=== PATIENT | female | born 1980 | race Hispanic/Latino ===

== ENCOUNTER 2018-09-23 16:22 | Emergency (ER) | payer SELFPAY ==
--- NOTE | 2018-09-23 17:27 | RAD REPORT ---
EXAM DESCRIPTION: CT - Head Brain Wo Cont - 09/23/2018 5:18 pm CLINICAL HISTORY: Persistent right-sided headache COMPARISON: None. TECHNIQUE: Axial 5 mm thick images of the head were obtained without IV contrast. All CT scans are performed using dose optimization technique as appropriate and may include automated exposure control or mA/KV adjustment according to patient size. FINDINGS: No intracranial hemorrhage, mass, edema or shift of mid-line structures. No acute infarcti on changes seen. No abnormal extra-axial fluid collections. Ventricles are normal. Mastoid air cells and visualized portions of the paranasal sinuses are clear. No acute bony findings. IMPRESSION: Negative non-contrast CT head examination.
[2018-09-23] MEDS ORDERED: KETOROLAC 30 MG/ML INJ ONE (17:44)
[2018-09-23] MEDS ORDERED: DIPHENHYDRAMINE 50 MG/ML VIAL ONE (17:44)
[2018-09-23] MEDS ORDERED: NA CHLORIDE 0.9% 1,000 ML ONE (17:44)
[2018-09-23] MEDS ORDERED: NA CHLORIDE 0.9% 50 ML IV ONE (17:44)
[2018-09-23] MEDS ORDERED: METOCLOPRAMIDE 10 MG/2mL INJ ONE (17:44)
[2018-09-23 17:49] LABS: Absolute Lymphocytes (CBC) 1.7 K/uL (0.7-4.9); Absolute Monocytes 0.3 K/uL (0.1-1.3); Basophils % 0.2 % (0-1.3); Eosinophils % 2.1 % (0-4.4); Hematocrit 34.3 % (36.0-45.0); Lymphocytes % 23.4 % (15.3-44.8); MPV 8.5 fL (7.6-11.3); RBC Red Blood Cell Count 4.19 M/uL (3.86-4.86)
[2018-09-23 18:01] LABS: ALT/SGPT 28 U/L (12-78); AST/SGOT 15 U/L (15-37); Albumin 3.1 g/dL (3.4-5.0); Alkaline Phosphatase 103 U/L (45-117); BUN Blood Urea Nitrogen 12 mg/dL (7-18); Bicarbonate 26 mmol/L (21-32); Bilirubin Total 0.3 mg/dL (0.2-1.0); Glucose Level 275 mg/dL (74-106); Potassium 3.6 mmol/L (3.5-5.1); Protein, Total 6.9 g/dL (6.4-8.2); Sodium Level 138 mmol/L (136-145)
[2018-09-23 20:32] LABS: Urine Blood NEGATIVE (NEG); Urine Glucose 3+ (NEG); Urine Protein NEGATIVE (NEG); Urine Specific Gravity 1.015 (1.005-1.030); Urine pH 5.5 (5.0-7.0)
--- NOTE | 2018-09-23 21:03 | ER ---
Nurse's Notes [facility] Name: Marisabel Landon Age: 38 yrs Sex: Female : 1980 Arrival Date: 09/23/2018 Time: 16:26 Bed 20 Private MD: None, None Diagnosis: Migraine without aura Presentation: 09/23 16:30 Presenting complaint: Patient states: headache to right synagogue that began yesterday. aa5 Reports nausea, denies vomiting. Pt reports she has been taking Amoxicillin since 09/03/18, pt states "they told me the antibiotics were for a bacteria in my stomach". 16:30 Transition of care: patient was not received from another setting of care. Onset of aa5 symptoms was August 2018. Risk Assessment: Do you want to hurt yourself or someone else? Patient reports no desire to harm self or others. Care prior to arrival: None. 16:30 Method Of Arrival: Wheelchair aa5 16:30 Acuity: JEYSON 3 aa5 16:50 Initial Sepsis Screen: Does the patient meet any 2 criteria? No. Patient's initial mg2 sepsis screen is negative. Does the patient have a suspected source of infection? No. Patient's initial sepsis screen is negative. Triage Assessment: 16:57 Headache History: The patient has had previous headaches and this one is similar to mg2 previous episodes. General: Behavior is calm, cooperative. Pain: Complains of pain in head Also complains of nausea. 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 - Social history:: Smoking status: Patient/guardian denies using tobacco, Patient/guardian denies using alcohol, street drugs, The patient lives with family. - Ebola Screening: : No symptoms or risks identified at this time. - Family history:: not pertinent. Screenin:45 Abuse screen: Denies threats or abuse. Denies injuries from another. Nutritional mg2 screening: No deficits noted. Tuberculosis screening: No symptoms or risk factors identified. Fall Risk None identified. Assessment: 16:43 General: Appears comfortable, Behavior is calm, cooperative. Pain: Complains of pain in mg2 head Pain does not radiate. Pain currently is 10 out of 10 on a pain scale. Quality of pain is described as aching, Pain began gradually, 1 day ago. Is intermittent. Neuro: Level of Consciousness is awake, alert, obeys commands, Oriented to person, place, time, situation. Cardiovascular: Capillary refill < 3 seconds Patient's skin is warm and dry. Respiratory: Airway is patent Respiratory effort is even, unlabored, Respiratory pattern is regular, symmetrical. GI: Reports nausea. : No signs and/or symptoms were reported regarding the genitourinary system. EENT: No signs and/or symptoms were reported regarding the EENT system. Derm: Skin is intact, is healthy with good turgor, Skin is pink, warm \\T\\ dry. normal. Musculoskeletal: Circulation, motion, and sensation intact. Capillary refill < 3 seconds. 19:05 General: Appears in no apparent distress. comfortable, Behavior is calm, cooperative, rr5 appropriate for age. Pain: Denies pain. Neuro: Level of Consciousness is awake, alert, obeys commands, Oriented to person, place, time, situation, Reports headache. Cardiovascular: Capillary refill < 3 seconds Patient's skin is warm and dry. 19:05 Respiratory: Airway is patent Respiratory effort is even, unlabored, Respiratory rr5 pattern is regular, symmetrical. GI: Reports nausea. : No signs and/or symptoms were reported regarding the genitourinary system. EENT: No signs and/or symptoms were reported regarding the EENT system. Derm: Skin is intact, is healthy with good turgor, Skin is pink, warm \\T\\ dry. normal. Musculoskeletal: Circulation, motion, and sensation intact. Capillary refill < 3 seconds. 20:15 Reassessment: Patient appears in no apparent distress at this time. Patient is alert, rr5 oriented x 3, equal unlabored respirations, skin warm/dry/pink. Patient states feeling better. Patient states symptoms have improved. 21:22 Reassessment: Patient appears in no apparent distress at this time. Patient is alert, rr5 oriented x 3, equal unlabored respirations, skin warm/dry/pink. discharge instruction given and explained without complaints made. Patient states feeling better. Patient states symptoms have improved. Vital Signs: 16:30 Weight 85.28 kg (R); Height 5 ft. 1 in. (154.94 cm) (R); Pain 10/10; aa5 16:41 BP 134 / 84; Pulse 79; Resp 18; Temp 97.8; Pulse Ox 100% on R/A; mg2 19:05 BP 131 / 80; Pulse 70; Resp 17; Temp 98; Pulse Ox 98% ; rr5 20:00 BP 130 / 83; Pulse 78; Resp 16; Pulse Ox 98% ; rr5 21:21 BP 127 / 78; Pulse 66; Resp 17; Pulse Ox 99% ; rr5 16:30 Body Mass Index 35.52 (85.28 kg, 154.94 cm) aa5 [place]leen Coma Score: 18:11 Eye Response: spontaneous(4). Verbal Response: oriented(5). Motor Response: obeys ma2 commands(6). Total: 15. ED Course: 16:26 Patient arrived in ED. mr 16:26 None, None is Private Physician. mr 16:30 Arm band placed on Patient placed in an exam room, on a stretcher. aa5 16:32 Nico Jesus RN is Primary Nurse. mg2 16:36 Triage completed. aa5 16:38 Aminata Bond MD is Attending Physician. ma2 16:45 No provider procedures requiring assistance completed. mg2 16:52 Patient has correct armband on for positive identification. mg2 17:[address] via wheelchair. vm2 17:16 CT completed. Patient tolerated procedure well. Patient moved back from CT. vm2 17:17 CT Head Brain wo Cont In Process Unspecified. EDMS 17:43 Inserted saline lock: 20 gauge in right antecubital area, using aseptic technique. mg2 Blood collected. 21:23 IV discontinued, intact, bleeding controlled, No redness/swelling at site. Pressure rr5 dressing applied. Administered Medications: 17:41 Drug: Benadryl 50 mg Route: IVP; Site: right antecubital; mg2 20:04 Follow up: Response: No adverse reaction; Marked relief of symptoms mg2 17:41 Drug: TORadol 30 mg Route: IVP; Site: left antecubital; mg2 20:03 Follow up: Response: No adverse reaction; Marked relief of symptoms mg2 17:42 Drug: NS 0.9% 1000 ml Route: IV; Rate: 1 bolus; Site: right antecubital; mg2 20:04 Follow up: Response: No adverse reaction; IV Status: Completed infusion mg2 17:42 Drug: Reglan 10 mg Route: IVP; Site: right antecubital; mg2 20:04 Follow up: Response: No adverse reaction; Marked relief of symptoms mg2 Point of Care Testing: Blood Glucose: 16:41 Blood Glucose: 207 mg/dL; mg2 Ranges: Outcome: 21:03 Discharge ordered by . [email or web address] 21:23 Discharged to home ambulatory, with family. rr5 21:23 Condition: stable 21:23 Discharge instructions given to patient, family, Instructed on discharge instructions, follow up and referral plans. medication usage, Demonstrated understanding of instructions, follow-up care, medications, Prescriptions given X 1. 21:25 Patient left the ED. rr5 Signatures: Dispatcher [employer] EDAR Bere Magallanes WaleSera, RN RN aa5 Sara Peter Mohammad, MD MD ma2 Nico Jesus RN RN mg2 Todd Causey RN RN rr5
--- NOTE | 2018-09-23 21:04 | EDPHYS ---
Physician Documentation [facility] Name: Marisabel Landon Age: 38 yrs Sex: Female : 1980 Arrival Date: 09/23/2018 Time: 16:26 Bed 20 Private MD: None, None ED Physician Aminata Bond HPI: 09/23 18:11 This 38 yrs old Female presents to ER via Wheelchair with complaints of ma2 Headache. 18:11 The patient complains of pain to the forehead. Onset: The symptoms/episode ma2 began/occurred gradually, 2 day(s) ago. Severity of symptoms: At its worst the pain was moderate, in the emergency department the pain has improved. Headache History: The patient has had previous headaches and this one is similar to previous episodes. The patient has experienced similar episodes in the past. 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 - Social history:: Smoking status: Patient/guardian denies using tobacco, Patient/guardian denies using alcohol, street drugs, The patient lives with family. - Ebola Screening: : No symptoms or risks identified at this time. - Family history:: not pertinent. ROS: 18:11 Constitutional: Negative for fever, chills, and weight loss. ma2 18:11 Neuro: Positive for headache, Negative for dizziness, gait disturbance, hearing loss, numbness, syncope, tremor, acute changes. 18:11 All other systems are negative. Exam: 18:11 Constitutional: This is a well developed, well nourished patient who is awake, alert, ma2 and in no acute distress. Chest/axilla: Normal chest wall appearance and motion. Nontender with no deformity. No lesions are appreciated. Cardiovascular: Regular rate and rhythm with a normal S1 and S2. No gallops, murmurs, or rubs. Normal PMI, no JVD. No pulse deficits. Respiratory: Lungs have equal breath sounds bilaterally, clear to auscultation and percussion. No rales, rhonchi or wheezes noted. No increased work of breathing, no retractions or nasal flaring. Abdomen/GI: Soft, non-tender, with normal bowel sounds. No distension or tympany. No guarding or rebound. No evidence of tenderness throughout. MS/ Extremity: Pulses equal, no cyanosis. Neurovascular intact. Full, normal range of motion. Neuro: Awake and alert, GCS 15, oriented to person, place, time, and situation. Cranial nerves II-XII grossly intact. Motor strength 5/5 in all extremities. Sensory grossly intact. Cerebellar exam normal. Normal gait. Vital Signs: 16:30 Weight 85.28 kg (R); Height 5 ft. 1 in. (154.94 cm) (R); Pain 10/10; aa5 16:41 BP 134 / 84; Pulse 79; Resp 18; Temp 97.8; Pulse Ox 100% on R/A; mg2 19:05 BP 131 / 80; Pulse 70; Resp 17; Temp 98; Pulse Ox 98% ; rr5 20:00 BP 130 / 83; Pulse 78; Resp 16; Pulse Ox 98% ; rr5 21:21 BP 127 / 78; Pulse 66; Resp 17; Pulse Ox 99% ; rr5 16:30 Body Mass Index 35.52 (85.28 kg, 154.94 cm) aa5 [place] Coma Score: 18:11 Eye Response: spontaneous(4). Verbal Response: oriented(5). Motor Response: obeys [facility] commands(6). Total: 15. MDM: 16:[address] [facility] 18:11 Differential diagnosis: hypoglycemia, hyponatremia, sinusitis, tension headache. me2 21:02 Data reviewed: vital signs, nurses notes. Counseling: I had a detailed discussion with ma2 the patient and/or guardian regarding: the historical points, exam findings, and any diagnostic results supporting the discharge/admit diagnosis, the presence of at least one elevated blood pressure reading (>120/80) during this emergency department visit, the need for outpatient follow up. Response to treatment: the patient's symptoms have markedly improved after treatment. 09/23 17:08 Order name: CBC with Diff; Complete Time: 19:31 [facility] 09/23 17:08 Order name: CMP; Complete Time: 19:31 [facility] 09/23 17:08 Order name: CT Head Brain wo Cont; Complete Time: : [facility] 09/23 19:56 Order name: Urine Dipstick--Ancillary (enter results) [facility] 09/23 19:56 Order name: Urine --Ancillary (enter results) [facility] 09/23 17:08 Order name: Urine Dipstick-Ancillary (obtain specimen); Complete Time: 19:49 ma2 Administered Medications: 17:41 Drug: Benadryl 50 mg Route: IVP; Site: right antecubital; mg2 20:04 Follow up: Response: No adverse reaction; Marked relief of symptoms mg2 17:41 Drug: TORadol 30 mg Route: IVP; Site: left antecubital; mg2 20:03 Follow up: Response: No adverse reaction; Marked relief of symptoms mg2 17:42 Drug: NS 0.9% 1000 ml Route: IV; Rate: 1 bolus; Site: right antecubital; mg2 20:04 Follow up: Response: No adverse reaction; IV Status: Completed infusion mg2 17:42 Drug: Reglan 10 mg Route: IVP; Site: right antecubital; mg2 20:04 Follow up: Response: No adverse reaction; Marked relief of symptoms mg2 Point of Care Testing: Blood Glucose: 16:41 Blood Glucose: 207 mg/dL; mg2 Ranges: Critical Glucose Levels:Adult <50 mg/dl or >400 mg/dl <40 mg/dl or >180 mg/dl Disposition: 09/23/18 21:03 Discharged to Home. Impression: Migraine without aura. - Condition is Stable. - Discharge Instructions: Migraine Headache. - Prescriptions for Reglan 10 mg Oral Tablet - take 1 tablet by ORAL route every 6 hours take 30 minutes before meals and at bedtime; 20 tablet. - Medication Reconciliation Form, Thank You Letter, Antibiotic Education, Prescription Opioid Use form. - Follow up: Private Physician; When: Tomorrow; Reason: Continuance of care. Signatures: Dispatcher [employer] EDMS Sera Echevarria RN RN aa5 Aminata Bond MD MD ma2 Nico Jesus RN RN mg2 Todd Causey RN RN rr5 Corrections: (The following items were deleted from the chart) 21:25 21:03 09/23/2018 21:03 Discharged to Home. Impression: Migraine without aura. Condition rr5 is Stable. Forms are Medication Reconciliation Form, Thank You Letter, Antibiotic Education, Prescription Opioid Use. Follow up: Private Physician; When: Tomorrow; Reason: Continuance of care. ma2
== END 2018-09-23 21:25 | disposition home or self-care (01) ==
LOC: ER 16:22
DX: G43.009 Migraine without aura, not intractable, without status migrainosus (principal); I10 Essential (primary) hypertension
CPT/HCPCS: 36415; 70450; 80053; 81003; 81025; 82962; 85025; 99284; J2765; J7030

== ENCOUNTER 2023-05-18 10:16 | Observation (INO) | payer SELFPAY ==
--- OUTSIDE RECORDS SUMMARY | 2023-05-18 10:27 | XMS REPORT | Continuity of Care Document ---
:1980 Author Organization [facility] t Address [address] [place] [address] Care Team Providers Name Role Phone Randa Nair Primary Care Physician [phone] Problems This patient has no known problems. Allergies, Adverse Reactions, Alerts This patient has no known allergies or adverse reactions. Medications Ordered Filled Start Stop Current Ordering Indication Dosage Frequency Signature Comments Components Source Medication Medication Date Date Medication? Clinician (SIG) Name Name ROCHELLE FAHAD No TABLETA 8-18 ORALMENTE 00:00: CADA KRISTOPHER AL 00 ACOSTARSE WILY SEA NECESARIO PARA ESPASMOS MUSCULARES ROCHELLE FAHAD 0 No 5 TABLETA 8-18 ORALMENTE 00:00: MARVIN VECES 00 AL KRISTOPHER WILY SEA NECESARIO PARA ESPASMOS MUSCULARES ROCHELLE FAHAD 0 No 5 TABLETA 8-18 ORALMENTE 00:00: MARVIN VECES 00 AL KRISTOPHER WILY SEA NECESARIO PARA ESPASMOS MUSCULARES TAKE No 600 TABLET 7-22 TWICE 00:00: DAILY. 00 25 UNITS AT 2021-0 No 100 NIGHT SC 7-22 00:00: 00 TAKE 2021-0 No 600 TABLET 7-22 TWICE 00:00: DAILY. 00 25 UNITS AT 2021-0 No 100 NIGHT SC 7-22 00:00: 00 TAKE 2021-0 No 600 TABLET 7-22 TWICE 00:00: DAILY. 00 25 UNITS AT 2021-0 No 100 NIGHT SC 7-22 00:00: 00 TAKE 0 No 600 TABLET 7-22 TWICE 00:00: DAILY. 00 25 UNITS AT 2021-0 No 100 NIGHT SC 7-22 00:00: 00 Janumet 50 0 No 1mg mg-1,000 mg 3-28 tablet 00:00: 00 Dose 2022-0 No Unknown 3-28 00:00: 00 Janumet 50 2-0 No 1mg mg-1,000 mg 3-28 tablet 00:00: 00 Dose 2022-0 No Unknown 3-28 00:00: 00 Janumet 50 2022-0 No 1mg mg-1,000 mg 3-28 tablet 00:00: 00 Dose 2022-0 No Unknown 3-28 00:00: 00 Janumet 50 2022-0 No 1mg mg-1,000 mg 3-28 tablet 00:00: 00 Dose 2022-0 No Unknown 3-28 00:00: 00 Dose 2022-0 No Unknown 3-08 00:00: 00 Dose 2022-0 No Unknown 3-08 00:00: 00 Dose 2022-0 No Unknown 3-08 00:00: 00 Dose 2022-0 No Unknown 3-08 00:00: 00 Dose 2022-0 No Unknown 3-08 00:00: 00 Dose 2022-0 No Unknown 3-08 00:00: 00 Dose 2022-0 No Unknown 3-08 00:00: 00 Dose 2022-0 No Unknown 3-08 00:00: 00 Levemir 2-0 No (3 mL) FlexTouch 3-07 U-100 00:00: Insulin 100 00 unit/mL (3 mL) subcutaneou s pen Levemir 2-0 No (3 mL) FlexTouch 3-07 U-100 00:00: Insulin 100 00 unit/mL (3 mL) subcutaneou s pen Levemir 2-0 No (3 mL) FlexTouch 3-07 U-100 00:00: Insulin 100 00 unit/mL (3 mL) subcutaneou s pen Levemir 2022-0 No (3 mL) FlexTouch 3-07 U-100 00:00: Insulin 100 00 unit/mL (3 mL) subcutaneou s pen penicillin 1-1 No 1mg V potassium 2-07 500 mg 00:00: tablet 00 benzonatate 2020-1 No 1mg 100 mg 2-07 capsule 00:00: 00 penicillin 1-1 No 1mg V potassium 2-07 500 mg 00:00: tablet 00 benzonatate 2021-1 No 1mg 100 mg 2-07 capsule 00:00: 00 penicillin 2020- No 1mg V potassium 2-07 500 mg 00:00: tablet 00 benzonatate 2020-07 No 1mg 100 mg 2-07 capsule 00:00: 00 penicillin 2020- No 1mg V potassium 2-07 500 mg 00:00: tablet 00 benzonatate 2020-07 No 1mg 100 mg 2-07 capsule 00:00: 00 diclofenac 2020-07 No 1% 1 % topical 1-15 gel 00:00: 00 Levemir 2020-07 No (3 mL) FlexTouch 1-15 U-100 00:00: Insulin 100 00 unit/mL (3 mL) subcutaneou s pen metformin 2020-07 No 1mg 850 mg 1-15 tablet 00:00: 00 gemfibrozil 2020-07 No 1mg 600 mg 1-15 tablet 00:00: 00 diclofenac 2020-07 No 1% 1 % topical 1-15 gel 00:00: 00 Levemir 2020-07 No (3 mL) FlexTouch 1-15 U-100 00:00: Insulin 100 00 unit/mL (3 mL) subcutaneou s pen metformin 2020-07 No 1mg 850 mg 1-15 tablet 00:00: 00 gemfibrozil 2020-07 No 1mg 600 mg 1-15 tablet 00:00: 00 diclofenac 2020-07 No 1% 1 % topical 1-15 gel 00:00: 00 Levemir 2020-07 No (3 mL) FlexTouch 1-15 U-100 00:00: Insulin 100 00 unit/mL (3 mL) subcutaneou s pen metformin 2020- No 1mg 850 mg 1-15 tablet 00:00: 00 gemfibrozil 2020- No 1mg 600 mg 1-15 tablet 00:00: 00 diclofenac 2020- No 1% 1 % topical 1-15 gel 00:00: 00 Levemir 2020-07 No (3 mL) FlexTouch 1-15 U-100 00:00: Insulin 100 00 unit/mL (3 mL) subcutaneou s pen metformin 2020- No 1mg 850 mg 1-15 tablet 00:00: 00 gemfibrozil 2020-1 No 1mg 600 mg 1-15 tablet 00:00: 00 cholecalcif 2021-0 No 1(50,00 shakila 6-29 0 unit) (vitamin 00:00: D3) 1,250 00 mcg (50,000 unit) tablet cholecalcif 1-0 No 1(50,00 shakila 6-29 0 unit) (vitamin 00:00: D3) 1,250 00 mcg (50,000 unit) tablet cholecalcif 2021-0 No 1(50,00 shakila 6-29 0 unit) (vitamin 00:00: D3) 1,250 00 mcg (50,000 unit) tablet cholecalcif 1-0 No 1(50,00 shakila 6-29 0 unit) (vitamin 00:00: D3) 1,250 00 mcg (50,000 unit) tablet Levemir 1-0 No (3 mL) FlexTouch 6-28 U-100 00:00: Insulin 100 00 unit/mL (3 mL) subcutaneou s pen gemfibrozil 2021-0 No 1mg 600 mg 6-28 tablet 00:00: 00 metformin 2021-0 No 1mg 850 mg 6-28 tablet 00:00: 00 Levemir 2021-0 No (3 mL) FlexTouch 6-28 U-100 00:00: Insulin 100 00 unit/mL (3 mL) subcutaneou s pen gemfibrozil 2021-0 No 1mg 600 mg 6-28 tablet 00:00: 00 metformin 2021-0 No 1mg 850 mg 6-28 tablet 00:00: 00 Levemir 2021-0 No (3 mL) FlexTouch 6-28 U-100 00:00: Insulin 100 00 unit/mL (3 mL) subcutaneou s pen gemfibrozil 2021-0 No 1mg 600 mg 6-28 tablet 00:00: 00 metformin 2021-0 No 1mg 850 mg 6-28 tablet 00:00: 00 Levemir 2021-0 No (3 mL) FlexTouch 6-28 U-100 00:00: Insulin 100 00 unit/mL (3 mL) subcutaneou s pen gemfibrozil 2021-0 No 1mg 600 mg 6-28 tablet 00:00: 00 metformin 2021-0 No 1mg 850 mg 6-28 tablet 00:00: 00 Levemir 2021-0 No 12(3 FlexTouch 4-07 mL) U-100 00:00: Insulin 100 00 unit/mL (3 mL) subcutaneou s pen metformin 2021-0 No 1mg 850 mg 4-07 tablet 00:00: 00 gemfibrozil 2021-0 No 1mg 600 mg 4-07 tablet 00:00: 00 Levemir 2021-0 No 12(3 FlexTouch 4-07 mL) U-100 00:00: Insulin 100 00 unit/mL (3 mL) subcutaneou s pen metformin 2021-0 No 1mg 850 mg 4-07 tablet 00:00: 00 gemfibrozil 2021-0 No 1mg 600 mg 4-07 tablet 00:00: 00 Levemir 2021-0 No 12(3 FlexTouch 4-07 mL) U-100 00:00: Insulin 100 00 unit/mL (3 mL) subcutaneou s pen metformin 2021-0 No 1mg 850 mg 4-07 tablet 00:00: 00 gemfibrozil 2021-0 No 1mg 600 mg 4-07 tablet 00:00: 00 Levemir 2021-0 No 12(3 FlexTouch 4-07 mL) U-100 00:00: Insulin 100 00 unit/mL (3 mL) subcutaneou s pen metformin 2021-0 No 1mg 850 mg 4-07 tablet 00:00: 00 gemfibrozil 2021-0 No 1mg 600 mg 4-07 tablet 00:00: 00 Augmentin 2021-0 No 1mg 500 mg-125 2-16 mg tablet 00:00: 00 Augmentin 2021-0 No 1mg 500 mg-125 2-16 mg tablet 00:00: 00 Augmentin 2021-0 No 1mg 500 mg-125 2-16 mg tablet 00:00: 00 Augmentin 2021-0 No 1mg 500 mg-125 2-16 mg tablet 00:00: 00 Vitamin D2 2021-0 No 1(50,00 1,250 mcg 1-20 0 unit) (50,000 00:00: unit) 00 capsule Vitamin D2 2021-0 No 1(50,00 1,250 mcg 1-20 0 unit) (50,000 00:00: unit) 00 capsule Vitamin D2 2020-0 No 1(50,00 1,250 mcg 1-20 0 unit) (50,000 00:00: unit) 00 capsule Vitamin D2 2020-0 No 1(50,00 1,250 mcg 1-20 0 unit) (50,000 00:00: unit) 00 capsule Levemir 2019-1 No 12(3 FlexTouch 2-14 mL) U-100 00:00: Insulin 100 00 unit/mL (3 mL) subcutaneou s pen gemfibrozil 2019-1 No 1mg 600 mg 2-14 tablet 00:00: 00 metformin 2020-1 No 1mg 850 mg 2-14 tablet 00:00: 00 Levemir 2020-1 No 12(3 FlexTouch 2-14 mL) U-100 00:00: Insulin 100 00 unit/mL (3 mL) subcutaneou s pen gemfibrozil 2020-1 No 1mg 600 mg 2-14 tablet 00:00: 00 metformin 2020-1 No 1mg 850 mg 2-14 tablet 00:00: 00 Levemir 2020-1 No 12(3 FlexTouch 2-14 mL) U-100 00:00: Insulin 100 00 unit/mL (3 mL) subcutaneou s pen gemfibrozil 2019-1 No 1mg 600 mg 2-14 tablet 00:00: 00 metformin 2020-1 No 1mg 850 mg 2-14 tablet 00:00: 00 Levemir 2020-1 No 12(3 FlexTouch 2-14 mL) U-100 00:00: Insulin 100 00 unit/mL (3 mL) subcutaneou s pen gemfibrozil 2020-1 No 1mg 600 mg 2-14 tablet 00:00: 00 metformin 2020-1 No 1mg 850 mg 2-14 tablet 00:00: 00 Levemir 2020-0 No 10(3 FlexTouch 7-02 mL) U-100 00:00: Insulin 100 00 unit/mL (3 mL) subcutaneou s pen diclofenac 2020-0 No 1% 3 % topical 7-02 gel 00:00: 00 gemfibrozil 2020-0 No 1mg 600 mg 7-02 tablet 00:00: 00 metformin 2020-0 No 1mg 850 mg 7-02 tablet 00:00: 00 Levemir 2020-0 No 10(3 FlexTouch 7-02 mL) U-100 00:00: Insulin 100 00 unit/mL (3 mL) subcutaneou s pen diclofenac 2020-0 No 1% 3 % topical 7-02 gel 00:00: 00 gemfibrozil 2020-0 No 1mg 600 mg 7-02 tablet 00:00: 00 metformin 2020-0 No 1mg 850 mg 7-02 tablet 00:00: 00 Levemir 2020-0 No 10(3 FlexTouch 7-02 mL) U-100 00:00: Insulin 100 00 unit/mL (3 mL) subcutaneou s pen diclofenac 2020-0 No 1% 3 % topical 7-02 gel 00:00: 00 gemfibrozil 2020-0 No 1mg 600 mg 7-02 tablet 00:00: 00 metformin 2020-0 No 1mg 850 mg 7-02 tablet 00:00: 00 Levemir 2020-0 No 10(3 FlexTouch 7-02 mL) U-100 00:00: Insulin 100 00 unit/mL (3 mL) subcutaneou s pen diclofenac 2020-0 No 1% 3 % topical 7-02 gel 00:00: 00 gemfibrozil 2020-0 No 1mg 600 mg 7-02 tablet 00:00: 00 metformin 2020-0 No 1mg 850 mg 7-02 tablet 00:00: 00 Levemir 2020-0 No 10(3 FlexTouch 3-10 mL) U-100 00:00: Insulin 100 00 unit/mL (3 mL) subcutaneou s pen gemfibrozil 2020-0 No 1mg 600 mg 3-10 tablet 00:00: 00 propranolol 2020-0 No 1mg 10 mg 3-10 tablet 00:00: 00 omeprazole 2020-0 No 1mg 20 mg 3-10 capsule,del 00:00: ayed 00 release Vitamin D2 2020-0 No 1(50,00 1,250 mcg 3-10 0 unit) (50,000 00:00: unit) 00 capsule Levemir 2020-0 No 10(3 FlexTouch 3-10 mL) U-100 00:00: Insulin 100 00 unit/mL (3 mL) subcutaneou s pen gemfibrozil 2020-0 No 1mg 600 mg 3-10 tablet 00:00: 00 propranolol 2020-0 No 1mg 10 mg 3-10 tablet 00:00: 00 omeprazole 2020-0 No 1mg 20 mg 3-10 capsule,del 00:00: ayed 00 release Vitamin D2 2020-0 No 1(50,00 1,250 mcg 3-10 0 unit) (50,000 00:00: unit) 00 capsule Levemir 2020-0 No 10(3 FlexTouch 3-10 mL) U-100 00:00: Insulin 100 00 unit/mL (3 mL) subcutaneou s pen gemfibrozil 2020-0 No 1mg 600 mg 3-10 tablet 00:00: 00 propranolol 2020-0 No 1mg 10 mg 3-10 tablet 00:00: 00 omeprazole 2020-0 No 1mg 20 mg 3-10 capsule,del 00:00: ayed 00 release Vitamin D2 2020-0 No 1(50,00 1,250 mcg 3-10 0 unit) (50,000 00:00: unit) 00 capsule Levemir 2020-0 No 10(3 FlexTouch 3-10 mL) U-100 00:00: Insulin 100 00 unit/mL (3 mL) subcutaneou s pen gemfibrozil 2020-0 No 1mg 600 mg 3-10 tablet 00:00: 00 propranolol 2020-0 No 1mg 10 mg 3-10 tablet 00:00: 00 omeprazole 2020-0 No 1mg 20 mg 3-10 capsule,del 00:00: ayed 00 release Vitamin D2 2020-0 No 1(50,00 1,250 mcg 3-10 0 unit) (50,000 00:00: unit) 00 capsule Levemir 2020-0 No 10(3 FlexTouch 2-12 mL) U-100 00:00: Insulin 100 00 unit/mL (3 mL) subcutaneou s pen gemfibrozil 2020-0 No 1mg 600 mg 2-12 tablet 00:00: 00 Levemir 2020-0 No 10(3 FlexTouch 2-12 mL) U-100 00:00: Insulin 100 00 unit/mL (3 mL) subcutaneou s pen gemfibrozil 2020-0 No 1mg 600 mg 2-12 tablet 00:00: 00 Levemir 2020-0 No 10(3 FlexTouch 2-12 mL) U-100 00:00: Insulin 100 00 unit/mL (3 mL) subcutaneou s pen gemfibrozil 2020-0 No 1mg 600 mg 2-12 tablet 00:00: 00 Levemir 2020-0 No 10(3 FlexTouch 2-12 mL) U-100 00:00: Insulin 100 00 unit/mL (3 mL) subcutaneou s pen gemfibrozil 2020-0 No 1mg 600 mg 2-12 tablet 00:00: 00 gemfibrozil 2019-1 No 1mg 600 mg 2-21 tablet 00:00: 00 gemfibrozil 2019-1 No 1mg 600 mg 2-21 tablet 00:00: 00 gemfibrozil 2019-1 No 1mg 600 mg 2-21 tablet 00:00: 00 gemfibrozil 2019-1 No 1mg 600 mg 2-21 tablet 00:00: 00 Levemir 2018- No 10(3 FlexTouch 2-18 mL) U-100 00:00: Insulin 100 00 unit/mL (3 mL) subcutaneou s pen terbinafine 2018- No 1% HCl 1 % 2-18 topical 00:00: cream losartan 2018-07 No 1mg mg tablet 2-18 00:00: 00 metformin 2018-1 No 1mg 850 mg 2-18 tablet 00:00: 00 atorvastati 2018-07 No 1mg n 40 mg 2-18 tablet 00:00: 00 Levemir 2018-07 No 10(3 FlexTouch 2-18 mL) U-100 00:00: Insulin 100 00 unit/mL (3 mL) subcutaneou s pen terbinafine 2018- No 1% HCl 1 % 2-18 topical 00:00: cream losartan 2018-07 No 1mg mg tablet 2-18 00:00: 00 metformin 2018-1 No 1mg 850 mg 2-18 tablet 00:00: 00 atorvastati 2018-1 No 1mg n 40 mg 2-18 tablet 00:00: 00 Levemir 2018- No 10(3 FlexTouch 2-18 mL) U-100 00:00: Insulin 100 00 unit/mL (3 mL) subcutaneou s pen terbinafine 2018-07 No 1% HCl 1 % 2-18 topical 00:00: cream losartan 2018-07 No 1mg mg tablet 2-18 00:00: 00 metformin 2018-1 No 1mg 850 mg 2-18 tablet 00:00: 00 atorvastati 2018-1 No 1mg n 40 mg 2-18 tablet 00:00: 00 Levemir 2018-1 No 10(3 FlexTouch 2-18 mL) U-100 00:00: Insulin 100 00 unit/mL (3 mL) subcutaneou s pen terbinafine 2018- No 1% HCl 1 % 2-18 topical 00:00: cream 00 losartan 2018- No 1mg mg tablet 2-18 00:00: 00 metformin 2018-1 No 1mg 850 mg 2-18 tablet 00:00: 00 atorvastati 2018- No 1mg n 40 mg 2-18 tablet 00:00: 00 nystatin 2018- No 1unit/g 100,000 0-07 jose f unit/gram 00:00: topical 00 ointment Diflucan 2018- No 1mg 150 mg 0-07 tablet 00:00: 00 nystatin 2018- No 1unit/g 100,000 0-07 jose f unit/gram 00:00: topical 00 ointment Diflucan 2018- No 1mg 150 mg 0-07 tablet 00:00: 00 nystatin 2018- No 1unit/g 100,000 0-07 jose f unit/gram 00:00: topical 00 ointment Diflucan 2018- No 1mg 150 mg 0-07 tablet 00:00: 00 nystatin 2018- No 1unit/g 100,000 0-07 jose f unit/gram 00:00: topical 00 ointment Diflucan 2018- No 1mg 150 mg 0-07 tablet 00:00: 00 metformin 2019-0 No 1mg 850 mg 7-01 tablet 00:00: 00 metformin 2019-0 No 1mg 850 mg 7-01 tablet 00:00: 00 metformin 2019-0 No 1mg 850 mg 7-01 tablet 00:00: 00 metformin 2019-0 No 1mg 850 mg 7-01 tablet 00:00: 00 losartan 2018-0 No 1mg mg tablet 6-25 00:00: 00 metformin 2019-0 No 1mg 500 mg 6-25 tablet 00:00: 00 atorvastati 2018-0 No 1mg n 40 mg 6-25 tablet 00:00: 00 losartan 25 2019-0 No 1mg mg tablet 6-25 00:00: 00 metformin 2019-0 No 1mg 500 mg 6-25 tablet 00:00: 00 atorvastati 2019-0 No 1mg n 40 mg 6-25 tablet 00:00: 00 losartan 25 2019-0 No 1mg mg tablet 6-25 00:00: 00 metformin 2019-0 No 1mg 500 mg 6-25 tablet 00:00: 00 atorvastati 2019-0 No 1mg n 40 mg 6-25 tablet 00:00: 00 losartan 25 2019-0 No 1mg mg tablet 6-25 00:00: 00 metformin 2019-0 No 1mg 500 mg 6-25 tablet 00:00: 00 atorvastati 2019-0 No 1mg n 40 mg 6-25 tablet 00:00: 00 clarithromy 2019-0 No 2mg elli 250 mg 2-05 tablet 00:00: 00 cyclobenzap 2019-0 No 1mg rine 10 mg 2-05 tablet 00:00: 00 clarithromy 2019-0 No 2mg elli 250 mg 2-05 tablet 00:00: 00 prednisone 2019-0 No mg 20 mg 2-05 tablet 00:00: 00 omeprazole 2019-0 No 1mg 20 mg 2-05 capsule,del 00:00: ayed 00 release amoxicillin 2019-0 No 2mg 500 mg 2-05 capsule 00:00: 00 omeprazole 2019-0 No 1mg 20 mg 2-05 capsule,del 00:00: ayed 00 release clarithromy 2019-0 No 2mg elli 250 mg 2-05 tablet 00:00: 00 cyclobenzap 2019-0 No 1mg rine 10 mg 2-05 tablet 00:00: 00 clarithromy 2019-0 No 2mg elli 250 mg 2-05 tablet 00:00: 00 clarithromy 2019-0 No 2mg elli 250 mg 2-05 tablet 00:00: 00 cyclobenzap 2019-0 No 1mg rine 10 mg 2-05 tablet 00:00: 00 clarithromy 2019-0 No 2mg elli 250 mg 2-05 tablet 00:00: 00 prednisone 2019-0 No mg 20 mg 2-05 tablet 00:00: 00 omeprazole 2019-0 No 1mg 20 mg 2-05 capsule,del 00:00: ayed 00 release amoxicillin 2019-0 No 2mg 500 mg 2-05 capsule 00:00: 00 prednisone 2019-0 No mg 20 mg 2-05 tablet 00:00: 00 omeprazole 2019-0 No 1mg 20 mg 2-05 capsule,del 00:00: ayed 00 release omeprazole 2019-0 No 1mg 20 mg 2-05 capsule,del 00:00: ayed 00 release amoxicillin 2019-0 No 2mg 500 mg 2-05 capsule 00:00: 00 omeprazole 2019-0 No 1mg 20 mg 2-05 capsule,del 00:00: ayed 00 release clarithromy 2019-0 No 2mg elli 250 mg 2-05 tablet 00:00: 00 cyclobenzap 2019-0 No 1mg rine 10 mg 2-05 tablet 00:00: 00 clarithromy 2019-0 No 2mg elli 250 mg 2-05 tablet 00:00: 00 prednisone 2019-0 No mg 20 mg 2-05 tablet 00:00: 00 omeprazole 2019-0 No 1mg 20 mg 2-05 capsule,del 00:00: ayed 00 release amoxicillin 2019-0 No 2mg 500 mg 2-05 capsule 00:00: 00 omeprazole 2019-0 No 1mg 20 mg 2-05 capsule,del 00:00: ayed 00 release metformin 2019-0 No 1mg 500 mg 1-04 tablet 00:00: 00 sulfamethox 2019-0 No 1mg azole 800 1-04 mg-trimetho 00:00: prim 160 mg 00 tablet Vitamin D2 2019-0 No 1unit 50,000 unit 1-04 capsule 00:00: 00 metformin 2019-0 No 1mg 500 mg 1-04 tablet 00:00: 00 sulfamethox 2019-0 No 1mg azole 800 1-04 mg-trimetho 00:00: prim 160 mg 00 tablet Vitamin D2 2019-0 No 1unit 50,000 unit 1-04 capsule 00:00: 00 metformin 2019-0 No 1mg 500 mg 1-04 tablet 00:00: 00 sulfamethox 2019-0 No 1mg azole 800 1-04 mg-trimetho 00:00: prim 160 mg 00 tablet Vitamin D2 2019-0 No 1unit 50,000 unit 1-04 capsule 00:00: 00 metformin 2019-0 No 1mg 500 mg 1-04 tablet 00:00: 00 sulfamethox 2019-0 No 1mg azole 800 1-04 mg-trimetho 00:00: prim 160 mg 00 tablet Vitamin D2 2019-0 No 1unit 50,000 unit 1-04 capsule 00:00: 00 cyclobenzap 2019-0 No 1mg rine 10 mg 1-02 tablet 00:00: 00 prednisone 2019-0 No mg 20 mg 1-02 tablet 00:00: 00 cyclobenzap 2019-0 No 1mg rine 10 mg 1-02 tablet 00:00: 00 prednisone 2019-0 No mg 20 mg 1-02 tablet 00:00: 00 cyclobenzap 2019-0 No 1mg rine 10 mg 1-02 tablet 00:00: 00 prednisone 2019-0 No mg 20 mg 1-02 tablet 00:00: 00 cyclobenzap 2019-0 No 1mg rine 10 mg 1-02 tablet 00:00: 00 prednisone 2019-0 No mg 20 mg 1-02 tablet 00:00: 00 fluticasone 2018-0 No 12mcg/a 50 7-10 ctuatio mcg/actuati 00:00: n on nasal 00 spray,suspe nsion fluticasone 2018-0 No 12mcg/a 50 7-10 ctuatio mcg/actuati 00:00: n on nasal 00 spray,suspe nsion fluticasone 2018-0 No 12mcg/a 50 7-10 ctuatio mcg/actuati 00:00: n on nasal 00 spray,suspe nsion fluticasone 2018-0 No 12mcg/a 50 7-10 ctuatio mcg/actuati 00:00: n on nasal 00 spray,suspe nsion lisinopril 2018-0 No 1mg 2.5 mg 1-04 tablet 00:00: 00 citalopram 2018-0 No 1mg 40 mg 1-04 tablet 00:00: 00 metformin 2018-0 No 1mg 500 mg 1-04 tablet 00:00: 00 lisinopril 2018-0 No 1mg 2.5 mg 1-04 tablet 00:00: 00 citalopram 2018-0 No 1mg 40 mg 1-04 tablet 00:00: 00 metformin 2018-0 No 1mg 500 mg 1-04 tablet 00:00: 00 lisinopril 2018-0 No 1mg 2.5 mg 1-04 tablet 00:00: 00 citalopram 2018-0 No 1mg 40 mg 1-04 tablet 00:00: 00 metformin 2018-0 No 1mg 500 mg 1-04 tablet 00:00: 00 lisinopril 2018-0 No 1mg 2.5 mg 1-04 tablet 00:00: 00 citalopram 2018-0 No 1mg 40 mg 1-04 tablet 00:00: 00 metformin 2018-0 No 1mg 500 mg 1-04 tablet 00:00: 00 metformin 2017-0 No 1mg 500 mg 5-23 tablet 00:00: 00 lovastatin 2017-0 No 2mg 20 mg 5-23 tablet 00:00: 00 metformin 2017-0 No 1mg 500 mg 5-23 tablet 00:00: 00 lovastatin 2017-0 No 2mg 20 mg 5-23 tablet 00:00: 00 metformin 2017-0 No 1mg 500 mg 5-23 tablet 00:00: 00 lovastatin 2017-0 No 2mg 20 mg 5-23 tablet 00:00: 00 metformin 2017-0 No 1mg 500 mg 5-23 tablet 00:00: 00 lovastatin 2017-0 No 2mg 20 mg 5-23 tablet 00:00: 00 metformin 2016-1 No 1mg 500 mg 1-02 tablet 00:00: 00 lovastatin 2016-1 No 2mg 20 mg 1-02 tablet 00:00: 00 metformin 2016-1 No 1mg 500 mg 1-02 tablet 00:00: 00 lovastatin 2016-1 No 2mg 20 mg 1-02 tablet 00:00: 00 metformin 2016-1 No 1mg 500 mg 1-02 tablet 00:00: 00 lovastatin 2016-1 No 2mg 20 mg 1-02 tablet 00:00: 00 metformin 2016-1 No 1mg 500 mg 1-02 tablet 00:00: 00 lovastatin 2016-1 No 2mg 20 mg 1-02 tablet 00:00: 00 metformin 2016-0 No 1mg 500 mg 4-19 tablet 00:00: 00 metformin 2016-0 No 1mg 500 mg 4-19 tablet 00:00: 00 lovastatin 2016-0 No 2mg 20 mg 4-19 tablet 00:00: 00 lovastatin 2016-0 No 2mg 20 mg 4-19 tablet 00:00: 00 metformin 2015-0 No 1mg 500 mg 4-19 tablet 00:00: 00 metformin 2016-0 No 1mg 500 mg 4-19 tablet 00:00: 00 lovastatin 2016-0 No 2mg 20 mg 4-19 tablet 00:00: 00 lovastatin 2016-0 No 2mg 20 mg 4-19 tablet 00:00: 00 metformin 2016-0 No 1mg 500 mg 4-19 tablet 00:00: 00 metformin 2016-0 No 1mg 500 mg 4-19 tablet 00:00: 00 lovastatin 2016-0 No 2mg 20 mg 4-19 tablet 00:00: 00 lovastatin 2016-0 No 2mg 20 mg 4-19 tablet 00:00: 00 metformin 2016-0 No 1mg 500 mg 4-19 tablet 00:00: 00 metformin 2016-0 No 1mg 500 mg 4-19 tablet 00:00: 00 lovastatin 2016-0 No 2mg 20 mg 4-19 tablet 00:00: 00 lovastatin 2016-0 No 2mg 20 mg 4-19 tablet 00:00: 00 metformin 2015-0 No 1mg 500 mg 9-23 tablet 00:00: 00 naproxen 2015-0 No 1mg 500 mg 9-23 tablet 00:00: 00 lovastatin 2015-0 No 2mg 20 mg 9-23 tablet 00:00: 00 metformin 2015-0 No 1mg 500 mg 9-23 tablet 00:00: 00 naproxen 2015-0 No 1mg 500 mg 9-23 tablet 00:00: 00 lovastatin 2015-0 No 2mg 20 mg 9-23 tablet 00:00: 00 metformin 2015-0 No 1mg 500 mg 9-23 tablet 00:00: 00 naproxen 2015-0 No 1mg 500 mg 9-23 tablet 00:00: 00 lovastatin 2015-0 No 2mg 20 mg 9-23 tablet 00:00: 00 metformin 2015-0 No 1mg 500 mg 9-23 tablet 00:00: 00 naproxen 2015-0 No 1mg 500 mg 9-23 tablet 00:00: 00 lovastatin 2015-0 No 2mg 20 mg 9-23 tablet 00:00: 00 citalopram 2015-0 No 1mg 40 mg 8-13 tablet 00:00: 00 metformin 2015-0 No 1mg 500 mg 8-13 tablet 00:00: 00 citalopram 2015-0 No 1mg 40 mg 8-13 tablet 00:00: 00 naproxen 2015-0 No 1mg 500 mg 8-13 tablet 00:00: 00 lovastatin 2015-0 No 2mg 20 mg 8-13 tablet 00:00: 00 naproxen 2015-0 No 1mg 500 mg 8-13 tablet 00:00: 00 lovastatin 2015-0 No 2mg 20 mg 8-13 tablet 00:00: 00 metformin 2015-0 No 1mg 500 mg 8-13 tablet 00:00: 00 citalopram 2015-0 No 1mg 40 mg 8-13 tablet 00:00: 00 naproxen 2015-0 No 1mg 500 mg 8-13 tablet 00:00: 00 lovastatin 2015-0 No 2mg 20 mg 8-13 tablet 00:00: 00 metformin 2015-0 No 1mg 500 mg 8-13 tablet 00:00: 00 citalopram 2015-0 No 1mg 40 mg 8-13 tablet 00:00: 00 naproxen 2015-0 No 1mg 500 mg 8-13 tablet 00:00: 00 lovastatin 2015-0 No 2mg 20 mg 8-13 tablet 00:00: 00 metformin 2015-0 No 1mg 500 mg 8-13 tablet 00:00: 00 fluticasone 2015-0 No 12mcg/a 50 5-12 ctuatio mcg/actuati 00:00: n on nasal 00 spray,suspe nsion fluticasone 2015-0 No 12mcg/a 50 5-12 ctuatio mcg/actuati 00:00: n on nasal 00 spray,suspe nsion fluticasone 2015-0 No 12mcg/a 50 5-12 ctuatio mcg/actuati 00:00: n on nasal 00 spray,suspe nsion fluticasone 2015-0 No 12mcg/a 50 5-12 ctuatio mcg/actuati 00:00: n on nasal 00 spray,suspe nsion metformin 2015-0 No 1mg 500 mg 3-17 tablet 00:00: 00 lovastatin 2015-0 No 1mg 20 mg 3-17 tablet 00:00: 00 lovastatin 2015-0 No 2mg 20 mg 3-17 tablet 00:00: 00 metformin 2015-0 No 1mg 500 mg 3-17 tablet 00:00: 00 lovastatin 2015-0 No 1mg 20 mg 3-17 tablet 00:00: 00 lovastatin 2015-0 No 2mg 20 mg 3-17 tablet 00:00: 00 metformin 2015-0 No 1mg 500 mg 3-17 tablet 00:00: 00 lovastatin 2015-0 No 1mg 20 mg 3-17 tablet 00:00: 00 metformin 2015-0 No 1mg 500 mg 3-17 tablet 00:00: 00 lovastatin 2015-0 No 1mg 20 mg 3-17 tablet 00:00: 00 lovastatin 2015-0 No 2mg 20 mg 3-17 tablet 00:00: 00 lovastatin 2015-0 No 2mg 20 mg 3-17 tablet 00:00: 00 citalopram 2015-0 No 1mg 40 mg 3-09 tablet 00:00: 00 metformin 2015-0 No 1mg 500 mg 3-09 tablet 00:00: 00 citalopram 2015-0 No 1mg 40 mg 3-09 tablet 00:00: 00 citalopram 2015-0 No 1mg 40 mg 3-09 tablet 00:00: 00 metformin 2015-0 No 1mg 500 mg 3-09 tablet 00:00: 00 metformin 2015-0 No 1mg 500 mg 3-09 tablet 00:00: 00 citalopram 2015-0 No 1mg 40 mg 3-09 tablet 00:00: 00 metformin 2015-0 No 1mg 500 mg 3-09 tablet 00:00: 00 Vital Signs Vital Name Observation Time Observation Value Comments Source BP Systolic 2022-07-10 14:16:00 133 mm[Hg] BP Diastolic 2022-07-10 14:16:00 87 mm[Hg] Weight Measured 2022-07-10 14:16:00 172.20 pounds Height Measured 2022-07-10 14:16:00 65.00 inches Body Temperature 2022-07-10 14:16:00 98.30 degrees Heart Rate 2022-07-10 14:16:00 70.00 /min Respiratory Rate 2022-07-10 14:16:00 18.00 /min BP Systolic 2022-03-28 08:18:00 111 mm[Hg] BP Diastolic 2022-03-28 08:18:00 71 mm[Hg] Weight Measured 2022-03-28 08:18:00 170.60 pounds Height Measured 2022-03-28 08:18:00 65.00 inches Body Temperature 2022-03-28 08:18:00 97.10 degrees Heart Rate 2022-03-28 08:18:00 71.00 /min Respiratory Rate 2022-03-28 08:18:00 BP Systolic 2022-03-21 08:16:00 123 mm[Hg] BP Diastolic 2022-03-21 08:16:00 86 mm[Hg] Weight Measured 2022-03-21 08:16:00 174.40 pounds Height Measured 2022-03-21 08:16:00 65.00 inches Body Temperature 2022-03-21 08:16:00 97.00 degrees Heart Rate 2022-03-21 08:16:00 67.00 /min Respiratory Rate 2022-03-21 08:16:00 24.00 /min BP Systolic 2022-02-16 16:31:00 120 mm[Hg] BP Diastolic 2022-02-16 16:31:00 83 mm[Hg] Weight Measured 2022-02-16 16:31:00 172.60 pounds Height Measured 2022-02-16 16:31:00 65.00 inches Body Temperature 2022-02-16 16:31:00 97.00 degrees Heart Rate 2022-02-16 16:31:00 86.00 /min Respiratory Rate 2022-02-16 16:31:00 BP Systolic 2021-10-24 14:19:00 123 mm[Hg] BP Diastolic 2021-10-24 14:19:00 83 mm[Hg] Weight Measured 2021-10-24 14:19:00 183.60 pounds Height Measured 2021-10-24 14:19:00 65.00 inches Body Temperature 2021-10-24 14:19:00 97.90 degrees Heart Rate 2021-10-24 14:19:00 89.00 /min Respiratory Rate 2021-10-24 14:19:00 16.00 /min BP Systolic 2021-10-03 12:03:00 123 mm[Hg] BP Diastolic 2021-10-03 12:03:00 82 mm[Hg] Weight Measured 2021-10-03 12:03:00 185.00 pounds Height Measured 2021-10-03 12:03:00 65.00 inches Body Temperature 2021-10-03 12:03:00 98.50 degrees Heart Rate 2021-10-03 12:03:00 78.00 /min Respiratory Rate 2021-10-03 12:03:00 16.00 /min BP Systolic 2021-08-04 16:41:00 130 mm[Hg] BP Diastolic 2021-08-04 16:41:00 86 mm[Hg] Weight Measured 2021-08-04 16:41:00 187.40 pounds Height Measured 2021-08-04 16:41:00 65.00 inches Body Temperature 2021-08-04 16:41:00 98.00 degrees Heart Rate 2021-08-04 16:41:00 78.00 /min Respiratory Rate 2021-08-04 16:41:00 16.00 /min BP Systolic 2021-07-05 14:38:00 116 mm[Hg] BP Diastolic 2021-07-05 14:38:00 81 mm[Hg] Weight Measured 2021-07-05 14:38:00 185.40 pounds Height Measured 2021-07-05 14:38:00 65.00 inches Body Temperature 2021-07-05 14:38:00 98.30 degrees Heart Rate 2021-07-05 14:38:00 70.00 /min Respiratory Rate 2021-07-05 14:38:00 BP Systolic 2021-06-13 08:09:00 113 mm[Hg] BP Diastolic 2021-06-13 08:09:00 67 mm[Hg] Weight Measured 2021-06-13 08:09:00 187.00 pounds Height Measured 2021-06-13 08:09:00 65.00 inches Body Temperature 2021-06-13 08:09:00 98.30 degrees Heart Rate 2021-06-13 08:09:00 70.00 /min Respiratory Rate 2021-06-13 08:09:00 BP Systolic 2021-06-06 10:24:00 120 mm[Hg] BP Diastolic 2021-06-06 10:24:00 81 mm[Hg] Weight Measured 2021-06-06 10:24:00 184.40 pounds Height Measured 2021-06-06 10:24:00 65.00 inches Body Temperature 2021-06-06 10:24:00 98.30 degrees Heart Rate 2021-06-06 10:24:00 79.00 /min Respiratory Rate 2021-06-06 10:24:00 BP Systolic 2021-01-26 15:20:00 111 mm[Hg] BP Diastolic 2021-01-26 15:20:00 68 mm[Hg] Weight Measured 2021-01-26 15:20:00 191.40 pounds Height Measured 2021-01-26 15:20:00 65.00 inches Body Temperature 2021-01-26 15:20:00 97.80 degrees Heart Rate 2021-01-26 15:20:00 89.00 /min Respiratory Rate 2021-01-26 15:20:00 21.00 /min BP Systolic 2021-01-24 08:04:00 113 mm[Hg] BP Diastolic 2021-01-24 08:04:00 71 mm[Hg] Weight Measured 2021-01-24 08:04:00 189.60 pounds Height Measured 2021-01-24 08:04:00 65.00 inches Body Temperature 2021-01-24 08:04:00 97.50 degrees Heart Rate 2021-01-24 08:04:00 69.00 /min Respiratory Rate 2021-01-24 08:04:00 BP Systolic 2020-11-03 09:23:00 122 mm[Hg] BP Diastolic 2020-11-03 09:23:00 79 mm[Hg] Weight Measured 2020-11-03 09:23:00 186.60 pounds Height Measured 2020-11-03 09:23:00 65.00 inches Body Temperature 2020-11-03 09:23:00 98.30 degrees Heart Rate 2020-11-03 09:23:00 74.00 /min Respiratory Rate 2020-11-03 09:23:00 17.00 /min Procedures This patient has no known procedures. Plan of Care Planned Activity Planned Date Details Comments Source Goal Plan of Care Note [code = 29930-5] Goal Plan of Care Note [code = 02931-6] Goal Plan of Care Note [code = 30935-3] Goal Plan of Care Note [code = 40887-4] Goal Plan of Care Note [code = 91877-9] Goal Plan of Care Note [code = 85271-5] Goal Plan of Care Note [code = 67078-5] Goal Plan of Care Note [code = 10063-5] Goal Plan of Care Note [code = 75933-6] Goal Plan of Care Note [code = 02746-9] Goal Plan of Care Note [code = 97259-5] Goal Plan of Care Note [code = 72461-5] Goal Plan of Care Note [code = 80233-5] Goal Plan of Care Note [code = 81419-3] Goal Plan of Care Note [code = 47026-9] Goal Plan of Care Note [code = 98848-5] Goal Plan of Care Note [code = 68197-4] Goal Plan of Care Note [code = 05898-6] Goal Plan of Care Note [code = 32572-8] Goal Plan of Care Note [code = 91002-7] Goal Plan of Care Note [code = 92902-4] Goal Plan of Care Note [code = 04395-3] Goal Plan of Care Note [code = 01251-3] Goal Plan of Care Note [code = 16674-4] Goal Plan of Care Note [code = 53630-8] Goal Plan of Care Note [code = 04468-5] Goal Plan of Care Note [code = 39294-6] Goal Plan of Care Note [code = 31817-2] Goal Plan of Care Note [code = 02310-1] Goal Plan of Care Note [code = 01565-4] Goal Plan of Care Note [code = 90015-5] Goal Plan of Care Note [code = 84607-4] Goal Plan of Care Note [code = 10295-6] Goal Plan of Care Note [code = 87220-1] Goal Plan of Care Note [code = 06521-7] Goal Plan of Care Note [code = 38254-7] Goal Plan of Care Note [code = 62362-2] Goal Plan of Care Note [code = 30632-1] Goal Plan of Care Note [code = 11757-8] Goal Plan of Care Note [code = 81189-5] Goal Plan of Care Note [code = 27222-9] Goal Plan of Care Note [code = 98433-5] Goal Plan of Care Note [code = 41003-7] Goal Plan of Care Note [code = 82124-8] Goal Plan of Care Note [code = 21303-1] Goal Plan of Care Note [code = 82171-1] Goal Plan of Care Note [code = 33059-0] Goal Plan of Care Note [code = 17410-3] Goal Plan of Care Note [code = 04800-4] Goal Plan of Care Note [code = 12705-8] Goal Plan of Care Note [code = 15095-6] Goal Plan of Care Note [code = 48483-6] Goal Plan of Care Note [code = 04763-8] Goal Plan of Care Note [code = 72987-4] Goal Plan of Care Note [code = 80489-5] Goal Plan of Care Note [code = 80915-1] Goal Plan of Care Note [code = 82281-0] Goal Plan of Care Note [code = 78627-7] Goal Plan of Care Note [code = 37987-4] Goal Plan of Care Note [code = 71714-5] Goal Plan of Care Note [code = 05241-7] Goal Plan of Care Note [code = 40702-7] Goal Plan of Care Note [code = 21546-7] Goal Plan of Care Note [code = 87824-2] Goal Plan of Care Note [code = 15518-0] Goal Plan of Care Note [code = 68079-7] Goal Plan of Care Note [code = 13729-1] Goal Plan of Care Note [code = 98847-1] Goal Plan of Care Note [code = 88390-2] Goal Plan of Care Note [code = 43424-1] Goal Plan of Care Note [code = 45635-4] Goal Plan of Care Note [code = 43883-5] Goal Plan of Care Note [code = 31555-5] Goal Plan of Care Note [code = 98332-6] Goal Plan of Care Note [code = 73653-8] Goal Plan of Care Note [code = 82400-7] Goal Plan of Care Note [code = 33059-6] Goal Plan of Care Note [code = 41293-8] Goal Plan of Care Note [code = 89587-9] Goal Plan of Care Note [code = 84113-1] Goal Plan of Care Note [code = 39754-4] Goal Plan of Care Note [code = 65959-9] Goal Plan of Care Note [code = 71145-3] Goal Plan of Care Note [code = 76539-3] Goal Plan of Care Note [code = 29398-7] Goal Plan of Care Note [code = 94461-6] Goal Plan of Care Note [code = 96373-3] Goal Plan of Care Note [code = 25104-6] Goal Plan of Care Note [code = 62583-0] Goal Plan of Care Note [code = 04357-0] Goal Plan of Care Note [code = 66022-2] Goal Plan of Care Note [code = 08925-3] Goal Plan of Care Note [code = 29091-0] Goal Plan of Care Note [code = 02938-3] Goal Plan of Care Note [code = 38754-9] Goal Plan of Care Note [code = 86211-4] Goal Plan of Care Note [code = 64852-1] Goal Plan of Care Note [code = 70669-9] Goal Plan of Care Note [code = 77180-2] Goal Plan of Care Note [code = 69355-7] Goal Plan of Care Note [code = 33764-7] Goal Plan of Care Note [code = 08436-0] Goal Plan of Care Note [code = 18603-2] Goal Plan of Care Note [code = 43450-8] Goal Plan of Care Note [code = 12595-6] Goal Plan of Care Note [code = 02809-6] Goal Plan of Care Note [code = 25291-0] Goal Plan of Care Note [code = 15483-9] Goal Plan of Care Note [code = 64028-2] Goal Plan of Care Note [code = 32338-4] Goal Plan of Care Note [code = 84279-5] Goal Plan of Care Note [code = 23646-2] Goal Plan of Care Note [code = 25463-8] Goal Plan of Care Note [code = 44031-6] Goal Plan of Care Note [code = 26866-2] Goal Plan of Care Note [code = 76912-4] Goal Plan of Care Note [code = 38461-1] Goal Plan of Care Note [code = 12935-9] Goal Plan of Care Note [code = 99881-0] Goal Plan of Care Note [code = 50588-9] Goal Plan of Care Note [code = 23788-0] Goal Plan of Care Note [code = 02216-6] Goal Plan of Care Note [code = 86848-2] Goal Plan of Care Note [code = 33531-7] Goal Plan of Care Note [code = 13432-8] Goal Plan of Care Note [code = 86627-6] Goal Plan of Care Note [code = 16452-7] Goal Plan of Care Note [code = 29914-1] Goal Plan of Care Note [code = 59723-6] Goal Plan of Care Note [code = 78365-9] Goal Plan of Care Note [code = 29927-9] Goal Plan of Care Note [code = 02072-9] Goal Plan of Care Note [code = 09217-1] Goal Plan of Care Note [code = 47561-3] Goal Plan of Care Note [code = 80469-1] Goal Plan of Care Note [code = 95691-0] Goal Plan of Care Note [code = 99479-1] Goal Plan of Care Note [code = 57634-3] Goal Plan of Care Note [code = 29729-3] Goal Plan of Care Note [code = 13735-7] Goal Plan of Care Note [code = 40686-9] Goal Plan of Care Note [code = 05032-0] Goal Plan of Care Note [code = 06059-0] Goal Plan of Care Note [code = 00157-7] Goal Plan of Care Note [code = 12054-6] Goal Plan of Care Note [code = 61537-7] Goal Plan of Care Note [code = 46950-8] Goal Plan of Care Note [code = 47550-1] Goal Plan of Care Note [code = 38921-3] Goal Plan of Care Note [code = 49283-2] Goal Plan of Care Note [code = 96624-3] Goal Plan of Care Note [code = 88399-2] Goal Plan of Care Note [code = 20744-9] Goal Plan of Care Note [code = 08688-7] Goal Plan of Care Note [code = 97830-2] Goal Plan of Care Note [code = 95360-8] Goal Plan of Care Note [code = 15606-8] Goal Plan of Care Note [code = 97033-3] Goal Plan of Care Note [code = 40570-7] Goal Plan of Care Note [code = 74280-9] Goal Plan of Care Note [code = 92938-1] Goal Plan of Care Note [code = 14002-7] Goal Plan of Care Note [code = 49995-9] Goal Plan of Care Note [code = 82365-9] Goal Plan of Care Note [code = 76401-0] Goal Plan of Care Note [code = 63446-9] Goal Plan of Care Note [code = 56838-1] Goal Plan of Care Note [code = 82576-5] Goal Plan of Care Note [code = 12066-4] Goal Plan of Care Note [code = 99759-6] Goal Plan of Care Note [code = 20303-9] Goal Plan of Care Note [code = 67006-4] Goal Plan of Care Note [code = 38291-5] Goal Plan of Care Note [code = 64705-3] Goal Plan of Care Note [code = 11633-1] Goal Plan of Care Note [code = 97023-8] Goal Plan of Care Note [code = 24865-0] Goal Plan of Care Note [code = 84375-9] Goal Plan of Care Note [code = 87026-2] Goal Plan of Care Note [code = 08281-2] Goal Plan of Care Note [code = 51394-8] Goal Plan of Care Note [code = 75317-7] Goal Plan of Care Note [code = 23543-2] Goal Plan of Care Note [code = 80190-9] Goal Plan of Care Note [code = 52250-6] Goal Plan of Care Note [code = 36461-1] Goal Plan of Care Note [code = 58206-3] Goal Plan of Care Note [code = 86462-4] Goal Plan of Care Note [code = 09614-7] Goal Plan of Care Note [code = 82866-6] Goal Plan of Care Note [code = 57366-7] Goal Plan of Care Note [code = 90225-6] Goal Plan of Care Note [code = 95821-1] Goal Plan of Care Note [code = 97304-9] Goal Plan of Care Note [code = 63734-4] Goal Plan of Care Note [code = 11724-2] Goal Plan of Care Note [code = 69178-3] Goal Plan of Care Note [code = 75683-7] Goal Plan of Care Note [code = 85015-6] Goal Plan of Care Note [code = 31453-1] Goal Plan of Care Note [code = 29250-7] Goal Plan of Care Note [code = 17380-2] Encounters Start End Encounter Admission Attending Care Care Encounter Source Date/Time Date/Time Type Type Clinicians Facility Department ID 2023-03-19 2023-03-19 Outpatient SFA SFA [id number] 230 [place] 08:39:48 08:39:48 [address] [place] 2023-03-15 2023-03-15 Outpatient SFA SFA [id number] 230 [place] 08:56:06 08:56:06 [address] [place] 2023-02-14 2023-02-14 Outpatient SFA SFA [id number] 230 [place] 16:34:24 16:34:24 [address] [place] 2022-12-11 2022-12-11 Outpatient SFA SFA [id number] 230 [place] 15:38:20 15:38:20 [address] [place] 2022-10-06 2022-10-06 Outpatient SFA SFA [id number] 230 [place] 11:46:12 11:46:12 [address] [place] 2022-10-05 2022-10-05 Outpatient SFA SFA [id number] 230 [place] 08:21:17 08:21:17 [address] [place] 2022-10-04 2022-10-04 Outpatient SFA SFA [id number] 230 [place] 10:59:39 10:59:39 [address] [place] 2022-10-03 2022-10-03 Outpatient SFA SFA [id number] 230 [place] 09:39:39 09:39:39 [address] [place] 2022-10-02 2022-10-02 Outpatient SFA SFA [id number] 230 [place] 17:22:28 17:22:28 [address] [place] 2022-09-11 2022-09-11 Outpatient SFA SFA 4853-20 230 [place] 08:25:54 08:25:54 [address] [place] 2022-08-09 2022-08-09 Outpatient SFA SFA [id number] 230 [place] 10:51:30 10:51:30 [address] [place] 2022-07-12 2022-07-12 Outpatient SFA SFA 4853-20 221 [place] 17:22:02 17:22:02 [address] [place] 2022-07-10 2022-07-10 Outpatient SFA SFA 4853-20 221 [place] 14:07:05 14:07:05 [address] [place] 2022-07-10 2022-07-10 Outpatient [id number] 70t413-x 00:00:00 00:00:00 Visit u038-0c49 780-4e52-a -f322-5c5 040-9d74bf 2qa794i68 362e28 2022-03-28 2022-03-28 Outpatient 82nd1210- [id number] yt5183-b 00:00:00 00:00:00 Visit g7z0-297h 7c1-649y-y -p977-86w 295-47q389 246k01n0l d32c0f 2022-03-21 2022-03-21 Outpatient [id number]- [id number] 20q742-d 00:00:00 00:00:00 Visit p997-1zs4 667-4cc7-b -p67z-91c 77a-90m295 7419lz2br 5ee5fd 2022-02-16 2022-02-16 Outpatient 8a2855ih- [id number] 3d 1488af-0 00:00:00 00:00:00 Visit 83c7-56hz 2k5-00rf-9 -21m7-8t7 5l2-6x0203 608i44y55 b76c57 Results Test Description Test Time Test Comments Results Result Comments Source LIPID PANEL 2023-03-20 11:26:47 Test Item Value Reference Range Interpretation Comme nts CHOLESTEROL (test code = 2210) 199 MG/DL <200 TRIGLYCERIDES (test code = 2232) 201 MG/DL <150 H HDL CHOLESTEROL (test code = 33 MG/DL >39 L 2220) CALC LDL CHOL (test code = 2237) 131 MG/DL <100 H NOTE: CALCULATED LDL IS BASED ON STANLEY-PERDOMO METHOD WHICHINCLUDES A DJUSTABLE TRIGLYCERIDE:VL DL CHOLESTEROL RATIO.THIS FACT OR VARIES BY MEASURED TRIGLY CERIDE AND NON-HDLCHOLESTE ROL CONCENTRATIONS WITH INCREASED CALCULATED LDL SEENIN HIGHER T RIGLYCERIDE OR LOWER NON-HDL S PECIMENS. FOR MOREINFORMATION , SEE CLIENT ANNOUNCEMENT AT [email or web address] RATIO LDL/HDL (test code = 3.97 RATIO <3.22 H 2237) COMPREHENSIVE METABOLIC [id number] 11:26:47 Test Item Value Reference Range Interpretation Comments GLUCOSE (test code = 251 MG/DL 70-99 H 2216) BUN (test code = 13 MG/DL 6-20 2207) CREATININE (test 0.39 MG/DL 0.60-1.30 L code = 2214) eGFR (2020 CKD-EPI) 127 >60 (test code = 67727) ML/MIN/1.73 CALC BUN/CREAT (test 33 RATIO 6-28 H code = 2235) SODIUM (test code = 136 MEQ/L 295-936 6598) POTASSIUM (test code 4.5 MEQ/L 3.5-5.4 = 2227) CHLORIDE (test code 102 MEQ/L 95-107 = 2214) CARBON DIOXIDE (test 22 MEQ/L 19-31 code = 2206) CALCIUM (test code = 9.6 MG/DL 8.5-10.5 2208) PROTEIN, TOTAL (test 7.2 G/DL 6.1-8.3 code = 2228) ALBUMIN (test code = 4.3 G/DL 3.5-5.2 2200) CALC GLOBULIN (test 2.9 G/DL 1.9-3.7 code = 2240) CALC A/G RATIO (test 1.5 RATIO 1.0-2.6 code = 2234) BILIRUBIN, TOTAL 0.3 MG/DL See_Comment [Automated message] (test code = 2207) The syste m which generated this result transmitted ref erence range: <=1.2. T he reference range was not used to int erpret this result as normal/abnormal . ALKALINE PHOSPHATASE 118 U/L 40-113 H (test code = 2204) AST (test code = 22 U/L 9-40 2217) ALT (test code = 33 U/L 5-40 UNLESS OTH ERWISE 2218) INDICATED, ALL TESTING PERFORM ED AT [facility], [facility]. [address] [place] [id number] [facility] DIRECTOR: Luis PINON BRAYAN NUMBER [id number] CAP ACCREDITATION N O. [id number] HEMOGLOBIN [id number] 05:21:45 Test Item Value Reference Range Interpretation Comments HEMOGLOBIN A1c (test 10.9 % 4.2-5.6 H AMERIC AN DIABETES code = 64067) ASSOCIATION IDELINES FOR HGB A1C: PREDIABETES/INC REASED RISK . . . . . . . 5 .7-6.4% DIAGNOSIS OF DI ABETES . . . . . . . . . >=6 .5% WITH CONFIRMATION OR APPROPRIATE SYMPTOMS NOTE: ASSAY MAY BE AFFECTED BY HEMOGLOBINOPATH IES (SICKLE CELL ANEMIA, S- C DISEASE, OTHERS) OR WIN FICIALLY LOWERED BY DECR EASED RED CELL SURVIVAL ( HEMOLYTIC ANEMIAS, BLOOD LOSS, ETC.). CONSIDER ALTERN ATE TESTING OR LABORATORY C ONSULTATION. TSH, THIRD [id number] 08:55:00 Test Item Value Reference Range Interpretation Comments TSH, THIRD GENERATION (test code 1.010 UIU/ML 0.400-4.100 = 2821) FSH + LH [id number] 08:55:00 Test Item Value Reference Range Interpretation Comments FOLLICLE STIM HORMONE 12.2 IU/L SEE BELOW EXPECTED (test code = 2700) VALUES FO R FSH FOR FEMALES >17 YEA RS FOLLICU LAR 3.5-12.5 IU/L M ID-CYCLE PEAK 4.7-21.5 I U/L LUTEAL PHASE 1. 7-7.7 IU/L POSTMENOPA USAL 25.8-134.8 IU/L LUTEINIZING HORMONE 4.1 IU/L SEE BELOW EXPECTED (test code = 2776) VALUES FO R LH FOR FEMALES >17 YEA RS MALES F EMALES >=18 YEARS 1.8- 8.6 IU/L FOLLICULAR 2.4 -12.6 IU/L MID-CYCLE PEAK 14.0-95.6 IU/L LUTEAL PHASE 1.0-11.4 IU/L POSTMENOPAUSAL 7.7-58.5 IU/L [id number] 08:55:00 Test Item Value Reference Range Interpretation Comments ESTRADIOL (test 27.2 PG/ML SEE BELOW EXPE CTED VALUES FOR code = 6159) ESTRADIOL FOR F EMALES >=18 YEARS FO LLICULAR . . . . . . . . . . . . . PG/ML 12.4-233.0 OVUL ATION. . . . . . . . . . . . . . PG/ML 41.0-398.0 LUTE AL PHASE . . . . . . . . . . . . PG/ML 22.3-341.0 POST MENOPAUSAL SUPPLEMENTED/NO N-SUPP . PG/ML <138.0/<20.0 NO TE: TO DETERMINE SELVIN L VS. SUBNORMAL ESTRA DIOL IN POSTMENOPAUSAL FEMALES, CONSIDER ULTRAS ENSITIVE ESTRADIOL ([facility] [place] ORDER CODE 5678). METHODOL OGY IS KAREN CARLOS ELECTROCH EMILUMINESCENT IMMUNOASSAY WIT H A LIMIT OF DETECTION OF 17 PG/ML. [id number] 08:55:00 Test Item Value Reference Range Interpretation Comments PROGESTERONE (test 0.25 NG/ML SEE BELOW E XPECTED code = 2790) VALUES FOR PROGESTERONE MALE . . . . . . . . . . . . . . . . N G/ML <0.20 FEMALE FOLLICULAR PHAS E . . . . . . . . . NG/ ML <0.90 OVULATION . . . . . . . . . . . . NG/ML <12.00 KANNAN TEAL PHASE . . . . . . . . . . . NG/ML 1.8 3-23.90 POSTMENOPAUSAL . . . . . . . . . . NG/ ML <0.20 1ST TRIMESTER. . . . . . . . . . . NG/ML 11.00-44.30 2ND TRIMESTER. . . . . . . . . . . NG/ML 25.40-83.30 3RD TRIMESTER. . . . . . . . . . . NG/ML 58.70-214.00 [id number] 08:55:00 Test Item Value Reference Range Interpretation Comments PROLACTIN (test 11.0 NG/ML 5.0-37.0 NOTE: Metho dology is Karen code = 2800) Carlos Electrochemilum inescence Immunoassay (EC BRAYAN). Values obtained with d ifferent assays/manufact urers cannot be used interch angeably. Results should not be used as sole basis to e stablish the presence or abs ence of malignancy. UNL ESS OTHERWISE INDICATED, ALL TESTING PERFORMED AT [email or web address]. [address] [place] [address] LAB[address]ORY DIRE CTOR: CHAS SNEED M.D. [place] NUMBER [id number] CAP ACCREDITATION N O. [id number] 08:01:53 Test Item Value Reference Range Interpretation Comments TESTOSTERONE (test <12 NG/DL See_Comment NOTE: TO MICHA code = 2830) TESTOSTERONE SAY SENSITIVITY IS 12 NG/DL. TO DETER MINE NORMAL VS. SUBN ORMAL TESTOSTERONE IN CHILDREN AND WO MEN, CONSIDER TESTIN G WITH ULTRASENSITIVE TESTOSTERONE. [Automated mess age] The system which ge nerated this result tra nsmitted reference range : <=55. The reference r abraham was not used to int erpret this result as normal/abnormal . CBC W/AUTO DIFF WITH [id number] 04:19:32 Test Item Value Reference Range Interpretation Comments WBC (test code = 8.4 K/UL 3.5-11.0 1001) RBC (test code = 4.86 M/UL 3.80-5.40 1002) HEMOGLOBIN (test code 11.6 G/DL 11.5-15.5 = 1003) HEMATOCRIT (test code 35.5 % 34.0-45.0 = 1004) MCV (test code = 73.0 fL 80.0-99.0 L 1005) MCH (test code = 23.9 PG 25.0-33.0 L 1006) MCHC (test code = 32.7 G/DL 31.0-36.0 1007) RDW (test code = 15.6 % 11.5-15.0 H 1038) NEUTROPHILS (test 57.8 % code = 1008) LYMPHOCYTES (test 33.3 % code = 1010) MONOCYTES (test code 5.6 % = 1011) EOSINOPHILS (test 2.3 % code = 1012) BASOPHILS (test code 0.6 % = 1013) IMMATURE GRANULOCYTES 0.4 % (test code = 1036) NUCLEATED RBCS (test 0.0 /100 WBC'S See_Comment [Aut omated code = 1065) message] The sy stem which generated this result transmitted reference range : 0.0. The refere nce range was not u sed to interpret th is result as normal/abnormal . PLATELET COUNT (test 384 K/UL 130-400 code = 1015) ABSOLUTE NEUTROPHILS 4.83 K/UL 1.50-7.50 (test code = 1066) ABSOLUTE LYMPHOCYTES 2.78 K/UL 1.00-4.00 (test code = 1067) ABSOLUTE MONOCYTES 0.47 K/UL 0.20-1.00 (test code = 1068) ABSOLUTE EOSINOPHILS 0.19 K/UL 0.00-0.50 (test code = 1040) ABSOLUTE BASOPHILS 0.05 K/UL 0.00-0.20 (test code = 1069) ABS IMMATURE 0.03 K/UL 0.00-0.10 GRANULOCYTES (test code = 1020) ABS NUCLEATED RBCS 0.00 K/UL 0.00-0.11 (test code = 78103) LIPID [id number] 06:59:50 Test Item Value Reference Range Interpretation Comments CHOLESTEROL (test 213 MG/DL <200 H code = 2210) TRIGLYCERIDES (test 212 MG/DL <150 H code = 2232) HDL CHOLESTEROL (test 39 MG/DL >39 L code = 2220) CALC LDL CHOL (test 139 MG/DL <100 H NOTE: C ALCULATED LDL code = 2237) IS BASED ON STANLEY-PERDOMO METHOD WHICHINCLUDES ADJUSTABLE TRIGLYCERIDE:VL DL CHOLESTEROL RAT IO.THIS FACTOR VARIES B Y MEASURED TRIGLY CERIDE AND NON-HDLCHOL ESTEROL CONCENTRATIONS WITH INCREASED CALCU LATED LDL SEENIN HIGH ER TRIGLYCERIDE OR LOWER NON-HDL SPECIME NS. FOR MOREINFORMATION , SEE CLIENT ANNOUNCE MENT AT [email or web address] RISK RATIO LDL/HDL 3.56 RATIO <3.22 H (test code = 2238) COMPREHENSIVE METABOLIC [id number] 06:59:50 Test Item Value Reference Range Interpretation Comments GLUCOSE (test code = 198 MG/DL 70-99 H 2216) BUN (test code = 12 MG/DL 6-2207) CREATININE (test 0.51 MG/DL 0.60-1.30 L code = 2214) eGFR (2020 CKD-EPI) 119 >60 (test code = 16578) ML/MIN/1.73 CALC BUN/CREAT (test 24 RATIO 6-28 code = 2235) SODIUM (test code = 137 MEQ/L 286-644 1652) POTASSIUM (test code 4.8 MEQ/L 3.5-5.4 = 2228) CHLORIDE (test code 102 MEQ/L 95-107 = 2215) CARBON DIOXIDE (test 25 MEQ/L 19-31 code = 2206) CALCIUM (test code = 9.7 MG/DL 8.5-10.5 2208) PROTEIN, TOTAL (test 7.0 G/DL 6.1-8.3 code = 2229) ALBUMIN (test code = 4.1 G/DL 3.5-5.2 2200) CALC GLOBULIN (test 2.9 G/DL 1.9-3.7 code = 2240) CALC A/G RATIO (test 1.4 RATIO 1.0-2.6 code = 2234) BILIRUBIN, TOTAL <0.2 MG/DL See_Comment [Automated message] (test code = 2207) The [employer] which generated this result transmitted ref erence range: <=1.2. T he reference range was not used to int erpret this result as normal/abnormal . ALKALINE PHOSPHATASE 107 U/L 40-113 (test code = 220) AST (test code = 10 U/L 9-40 2217) ALT (test code = 11 U/L 5-40 CPL ribera s 2218) important patho logy staff changes effective 09/27. New patholo gy staff will prov molly uninterrupted, excellent patie nt care and clinic al consultation. S ee URL: [email or web address]. UNLE SS OTHERWISE INDIC ATED, ALL TESTING PER FORMED AT [facility], [address] [address] [place] DIRECTOR: Luis PINON BRAYAN NUMBER [id number] CAP ACCREDITATION N O. [id number] HEMOGLOBIN [id number] 02:58:05 Test Item Value Reference Range Interpretation Comments HEMOGLOBIN A1c (test 11.1 % 4.2-5.6 H [employer]IC AN DIABETES code = 44447) ASSOCIATION IDELINES FOR HGB A1C: PREDIABETES/INC REASED RISK . . . . . . . 5 .7-6.4% DIAGNOSIS OF DI ABETES . . . . . . . . . >=6 .5% WITH CONFIRMATION OR APPROPRIATE SYMPTOMS NOTE: ASSAY MAY BE AFFECTED BY HEMOGLOBINOPATH IES (SICKLE CELL ANEMIA, S- C DISEASE, OTHERS) OR WIN FICIALLY LOWERED BY DECR EASED RED CELL SURVIVAL ( HEMOLYTIC ANEMIAS, BLOOD LOSS, ETC.). CONSIDER ALTERN ATE TESTING OR LABORATORY C ONSULTATION. CT/NG, NAAT, [id number] 20:25:25 Test Item Value Reference Range Interpretation Comments CHLAMYDIA, NAAT, NEGATIVE NEGATIVE Testing is performed with URINE (test code Karen CARLOS 6800/8800 = 94080) systems usingre al-time polymerase yeyo n reaction (PCR) method. A negative result does not exclude low level infection , specimensamplin g error, or collection erro r. GONORRHEA, NAAT, NEGATIVE NEGATIVE Testing is performed with URINE (test code Karen CARLOS 6800/8800 = 04281) systems usingre al-time polymerase yeyo n reaction (PCR) method. A negative result does not exclude low level infection , specimensamplin g error, or collection erro r. VAGINAL PATHOGENS DNA [id number] 15:32:40 Test Item Value Reference Range Interpretation Comments KELLY SPECIES NEGATIVE NEGATIVE (test code = ) G. VAGINALIS POSITIVE NEGATIVE A (test code = ) T. VAGINALIS NEGATIVE NEGATIVE Note: The BD A ffirm VPIII (test code = Microbial Ident ification ) Testis a DNA pr obe test intended for us e in the detectionand id entification of Kelly spec ies, Gardnerellavagi nalis and Trichomonas vag inalis nucleic acid. * [facility] [facility] [place] has important patho logy staff changes effecti ve 09/27/2022. New pathology staff will provide uninterrupted, excellent patient care an d clinical consultation. S ee URL: [email or web address]. UNLESS OTHE RWISE INDICATED, ALL TESTING PERFORMED AT [facility] [address] [place] [id number] LABORATOR Y DIRECTOR: CHAS SNEED M.D. IA NUMBER [id number] CAP ACCREDITATION N O. [id number] 09:51:28 Test Item Value Reference Range Interpretation Comments D-DIMER (test 0.40 UG/ML FEU See_Comment NOTE: Prov ided code = 1405) reference range is established for evaluation of D eep Venous Thrombosis/Pulm onary Embolus (DVT/PE ). Results below c utoff value of <=0.49 UG/ML FEU have a high negative predictive valu e forDVT/PE. No r eference range is establ ished for disseminatedint ra-vascul ar coagulation (DIC). UNLESS OTHERWIS E INDICATED, ALL TESTING PERFORMED [facility], [facility]. [address] [place] [address] 4 LABORATORY DIRE CTOR: AVA SHARPE M.D. CLIA NUMBER [id number] [place] [id number] [Autom ated message] The sy stem which generated this result transmit brijesh reference range : <=0.49. The reference r abraham was not used to int erpret this result as normal/abnormal . CBC W/AUTO DIFF WITH [id number] 06:57:16 Test Item Value Reference Range Interpretation Comments WBC (test code = 8.3 K/UL 3.5-11.0 1001) RBC (test code = 4.96 M/UL 3.80-5.40 1002) HEMOGLOBIN (test code 11.7 G/DL 11.5-15.5 = 1003) HEMATOCRIT (test code 36.7 % 34.0-45.0 = 1004) MCV (test code = 74.0 fL 80.0-99.0 L 1005) MCH (test code = 23.6 PG 25.0-33.0 L 1006) MCHC (test code = 31.9 G/DL 31.0-36.0 1007) RDW (test code = 14.4 % 11.5-15.0 1038) NEUTROPHILS (test 59.0 % code = 1008) LYMPHOCYTES (test 33.0 % code = 1010) MONOCYTES (test code 5.4 % = 1011) EOSINOPHILS (test 1.7 % code = 1012) BASOPHILS (test code 0.5 % = 1013) IMMATURE GRANULOCYTES 0.4 % (test code = 1036) NUCLEATED RBCS (test 0.0 /100 WBC'S See_Comment [Aut omated code = 1065) message] The sy stem which generated this result transmitted reference range : 0.0. The refere nce range was not u sed to interpret th is result as normal/abnormal . PLATELET COUNT (test 353 K/UL 130-400 code = 1015) ABSOLUTE NEUTROPHILS 4.89 K/UL 1.50-7.50 (test code = 1066) ABSOLUTE LYMPHOCYTES 2.73 K/UL 1.00-4.00 (test code = 1067) ABSOLUTE MONOCYTES 0.45 K/UL 0.20-1.00 (test code = 1068) ABSOLUTE EOSINOPHILS 0.14 K/UL 0.00-0.50 (test code = 1040) ABSOLUTE BASOPHILS 0.04 K/UL 0.00-0.20 (test code = 1069) ABS IMMATURE 0.03 K/UL 0.00-0.10 GRANULOCYTES (test code = 1020) ABS NUCLEATED RBCS 0.00 K/UL 0.00-0.11 (test code = 69573) HEMOGLOBIN [id number] 08:31:25 Test Item Value Reference Range Interpretation Comments HEMOGLOBIN A1c (test 9.7 % 4.2-5.6 H AMERIC AN DIABETES code = 65721) ASSOCIATION IDELINES FOR HGB A1C: PREDIABETES/INC REASED RISK . . . . . . . 5.7 -6.4% DIAGNOSIS OF DI ABETES . . . . . . . . . >=6 .5% WITH CONFIRMATION OR APPROPRIATE SYMPTOMS NOTE: ASSAY MAY BE AFFECTED BY HEMOGLOBINOPATH IES (SICKLE CELL ANEMIA, S- C DISEASE, OTHERS) OR WIN FICIALLY LOWERED BY DECR EASED RED CELL SURVIVAL ( HEMOLYTIC ANEMIAS, BLOOD LOSS, ETC.). CONSIDER ALTERN ATE TESTING OR LABORATORY C ONSULTATION. UNLESS OTHERWIS E INDICATED, ALL TESTING PER FORMED [facility] [place]. [address] [place] [address] LABORATORY DIRE CTOR: AVA MOON M.D. CLIA NUMBER [id number] [place]. [id number] COMPREHENSIVE METABOLIC [id number] 04:26:44 Test Item Value Reference Range Interpretation Comments GLUCOSE (test code = 269 MG/DL 70-99 H 2216) BUN (test code = 14 MG/DL 6-20 2207) CREATININE (test 0.49 MG/DL 0.60-1.30 L code = 2214) eGFR (2020 CKD-EPI) 121 >60 (test code = 92742) ML/MIN/1.73 CALC BUN/CREAT (test 29 RATIO 6-28 H code = 223) SODIUM (test code = 137 MEQ/L 167-303 1887) POTASSIUM (test code 5.4 MEQ/L 3.5-5.4 = 2227) CHLORIDE (test code 104 MEQ/L 95-107 = 2214) CARBON DIOXIDE (test 22 MEQ/L 19-31 code = 220) CALCIUM (test code = 9.8 MG/DL 8.5-10.5 2208) PROTEIN, TOTAL (test 7.5 G/DL 6.1-8.3 code = 2228) ALBUMIN (test code = 4.3 G/DL 3.5-5.2 2200) CALC GLOBULIN (test 3.2 G/DL 1.9-3.7 code = 224) CALC A/G RATIO (test 1.3 RATIO 1.0-2.6 code = 223) BILIRUBIN, TOTAL <0.2 MG/DL See_Comment [Automated message] (test code = 2206) The syste m which generated this result transmit brijesh reference range : <=1.2. The refe rence range was not u sed to interpret th is result as normal/abnormal . ALKALINE PHOSPHATASE 107 U/L 40-113 (test code = 2203) AST (test code = 9 U/L 9-40 2217) ALT (test code = 9 U/L 5-40 2218) LIPID [id number] 04:26:44 Test Item Value Reference Range Interpretation Comments CHOLESTEROL (test 211 MG/DL <200 H code = 2210) TRIGLYCERIDES (test 188 MG/DL <150 H code = 2232) HDL CHOLESTEROL (test 36 MG/DL >39 L code = 2220) CALC LDL CHOL (test 143 MG/DL <100 H NOTE: C ALCULATED LDL code = 2237) IS BASED ON STANLEY-PERDOMO METHOD WHICHINCLUDES ADJUSTABLE TRIGLYCERIDE:VL DL CHOLESTEROL RAT IO.THIS FACTOR VARIES B Y MEASURED TRIGLY CERIDE AND NON-HDLCHOL ESTEROL CONCENTRATIONS WITH INCREASED CALCU LATED LDL SEENIN HIGH ER TRIGLYCERIDE OR LOWER NON-HDL SPECIME NS. FOR MOREINFORMATION , SEE CLIENT ANNOUNCE MENT AT [email or web address] [email or web address] [email or web address] LDL/HDL 3.97 RATIO <3.22 H (test code = 2238) COMPREHENSIVE METABOLIC [id number] 00:00:00 Test Item Value Reference Range Interpretation Comments GLUCOSE (test code = 2217) 269 MG/DL BUN (test code = 2208) 14 MG/DL CREATININE (test code = 2214) 0.49 MG/DL eGFR (2020 CKD-EPI) (test 121 ML/MIN/1.73 code = 05954) CALC BUN/CREAT (test code = 29 RATIO 2235) SODIUM (test code = 2231) 137 MEQ/L POTASSIUM (test code = 2228) 5.4 MEQ/L CHLORIDE (test code = 2215) 104 MEQ/L CARBON DIOXIDE (test code = 22 MEQ/L 2205) CALCIUM (test code = 2209) 9.8 MG/DL PROTEIN, TOTAL (test code = 7.5 G/DL 2228) ALBUMIN (test code = 2201) 4.3 G/DL CALC GLOBULIN (test code = 3.2 G/DL 2240) CALC A/G RATIO (test code = 1.3 RATIO 2233) BILIRUBIN, TOTAL (test code = <0.2 MG/DL 2206) ALKALINE PHOSPHATASE (test 107 U/L code = 2204) AST (test code = 2218) 9 U/L ALT (test code = 2219) 9 U/L COMPREHENSIVE METABOLIC [id number] 00:00:00 Test Item Value Reference Range Interpretation Comments GLUCOSE (test code = 2217) 269 MG/DL BUN (test code = 2208) 14 MG/DL CREATININE (test code = 2214) 0.49 MG/DL eGFR (2020 CKD-EPI) (test 121 ML/MIN/1.73 code = 03715) CALC BUN/CREAT (test code = 29 RATIO 2235) SODIUM (test code = 2231) 137 MEQ/L POTASSIUM (test code = 2228) 5.4 MEQ/L CHLORIDE (test code = 2215) 104 MEQ/L CARBON DIOXIDE (test code = 22 MEQ/L 2205) CALCIUM (test code = 2209) 9.8 MG/DL PROTEIN, TOTAL (test code = 7.5 G/DL 2228) ALBUMIN (test code = 2201) 4.3 G/DL CALC GLOBULIN (test code = 3.2 G/DL 2240) CALC A/G RATIO (test code = 1.3 RATIO 2234) BILIRUBIN, TOTAL (test code = <0.2 MG/DL 2206) ALKALINE PHOSPHATASE (test 107 U/L code = 2204) AST (test code = 2218) 9 U/L ALT (test code = 2219) 9 U/L LIPID [id number] 00:00:00 Test Item Value Reference Range Interpretation Comments CHOLESTEROL (test code = 2210) 211 MG/DL TRIGLYCERIDES (test code = 2232) 188 MG/DL HDL CHOLESTEROL (test code = 2220) 36 MG/DL CALC LDL CHOL (test code = 2237) 143 MG/DL RISK RATIO LDL/HDL (test code = 3.97 RATIO 2238) LIPID [id number] 00:00:00 Test Item Value Reference Range Interpretation Comments CHOLESTEROL (test code = 2210) 211 MG/DL TRIGLYCERIDES (test code = 2232) 188 MG/DL HDL CHOLESTEROL (test code = 2220) 36 MG/DL CALC LDL CHOL (test code = 2237) 143 MG/DL RISK RATIO LDL/HDL (test code = 3.97 RATIO 2238) HEMOGLOBIN [id number] 00:00:00 Test Item Value Reference Range Interpretation Comments HEMOGLOBIN A1c (test code = 79029) 9.7 % HEMOGLOBIN [id number] 00:00:00 Test Item Value Reference Range Interpretation Comments HEMOGLOBIN A1c (test code = 28881) 9.7 % HEMOGLOBIN [id number] 00:00:00 Test Item Value Reference Range Interpretation Comments HEMOGLOBIN A1c (test code = 78934) 9.7 % HEMOGLOBIN [id number] 10:44:13 Test Item Value Reference Range Interpretation Comments HEMOGLOBIN A1c (test 10.5 % 4.2-5.6 H AMERIC AN DIABETES code = 98886) ASSOCIATION IDELINES FOR HGB A1C: PREDIABETES/INC REASED RISK . . . . . . . 5 .7-6.4% DIAGNOSIS OF DI ABETES . . . . . . . . . >=6 .5% WITH CONFIRMATION OR APPROPRIATE SYMPTOMS NOTE: ASSAY MAY BE AFFECTED BY HEMOGLOBINOPATH IES (SICKLE CELL ANEMIA, S- C DISEASE, OTHERS) OR WIN FICIALLY LOWERED BY DECR EASED RED CELL SURVIVAL ( HEMOLYTIC ANEMIAS, BLOOD LOSS, ETC.). CONSIDER ALTERN ATE TESTING OR LABORATORY C ONSULTATION. LIPID [id number] 04:39:45 Test Item Value Reference Range Interpretation Comments CHOLESTEROL (test 202 MG/DL <200 H code = 2210) TRIGLYCERIDES (test 281 MG/DL <150 H code = 2232) HDL CHOLESTEROL (test 36 MG/DL >39 L code = 2220) CALC LDL CHOL (test 123 MG/DL <100 H NOTE: C ALCULATED LDL code = 2237) IS BASED ON STANLEY-PERDOMO METHOD WHICHINCLUDES ADJUSTABLE TRIGLYCERIDE:VL DL CHOLESTEROL RAT IO.THIS FACTOR VARIES B Y MEASURED TRIGLY CERIDE AND NON-HDLCHOL ESTEROL CONCENTRATIONS WITH INCREASED CALCU LATED LDL SEENIN HIGH ER TRIGLYCERIDE OR LOWER NON-HDL SPECIME NS. FOR MOREINFORMATION , SEE CLIENT ANNOUNCE MENT AT [email or web address] [email or web address] LDL/HDL 3.42 RATIO <3.22 H (test code = 2238) COMPREHENSIVE METABOLIC [id number] 04:39:45 Test Item Value Reference Range Interpretation Comments GLUCOSE (test code = 191 MG/DL 70-99 H 2216) BUN (test code = 12 MG/DL 6-20 2207) CREATININE (test 0.46 MG/DL 0.60-1.30 L code = 2214) eGFR (2020 CKD-EPI) 122 >60 (test code = 61539) ML/MIN/1.73 CALC BUN/CREAT (test 26 RATIO 6-28 code = 2235) SODIUM (test code = 137 MEQ/L 132-152 6476) POTASSIUM (test code 4.6 MEQ/L 3.5-5.4 = 2227) CHLORIDE (test code 101 MEQ/L 95-107 = 2215) CARBON DIOXIDE (test 25 MEQ/L 19-31 code = 2206) CALCIUM (test code = 9.4 MG/DL 8.5-10.5 2208) PROTEIN, TOTAL (test 7.2 G/DL 6.1-8.3 code = 2229) ALBUMIN (test code = 4.1 G/DL 3.5-5.2 2200) CALC GLOBULIN (test 3.1 G/DL 1.9-3.7 code = 2240) CALC A/G RATIO (test 1.3 RATIO 1.0-2.6 code = 2234) BILIRUBIN, TOTAL 0.2 MG/DL See_Comment [Automated message] (test code = 2207) The syste m which generated this result transmitted ref erence range: <=1.2. T he reference range was not used to int erpret this result as normal/abnormal . ALKALINE PHOSPHATASE 121 U/L 40-113 H (test code = 220) AST (test code = 10 U/L 9-40 2217) ALT (test code = 9 U/L 5-40 UNLESS OTH ERWISE 2218) INDICATED, ALL TESTING PERFORM ED [facility] [place]. [address] [place] [address] [facility] DIRECTOR: AVA MOON M.D. CLIA NUMBER [id number] CAP ACCREDITATION N O. [id number] HEMOGLOBIN [id number] 00:00:00 Test Item Value Reference Range Interpretation Comments HEMOGLOBIN A1c (test code = 54489) 10.5 % HEMOGLOBIN [id number] 00:00:00 Test Item Value Reference Range Interpretation Comments HEMOGLOBIN A1c (test code = 52305) 10.5 % HEMOGLOBIN [id number] 00:00:00 Test Item Value Reference Range Interpretation Comments HEMOGLOBIN A1c (test code = 37114) 10.5 % LIPID [id number] 00:00:00 Test Item Value Reference Range Interpretation Comments CHOLESTEROL (test code = 2210) 202 MG/DL TRIGLYCERIDES (test code = 2232) 281 MG/DL HDL CHOLESTEROL (test code = 2220) 36 MG/DL CALC LDL CHOL (test code = 2237) 123 MG/DL RISK RATIO LDL/HDL (test code = 3.42 RATIO 2238) LIPID [id number] 00:00:00 Test Item Value Reference Range Interpretation Comments CHOLESTEROL (test code = 2210) 202 MG/DL TRIGLYCERIDES (test code = 2232) 281 MG/DL HDL CHOLESTEROL (test code = 2220) 36 MG/DL CALC LDL CHOL (test code = 2237) 123 MG/DL RISK RATIO LDL/HDL (test code = 3.42 RATIO 2238) COMPREHENSIVE METABOLIC [id number] 00:00:00 Test Item Value Reference Range Interpretation Comments GLUCOSE (test code = 2217) 191 MG/DL BUN (test code = 2208) 12 MG/DL CREATININE (test code = 2214) 0.46 MG/DL eGFR (2020 CKD-EPI) (test 122 ML/MIN/1.73 code = 30556) CALC BUN/CREAT (test code = 26 RATIO 2235) SODIUM (test code = 2231) 137 MEQ/L POTASSIUM (test code = 2228) 4.6 MEQ/L CHLORIDE (test code = 2215) 101 MEQ/L CARBON DIOXIDE (test code = 25 MEQ/L 2206) CALCIUM (test code = 2209) 9.4 MG/DL PROTEIN, TOTAL (test code = 7.2 G/DL 2228) ALBUMIN (test code = 2201) 4.1 G/DL CALC GLOBULIN (test code = 3.1 G/DL 2240) CALC A/G RATIO (test code = 1.3 RATIO 2234) BILIRUBIN, TOTAL (test code = 0.2 MG/DL 2206) ALKALINE PHOSPHATASE (test 121 U/L code = 2204) AST (test code = 2218) 10 U/L ALT (test code = 2219) 9 U/L COMPREHENSIVE METABOLIC [id number] 00:00:00 Test Item Value Reference Range Interpretation Comments GLUCOSE (test code = 2217) 191 MG/DL BUN (test code = 2208) 12 MG/DL CREATININE (test code = 2214) 0.46 MG/DL eGFR (2020 CKD-EPI) (test 122 ML/MIN/1.73 code = 69719) CALC BUN/CREAT (test code = 26 RATIO 2235) SODIUM (test code = 2231) 137 MEQ/L POTASSIUM (test code = 2228) 4.6 MEQ/L CHLORIDE (test code = 2215) 101 MEQ/L CARBON DIOXIDE (test code = 25 MEQ/L 2205) CALCIUM (test code = 2209) 9.4 MG/DL PROTEIN, TOTAL (test code = 7.2 G/DL 2228) ALBUMIN (test code = 2201) 4.1 G/DL CALC GLOBULIN (test code = 3.1 G/DL 2240) CALC A/G RATIO (test code = 1.3 RATIO 2234) BILIRUBIN, TOTAL (test code = 0.2 MG/DL 2206) ALKALINE PHOSPHATASE (test 121 U/L code = 2204) AST (test code = 2218) 10 U/L ALT (test code = 2219) 9 U/L HEMOGLOBIN [id number] 00:00:00 Test Item Value Reference Range Interpretation Comments HEMOGLOBIN A1c (test code = 70434) 10.5 % HEMOGLOBIN [id number] 00:00:00 Test Item Value Reference Range Interpretation Comments HEMOGLOBIN A1c (test code = 03246) 10.5 % HEMOGLOBIN [id number] 00:00:00 Test Item Value Reference Range Interpretation Comments HEMOGLOBIN A1c (test code = 67465) 10.5 % LIPID [id number] 00:00:00 Test Item Value Reference Range Interpretation Comments CHOLESTEROL (test code = 2210) 202 MG/DL TRIGLYCERIDES (test code = 2232) 281 MG/DL HDL CHOLESTEROL (test code = 2220) 36 MG/DL CALC LDL CHOL (test code = 2237) 123 MG/DL RISK RATIO LDL/HDL (test code = 3.42 RATIO 2238) LIPID [id number] 00:00:00 Test Item Value Reference Range Interpretation Comments CHOLESTEROL (test code = 2210) 202 MG/DL TRIGLYCERIDES (test code = 2232) 281 MG/DL HDL CHOLESTEROL (test code = 2220) 36 MG/DL CALC LDL CHOL (test code = 2237) 123 MG/DL RISK RATIO LDL/HDL (test code = 3.42 RATIO 2238) COMPREHENSIVE METABOLIC [id number] 00:00:00 Test Item Value Reference Range Interpretation Comments GLUCOSE (test code = 2217) 191 MG/DL BUN (test code = 2208) 12 MG/DL CREATININE (test code = 2214) 0.46 MG/DL eGFR (2020 CKD-EPI) (test 122 ML/MIN/1.73 code = 02536) CALC BUN/CREAT (test code = 26 RATIO 2235) SODIUM (test code = 2231) 137 MEQ/L POTASSIUM (test code = 2228) 4.6 MEQ/L CHLORIDE (test code = 2215) 101 MEQ/L CARBON DIOXIDE (test code = 25 MEQ/L 2205) CALCIUM (test code = 2209) 9.4 MG/DL PROTEIN, TOTAL (test code = 7.2 G/DL 2228) ALBUMIN (test code = 2201) 4.1 G/DL CALC GLOBULIN (test code = 3.1 G/DL 2239) CALC A/G RATIO (test code = 1.3 RATIO 2234) BILIRUBIN, TOTAL (test code = 0.2 MG/DL 2206) ALKALINE PHOSPHATASE (test 121 U/L code = 2204) AST (test code = 2218) 10 U/L ALT (test code = 2219) 9 U/L COMPREHENSIVE METABOLIC [id number] 00:00:00 Test Item Value Reference Range Interpretation Comments GLUCOSE (test code = 2217) 191 MG/DL BUN (test code = 2208) 12 MG/DL CREATININE (test code = 2214) 0.46 MG/DL eGFR (2020 CKD-EPI) (test 122 ML/MIN/1.73 code = 63872) CALC BUN/CREAT (test code = 26 RATIO 2235) SODIUM (test code = 2231) 137 MEQ/L POTASSIUM (test code = 2228) 4.6 MEQ/L CHLORIDE (test code = 2215) 101 MEQ/L CARBON DIOXIDE (test code = 25 MEQ/L 2205) CALCIUM (test code = 2209) 9.4 MG/DL PROTEIN, TOTAL (test code = 7.2 G/DL 2228) ALBUMIN (test code = 2201) 4.1 G/DL CALC GLOBULIN (test code = 3.1 G/DL 2239) CALC A/G RATIO (test code = 1.3 RATIO 2234) BILIRUBIN, TOTAL (test code = 0.2 MG/DL 2206) ALKALINE PHOSPHATASE (test 121 U/L code = 2204) AST (test code = 2218) 10 U/L ALT (test code = 2219) 9 U/L HEMOGLOBIN [id number] 00:00:00 Test Item Value Reference Range Interpretation Comments HEMOGLOBIN A1c (test code = 53689) 10.5 % HEMOGLOBIN [id number] 00:00:00 Test Item Value Reference Range Interpretation Comments HEMOGLOBIN A1c (test code = 98060) 10.5 % HEMOGLOBIN [id number] 00:00:00 Test Item Value Reference Range Interpretation Comments HEMOGLOBIN A1c (test code = 59290) 10.5 % LIPID [id number] 00:00:00 Test Item Value Reference Range Interpretation Comments CHOLESTEROL (test code = 2210) 202 MG/DL TRIGLYCERIDES (test code = 2232) 281 MG/DL HDL CHOLESTEROL (test code = 2220) 36 MG/DL CALC LDL CHOL (test code = 2237) 123 MG/DL RISK RATIO LDL/HDL (test code = 3.42 RATIO 2238) LIPID [id number] 00:00:00 Test Item Value Reference Range Interpretation Comments CHOLESTEROL (test code = 2210) 202 MG/DL TRIGLYCERIDES (test code = 2232) 281 MG/DL HDL CHOLESTEROL (test code = 2220) 36 MG/DL CALC LDL CHOL (test code = 2237) 123 MG/DL RISK RATIO LDL/HDL (test code = 3.42 RATIO 2238) COMPREHENSIVE METABOLIC [id number] 00:00:00 Test Item Value Reference Range Interpretation Comments GLUCOSE (test code = 2217) 191 MG/DL BUN (test code = 2208) 12 MG/DL CREATININE (test code = 2214) 0.46 MG/DL eGFR (2020 CKD-EPI) (test 122 ML/MIN/1.73 code = 50174) CALC BUN/CREAT (test code = 26 RATIO 2235) SODIUM (test code = 2231) 137 MEQ/L POTASSIUM (test code = 2228) 4.6 MEQ/L CHLORIDE (test code = 2215) 101 MEQ/L CARBON DIOXIDE (test code = 25 MEQ/L 2205) CALCIUM (test code = 2209) 9.4 MG/DL PROTEIN, TOTAL (test code = 7.2 G/DL 2228) ALBUMIN (test code = 2201) 4.1 G/DL CALC GLOBULIN (test code = 3.1 G/DL 2240) CALC A/G RATIO (test code = 1.3 RATIO 2234) BILIRUBIN, TOTAL (test code = 0.2 MG/DL 2206) ALKALINE PHOSPHATASE (test 121 U/L code = 2204) AST (test code = 2218) 10 U/L ALT (test code = 2219) 9 U/L COMPREHENSIVE METABOLIC [id number] 00:00:00 Test Item Value Reference Range Interpretation Comments GLUCOSE (test code = 2217) 191 MG/DL BUN (test code = 2208) 12 MG/DL CREATININE (test code = 2214) 0.46 MG/DL eGFR (2020 CKD-EPI) (test 122 ML/MIN/1.73 code = 26641) CALC BUN/CREAT (test code = 26 RATIO 2235) SODIUM (test code = 2231) 137 MEQ/L POTASSIUM (test code = 2228) 4.6 MEQ/L CHLORIDE (test code = 2215) 101 MEQ/L CARBON DIOXIDE (test code = 25 MEQ/L 2205) CALCIUM (test code = 2209) 9.4 MG/DL PROTEIN, TOTAL (test code = 7.2 G/DL 2228) ALBUMIN (test code = 2201) 4.1 G/DL CALC GLOBULIN (test code = 3.1 G/DL 0) CALC A/G RATIO (test code = 1.3 RATIO 2233) BILIRUBIN, TOTAL (test code = 0.2 MG/DL 2206) ALKALINE PHOSPHATASE (test 121 U/L code = 2204) AST (test code = 2218) 10 U/L ALT (test code = 2219) 9 U/L LIPID [id number] 05:56:32 Test Item Value Reference Range Interpretation Comments CHOLESTEROL (test 194 MG/DL <200 code = 2210) TRIGLYCERIDES (test 160 MG/DL <150 H code = 2232) HDL CHOLESTEROL (test 37 MG/DL >39 L code = 2220) CALC LDL CHOL (test 129 MG/DL <100 H NOTE: C ALCULATED LDL code = 2237) IS BASED ON STANLEY-PERDOMO METHOD WHICHINCLUDES ADJUSTABLE TRIGLYCERIDE:VL DL CHOLESTEROL RAT IO.THIS FACTOR VARIES B Y MEASURED TRIGLY CERIDE AND NON-HDLCHOL ESTEROL CONCENTRATIONS WITH INCREASED CALCU LATED LDL SEENIN HIGH ER TRIGLYCERIDE OR LOWER NON-HDL SPECIME NS. FOR MOREINFORMATION , SEE CLIENT ANNOUNCE MENT AT [email or web address] LDL/HDL 3.49 RATIO <3.22 H UNLESS O THERWISE (test code = 2238) INDICATED , ALL TESTING PERFORMED [facility], [id number] [place] [address] DIRECTOR: Luis YADAV NUMBER [id number] CAP ACCREDITATION N O. [id number] HEMOGLOBIN [id number] 03:52:59 Test Item Value Reference Range Interpretation Comments HEMOGLOBIN A1c (test 10.1 % 4.2-5.6 H AMERIC AN DIABETES code = 26626) ASSOCIATION IDELINES FOR HGB A1C: PREDIABETES/INC REASED RISK . . . . . . . 5 .7-6.4% DIAGNOSIS OF DI ABETES . . . . . . . . . >=6 .5% WITH CONFIRMATION OR APPROPRIATE SYMPTOMS NOTE: ASSAY MAY BE AFFECTED BY HEMOGLOBINOPATH IES (SICKLE CELL ANEMIA, S- C DISEASE, OTHERS) OR WIN FICIALLY LOWERED BY DECR EASED RED CELL SURVIVAL ( HEMOLYTIC ANEMIAS, BLOOD LOSS, ETC.). CONSIDER ALTERN ATE TESTING OR LABORATORY C ONSULTATION. HEMOGLOBIN A1c [ADDED]2021-10-06 00:00:00 Test Item Value Reference Range Interpretation Comments HEMOGLOBIN A1c (test code = 00707) 10.1 % HEMOGLOBIN A1c [ADDED]2021-10-06 00:00:00 Test Item Value Reference Range Interpretation Comments HEMOGLOBIN A1c (test code = 21549) 10.1 % HEMOGLOBIN A1c [ADDED]2021-10-06 00:00:00 Test Item Value Reference Range Interpretation Comments HEMOGLOBIN A1c (test code = 76004) 10.1 % LIPID PANEL [ADDED]2021-10-06 00:00:00 Test Item Value Reference Range Interpretation Comments CHOLESTEROL (test code = 2210) 194 MG/DL TRIGLYCERIDES (test code = 2232) 160 MG/DL HDL CHOLESTEROL (test code = 2220) 37 MG/DL CALC LDL CHOL (test code = 2237) 129 MG/DL RISK RATIO LDL/HDL (test code = 3.49 RATIO 2238) LIPID PANEL [ADDED]2021-10-06 00:00:00 Test Item Value Reference Range Interpretation Comments CHOLESTEROL (test code = 2210) 194 MG/DL TRIGLYCERIDES (test code = 2232) 160 MG/DL HDL CHOLESTEROL (test code = 2220) 37 MG/DL CALC LDL CHOL (test code = 2237) 129 MG/DL RISK RATIO LDL/HDL (test code = 3.49 RATIO 2238) HEMOGLOBIN A1c [ADDED]2021-10-06 00:00:00 Test Item Value Reference Range Interpretation Comments HEMOGLOBIN A1c (test code = 28809) 10.1 % LIPID PANEL [ADDED]2021-10-06 00:00:00 Test Item Value Reference Range Interpretation Comments CHOLESTEROL (test code = 2210) 194 MG/DL TRIGLYCERIDES (test code = 2232) 160 MG/DL HDL CHOLESTEROL (test code = 2220) 37 MG/DL CALC LDL CHOL (test code = 2237) 129 MG/DL RISK RATIO LDL/HDL (test code = 3.49 RATIO 2238) HEMOGLOBIN A1c [ADDED]2021-10-06 00:00:00 Test Item Value Reference Range Interpretation Comments HEMOGLOBIN A1c (test code = 72597) 10.1 % HEMOGLOBIN A1c [ADDED]2021-10-06 00:00:00 Test Item Value Reference Range Interpretation Comments HEMOGLOBIN A1c (test code = 02782) 10.1 % HEMOGLOBIN A1c [ADDED]2021-10-06 00:00:00 Test Item Value Reference Range Interpretation Comments HEMOGLOBIN A1c (test code = 80413) 10.1 % LIPID PANEL [ADDED]2021-10-06 00:00:00 Test Item Value Reference Range Interpretation Comments CHOLESTEROL (test code = 2210) 194 MG/DL TRIGLYCERIDES (test code = 2232) 160 MG/DL HDL CHOLESTEROL (test code = 2220) 37 MG/DL CALC LDL CHOL (test code = 2237) 129 MG/DL RISK RATIO LDL/HDL (test code = 3.49 RATIO 2238) LIPID PANEL [ADDED]2021-10-06 00:00:00 Test Item Value Reference Range Interpretation Comments CHOLESTEROL (test code = 2210) 194 MG/DL TRIGLYCERIDES (test code = 2232) 160 MG/DL HDL CHOLESTEROL (test code = 2220) 37 MG/DL CALC LDL CHOL (test code = 2237) 129 MG/DL RISK RATIO LDL/HDL (test code = 3.49 RATIO 2238) HEMOGLOBIN A1c [ADDED]2021-10-06 00:00:00 Test Item Value Reference Range Interpretation Comments HEMOGLOBIN A1c (test code = 24718) 10.1 % HEMOGLOBIN A1c [ADDED]2021-10-06 00:00:00 Test Item Value Reference Range Interpretation Comments HEMOGLOBIN A1c (test code = 85332) 10.1 % HEMOGLOBIN A1c [ADDED]2021-10-06 00:00:00 Test Item Value Reference Range Interpretation Comments HEMOGLOBIN A1c (test code = 33159) 10.1 % LIPID PANEL [ADDED]2021-10-06 00:00:00 Test Item Value Reference Range Interpretation Comments CHOLESTEROL (test code = 2210) 194 MG/DL TRIGLYCERIDES (test code = 2232) 160 MG/DL HDL CHOLESTEROL (test code = 2220) 37 MG/DL CALC LDL CHOL (test code = 2237) 129 MG/DL RISK RATIO LDL/HDL (test code = 3.49 RATIO 2238) LIPID PANEL [ADDED]2021-10-06 00:00:00 Test Item Value Reference Range Interpretation Comments CHOLESTEROL (test code = 2210) 194 MG/DL TRIGLYCERIDES (test code = 2232) 160 MG/DL HDL CHOLESTEROL (test code = 2220) 37 MG/DL CALC LDL CHOL (test code = 2237) 129 MG/DL RISK RATIO LDL/HDL (test code = 3.49 RATIO 2238) HEMOGLOBIN A1c [ADDED]2021-10-06 00:00:00 Test Item Value Reference Range Interpretation Comments HEMOGLOBIN A1c (test code = 99739) 10.1 % HEMOGLOBIN [id number] 00:00:00 Test Item Value Reference Range Interpretation Comments HEMOGLOBIN A1c (test code = 51221) 8.8 % HEMOGLOBIN [id number] 00:00:00 Test Item Value Reference Range Interpretation Comments HEMOGLOBIN A1c (test code = 18693) 8.8 % HEMOGLOBIN [id number] 00:00:00 Test Item Value Reference Range Interpretation Comments HEMOGLOBIN A1c (test code = 39747) 8.8 % HEMOGLOBIN [id number] 00:00:00 Test Item Value Reference Range Interpretation Comments HEMOGLOBIN A1c (test code = 69914) 8.8 % HEMOGLOBIN [id number] 00:00:00 Test Item Value Reference Range Interpretation Comments HEMOGLOBIN A1c (test code = 08542) 8.8 % LIPID [id number] 00:00:00 Test Item Value Reference Range Interpretation Comments CHOLESTEROL (test code = 2210) 177 MG/DL TRIGLYCERIDES (test code = 2232) 206 MG/DL HDL CHOLESTEROL (test code = 2220) 37 MG/DL CALC LDL CHOL (test code = 2237) 108 MG/DL RISK RATIO LDL/HDL (test code = 2.92 RATIO 2238) LIPID [id number] 00:00:00 Test Item Value Reference Range Interpretation Comments CHOLESTEROL (test code = 2210) 177 MG/DL TRIGLYCERIDES (test code = 2232) 206 MG/DL HDL CHOLESTEROL (test code = 2220) 37 MG/DL CALC LDL CHOL (test code = 2237) 108 MG/DL RISK RATIO LDL/HDL (test code = 2.92 RATIO 2238) VITAMIN D, 25 [id number] 00:00:00 Test Item Value Reference Range Interpretation Comments VITAMIN D, 25 OH (test code = 4958) 30 NG/ML VITAMIN D, 25 [id number] 00:00:00 Test Item Value Reference Range Interpretation Comments VITAMIN D, 25 OH (test code = 4958) 30 NG/ML LIPID [id number] 00:00:00 Test Item Value Reference Range Interpretation Comments CHOLESTEROL (test code = 2210) 177 MG/DL TRIGLYCERIDES (test code = 2232) 206 MG/DL HDL CHOLESTEROL (test code = 2220) 37 MG/DL CALC LDL CHOL (test code = 2237) 108 MG/DL RISK RATIO LDL/HDL (test code = 2.92 RATIO 2238) VITAMIN D, 25 [id number] 00:00:00 Test Item Value Reference Range Interpretation Comments VITAMIN D, 25 OH (test code = 4958) 30 NG/ML HEMOGLOBIN [id number] 00:00:00 Test Item Value Reference Range Interpretation Comments HEMOGLOBIN A1c (test code = 39042) 8.8 % HEMOGLOBIN [id number] 00:00:00 Test Item Value Reference Range Interpretation Comments HEMOGLOBIN A1c (test code = 70629) 8.8 % HEMOGLOBIN [id number] 00:00:00 Test Item Value Reference Range Interpretation Comments HEMOGLOBIN A1c (test code = 70980) 8.8 % LIPID [id number] 00:00:00 Test Item Value Reference Range Interpretation Comments CHOLESTEROL (test code = 2210) 177 MG/DL TRIGLYCERIDES (test code = 2232) 206 MG/DL HDL CHOLESTEROL (test code = 2220) 37 MG/DL CALC LDL CHOL (test code = 2237) 108 MG/DL RISK RATIO LDL/HDL (test code = 2.92 RATIO 2238) LIPID [id number] 00:00:00 Test Item Value Reference Range Interpretation Comments CHOLESTEROL (test code = 2210) 177 MG/DL TRIGLYCERIDES (test code = 2232) 206 MG/DL HDL CHOLESTEROL (test code = 2220) 37 MG/DL CALC LDL CHOL (test code = 2237) 108 MG/DL RISK RATIO LDL/HDL (test code = 2.92 RATIO 2238) VITAMIN D, 25 [id number] 00:00:00 Test Item Value Reference Range Interpretation Comments VITAMIN D, 25 OH (test code = 4958) 30 NG/ML VITAMIN D, 25 [id number] 00:00:00 Test Item Value Reference Range Interpretation Comments VITAMIN D, 25 OH (test code = 4958) 30 NG/ML HEMOGLOBIN [id number] 00:00:00 Test Item Value Reference Range Interpretation Comments HEMOGLOBIN A1c (test code = 28510) 8.8 % HEMOGLOBIN [id number] 00:00:00 Test Item Value Reference Range Interpretation Comments HEMOGLOBIN A1c (test code = 73296) 8.8 % HEMOGLOBIN [id number] 00:00:00 Test Item Value Reference Range Interpretation Comments HEMOGLOBIN A1c (test code = 71006) 8.8 % LIPID [id number] 00:00:00 Test Item Value Reference Range Interpretation Comments CHOLESTEROL (test code = 2210) 177 MG/DL TRIGLYCERIDES (test code = 2232) 206 MG/DL HDL CHOLESTEROL (test code = 2220) 37 MG/DL CALC LDL CHOL (test code = 2237) 108 MG/DL RISK RATIO LDL/HDL (test code = 2.92 RATIO 2238) LIPID [id number] 00:00:00 Test Item Value Reference Range Interpretation Comments CHOLESTEROL (test code = 2210) 177 MG/DL TRIGLYCERIDES (test code = 2232) 206 MG/DL HDL CHOLESTEROL (test code = 2220) 37 MG/DL CALC LDL CHOL (test code = 2237) 108 MG/DL RISK RATIO LDL/HDL (test code = 2.92 RATIO 2238) VITAMIN D, 25 [id number] 00:00:00 Test Item Value Reference Range Interpretation Comments VITAMIN D, 25 OH (test code = 4958) 30 NG/ML VITAMIN D, 25 [id number] 00:00:00 Test Item Value Reference Range Interpretation Comments VITAMIN D, 25 OH (test code = 4958) 30 NG/ML HEMOGLOBIN [id number] 00:00:00 Test Item Value Reference Range Interpretation Comments HEMOGLOBIN A1c (test code = 53528) 8.3 % HEMOGLOBIN [id number] 00:00:00 Test Item Value Reference Range Interpretation Comments HEMOGLOBIN A1c (test code = 50085) 8.3 % HEMOGLOBIN [id number] 00:00:00 Test Item Value Reference Range Interpretation Comments HEMOGLOBIN A1c (test code = 65643) 8.3 % LIPID [id number] 00:00:00 Test Item Value Reference Range Interpretation Comments CHOLESTEROL (test code = 2210) 188 MG/DL TRIGLYCERIDES (test code = 2232) 323 MG/DL HDL CHOLESTEROL (test code = 2220) 36 MG/DL CALC LDL CHOL (test code = 2237) 109 MG/DL RISK RATIO LDL/HDL (test code = 3.03 RATIO 2238) HEMOGLOBIN [id number] 00:00:00 Test Item Value Reference Range Interpretation Comments HEMOGLOBIN A1c (test code = 49775) 8.3 % LIPID [id number] 00:00:00 Test Item Value Reference Range Interpretation Comments CHOLESTEROL (test code = 2210) 188 MG/DL TRIGLYCERIDES (test code = 2232) 323 MG/DL HDL CHOLESTEROL (test code = 2220) 36 MG/DL CALC LDL CHOL (test code = 2237) 109 MG/DL RISK RATIO LDL/HDL (test code = 3.03 RATIO 2238) COMPREHENSIVE METABOLIC [id number] 00:00:00 Test Item Value Reference Range Interpretation Comments GLUCOSE (test code = 2217) 201 MG/DL BUN (test code = 2208) 14 MG/DL CREATININE (test code = 2214) 0.66 MG/DL eGFR AMER. (test code 127 ML/MIN/1.73 = 81795) eGFR NON- AMER. (test 110 ML/MIN/1.73 code = 92589) CALC BUN/CREAT (test code = 21 RATIO 2235) SODIUM (test code = 2231) 139 MEQ/L POTASSIUM (test code = 2228) 4.4 MEQ/L CHLORIDE (test code = 2215) 104 MEQ/L CARBON DIOXIDE (test code = 23 MEQ/L 2205) CALCIUM (test code = 2209) 9.6 MG/DL PROTEIN, TOTAL (test code = 7.1 G/DL 2228) ALBUMIN (test code = 2201) 4.2 G/DL CALC GLOBULIN (test code = 2.9 G/DL 2240) CALC A/G RATIO (test code = 1.4 RATIO 2234) BILIRUBIN, TOTAL (test code = <0.2 MG/DL 2206) ALKALINE PHOSPHATASE (test 104 U/L code = 2204) AST (test code = 2218) 13 U/L ALT (test code = 2219) 13 U/L COMPREHENSIVE METABOLIC [id number] 00:00:00 Test Item Value Reference Range Interpretation Comments GLUCOSE (test code = 2217) 201 MG/DL BUN (test code = 2208) 14 MG/DL CREATININE (test code = 2214) 0.66 MG/DL eGFR AMER. (test code 127 ML/MIN/1.73 = 36703) eGFR NON- AMER. (test 110 ML/MIN/1.73 code = 21460) CALC BUN/CREAT (test code = 21 RATIO 2235) SODIUM (test code = 2231) 139 MEQ/L POTASSIUM (test code = 2228) 4.4 MEQ/L CHLORIDE (test code = 2215) 104 MEQ/L CARBON DIOXIDE (test code = 23 MEQ/L 2205) CALCIUM (test code = 2209) 9.6 MG/DL PROTEIN, TOTAL (test code = 7.1 G/DL 2228) ALBUMIN (test code = 2201) 4.2 G/DL CALC GLOBULIN (test code = 2.9 G/DL 2239) CALC A/G RATIO (test code = 1.4 RATIO 2233) BILIRUBIN, TOTAL (test code = <0.2 MG/DL 2206) ALKALINE PHOSPHATASE (test 104 U/L code = 2204) AST (test code = 2218) 13 U/L ALT (test code = 2219) 13 U/L VITAMIN D, 25 [id number] 00:00:00 Test Item Value Reference Range Interpretation Comments VITAMIN D, 25 OH (test code = 4958) 18 NG/ML VITAMIN D, 25 [id number] 00:00:00 Test Item Value Reference Range Interpretation Comments VITAMIN D, 25 OH (test code = 4958) 18 NG/ML LIPID [id number] 00:00:00 Test Item Value Reference Range Interpretation Comments CHOLESTEROL (test code = 2210) 188 MG/DL TRIGLYCERIDES (test code = 2232) 323 MG/DL HDL CHOLESTEROL (test code = 2220) 36 MG/DL CALC LDL CHOL (test code = 2237) 109 MG/DL RISK RATIO LDL/HDL (test code = 3.03 RATIO 2238) COMPREHENSIVE METABOLIC [id number] 00:00:00 Test Item Value Reference Range Interpretation Comments GLUCOSE (test code = 2217) 201 MG/DL BUN (test code = 2208) 14 MG/DL CREATININE (test code = 2214) 0.66 MG/DL eGFR AMER. (test code 127 ML/MIN/1.73 = 72337) eGFR NON- AMER. (test 110 ML/MIN/1.73 code = 23802) CALC BUN/CREAT (test code = 21 RATIO 2235) SODIUM (test code = 2231) 139 MEQ/L POTASSIUM (test code = 2228) 4.4 MEQ/L CHLORIDE (test code = 2215) 104 MEQ/L CARBON DIOXIDE (test code = 23 MEQ/L 2205) CALCIUM (test code = 2209) 9.6 MG/DL PROTEIN, TOTAL (test code = 7.1 G/DL 2228) ALBUMIN (test code = 2201) 4.2 G/DL CALC GLOBULIN (test code = 2.9 G/DL 2239) CALC A/G RATIO (test code = 1.4 RATIO 2233) BILIRUBIN, TOTAL (test code = <0.2 MG/DL 2206) ALKALINE PHOSPHATASE (test 104 U/L code = 2204) AST (test code = 221) 13 U/L ALT (test code = 2219) 13 U/L VITAMIN D, 25 [id number] 00:00:00 Test Item Value Reference Range Interpretation Comments VITAMIN D, 25 OH (test code = 4958) 18 NG/ML HEMOGLOBIN [id number] 00:00:00 Test Item Value Reference Range Interpretation Comments HEMOGLOBIN A1c (test code = 08531) 8.3 % HEMOGLOBIN [id number] 00:00:00 Test Item Value Reference Range Interpretation Comments HEMOGLOBIN A1c (test code = 73622) 8.3 % HEMOGLOBIN [id number] 00:00:00 Test Item Value Reference Range Interpretation Comments HEMOGLOBIN A1c (test code = 47467) 8.3 % LIPID [id number] 00:00:00 Test Item Value Reference Range Interpretation Comments CHOLESTEROL (test code = 2210) 188 MG/DL TRIGLYCERIDES (test code = 2232) 323 MG/DL HDL CHOLESTEROL (test code = 2220) 36 MG/DL CALC LDL CHOL (test code = 2237) 109 MG/DL RISK RATIO LDL/HDL (test code = 3.03 RATIO 2238) LIPID [id number] 00:00:00 Test Item Value Reference Range Interpretation Comments CHOLESTEROL (test code = 2210) 188 MG/DL TRIGLYCERIDES (test code = 2232) 323 MG/DL HDL CHOLESTEROL (test code = 2220) 36 MG/DL CALC LDL CHOL (test code = 2237) 109 MG/DL RISK RATIO LDL/HDL (test code = 3.03 RATIO 2238) COMPREHENSIVE METABOLIC [id number] 00:00:00 Test Item Value Reference Range Interpretation Comments GLUCOSE (test code = 2217) 201 MG/DL BUN (test code = 2208) 14 MG/DL CREATININE (test code = 2214) 0.66 MG/DL eGFR AMER. (test code 127 ML/MIN/1.73 = 76891) eGFR NON- AMER. (test 110 ML/MIN/1.73 code = 84000) CALC BUN/CREAT (test code = 21 RATIO 2235) SODIUM (test code = 2231) 139 MEQ/L POTASSIUM (test code = 2228) 4.4 MEQ/L CHLORIDE (test code = 2215) 104 MEQ/L CARBON DIOXIDE (test code = 23 MEQ/L 220) CALCIUM (test code = 2209) 9.6 MG/DL PROTEIN, TOTAL (test code = 7.1 G/DL 2228) ALBUMIN (test code = 2201) 4.2 G/DL CALC GLOBULIN (test code = 2.9 G/DL 224) CALC A/G RATIO (test code = 1.4 RATIO 2234) BILIRUBIN, TOTAL (test code = <0.2 MG/DL 2206) ALKALINE PHOSPHATASE (test 104 U/L code = 2204) AST (test code = 2218) 13 U/L ALT (test code = 2219) 13 U/L COMPREHENSIVE METABOLIC [id number] 00:00:00 Test Item Value Reference Range Interpretation Comments GLUCOSE (test code = 2217) 201 MG/DL BUN (test code = 2208) 14 MG/DL CREATININE (test code = 2214) 0.66 MG/DL eGFR AMER. (test code 127 ML/MIN/1.73 = 62921) eGFR NON- AMER. (test 110 ML/MIN/1.73 code = 77079) CALC BUN/CREAT (test code = 21 RATIO 2235) SODIUM (test code = 2231) 139 MEQ/L POTASSIUM (test code = 2228) 4.4 MEQ/L CHLORIDE (test code = 2215) 104 MEQ/L CARBON DIOXIDE (test code = 23 MEQ/L 220) CALCIUM (test code = 2209) 9.6 MG/DL PROTEIN, TOTAL (test code = 7.1 G/DL 2228) ALBUMIN (test code = 2201) 4.2 G/DL CALC GLOBULIN (test code = 2.9 G/DL 0) CALC A/G RATIO (test code = 1.4 RATIO 2234) BILIRUBIN, TOTAL (test code = <0.2 MG/DL 2206) ALKALINE PHOSPHATASE (test 104 U/L code = 2204) AST (test code = 2218) 13 U/L ALT (test code = 2219) 13 U/L VITAMIN D, 25 [id number] 00:00:00 Test Item Value Reference Range Interpretation Comments VITAMIN D, 25 OH (test code = 4958) 18 NG/ML VITAMIN D, 25 [id number] 00:00:00 Test Item Value Reference Range Interpretation Comments VITAMIN D, 25 OH (test code = 4958) 18 NG/ML HEMOGLOBIN [id number] 00:00:00 Test Item Value Reference Range Interpretation Comments HEMOGLOBIN A1c (test code = 94866) 8.3 % HEMOGLOBIN [id number] 00:00:00 Test Item Value Reference Range Interpretation Comments HEMOGLOBIN A1c (test code = 87987) 8.3 % HEMOGLOBIN [id number] 00:00:00 Test Item Value Reference Range Interpretation Comments HEMOGLOBIN A1c (test code = 24654) 8.3 % LIPID [id number] 00:00:00 Test Item Value Reference Range Interpretation Comments CHOLESTEROL (test code = 2210) 188 MG/DL TRIGLYCERIDES (test code = 2232) 323 MG/DL HDL CHOLESTEROL (test code = 2220) 36 MG/DL CALC LDL CHOL (test code = 2237) 109 MG/DL RISK RATIO LDL/HDL (test code = 3.03 RATIO 2238) LIPID [id number] 00:00:00 Test Item Value Reference Range Interpretation Comments CHOLESTEROL (test code = 2210) 188 MG/DL TRIGLYCERIDES (test code = 2232) 323 MG/DL HDL CHOLESTEROL (test code = 2220) 36 MG/DL CALC LDL CHOL (test code = 2237) 109 MG/DL RISK RATIO LDL/HDL (test code = 3.03 RATIO 2238) COMPREHENSIVE METABOLIC [id number] 00:00:00 Test Item Value Reference Range Interpretation Comments GLUCOSE (test code = 2217) 201 MG/DL BUN (test code = 2208) 14 MG/DL CREATININE (test code = 2214) 0.66 MG/DL eGFR AMER. (test code 127 ML/MIN/1.73 = 58374) eGFR NON- AMER. (test 110 ML/MIN/1.73 code = 20498) CALC BUN/CREAT (test code = 21 RATIO 2235) SODIUM (test code = 2231) 139 MEQ/L POTASSIUM (test code = 2228) 4.4 MEQ/L CHLORIDE (test code = 2215) 104 MEQ/L CARBON DIOXIDE (test code = 23 MEQ/L 220) CALCIUM (test code = 2209) 9.6 MG/DL PROTEIN, TOTAL (test code = 7.1 G/DL 2228) ALBUMIN (test code = 2201) 4.2 G/DL CALC GLOBULIN (test code = 2.9 G/DL 2240) CALC A/G RATIO (test code = 1.4 RATIO 2234) BILIRUBIN, TOTAL (test code = <0.2 MG/DL 2206) ALKALINE PHOSPHATASE (test 104 U/L code = 2204) AST (test code = 2218) 13 U/L ALT (test code = 2219) 13 U/L COMPREHENSIVE METABOLIC [id number] 00:00:00 Test Item Value Reference Range Interpretation Comments GLUCOSE (test code = 2217) 201 MG/DL BUN (test code = 2208) 14 MG/DL CREATININE (test code = 2214) 0.66 MG/DL eGFR AMER. (test code 127 ML/MIN/1.73 = 66338) eGFR NON- AMER. (test 110 ML/MIN/1.73 code = 94190) CALC BUN/CREAT (test code = 21 RATIO 2235) SODIUM (test code = 2231) 139 MEQ/L POTASSIUM (test code = 2228) 4.4 MEQ/L CHLORIDE (test code = 2215) 104 MEQ/L CARBON DIOXIDE (test code = 23 MEQ/L 220) CALCIUM (test code = 2209) 9.6 MG/DL PROTEIN, TOTAL (test code = 7.1 G/DL 2228) ALBUMIN (test code = 2201) 4.2 G/DL CALC GLOBULIN (test code = 2.9 G/DL 2240) CALC A/G RATIO (test code = 1.4 RATIO 2234) BILIRUBIN, TOTAL (test code = <0.2 MG/DL 2206) ALKALINE PHOSPHATASE (test 104 U/L code = 2204) AST (test code = 2218) 13 U/L ALT (test code = 2219) 13 U/L HEMOGLOBIN [id number] 00:00:00 Test Item Value Reference Range Interpretation Comments HEMOGLOBIN A1c (test code = 31551) 8.3 % VITAMIN D, 25 [id number] 00:00:00 Test Item Value Reference Range Interpretation Comments VITAMIN D, 25 OH (test code = 4958) 18 NG/ML VITAMIN D, 25 [id number] 00:00:00 Test Item Value Reference Range Interpretation Comments VITAMIN D, 25 OH (test code = 4958) 18 NG/ML HCG, [id number] 00:00:00 Test Item Value Reference Range Interpretation Comments HCG, QUANTITATIVE (test code = 43 MIU/ML 2506) HCG, [id number] 00:00:00 Test Item Value Reference Range Interpretation Comments HCG, QUANTITATIVE (test code = 43 MIU/ML 2506) HCG, [id number] 00:00:00 Test Item Value Reference Range Interpretation Comments HCG, QUANTITATIVE (test code = 43 MIU/ML 2506) HCG, [id number] 00:00:00 Test Item Value Reference Range Interpretation Comments HCG, QUANTITATIVE (test code = 43 MIU/ML 2506) HCG, [id number] 00:00:00 Test Item Value Reference Range Interpretation Comments HCG, QUANTITATIVE (test code = 43 MIU/ML 2506) HCG, [id number] 00:00:00 Test Item Value Reference Range Interpretation Comments HCG, QUANTITATIVE (test code = 43 MIU/ML 2506) HCG, [id number] 00:00:00 Test Item Value Reference Range Interpretation Comments HCG, QUANTITATIVE (test code = 43 MIU/ML 2506) HCG, [id number] 00:00:00 Test Item Value Reference Range Interpretation Comments HCG, QUANTITATIVE (test code = 43 MIU/ML 2506) HCG, [id number] 00:00:00 Test Item Value Reference Range Interpretation Comments HCG, QUANTITATIVE (test code = 43 MIU/ML 2506) HCG, [id number] 00:00:00 Test Item Value Reference Range Interpretation Comments HCG, QUANTITATIVE (test code = 43 MIU/ML 2506) HCG, [id number] 00:00:00 Test Item Value Reference Range Interpretation Comments HCG, QUANTITATIVE (test code = 43 MIU/ML 2506) HCG, [id number] 00:00:00 Test Item Value Reference Range Interpretation Comments HCG, QUANTITATIVE (test code = 707 MIU/ML 2506) HCG, [id number] 00:00:00 Test Item Value Reference Range Interpretation Comments HCG, QUANTITATIVE (test code = 707 MIU/ML 2506) HCG, [id number] 00:00:00 Test Item Value Reference Range Interpretation Comments HCG, QUANTITATIVE (test code = 707 MIU/ML 2506) HCG, [id number] 00:00:00 Test Item Value Reference Range Interpretation Comments HCG, QUANTITATIVE (test code = 707 MIU/ML 2506) HCG, [id number] 00:00:00 Test Item Value Reference Range Interpretation Comments HCG, QUANTITATIVE (test code = 707 MIU/ML 2506) HCG, [id number] 00:00:00 Test Item Value Reference Range Interpretation Comments HCG, QUANTITATIVE (test code = 707 MIU/ML 2506) HCG, [id number] 00:00:00 Test Item Value Reference Range Interpretation Comments HCG, QUANTITATIVE (test code = 707 MIU/ML 2506) HCG, [id number] 00:00:00 Test Item Value Reference Range Interpretation Comments HCG, QUANTITATIVE (test code = 707 MIU/ML 2506) HCG, [id number] 00:00:00 Test Item Value Reference Range Interpretation Comments HCG, QUANTITATIVE (test code = 707 MIU/ML 2506) HCG, [id number] 00:00:00 Test Item Value Reference Range Interpretation Comments HCG, QUANTITATIVE (test code = 707 MIU/ML 2506) HCG, [id number] 00:00:00 Test Item Value Reference Range Interpretation Comments HCG, QUANTITATIVE (test code = 707 MIU/ML 2506) SARS-CoV-2 (COVID-19) by RT-PCR (HIGH RISK)2020-09-26 00:00:00 Test Item Value Reference Range Interpretation Comments SARS-CoV-2 INTERPRETATION POSITIVE (test code = 76704) SOURCE (test code = 95019) NASOPHARYNGEAL SARS-CoV-2 (COVID-19) by RT-PCR (HIGH RISK)2020-09-26 00:00:00 Test Item Value Reference Range Interpretation Comments SARS-CoV-2 INTERPRETATION POSITIVE (test code = 87951) SOURCE (test code = 30209) NASOPHARYNGEAL SARS-CoV-2 (COVID-19) by RT-PCR (HIGH RISK)2020-09-26 00:00:00 Test Item Value Reference Range Interpretation Comments SARS-CoV-2 INTERPRETATION POSITIVE (test code = 46451) SOURCE (test code = 90386) NASOPHARYNGEAL SARS-CoV-2 (COVID-19) by RT-PCR (HIGH RISK)2020-09-26 00:00:00 Test Item Value Reference Range Interpretation Comments SARS-CoV-2 INTERPRETATION POSITIVE (test code = 47289) SOURCE (test code = 72903) NASOPHARYNGEAL SARS-CoV-2 (COVID-19) by RT-PCR (HIGH RISK)2020-09-26 00:00:00 Test Item Value Reference Range Interpretation Comments SARS-CoV-2 INTERPRETATION POSITIVE (test code = 43106) SOURCE (test code = 59522) NASOPHARYNGEAL SARS-CoV-2 (COVID-19) by RT-PCR (HIGH RISK)2020-09-26 00:00:00 Test Item Value Reference Range Interpretation Comments SARS-CoV-2 INTERPRETATION POSITIVE (test code = 34779) SOURCE (test code = 77512) NASOPHARYNGEAL SARS-CoV-2 (COVID-19) by RT-PCR (HIGH RISK)2020-09-26 00:00:00 Test Item Value Reference Range Interpretation Comments SARS-CoV-2 INTERPRETATION POSITIVE (test code = 85713) SOURCE (test code = 83984) NASOPHARYNGEAL HCG, [id number] 00:00:00 Test Item Value Reference Range Interpretation Comments HCG, QUANTITATIVE (test code = 8419 MIU/ML 2506) HCG, [id number] 00:00:00 Test Item Value Reference Range Interpretation Comments HCG, QUANTITATIVE (test code = 8419 MIU/ML 2506) HCG, [id number] 00:00:00 Test Item Value Reference Range Interpretation Comments HCG, QUANTITATIVE (test code = 8419 MIU/ML 2506) HCG, [id number] 00:00:00 Test Item Value Reference Range Interpretation Comments HCG, QUANTITATIVE (test code = 8419 MIU/ML 2506) [id number] 00:00:00 Test Item Value Reference Range Interpretation Comments PROGESTERONE (test code = 2790) 5.55 NG/ML [id number] 00:00:00 Test Item Value Reference Range Interpretation Comments PROGESTERONE (test code = 2790) 5.55 NG/ML HCG, [id number] 00:00:00 Test Item Value Reference Range Interpretation Comments HCG, QUANTITATIVE (test code = 8419 MIU/ML 2506) [id number] 00:00:00 Test Item Value Reference Range Interpretation Comments PROGESTERONE (test code = 2790) 5.55 NG/ML HCG, [id number] 00:00:00 Test Item Value Reference Range Interpretation Comments HCG, QUANTITATIVE (test code = 8419 MIU/ML 2506) HCG, [id number] 00:00:00 Test Item Value Reference Range Interpretation Comments HCG, QUANTITATIVE (test code = 8419 MIU/ML 2506) HCG, [id number] 00:00:00 Test Item Value Reference Range Interpretation Comments HCG, QUANTITATIVE (test code = 8419 MIU/ML 2506) [id number] 00:00:00 Test Item Value Reference Range Interpretation Comments PROGESTERONE (test code = 2790) 5.55 NG/ML [id number] 00:00:00 Test Item Value Reference Range Interpretation Comments PROGESTERONE (test code = 2790) 5.55 NG/ML HCG, [id number] 00:00:00 Test Item Value Reference Range Interpretation Comments HCG, QUANTITATIVE (test code = 8419 MIU/ML 2506) HCG, [id number] 00:00:00 Test Item Value Reference Range Interpretation Comments HCG, QUANTITATIVE (test code = 8419 MIU/ML 2506) HCG, [id number] 00:00:00 Test Item Value Reference Range Interpretation Comments HCG, QUANTITATIVE (test code = 8419 MIU/ML 2506) [id number] 00:00:00 Test Item Value Reference Range Interpretation Comments PROGESTERONE (test code = 2790) 5.55 NG/ML [id number] 00:00:00 Test Item Value Reference Range Interpretation Comments PROGESTERONE (test code = 2790) 5.55 NG/ML [id number] 00:00:00 Test Item Value Reference Range Interpretation Comments PROGESTERONE (test code = 2790) 8.47 NG/ML [id number] 00:00:00 Test Item Value Reference Range Interpretation Comments PROGESTERONE (test code = 2790) 8.47 NG/ML [id number] 00:00:00 Test Item Value Reference Range Interpretation Comments PROGESTERONE (test code = 2790) 8.47 NG/ML HCG, [id number] 00:00:00 Test Item Value Reference Range Interpretation Comments HCG, QUANTITATIVE (test code = 5806 MIU/ML 2506) HCG, [id number] 00:00:00 Test Item Value Reference Range Interpretation Comments HCG, QUANTITATIVE (test code = 5806 MIU/ML 2506) HCG, [id number] 00:00:00 Test Item Value Reference Range Interpretation Comments HCG, QUANTITATIVE (test code = 5806 MIU/ML 2506) HCG, [id number] 00:00:00 Test Item Value Reference Range Interpretation Comments HCG, QUANTITATIVE (test code = 5806 MIU/ML 2506) HCG, [id number] 00:00:00 Test Item Value Reference Range Interpretation Comments HCG, QUANTITATIVE (test code = 5806 MIU/ML 2506) [id number] 00:00:00 Test Item Value Reference Range Interpretation Comments PROGESTERONE (test code = 2790) 8.47 NG/ML [id number] 00:00:00 Test Item Value Reference Range Interpretation Comments PROGESTERONE (test code = 2790) 8.47 NG/ML HCG, [id number] 00:00:00 Test Item Value Reference Range Interpretation Comments HCG, QUANTITATIVE (test code = 5806 MIU/ML 2506) HCG, [id number] 00:00:00 Test Item Value Reference Range Interpretation Comments HCG, QUANTITATIVE (test code = 5806 MIU/ML 2506) HCG, [id number] 00:00:00 Test Item Value Reference Range Interpretation Comments HCG, QUANTITATIVE (test code = 5806 MIU/ML 2506) [id number] 00:00:00 Test Item Value Reference Range Interpretation Comments PROGESTERONE (test code = 2790) 8.47 NG/ML [id number] 00:00:00 Test Item Value Reference Range Interpretation Comments PROGESTERONE (test code = 2790) 8.47 NG/ML HCG, [id number] 00:00:00 Test Item Value Reference Range Interpretation Comments HCG, QUANTITATIVE (test code = 5806 MIU/ML 2506) HCG, [id number] 00:00:00 Test Item Value Reference Range Interpretation Comments HCG, QUANTITATIVE (test code = 5806 MIU/ML 2506) HCG, [id number] 00:00:00 Test Item Value Reference Range Interpretation Comments HCG, QUANTITATIVE (test code = 5806 MIU/ML 2506) DRUG ABUSE PANEL 10 WITH [id number] 00:00:00 Test Item Value Reference Range Interpretation Comments COMMENTS (test code = TEST NOT PERFORMED 3222) AMPHETAMINES (test code = TEST NOT PERFORMED 3201) BARBITURATES (test code = TEST NOT PERFORMED 3202) BENZODIAZEPINES (test code TEST NOT PERFORMED = 3203) CANNABINOIDS (test code = TEST NOT PERFORMED 3204) COCAINE METABOLITE (test TEST NOT PERFORMED code = 3205) OPIATES (test code = 3209) TEST NOT PERFORMED OXYCODONE (test code = TEST NOT PERFORMED 72040) PHENCYCLIDINE (test code = TEST NOT PERFORMED 3210) METHADONE (test code = TEST NOT PERFORMED 3207) BUPRENORPHINE (test code = TEST NOT PERFORMED 77489) DRUG ABUSE PANEL 10 WITH [id number] 00:00:00 Test Item Value Reference Range Interpretation Comments COMMENTS (test code = TEST NOT PERFORMED 3222) AMPHETAMINES (test code = TEST NOT PERFORMED 3201) BARBITURATES (test code = TEST NOT PERFORMED 3202) BENZODIAZEPINES (test code TEST NOT PERFORMED = 3203) CANNABINOIDS (test code = TEST NOT PERFORMED 3204) COCAINE METABOLITE (test TEST NOT PERFORMED code = 3205) OPIATES (test code = 3209) TEST NOT PERFORMED OXYCODONE (test code = TEST NOT PERFORMED 70664) PHENCYCLIDINE (test code = TEST NOT PERFORMED 3210) METHADONE (test code = TEST NOT PERFORMED 3207) BUPRENORPHINE (test code = TEST NOT PERFORMED 74658) DRUG ABUSE PANEL 10 WITH [id number] 00:00:00 Test Item Value Reference Range Interpretation Comments COMMENTS (test code = TEST NOT PERFORMED 3222) AMPHETAMINES (test code = TEST NOT PERFORMED 3201) BARBITURATES (test code = TEST NOT PERFORMED 3202) BENZODIAZEPINES (test code TEST NOT PERFORMED = 3203) CANNABINOIDS (test code = TEST NOT PERFORMED 3204) COCAINE METABOLITE (test TEST NOT PERFORMED code = 3205) OPIATES (test code = 3209) TEST NOT PERFORMED OXYCODONE (test code = TEST NOT PERFORMED 92598) PHENCYCLIDINE (test code = TEST NOT PERFORMED 3210) METHADONE (test code = TEST NOT PERFORMED 3207) BUPRENORPHINE (test code = TEST NOT PERFORMED 72822) DRUG ABUSE PANEL 10 WITH [id number] 00:00:00 Test Item Value Reference Range Interpretation Comments COMMENTS (test code = TEST NOT PERFORMED 3222) AMPHETAMINES (test code = TEST NOT PERFORMED 3201) BARBITURATES (test code = TEST NOT PERFORMED 3202) BENZODIAZEPINES (test code TEST NOT PERFORMED = 3203) CANNABINOIDS (test code = TEST NOT PERFORMED 3204) COCAINE METABOLITE (test TEST NOT PERFORMED code = 3205) OPIATES (test code = 3209) TEST NOT PERFORMED OXYCODONE (test code = TEST NOT PERFORMED 01570) PHENCYCLIDINE (test code = TEST NOT PERFORMED 3210) METHADONE (test code = TEST NOT PERFORMED 3207) BUPRENORPHINE (test code = TEST NOT PERFORMED 59655) DRUG ABUSE PANEL 10 WITH [id number] 00:00:00 Test Item Value Reference Range Interpretation Comments COMMENTS (test code = TEST NOT PERFORMED 3222) AMPHETAMINES (test code = TEST NOT PERFORMED 3201) BARBITURATES (test code = TEST NOT PERFORMED 3202) BENZODIAZEPINES (test code TEST NOT PERFORMED = 3203) CANNABINOIDS (test code = TEST NOT PERFORMED 3204) COCAINE METABOLITE (test TEST NOT PERFORMED code = 3205) OPIATES (test code = 3209) TEST NOT PERFORMED OXYCODONE (test code = TEST NOT PERFORMED 46916) PHENCYCLIDINE (test code = TEST NOT PERFORMED 3210) METHADONE (test code = TEST NOT PERFORMED 3207) BUPRENORPHINE (test code = TEST NOT PERFORMED 78365) DRUG ABUSE PANEL 10 WITH [id number] 00:00:00 Test Item Value Reference Range Interpretation Comments COMMENTS (test code = TEST NOT PERFORMED 3222) AMPHETAMINES (test code = TEST NOT PERFORMED 3201) BARBITURATES (test code = TEST NOT PERFORMED 3202) BENZODIAZEPINES (test code TEST NOT PERFORMED = 3203) CANNABINOIDS (test code = TEST NOT PERFORMED 3204) COCAINE METABOLITE (test TEST NOT PERFORMED code = 3205) OPIATES (test code = 3209) TEST NOT PERFORMED OXYCODONE (test code = TEST NOT PERFORMED 71969) PHENCYCLIDINE (test code = TEST NOT PERFORMED 3210) METHADONE (test code = TEST NOT PERFORMED 3207) BUPRENORPHINE (test code = TEST NOT PERFORMED 26909) DRUG ABUSE PANEL 10 WITH [id number] 00:00:00 Test Item Value Reference Range Interpretation Comments COMMENTS (test code = TEST NOT PERFORMED 3222) AMPHETAMINES (test code = TEST NOT PERFORMED 3201) BARBITURATES (test code = TEST NOT PERFORMED 3202) BENZODIAZEPINES (test code TEST NOT PERFORMED = 3203) CANNABINOIDS (test code = TEST NOT PERFORMED 3204) COCAINE METABOLITE (test TEST NOT PERFORMED code = 3205) OPIATES (test code = 3209) TEST NOT PERFORMED OXYCODONE (test code = TEST NOT PERFORMED 76179) PHENCYCLIDINE (test code = TEST NOT PERFORMED 3210) METHADONE (test code = TEST NOT PERFORMED 3207) BUPRENORPHINE (test code = TEST NOT PERFORMED 20579) CULTURE, [id number] 00:00:00 Test Item Value Reference Range Interpretation Comments CULTURE, URINE (test SPECIMEN NUMBER: code = 36519) [id number] CULTURE, [id number] 00:00:00 Test Item Value Reference Range Interpretation Comments CULTURE, URINE (test SPECIMEN NUMBER: code = 93969) [id number] CULTURE, [id number] 00:00:00 Test Item Value Reference Range Interpretation Comments CULTURE, URINE (test SPECIMEN NUMBER: code = 14310) [id number] CULTURE, [id number] 00:00:00 Test Item Value Reference Range Interpretation Comments CULTURE, URINE (test SPECIMEN NUMBER: code = 66981) [id number] CULTURE, [id number] 00:00:00 Test Item Value Reference Range Interpretation Comments CULTURE, URINE (test SPECIMEN NUMBER: code = 52833) [id number] CULTURE, [id number] 00:00:00 Test Item Value Reference Range Interpretation Comments CULTURE, URINE (test SPECIMEN NUMBER: code = 29512) [id number] CULTURE, [id number] 00:00:00 Test Item Value Reference Range Interpretation Comments CULTURE, URINE (test SPECIMEN NUMBER: code = 64559) [id number] HEMOGLOBIN [id number] 00:00:00 Test Item Value Reference Range Interpretation Comments HEMOGLOBIN A1 (test code = 2575) 97.3 % HEMOGLOBIN A2 (test code = 2576) 2.7 % HEMOGLOBIN F () (test code 0.0 % = 2722) HEMOGLOBIN S (test code = 2724) NONE % HEMOGLOBIN C (test code = 2726) NONE % OTHER HEMOGLOBIN VARIANT (test NONE DETEC % code = 38184) PATHOLOGIST'S INTERPRETATION (NOTE) (test code = 2577) HEMOGLOBIN [id number] 00:00:00 Test Item Value Reference Range Interpretation Comments HEMOGLOBIN A1 (test code = 2575) 97.3 % HEMOGLOBIN A2 (test code = 2576) 2.7 % HEMOGLOBIN F () (test code 0.0 % = 2722) HEMOGLOBIN S (test code = 2724) NONE % HEMOGLOBIN C (test code = 2726) NONE % OTHER HEMOGLOBIN VARIANT (test NONE DETEC % code = 44794) PATHOLOGIST'S INTERPRETATION (NOTE) (test code = 2577) HEMOGLOBIN [id number] 00:00:00 Test Item Value Reference Range Interpretation Comments HEMOGLOBIN A1 (test code = 2575) 97.3 % HEMOGLOBIN A2 (test code = 2576) 2.7 % HEMOGLOBIN F () (test code 0.0 % = 2722) HEMOGLOBIN S (test code = 2724) NONE % HEMOGLOBIN C (test code = 2726) NONE % OTHER HEMOGLOBIN VARIANT (test NONE DETEC % code = 17557) PATHOLOGIST'S INTERPRETATION (NOTE) (test code = 2577) HEMOGLOBIN [id number] 00:00:00 Test Item Value Reference Range Interpretation Comments HEMOGLOBIN A1 (test code = 2575) 97.3 % HEMOGLOBIN A2 (test code = 2576) 2.7 % HEMOGLOBIN F () (test code 0.0 % = 2722) HEMOGLOBIN S (test code = 2724) NONE % HEMOGLOBIN C (test code = 2726) NONE % OTHER HEMOGLOBIN VARIANT (test NONE DETEC % code = 74519) PATHOLOGIST'S INTERPRETATION (NOTE) (test code = 2577) HEMOGLOBIN [id number] 00:00:00 Test Item Value Reference Range Interpretation Comments HEMOGLOBIN A1 (test code = 2575) 97.3 % HEMOGLOBIN A2 (test code = 2576) 2.7 % HEMOGLOBIN F () (test code 0.0 % = 2722) HEMOGLOBIN S (test code = 2724) NONE % HEMOGLOBIN C (test code = 2726) NONE % OTHER HEMOGLOBIN VARIANT (test NONE DETEC % code = 91636) PATHOLOGIST'S INTERPRETATION (NOTE) (test code = 2577) HEMOGLOBIN [id number] 00:00:00 Test Item Value Reference Range Interpretation Comments HEMOGLOBIN A1 (test code = 2575) 97.3 % HEMOGLOBIN A2 (test code = 2576) 2.7 % HEMOGLOBIN F () (test code 0.0 % = 2722) HEMOGLOBIN S (test code = 2724) NONE % HEMOGLOBIN C (test code = 2726) NONE % OTHER HEMOGLOBIN VARIANT (test NONE DETEC % code = 71258) PATHOLOGIST'S INTERPRETATION (NOTE) (test code = 2577) HEMOGLOBIN [id number] 00:00:00 Test Item Value Reference Range Interpretation Comments HEMOGLOBIN A1 (test code = 2575) 97.3 % HEMOGLOBIN A2 (test code = 2576) 2.7 % HEMOGLOBIN F () (test code 0.0 % = 2722) HEMOGLOBIN S (test code = 2724) NONE % HEMOGLOBIN C (test code = 2726) NONE % OTHER HEMOGLOBIN VARIANT (test NONE DETEC % code = 32578) PATHOLOGIST'S INTERPRETATION (NOTE) (test code = 2577) HEMOGLOBIN [id number] 00:00:00 Test Item Value Reference Range Interpretation Comments HEMOGLOBIN A1 (test code = 2575) 97.3 % HEMOGLOBIN A2 (test code = 2576) 2.7 % HEMOGLOBIN F () (test code 0.0 % = 2722) HEMOGLOBIN S (test code = 2724) NONE % HEMOGLOBIN C (test code = 2726) NONE % OTHER HEMOGLOBIN VARIANT (test NONE DETEC % code = 79229) PATHOLOGIST'S INTERPRETATION (NOTE) (test code = 2577) HEMOGLOBIN [id number] 00:00:00 Test Item Value Reference Range Interpretation Comments HEMOGLOBIN A1 (test code = 2575) 97.3 % HEMOGLOBIN A2 (test code = 2576) 2.7 % HEMOGLOBIN F () (test code 0.0 % = 2722) HEMOGLOBIN S (test code = 2724) NONE % HEMOGLOBIN C (test code = 2726) NONE % OTHER HEMOGLOBIN VARIANT (test NONE DETEC % code = 65803) PATHOLOGIST'S INTERPRETATION (NOTE) (test code = 2577) HEMOGLOBIN [id number] 00:00:00 Test Item Value Reference Range Interpretation Comments HEMOGLOBIN A1 (test code = 2575) 97.3 % HEMOGLOBIN A2 (test code = 2576) 2.7 % HEMOGLOBIN F () (test code 0.0 % = 2722) HEMOGLOBIN S (test code = 2724) NONE % HEMOGLOBIN C (test code = 2726) NONE % OTHER HEMOGLOBIN VARIANT (test NONE DETEC % code = 16630) PATHOLOGIST'S INTERPRETATION (NOTE) (test code = 2577) HEMOGLOBIN [id number] 00:00:00 Test Item Value Reference Range Interpretation Comments HEMOGLOBIN A1 (test code = 2575) 97.3 % HEMOGLOBIN A2 (test code = 2576) 2.7 % HEMOGLOBIN F () (test code 0.0 % = 2722) HEMOGLOBIN S (test code = 2724) NONE % HEMOGLOBIN C (test code = 2726) NONE % OTHER HEMOGLOBIN VARIANT (test NONE DETEC % code = 28855) PATHOLOGIST'S INTERPRETATION (NOTE) (test code = 2577) OBSTETRIC PANEL + [id number] 00:00:00 Test Item Value Reference Range Interpretation Comments WBC (test code = 1001) 7.7 K/UL RBC (test code = 1002) 4.87 M/UL HEMOGLOBIN (test code = 12.6 G/DL 1003) HEMATOCRIT (test code = 38.6 % 1004) MCV (test code = 1005) 79.3 fL MCH (test code = 1006) 25.9 PG MCHC (test code = 1007) 32.6 G/DL RDW (test code = 1038) 14.2 % NEUTROPHILS (test code = 64.2 % 1008) LYMPHOCYTES (test code = 27.6 % 1010) MONOCYTES (test code = 1011) 5.6 % EOSINOPHILS (test code = 1.8 % 1012) BASOPHILS (test code = 1013) 0.8 % PLATELET COUNT (test code = 307 K/UL 1015) BLOOD TYPE AND RH (test code A POSITIVE = 3901) ANTIBODY SCREEN (test code = NEGATIVE 3902) RUBELLA ANTIBODY SCREEN 24 IU/ML (test code = 4600) RUBELLA IgG INTERP (test REACTIVE code = 70315) HEPATITIS B SURF AG (test NON-REACTIVE code = 2739) RPR (test code = 28131) NON-REACTIVE RPR TITER (test code = 3500) NOT INDIC. TITER HIV 1/2 4TH GEN, RFLX CONF NON-REACTIVE (test code = 3514) OBSTETRIC PANEL + [id number] 00:00:00 Test Item Value Reference Range Interpretation Comments WBC (test code = 1001) 7.7 K/UL RBC (test code = 1002) 4.87 M/UL HEMOGLOBIN (test code = 12.6 G/DL 1003) HEMATOCRIT (test code = 38.6 % 1004) MCV (test code = 1005) 79.3 fL MCH (test code = 1006) 25.9 PG MCHC (test code = 1007) 32.6 G/DL RDW (test code = 1038) 14.2 % NEUTROPHILS (test code = 64.2 % 1008) LYMPHOCYTES (test code = 27.6 % 1010) MONOCYTES (test code = 1011) 5.6 % EOSINOPHILS (test code = 1.8 % 1012) BASOPHILS (test code = 1013) 0.8 % PLATELET COUNT (test code = 307 K/UL 1015) BLOOD TYPE AND RH (test code A POSITIVE = 3901) ANTIBODY SCREEN (test code = NEGATIVE 3902) RUBELLA ANTIBODY SCREEN 24 IU/ML (test code = 4600) RUBELLA IgG INTERP (test REACTIVE code = 34226) HEPATITIS B SURF AG (test NON-REACTIVE code = 2739) RPR (test code = 90894) NON-REACTIVE RPR TITER (test code = 3500) NOT INDIC. TITER HIV 1/2 4TH GEN, RFLX CONF NON-REACTIVE (test code = 3514) OBSTETRIC PANEL + [id number] 00:00:00 Test Item Value Reference Range Interpretation Comments WBC (test code = 1001) 7.7 K/UL RBC (test code = 1002) 4.87 M/UL HEMOGLOBIN (test code = 12.6 G/DL 1003) HEMATOCRIT (test code = 38.6 % 1004) MCV (test code = 1005) 79.3 fL MCH (test code = 1006) 25.9 PG MCHC (test code = 1007) 32.6 G/DL RDW (test code = 1038) 14.2 % NEUTROPHILS (test code = 64.2 % 1008) LYMPHOCYTES (test code = 27.6 % 1010) MONOCYTES (test code = 1011) 5.6 % EOSINOPHILS (test code = 1.8 % 1012) BASOPHILS (test code = 1013) 0.8 % PLATELET COUNT (test code = 307 K/UL 1015) BLOOD TYPE AND RH (test code A POSITIVE = 3901) ANTIBODY SCREEN (test code = NEGATIVE 3902) RUBELLA ANTIBODY SCREEN 24 IU/ML (test code = 4600) RUBELLA IgG INTERP (test REACTIVE code = 88545) HEPATITIS B SURF AG (test NON-REACTIVE code = 2739) RPR (test code = 37117) NON-REACTIVE RPR TITER (test code = 3500) NOT INDIC. TITER HIV 1/2 4TH GEN, RFLX CONF NON-REACTIVE (test code = 3514) OBSTETRIC PANEL + [id number] 00:00:00 Test Item Value Reference Range Interpretation Comments WBC (test code = 1001) 7.7 K/UL RBC (test code = 1002) 4.87 M/UL HEMOGLOBIN (test code = 12.6 G/DL 1003) HEMATOCRIT (test code = 38.6 % 1004) MCV (test code = 1005) 79.3 fL MCH (test code = 1006) 25.9 PG MCHC (test code = 1007) 32.6 G/DL RDW (test code = 1038) 14.2 % NEUTROPHILS (test code = 64.2 % 1008) LYMPHOCYTES (test code = 27.6 % 1010) MONOCYTES (test code = 1011) 5.6 % EOSINOPHILS (test code = 1.8 % 1012) BASOPHILS (test code = 1013) 0.8 % PLATELET COUNT (test code = 307 K/UL 1015) BLOOD TYPE AND RH (test code A POSITIVE = 3901) ANTIBODY SCREEN (test code = NEGATIVE 3902) RUBELLA ANTIBODY SCREEN 24 IU/ML (test code = 4600) RUBELLA IgG INTERP (test REACTIVE code = 76173) HEPATITIS B SURF AG (test NON-REACTIVE code = 2739) RPR (test code = 29953) NON-REACTIVE RPR TITER (test code = 3500) NOT INDIC. TITER HIV 1/2 4TH GEN, RFLX CONF NON-REACTIVE (test code = 3514) HEPATITIS C REFLEX [id number] 00:00:00 Test Item Value Reference Range Interpretation Comments HEPATITIS C ANTIBODY (test code NON-REACTIVE = 4675) OBSTETRIC PANEL + [id number] 00:00:00 Test Item Value Reference Range Interpretation Comments WBC (test code = 1001) 7.7 K/UL RBC (test code = 1002) 4.87 M/UL HEMOGLOBIN (test code = 12.6 G/DL 1003) HEMATOCRIT (test code = 38.6 % 1004) MCV (test code = 1005) 79.3 fL MCH (test code = 1006) 25.9 PG MCHC (test code = 1007) 32.6 G/DL RDW (test code = 1038) 14.2 % NEUTROPHILS (test code = 64.2 % 1008) LYMPHOCYTES (test code = 27.6 % 1010) MONOCYTES (test code = 1011) 5.6 % EOSINOPHILS (test code = 1.8 % 1012) BASOPHILS (test code = 1013) 0.8 % PLATELET COUNT (test code = 307 K/UL 1015) BLOOD TYPE AND RH (test code A POSITIVE = 3901) ANTIBODY SCREEN (test code = NEGATIVE 3902) RUBELLA ANTIBODY SCREEN 24 IU/ML (test code = 4600) RUBELLA IgG INTERP (test REACTIVE code = 89715) HEPATITIS B SURF AG (test NON-REACTIVE code = 2739) RPR (test code = 03482) NON-REACTIVE RPR TITER (test code = 3500) NOT INDIC. TITER HIV 1/2 4TH GEN, RFLX CONF NON-REACTIVE (test code = 3514) HEPATITIS C REFLEX [id number] 00:00:00 Test Item Value Reference Range Interpretation Comments HEPATITIS C ANTIBODY (test code NON-REACTIVE = 4675) VARICELLA ZOSTER [id number] 00:00:00 Test Item Value Reference Range Interpretation Comments VARICELLA ZOSTER IgG (test code = 1653 INDEX 84520) VARICELLA ZOSTER [id number] 00:00:00 Test Item Value Reference Range Interpretation Comments VARICELLA ZOSTER IgG (test code = 1653 INDEX 00243) GC AND CHLAMYDIA, AMPLIFIED, [id number] 00:00:00 Test Item Value Reference Range Interpretation Comments GONORRHEA, NAAT (test code = 21490) NEGATIVE CHLAMYDIA, NAAT (test code = 61584) NEGATIVE GC AND CHLAMYDIA, AMPLIFIED, [id number] 00:00:00 Test Item Value Reference Range Interpretation Comments GONORRHEA, NAAT (test code = 91892) NEGATIVE CHLAMYDIA, NAAT (test code = 46573) NEGATIVE HEMOGLOBIN [id number] 00:00:00 Test Item Value Reference Range Interpretation Comments HEMOGLOBIN A1c (test code = 48011) 8.6 % HEMOGLOBIN [id number] 00:00:00 Test Item Value Reference Range Interpretation Comments HEMOGLOBIN A1c (test code = 98419) 8.6 % HEMOGLOBIN [id number] 00:00:00 Test Item Value Reference Range Interpretation Comments HEMOGLOBIN A1c (test code = 68409) 8.6 % HEPATITIS C REFLEX [id number] 00:00:00 Test Item Value Reference Range Interpretation Comments HEPATITIS C ANTIBODY (test code NON-REACTIVE = 4675) VARICELLA ZOSTER [id number] 00:00:00 Test Item Value Reference Range Interpretation Comments VARICELLA ZOSTER IgG (test code = 1653 INDEX 48853) GC AND CHLAMYDIA, AMPLIFIED, [id number] 00:00:00 Test Item Value Reference Range Interpretation Comments GONORRHEA, NAAT (test code = 03122) NEGATIVE CHLAMYDIA, NAAT (test code = 68317) NEGATIVE HEMOGLOBIN [id number] 00:00:00 Test Item Value Reference Range Interpretation Comments HEMOGLOBIN A1c (test code = 59789) 8.6 % HEMOGLOBIN [id number] 00:00:00 Test Item Value Reference Range Interpretation Comments HEMOGLOBIN A1c (test code = 72115) 8.6 % OBSTETRIC PANEL + [id number] 00:00:00 Test Item Value Reference Range Interpretation Comments WBC (test code = 1001) 7.7 K/UL RBC (test code = 1002) 4.87 M/UL HEMOGLOBIN (test code = 12.6 G/DL 1003) HEMATOCRIT (test code = 38.6 % 1004) MCV (test code = 1005) 79.3 fL MCH (test code = 1006) 25.9 PG MCHC (test code = 1007) 32.6 G/DL RDW (test code = 1038) 14.2 % NEUTROPHILS (test code = 64.2 % 1008) LYMPHOCYTES (test code = 27.6 % 1010) MONOCYTES (test code = 1011) 5.6 % EOSINOPHILS (test code = 1.8 % 1012) BASOPHILS (test code = 1013) 0.8 % PLATELET COUNT (test code = 307 K/UL 1015) BLOOD TYPE AND RH (test code A POSITIVE = 3901) ANTIBODY SCREEN (test code = NEGATIVE 3902) RUBELLA ANTIBODY SCREEN 24 IU/ML (test code = 4600) RUBELLA IgG INTERP (test REACTIVE code = 40498) HEPATITIS B SURF AG (test NON-REACTIVE code = 2739) RPR (test code = 72300) NON-REACTIVE RPR TITER (test code = 3500) NOT INDIC. TITER HIV 1/2 4TH GEN, RFLX CONF NON-REACTIVE (test code = 3514) OBSTETRIC PANEL + [id number] 00:00:00 Test Item Value Reference Range Interpretation Comments WBC (test code = 1001) 7.7 K/UL RBC (test code = 1002) 4.87 M/UL HEMOGLOBIN (test code = 12.6 G/DL 1003) HEMATOCRIT (test code = 38.6 % 1004) MCV (test code = 1005) 79.3 fL MCH (test code = 1006) 25.9 PG MCHC (test code = 1007) 32.6 G/DL RDW (test code = 1038) 14.2 % NEUTROPHILS (test code = 64.2 % 1008) LYMPHOCYTES (test code = 27.6 % 1010) MONOCYTES (test code = 1011) 5.6 % EOSINOPHILS (test code = 1.8 % 1012) BASOPHILS (test code = 1013) 0.8 % PLATELET COUNT (test code = 307 K/UL 1015) BLOOD TYPE AND RH (test code A POSITIVE = 3901) ANTIBODY SCREEN (test code = NEGATIVE 3902) RUBELLA ANTIBODY SCREEN 24 IU/ML (test code = 4600) RUBELLA IgG INTERP (test REACTIVE code = 33840) HEPATITIS B SURF AG (test NON-REACTIVE code = 2739) RPR (test code = 48536) NON-REACTIVE RPR TITER (test code = 3500) NOT INDIC. TITER HIV 1/2 4TH GEN, RFLX CONF NON-REACTIVE (test code = 3514) OBSTETRIC PANEL + [id number] 00:00:00 Test Item Value Reference Range Interpretation Comments WBC (test code = 1001) 7.7 K/UL RBC (test code = 1002) 4.87 M/UL HEMOGLOBIN (test code = 12.6 G/DL 1003) HEMATOCRIT (test code = 38.6 % 1004) MCV (test code = 1005) 79.3 fL MCH (test code = 1006) 25.9 PG MCHC (test code = 1007) 32.6 G/DL RDW (test code = 1038) 14.2 % NEUTROPHILS (test code = 64.2 % 1008) LYMPHOCYTES (test code = 27.6 % 1010) MONOCYTES (test code = 1011) 5.6 % EOSINOPHILS (test code = 1.8 % 1012) BASOPHILS (test code = 1013) 0.8 % PLATELET COUNT (test code = 307 K/UL 1015) BLOOD TYPE AND RH (test code A POSITIVE = 3901) ANTIBODY SCREEN (test code = NEGATIVE 3902) RUBELLA ANTIBODY SCREEN 24 IU/ML (test code = 4600) RUBELLA IgG INTERP (test REACTIVE code = 51219) HEPATITIS B SURF AG (test NON-REACTIVE code = 2739) RPR (test code = 39768) NON-REACTIVE RPR TITER (test code = 3500) NOT INDIC. TITER HIV 1/2 4TH GEN, RFLX CONF NON-REACTIVE (test code = 3514) HEPATITIS C REFLEX [id number] 00:00:00 Test Item Value Reference Range Interpretation Comments HEPATITIS C ANTIBODY (test code NON-REACTIVE = 4675) HEPATITIS C REFLEX [id number] 00:00:00 Test Item Value Reference Range Interpretation Comments HEPATITIS C ANTIBODY (test code NON-REACTIVE = 4675) VARICELLA ZOSTER [id number] 00:00:00 Test Item Value Reference Range Interpretation Comments VARICELLA ZOSTER IgG (test code = 1653 INDEX 79119) VARICELLA ZOSTER [id number] 00:00:00 Test Item Value Reference Range Interpretation Comments VARICELLA ZOSTER IgG (test code = 1653 INDEX 12448) GC AND CHLAMYDIA, AMPLIFIED, [id number] 00:00:00 Test Item Value Reference Range Interpretation Comments GONORRHEA, NAAT (test code = 54090) NEGATIVE CHLAMYDIA, NAAT (test code = 60576) NEGATIVE GC AND CHLAMYDIA, AMPLIFIED, [id number] 00:00:00 Test Item Value Reference Range Interpretation Comments GONORRHEA, NAAT (test code = 54860) NEGATIVE CHLAMYDIA, NAAT (test code = 27029) NEGATIVE HEMOGLOBIN [id number] 00:00:00 Test Item Value Reference Range Interpretation Comments HEMOGLOBIN A1c (test code = 50451) 8.6 % HEMOGLOBIN [id number] 00:00:00 Test Item Value Reference Range Interpretation Comments HEMOGLOBIN A1c (test code = 35544) 8.6 % HEMOGLOBIN [id number] 00:00:00 Test Item Value Reference Range Interpretation Comments HEMOGLOBIN A1c (test code = 49380) 8.6 % OBSTETRIC PANEL + [id number] 00:00:00 Test Item Value Reference Range Interpretation Comments WBC (test code = 1001) 7.7 K/UL RBC (test code = 1002) 4.87 M/UL HEMOGLOBIN (test code = 12.6 G/DL 1003) HEMATOCRIT (test code = 38.6 % 1004) MCV (test code = 1005) 79.3 fL MCH (test code = 1006) 25.9 PG MCHC (test code = 1007) 32.6 G/DL RDW (test code = 1038) 14.2 % NEUTROPHILS (test code = 64.2 % 1008) LYMPHOCYTES (test code = 27.6 % 1010) MONOCYTES (test code = 1011) 5.6 % EOSINOPHILS (test code = 1.8 % 1012) BASOPHILS (test code = 1013) 0.8 % PLATELET COUNT (test code = 307 K/UL 1015) BLOOD TYPE AND RH (test code A POSITIVE = 3901) ANTIBODY SCREEN (test code = NEGATIVE 3902) RUBELLA ANTIBODY SCREEN 24 IU/ML (test code = 4600) RUBELLA IgG INTERP (test REACTIVE code = 02574) HEPATITIS B SURF AG (test NON-REACTIVE code = 2739) RPR (test code = 04087) NON-REACTIVE RPR TITER (test code = 3500) NOT INDIC. TITER HIV 1/2 4TH GEN, RFLX CONF NON-REACTIVE (test code = 3514) OBSTETRIC PANEL + [id number] 00:00:00 Test Item Value Reference Range Interpretation Comments WBC (test code = 1001) 7.7 K/UL RBC (test code = 1002) 4.87 M/UL HEMOGLOBIN (test code = 12.6 G/DL 1003) HEMATOCRIT (test code = 38.6 % 1004) MCV (test code = 1005) 79.3 fL MCH (test code = 1006) 25.9 PG MCHC (test code = 1007) 32.6 G/DL RDW (test code = 1038) 14.2 % NEUTROPHILS (test code = 64.2 % 1008) LYMPHOCYTES (test code = 27.6 % 1010) MONOCYTES (test code = 1011) 5.6 % EOSINOPHILS (test code = 1.8 % 1012) BASOPHILS (test code = 1013) 0.8 % PLATELET COUNT (test code = 307 K/UL 1015) BLOOD TYPE AND RH (test code A POSITIVE = 3901) ANTIBODY SCREEN (test code = NEGATIVE 3902) RUBELLA ANTIBODY SCREEN 24 IU/ML (test code = 4600) RUBELLA IgG INTERP (test REACTIVE code = 88010) HEPATITIS B SURF AG (test NON-REACTIVE code = 2739) RPR (test code = 27522) NON-REACTIVE RPR TITER (test code = 3500) NOT INDIC. TITER HIV 1/2 4TH GEN, RFLX CONF NON-REACTIVE (test code = 3514) OBSTETRIC PANEL + [id number] 00:00:00 Test Item Value Reference Range Interpretation Comments WBC (test code = 1001) 7.7 K/UL RBC (test code = 1002) 4.87 M/UL HEMOGLOBIN (test code = 12.6 G/DL 1003) HEMATOCRIT (test code = 38.6 % 1004) MCV (test code = 1005) 79.3 fL MCH (test code = 1006) 25.9 PG MCHC (test code = 1007) 32.6 G/DL RDW (test code = 1038) 14.2 % NEUTROPHILS (test code = 64.2 % 1008) LYMPHOCYTES (test code = 27.6 % 1010) MONOCYTES (test code = 1011) 5.6 % EOSINOPHILS (test code = 1.8 % 1012) BASOPHILS (test code = 1013) 0.8 % PLATELET COUNT (test code = 307 K/UL 1015) BLOOD TYPE AND RH (test code A POSITIVE = 3901) ANTIBODY SCREEN (test code = NEGATIVE 3902) RUBELLA ANTIBODY SCREEN 24 IU/ML (test code = 4600) RUBELLA IgG INTERP (test REACTIVE code = 34522) HEPATITIS B SURF AG (test NON-REACTIVE code = 2739) RPR (test code = 52328) NON-REACTIVE RPR TITER (test code = 3500) NOT INDIC. TITER HIV 1/2 4TH GEN, RFLX CONF NON-REACTIVE (test code = 3514) HEPATITIS C REFLEX [id number] 00:00:00 Test Item Value Reference Range Interpretation Comments HEPATITIS C ANTIBODY (test code NON-REACTIVE = 4675) HEPATITIS C REFLEX [id number] 00:00:00 Test Item Value Reference Range Interpretation Comments HEPATITIS C ANTIBODY (test code NON-REACTIVE = 4675) VARICELLA ZOSTER [id number] 00:00:00 Test Item Value Reference Range Interpretation Comments VARICELLA ZOSTER IgG (test code = 1653 INDEX 76392) VARICELLA ZOSTER [id number] 00:00:00 Test Item Value Reference Range Interpretation Comments VARICELLA ZOSTER IgG (test code = 1653 INDEX 86179) GC AND CHLAMYDIA, AMPLIFIED, [id number] 00:00:00 Test Item Value Reference Range Interpretation Comments GONORRHEA, NAAT (test code = 76851) NEGATIVE CHLAMYDIA, NAAT (test code = 05235) NEGATIVE GC AND CHLAMYDIA, AMPLIFIED, [id number] 00:00:00 Test Item Value Reference Range Interpretation Comments GONORRHEA, NAAT (test code = 65977) NEGATIVE CHLAMYDIA, NAAT (test code = 03083) NEGATIVE HEMOGLOBIN [id number] 00:00:00 Test Item Value Reference Range Interpretation Comments HEMOGLOBIN A1c (test code = 19517) 8.6 % HEMOGLOBIN [id number] 00:00:00 Test Item Value Reference Range Interpretation Comments HEMOGLOBIN A1c (test code = 16449) 8.6 % HEMOGLOBIN [id number] 00:00:00 Test Item Value Reference Range Interpretation Comments HEMOGLOBIN A1c (test code = 75189) 8.6 % SARS-CoV-2 (COVID-19) by RT-PCR (HIGH RISK)2020-08-27 00:00:00 Test Item Value Reference Range Interpretation Comments SARS-CoV-2 INTERPRETATION (test NEGATIVE code = 62518) SOURCE (test code = 53317) NOT SPECIFIED SARS-CoV-2 (COVID-19) by RT-PCR (HIGH RISK)2020-08-27 00:00:00 Test Item Value Reference Range Interpretation Comments SARS-CoV-2 INTERPRETATION (test NEGATIVE code = 32218) SOURCE (test code = 36358) NOT SPECIFIED SARS-CoV-2 (COVID-19) by RT-PCR (HIGH RISK)2020-08-27 00:00:00 Test Item Value Reference Range Interpretation Comments SARS-CoV-2 INTERPRETATION (test NEGATIVE code = 12693) SOURCE (test code = 55238) NOT SPECIFIED SARS-CoV-2 (COVID-19) by RT-PCR (HIGH RISK)2020-08-27 00:00:00 Test Item Value Reference Range Interpretation Comments SARS-CoV-2 INTERPRETATION (test NEGATIVE code = 98771) SOURCE (test code = 38505) NOT SPECIFIED SARS-CoV-2 (COVID-19) by RT-PCR (HIGH RISK)2020-08-27 00:00:00 Test Item Value Reference Range Interpretation Comments SARS-CoV-2 INTERPRETATION (test NEGATIVE code = 40278) SOURCE (test code = 98745) NOT SPECIFIED SARS-CoV-2 (COVID-19) by RT-PCR (HIGH RISK)2020-08-27 00:00:00 Test Item Value Reference Range Interpretation Comments SARS-CoV-2 INTERPRETATION (test NEGATIVE code = 97915) SOURCE (test code = 62123) NOT SPECIFIED SARS-CoV-2 (COVID-19) by RT-PCR (HIGH RISK)2020-08-27 00:00:00 Test Item Value Reference Range Interpretation Comments SARS-CoV-2 INTERPRETATION (test NEGATIVE code = 78655) SOURCE (test code = 35911) NOT SPECIFIED HEMOGLOBIN [id number] 00:00:00 Test Item Value Reference Range Interpretation Comments HEMOGLOBIN A1c (test code = 98137) 9.0 % HEMOGLOBIN [id number] 00:00:00 Test Item Value Reference Range Interpretation Comments HEMOGLOBIN A1c (test code = 53173) 9.0 % HEMOGLOBIN [id number] 00:00:00 Test Item Value Reference Range Interpretation Comments HEMOGLOBIN A1c (test code = 47598) 9.0 % HEMOGLOBIN [id number] 00:00:00 Test Item Value Reference Range Interpretation Comments HEMOGLOBIN A1c (test code = 07991) 9.0 % COMPREHENSIVE METABOLIC [id number] 00:00:00 Test Item Value Reference Range Interpretation Comments GLUCOSE (test code = 2217) 148 MG/DL BUN (test code = 2208) 10 MG/DL CREATININE (test code = 2214) 0.52 MG/DL eGFR AMER. (test code 139 ML/MIN/1.73 = 51663) eGFR NON- AMER. (test 120 ML/MIN/1.73 code = 22235) CALC BUN/CREAT (test code = 19 RATIO 2235) SODIUM (test code = 2231) 138 MEQ/L POTASSIUM (test code = 2228) 4.5 MEQ/L CHLORIDE (test code = 2215) 103 MEQ/L CARBON DIOXIDE (test code = 23 MEQ/L 220) CALCIUM (test code = 2209) 10.0 MG/DL PROTEIN, TOTAL (test code = 7.4 G/DL 2228) ALBUMIN (test code = 2201) 4.4 G/DL CALC GLOBULIN (test code = 3.0 G/DL 2240) CALC A/G RATIO (test code = 1.5 RATIO 2234) BILIRUBIN, TOTAL (test code = <0.2 MG/DL 2206) ALKALINE PHOSPHATASE (test 106 U/L code = 2204) AST (test code = 2218) 12 U/L ALT (test code = 2219) 12 U/L COMPREHENSIVE METABOLIC [id number] 00:00:00 Test Item Value Reference Range Interpretation Comments GLUCOSE (test code = 2217) 148 MG/DL BUN (test code = 2208) 10 MG/DL CREATININE (test code = 2214) 0.52 MG/DL eGFR AMER. (test code 139 ML/MIN/1.73 = 96910) eGFR NON- AMER. (test 120 ML/MIN/1.73 code = 69611) CALC BUN/CREAT (test code = 19 RATIO 2235) SODIUM (test code = 2231) 138 MEQ/L POTASSIUM (test code = 2228) 4.5 MEQ/L CHLORIDE (test code = 2215) 103 MEQ/L CARBON DIOXIDE (test code = 23 MEQ/L 2206) CALCIUM (test code = 2209) 10.0 MG/DL PROTEIN, TOTAL (test code = 7.4 G/DL 2228) ALBUMIN (test code = 2201) 4.4 G/DL CALC GLOBULIN (test code = 3.0 G/DL 2240) CALC A/G RATIO (test code = 1.5 RATIO 2234) BILIRUBIN, TOTAL (test code = <0.2 MG/DL 2206) ALKALINE PHOSPHATASE (test 106 U/L code = 2204) AST (test code = 2218) 12 U/L ALT (test code = 2219) 12 U/L CBC W/AUTO [id number] 00:00:00 Test Item Value Reference Range Interpretation Comments WBC (test code = 1001) 9.8 K/UL RBC (test code = 1002) 4.92 M/UL HEMOGLOBIN (test code = 1003) 12.8 G/DL HEMATOCRIT (test code = 1004) 38.3 % MCV (test code = 1005) 77.8 fL MCH (test code = 1006) 26.0 PG MCHC (test code = 1007) 33.4 G/DL RDW (test code = 1038) 13.8 % NEUTROPHILS (test code = 1008) 59.8 % LYMPHOCYTES (test code = 1010) 32.2 % MONOCYTES (test code = 1011) 5.9 % EOSINOPHILS (test code = 1012) 1.7 % BASOPHILS (test code = 1013) 0.4 % PLATELET COUNT (test code = 1015) 361 K/UL CBC W/AUTO [id number] 00:00:00 Test Item Value Reference Range Interpretation Comments WBC (test code = 1001) 9.8 K/UL RBC (test code = 1002) 4.92 M/UL HEMOGLOBIN (test code = 1003) 12.8 G/DL HEMATOCRIT (test code = 1004) 38.3 % MCV (test code = 1005) 77.8 fL MCH (test code = 1006) 26.0 PG MCHC (test code = 1007) 33.4 G/DL RDW (test code = 1038) 13.8 % NEUTROPHILS (test code = 1008) 59.8 % LYMPHOCYTES (test code = 1010) 32.2 % MONOCYTES (test code = 1011) 5.9 % EOSINOPHILS (test code = 1012) 1.7 % BASOPHILS (test code = 1013) 0.4 % PLATELET COUNT (test code = 1015) 361 K/UL CBC W/AUTO [id number] 00:00:00 Test Item Value Reference Range Interpretation Comments WBC (test code = 1001) 9.8 K/UL RBC (test code = 1002) 4.92 M/UL HEMOGLOBIN (test code = 1003) 12.8 G/DL HEMATOCRIT (test code = 1004) 38.3 % MCV (test code = 1005) 77.8 fL MCH (test code = 1006) 26.0 PG MCHC (test code = 1007) 33.4 G/DL RDW (test code = 1038) 13.8 % NEUTROPHILS (test code = 1008) 59.8 % LYMPHOCYTES (test code = 1010) 32.2 % MONOCYTES (test code = 1011) 5.9 % EOSINOPHILS (test code = 1012) 1.7 % BASOPHILS (test code = 1013) 0.4 % PLATELET COUNT (test code = 1015) 361 K/UL HEMOGLOBIN [id number] 00:00:00 Test Item Value Reference Range Interpretation Comments HEMOGLOBIN A1c (test code = 11912) 9.0 % VITAMIN D, 25 [id number] 00:00:00 Test Item Value Reference Range Interpretation Comments VITAMIN D, 25 OH (test code = 4958) 15 NG/ML VITAMIN D, 25 [id number] 00:00:00 Test Item Value Reference Range Interpretation Comments VITAMIN D, 25 OH (test code = 4958) 15 NG/ML MICROALBUMIN, [id number] 00:00:00 Test Item Value Reference Range Interpretation Comments ALBUMIN, URINE, RANDOM (test code = 2.9 MG/DL 69814) MICROALBUMIN, [id number] 00:00:00 Test Item Value Reference Range Interpretation Comments ALBUMIN, URINE, RANDOM (test code = 2.9 MG/DL 66520) COMPREHENSIVE METABOLIC [id number] 00:00:00 Test Item Value Reference Range Interpretation Comments GLUCOSE (test code = 2217) 148 MG/DL BUN (test code = 2208) 10 MG/DL CREATININE (test code = 2214) 0.52 MG/DL eGFR AMER. (test code 139 ML/MIN/1.73 = 52786) eGFR NON- AMER. (test 120 ML/MIN/1.73 code = 99290) CALC BUN/CREAT (test code = 19 RATIO 2235) SODIUM (test code = 2231) 138 MEQ/L POTASSIUM (test code = 2228) 4.5 MEQ/L CHLORIDE (test code = 2215) 103 MEQ/L CARBON DIOXIDE (test code = 23 MEQ/L 220) CALCIUM (test code = 2209) 10.0 MG/DL PROTEIN, TOTAL (test code = 7.4 G/DL 2229) ALBUMIN (test code = 2201) 4.4 G/DL CALC GLOBULIN (test code = 3.0 G/DL 2240) CALC A/G RATIO (test code = 1.5 RATIO 2234) BILIRUBIN, TOTAL (test code = <0.2 MG/DL 220) ALKALINE PHOSPHATASE (test 106 U/L code = 2204) AST (test code = 2218) 12 U/L ALT (test code = 2219) 12 U/L CBC W/AUTO [id number] 00:00:00 Test Item Value Reference Range Interpretation Comments WBC (test code = 1001) 9.8 K/UL RBC (test code = 1002) 4.92 M/UL HEMOGLOBIN (test code = 1003) 12.8 G/DL HEMATOCRIT (test code = 1004) 38.3 % MCV (test code = 1005) 77.8 fL MCH (test code = 1006) 26.0 PG MCHC (test code = 1007) 33.4 G/DL RDW (test code = 1038) 13.8 % NEUTROPHILS (test code = 1008) 59.8 % LYMPHOCYTES (test code = 1010) 32.2 % MONOCYTES (test code = 1011) 5.9 % EOSINOPHILS (test code = 1012) 1.7 % BASOPHILS (test code = 1013) 0.4 % PLATELET COUNT (test code = 1015) 361 K/UL CBC W/AUTO [id number] 00:00:00 Test Item Value Reference Range Interpretation Comments WBC (test code = 1001) 9.8 K/UL RBC (test code = 1002) 4.92 M/UL HEMOGLOBIN (test code = 1003) 12.8 G/DL HEMATOCRIT (test code = 1004) 38.3 % MCV (test code = 1005) 77.8 fL MCH (test code = 1006) 26.0 PG MCHC (test code = 1007) 33.4 G/DL RDW (test code = 1038) 13.8 % NEUTROPHILS (test code = 1008) 59.8 % LYMPHOCYTES (test code = 1010) 32.2 % MONOCYTES (test code = 1011) 5.9 % EOSINOPHILS (test code = 1012) 1.7 % BASOPHILS (test code = 1013) 0.4 % PLATELET COUNT (test code = 1015) 361 K/UL VITAMIN D, 25 [id number] 00:00:00 Test Item Value Reference Range Interpretation Comments VITAMIN D, 25 OH (test code = 4958) 15 NG/ML MICROALBUMIN, [id number] 00:00:00 Test Item Value Reference Range Interpretation Comments ALBUMIN, URINE, RANDOM (test code = 2.9 MG/DL 21874) HEMOGLOBIN [id number] 00:00:00 Test Item Value Reference Range Interpretation Comments HEMOGLOBIN A1c (test code = 23545) 9.0 % HEMOGLOBIN [id number] 00:00:00 Test Item Value Reference Range Interpretation Comments HEMOGLOBIN A1c (test code = 01645) 9.0 % HEMOGLOBIN [id number] 00:00:00 Test Item Value Reference Range Interpretation Comments HEMOGLOBIN A1c (test code = 88132) 9.0 % COMPREHENSIVE METABOLIC [id number] 00:00:00 Test Item Value Reference Range Interpretation Comments GLUCOSE (test code = 2217) 148 MG/DL BUN (test code = 2208) 10 MG/DL CREATININE (test code = 2214) 0.52 MG/DL eGFR AMER. (test code 139 ML/MIN/1.73 = 78787) eGFR NON- AMER. (test 120 ML/MIN/1.73 code = 49019) CALC BUN/CREAT (test code = 19 RATIO 2235) SODIUM (test code = 2231) 138 MEQ/L POTASSIUM (test code = 2228) 4.5 MEQ/L CHLORIDE (test code = 2215) 103 MEQ/L CARBON DIOXIDE (test code = 23 MEQ/L 6) CALCIUM (test code = 2209) 10.0 MG/DL PROTEIN, TOTAL (test code = 7.4 G/DL 2228) ALBUMIN (test code = 2201) 4.4 G/DL CALC GLOBULIN (test code = 3.0 G/DL 2240) CALC A/G RATIO (test code = 1.5 RATIO 2234) BILIRUBIN, TOTAL (test code = <0.2 MG/DL 2206) ALKALINE PHOSPHATASE (test 106 U/L code = 2204) AST (test code = 2218) 12 U/L ALT (test code = 2219) 12 U/L COMPREHENSIVE METABOLIC [id number] 00:00:00 Test Item Value Reference Range Interpretation Comments GLUCOSE (test code = 2217) 148 MG/DL BUN (test code = 2208) 10 MG/DL CREATININE (test code = 2214) 0.52 MG/DL eGFR AMER. (test code 139 ML/MIN/1.73 = 26863) eGFR NON- AMER. (test 120 ML/MIN/1.73 code = 19402) CALC BUN/CREAT (test code = 19 RATIO 2235) SODIUM (test code = 2231) 138 MEQ/L POTASSIUM (test code = 2228) 4.5 MEQ/L CHLORIDE (test code = 2215) 103 MEQ/L CARBON DIOXIDE (test code = 23 MEQ/L 220) CALCIUM (test code = 2209) 10.0 MG/DL PROTEIN, TOTAL (test code = 7.4 G/DL 2228) ALBUMIN (test code = 2201) 4.4 G/DL CALC GLOBULIN (test code = 3.0 G/DL 2240) CALC A/G RATIO (test code = 1.5 RATIO 2234) BILIRUBIN, TOTAL (test code = <0.2 MG/DL 2206) ALKALINE PHOSPHATASE (test 106 U/L code = 2204) AST (test code = 2218) 12 U/L ALT (test code = 2219) 12 U/L CBC W/AUTO [id number] 00:00:00 Test Item Value Reference Range Interpretation Comments WBC (test code = 1001) 9.8 K/UL RBC (test code = 1002) 4.92 M/UL HEMOGLOBIN (test code = 1003) 12.8 G/DL HEMATOCRIT (test code = 1004) 38.3 % MCV (test code = 1005) 77.8 fL MCH (test code = 1006) 26.0 PG MCHC (test code = 1007) 33.4 G/DL RDW (test code = 1038) 13.8 % NEUTROPHILS (test code = 1008) 59.8 % LYMPHOCYTES (test code = 1010) 32.2 % MONOCYTES (test code = 1011) 5.9 % EOSINOPHILS (test code = 1012) 1.7 % BASOPHILS (test code = 1013) 0.4 % PLATELET COUNT (test code = 1015) 361 K/UL CBC W/AUTO [id number] 00:00:00 Test Item Value Reference Range Interpretation Comments WBC (test code = 1001) 9.8 K/UL RBC (test code = 1002) 4.92 M/UL HEMOGLOBIN (test code = 1003) 12.8 G/DL HEMATOCRIT (test code = 1004) 38.3 % MCV (test code = 1005) 77.8 fL MCH (test code = 1006) 26.0 PG MCHC (test code = 1007) 33.4 G/DL RDW (test code = 1038) 13.8 % NEUTROPHILS (test code = 1008) 59.8 % LYMPHOCYTES (test code = 1010) 32.2 % MONOCYTES (test code = 1011) 5.9 % EOSINOPHILS (test code = 1012) 1.7 % BASOPHILS (test code = 1013) 0.4 % PLATELET COUNT (test code = 1015) 361 K/UL CBC W/AUTO [id number] 00:00:00 Test Item Value Reference Range Interpretation Comments WBC (test code = 1001) 9.8 K/UL RBC (test code = 1002) 4.92 M/UL HEMOGLOBIN (test code = 1003) 12.8 G/DL HEMATOCRIT (test code = 1004) 38.3 % MCV (test code = 1005) 77.8 fL MCH (test code = 1006) 26.0 PG MCHC (test code = 1007) 33.4 G/DL RDW (test code = 1038) 13.8 % NEUTROPHILS (test code = 1008) 59.8 % LYMPHOCYTES (test code = 1010) 32.2 % MONOCYTES (test code = 1011) 5.9 % EOSINOPHILS (test code = 1012) 1.7 % BASOPHILS (test code = 1013) 0.4 % PLATELET COUNT (test code = 1015) 361 K/UL VITAMIN D, 25 [id number] 00:00:00 Test Item Value Reference Range Interpretation Comments VITAMIN D, 25 OH (test code = 4958) 15 NG/ML VITAMIN D, 25 [id number] 00:00:00 Test Item Value Reference Range Interpretation Comments VITAMIN D, 25 OH (test code = 4958) 15 NG/ML MICROALBUMIN, [id number] 00:00:00 Test Item Value Reference Range Interpretation Comments ALBUMIN, URINE, RANDOM (test code = 2.9 MG/DL 96484) MICROALBUMIN, [id number] 00:00:00 Test Item Value Reference Range Interpretation Comments ALBUMIN, URINE, RANDOM (test code = 2.9 MG/DL 68983) HEMOGLOBIN [id number] 00:00:00 Test Item Value Reference Range Interpretation Comments HEMOGLOBIN A1c (test code = 43930) 9.0 % HEMOGLOBIN [id number] 00:00:00 Test Item Value Reference Range Interpretation Comments HEMOGLOBIN A1c (test code = 95352) 9.0 % HEMOGLOBIN [id number] 00:00:00 Test Item Value Reference Range Interpretation Comments HEMOGLOBIN A1c (test code = 84703) 9.0 % COMPREHENSIVE METABOLIC [id number] 00:00:00 Test Item Value Reference Range Interpretation Comments GLUCOSE (test code = 2217) 148 MG/DL BUN (test code = 2208) 10 MG/DL CREATININE (test code = 2214) 0.52 MG/DL eGFR AMER. (test code 139 ML/MIN/1.73 = 84469) eGFR NON- AMER. (test 120 ML/MIN/1.73 code = 66444) CALC BUN/CREAT (test code = 19 RATIO 2235) SODIUM (test code = 2231) 138 MEQ/L POTASSIUM (test code = 2228) 4.5 MEQ/L CHLORIDE (test code = 2215) 103 MEQ/L CARBON DIOXIDE (test code = 23 MEQ/L 6) CALCIUM (test code = 2209) 10.0 MG/DL PROTEIN, TOTAL (test code = 7.4 G/DL 2228) ALBUMIN (test code = 2201) 4.4 G/DL CALC GLOBULIN (test code = 3.0 G/DL 2240) CALC A/G RATIO (test code = 1.5 RATIO 2234) BILIRUBIN, TOTAL (test code = <0.2 MG/DL 2206) ALKALINE PHOSPHATASE (test 106 U/L code = 2204) AST (test code = 2218) 12 U/L ALT (test code = 2219) 12 U/L COMPREHENSIVE METABOLIC [id number] 00:00:00 Test Item Value Reference Range Interpretation Comments GLUCOSE (test code = 2217) 148 MG/DL BUN (test code = 2208) 10 MG/DL CREATININE (test code = 2214) 0.52 MG/DL eGFR AMER. (test code 139 ML/MIN/1.73 = 55976) eGFR NON- AMER. (test 120 ML/MIN/1.73 code = 47580) CALC BUN/CREAT (test code = 19 RATIO 2235) SODIUM (test code = 2231) 138 MEQ/L POTASSIUM (test code = 2228) 4.5 MEQ/L CHLORIDE (test code = 2215) 103 MEQ/L CARBON DIOXIDE (test code = 23 MEQ/L 220) CALCIUM (test code = 2209) 10.0 MG/DL PROTEIN, TOTAL (test code = 7.4 G/DL 2228) ALBUMIN (test code = 2201) 4.4 G/DL CALC GLOBULIN (test code = 3.0 G/DL 224) CALC A/G RATIO (test code = 1.5 RATIO 2233) BILIRUBIN, TOTAL (test code = <0.2 MG/DL 2206) ALKALINE PHOSPHATASE (test 106 U/L code = 2204) AST (test code = 2218) 12 U/L ALT (test code = 2219) 12 U/L CBC W/AUTO [id number] 00:00:00 Test Item Value Reference Range Interpretation Comments WBC (test code = 1001) 9.8 K/UL RBC (test code = 1002) 4.92 M/UL HEMOGLOBIN (test code = 1003) 12.8 G/DL HEMATOCRIT (test code = 1004) 38.3 % MCV (test code = 1005) 77.8 fL MCH (test code = 1006) 26.0 PG MCHC (test code = 1007) 33.4 G/DL RDW (test code = 1038) 13.8 % NEUTROPHILS (test code = 1008) 59.8 % LYMPHOCYTES (test code = 1010) 32.2 % MONOCYTES (test code = 1011) 5.9 % EOSINOPHILS (test code = 1012) 1.7 % BASOPHILS (test code = 1013) 0.4 % PLATELET COUNT (test code = 1015) 361 K/UL CBC W/AUTO [id number] 00:00:00 Test Item Value Reference Range Interpretation Comments WBC (test code = 1001) 9.8 K/UL RBC (test code = 1002) 4.92 M/UL HEMOGLOBIN (test code = 1003) 12.8 G/DL HEMATOCRIT (test code = 1004) 38.3 % MCV (test code = 1005) 77.8 fL MCH (test code = 1006) 26.0 PG MCHC (test code = 1007) 33.4 G/DL RDW (test code = 1038) 13.8 % NEUTROPHILS (test code = 1008) 59.8 % LYMPHOCYTES (test code = 1010) 32.2 % MONOCYTES (test code = 1011) 5.9 % EOSINOPHILS (test code = 1012) 1.7 % BASOPHILS (test code = 1013) 0.4 % PLATELET COUNT (test code = 1015) 361 K/UL CBC W/AUTO [id number] 00:00:00 Test Item Value Reference Range Interpretation Comments WBC (test code = 1001) 9.8 K/UL RBC (test code = 1002) 4.92 M/UL HEMOGLOBIN (test code = 1003) 12.8 G/DL HEMATOCRIT (test code = 1004) 38.3 % MCV (test code = 1005) 77.8 fL MCH (test code = 1006) 26.0 PG MCHC (test code = 1007) 33.4 G/DL RDW (test code = 1038) 13.8 % NEUTROPHILS (test code = 1008) 59.8 % LYMPHOCYTES (test code = 1010) 32.2 % MONOCYTES (test code = 1011) 5.9 % EOSINOPHILS (test code = 1012) 1.7 % BASOPHILS (test code = 1013) 0.4 % PLATELET COUNT (test code = 1015) 361 K/UL VITAMIN D, 25 [id number] 00:00:00 Test Item Value Reference Range Interpretation Comments VITAMIN D, 25 OH (test code = 4958) 15 NG/ML VITAMIN D, 25 [id number] 00:00:00 Test Item Value Reference Range Interpretation Comments VITAMIN D, 25 OH (test code = 4958) 15 NG/ML MICROALBUMIN, [id number] 00:00:00 Test Item Value Reference Range Interpretation Comments ALBUMIN, URINE, RANDOM (test code = 2.9 MG/DL 69876) MICROALBUMIN, [id number] 00:00:00 Test Item Value Reference Range Interpretation Comments ALBUMIN, URINE, RANDOM (test code = 2.9 MG/DL 29164) COMPREHENSIVE METABOLIC [id number] 00:00:00 Test Item Value Reference Range Interpretation Comments GLUCOSE (test code = 2217) 281 MG/DL BUN (test code = 2208) 10 MG/DL CREATININE (test code = 2214) 0.45 MG/DL eGFR AMER. (test code 145 ML/MIN/1.73 = 63428) eGFR NON- AMER. (test 125 ML/MIN/1.73 code = 49127) CALC BUN/CREAT (test code = 22 RATIO 2235) SODIUM (test code = 2231) 135 MEQ/L POTASSIUM (test code = 2228) 4.3 MEQ/L CHLORIDE (test code = 2215) 100 MEQ/L CARBON DIOXIDE (test code = 22 MEQ/L 220) CALCIUM (test code = 2209) 9.3 MG/DL PROTEIN, TOTAL (test code = 7.2 G/DL 2228) ALBUMIN (test code = 2201) 4.2 G/DL CALC GLOBULIN (test code = 3.0 G/DL 2240) CALC A/G RATIO (test code = 1.4 RATIO 2234) BILIRUBIN, TOTAL (test code = 0.3 MG/DL 2206) ALKALINE PHOSPHATASE (test 96 U/L code = 2204) AST (test code = 2218) 15 U/L ALT (test code = 2219) 19 U/L COMPREHENSIVE METABOLIC [id number] 00:00:00 Test Item Value Reference Range Interpretation Comments GLUCOSE (test code = 2217) 281 MG/DL BUN (test code = 2208) 10 MG/DL CREATININE (test code = 2214) 0.45 MG/DL eGFR AMER. (test code 145 ML/MIN/1.73 = 55231) eGFR NON- AMER. (test 125 ML/MIN/1.73 code = 73655) CALC BUN/CREAT (test code = 22 RATIO 2235) SODIUM (test code = 2231) 135 MEQ/L POTASSIUM (test code = 2228) 4.3 MEQ/L CHLORIDE (test code = 2215) 100 MEQ/L CARBON DIOXIDE (test code = 22 MEQ/L 2206) CALCIUM (test code = 2209) 9.3 MG/DL PROTEIN, TOTAL (test code = 7.2 G/DL 2228) ALBUMIN (test code = 2201) 4.2 G/DL CALC GLOBULIN (test code = 3.0 G/DL 2240) CALC A/G RATIO (test code = 1.4 RATIO 2234) BILIRUBIN, TOTAL (test code = 0.3 MG/DL 2207) ALKALINE PHOSPHATASE (test 96 U/L code = 2204) AST (test code = 2218) 15 U/L ALT (test code = 2219) 19 U/L COMPREHENSIVE METABOLIC [id number] 00:00:00 Test Item Value Reference Range Interpretation Comments GLUCOSE (test code = 2217) 281 MG/DL BUN (test code = 2208) 10 MG/DL CREATININE (test code = 2214) 0.45 MG/DL eGFR AMER. (test code 145 ML/MIN/1.73 = 95024) eGFR NON- AMER. (test 125 ML/MIN/1.73 code = 83998) CALC BUN/CREAT (test code = 22 RATIO 2235) SODIUM (test code = 2231) 135 MEQ/L POTASSIUM (test code = 2228) 4.3 MEQ/L CHLORIDE (test code = 2215) 100 MEQ/L CARBON DIOXIDE (test code = 22 MEQ/L 2206) CALCIUM (test code = 2209) 9.3 MG/DL PROTEIN, TOTAL (test code = 7.2 G/DL 2229) ALBUMIN (test code = 2201) 4.2 G/DL CALC GLOBULIN (test code = 3.0 G/DL 2240) CALC A/G RATIO (test code = 1.4 RATIO 2234) BILIRUBIN, TOTAL (test code = 0.3 MG/DL 2207) ALKALINE PHOSPHATASE (test 96 U/L code = 2204) AST (test code = 2218) 15 U/L ALT (test code = 2219) 19 U/L LIPID [id number] 00:00:00 Test Item Value Reference Range Interpretation Comments CHOLESTEROL (test code = 2210) 183 MG/DL TRIGLYCERIDES (test code = 2232) 446 MG/DL HDL CHOLESTEROL (test code = 33 MG/DL 2220) CALC LDL CHOL (test code = 2237) (NOTE) MG/DL RISK RATIO LDL/HDL (test code = (NOTE) RATIO 2238) LIPID [id number] 00:00:00 Test Item Value Reference Range Interpretation Comments CHOLESTEROL (test code = 2210) 183 MG/DL TRIGLYCERIDES (test code = 2232) 446 MG/DL HDL CHOLESTEROL (test code = 33 MG/DL 2220) CALC LDL CHOL (test code = 2237) (NOTE) MG/DL RISK RATIO LDL/HDL (test code = (NOTE) RATIO 2238) CBC W/AUTO [id number] 00:00:00 Test Item Value Reference Range Interpretation Comments WBC (test code = 1001) 8.2 K/UL RBC (test code = 1002) 4.68 M/UL HEMOGLOBIN (test code = 1003) 13.0 G/DL HEMATOCRIT (test code = 1004) 39.0 % MCV (test code = 1005) 83.3 fL MCH (test code = 1006) 27.8 PG MCHC (test code = 1007) 33.3 G/DL RDW (test code = 1038) 13.9 % NEUTROPHILS (test code = 1008) 64.0 % LYMPHOCYTES (test code = 1010) 28.3 % MONOCYTES (test code = 1011) 5.9 % EOSINOPHILS (test code = 1012) 1.3 % BASOPHILS (test code = 1013) 0.5 % PLATELET COUNT (test code = 1015) 298 K/UL CBC W/AUTO [id number] 00:00:00 Test Item Value Reference Range Interpretation Comments WBC (test code = 1001) 8.2 K/UL RBC (test code = 1002) 4.68 M/UL HEMOGLOBIN (test code = 1003) 13.0 G/DL HEMATOCRIT (test code = 1004) 39.0 % MCV (test code = 1005) 83.3 fL MCH (test code = 1006) 27.8 PG MCHC (test code = 1007) 33.3 G/DL RDW (test code = 1038) 13.9 % NEUTROPHILS (test code = 1008) 64.0 % LYMPHOCYTES (test code = 1010) 28.3 % MONOCYTES (test code = 1011) 5.9 % EOSINOPHILS (test code = 1012) 1.3 % BASOPHILS (test code = 1013) 0.5 % PLATELET COUNT (test code = 1015) 298 K/UL CBC W/AUTO [id number] 00:00:00 Test Item Value Reference Range Interpretation Comments WBC (test code = 1001) 8.2 K/UL RBC (test code = 1002) 4.68 M/UL HEMOGLOBIN (test code = 1003) 13.0 G/DL HEMATOCRIT (test code = 1004) 39.0 % MCV (test code = 1005) 83.3 fL MCH (test code = 1006) 27.8 PG MCHC (test code = 1007) 33.3 G/DL RDW (test code = 1038) 13.9 % NEUTROPHILS (test code = 1008) 64.0 % LYMPHOCYTES (test code = 1010) 28.3 % MONOCYTES (test code = 1011) 5.9 % EOSINOPHILS (test code = 1012) 1.3 % BASOPHILS (test code = 1013) 0.5 % PLATELET COUNT (test code = 1015) 298 K/UL HEMOGLOBIN [id number] 00:00:00 Test Item Value Reference Range Interpretation Comments HEMOGLOBIN A1c (test code = 55937) 7.7 % HEMOGLOBIN [id number] 00:00:00 Test Item Value Reference Range Interpretation Comments HEMOGLOBIN A1c (test code = 85253) 7.7 % HEMOGLOBIN [id number] 00:00:00 Test Item Value Reference Range Interpretation Comments HEMOGLOBIN A1c (test code = 93024) 7.7 % LIPID [id number] 00:00:00 Test Item Value Reference Range Interpretation Comments CHOLESTEROL (test code = 2210) 183 MG/DL TRIGLYCERIDES (test code = 2232) 446 MG/DL HDL CHOLESTEROL (test code = 33 MG/DL 2220) CALC LDL CHOL (test code = 2237) (NOTE) MG/DL RISK RATIO LDL/HDL (test code = (NOTE) RATIO 2238) CBC W/AUTO [id number] 00:00:00 Test Item Value Reference Range Interpretation Comments WBC (test code = 1001) 8.2 K/UL RBC (test code = 1002) 4.68 M/UL HEMOGLOBIN (test code = 1003) 13.0 G/DL HEMATOCRIT (test code = 1004) 39.0 % MCV (test code = 1005) 83.3 fL MCH (test code = 1006) 27.8 PG MCHC (test code = 1007) 33.3 G/DL RDW (test code = 1038) 13.9 % NEUTROPHILS (test code = 1008) 64.0 % LYMPHOCYTES (test code = 1010) 28.3 % MONOCYTES (test code = 1011) 5.9 % EOSINOPHILS (test code = 1012) 1.3 % BASOPHILS (test code = 1013) 0.5 % PLATELET COUNT (test code = 1015) 298 K/UL CBC W/AUTO [id number] 00:00:00 Test Item Value Reference Range Interpretation Comments WBC (test code = 1001) 8.2 K/UL RBC (test code = 1002) 4.68 M/UL HEMOGLOBIN (test code = 1003) 13.0 G/DL HEMATOCRIT (test code = 1004) 39.0 % MCV (test code = 1005) 83.3 fL MCH (test code = 1006) 27.8 PG MCHC (test code = 1007) 33.3 G/DL RDW (test code = 1038) 13.9 % NEUTROPHILS (test code = 1008) 64.0 % LYMPHOCYTES (test code = 1010) 28.3 % MONOCYTES (test code = 1011) 5.9 % EOSINOPHILS (test code = 1012) 1.3 % BASOPHILS (test code = 1013) 0.5 % PLATELET COUNT (test code = 1015) 298 K/UL HEMOGLOBIN [id number] 00:00:00 Test Item Value Reference Range Interpretation Comments HEMOGLOBIN A1c (test code = 80096) 7.7 % HEMOGLOBIN [id number] 00:00:00 Test Item Value Reference Range Interpretation Comments HEMOGLOBIN A1c (test code = 94340) 7.7 % COMPREHENSIVE METABOLIC [id number] 00:00:00 Test Item Value Reference Range Interpretation Comments GLUCOSE (test code = 2217) 281 MG/DL BUN (test code = 2208) 10 MG/DL CREATININE (test code = 2214) 0.45 MG/DL eGFR AMER. (test code 145 ML/MIN/1.73 = 99323) eGFR NON- AMER. (test 125 ML/MIN/1.73 code = 90781) CALC BUN/CREAT (test code = 22 RATIO 2235) SODIUM (test code = 2231) 135 MEQ/L POTASSIUM (test code = 2228) 4.3 MEQ/L CHLORIDE (test code = 2215) 100 MEQ/L CARBON DIOXIDE (test code = 22 MEQ/L 2205) CALCIUM (test code = 2209) 9.3 MG/DL PROTEIN, TOTAL (test code = 7.2 G/DL 2229) ALBUMIN (test code = 2201) 4.2 G/DL CALC GLOBULIN (test code = 3.0 G/DL 2240) CALC A/G RATIO (test code = 1.4 RATIO 2234) BILIRUBIN, TOTAL (test code = 0.3 MG/DL 220) ALKALINE PHOSPHATASE (test 96 U/L code = 2204) AST (test code = 2218) 15 U/L ALT (test code = 2219) 19 U/L COMPREHENSIVE METABOLIC [id number] 00:00:00 Test Item Value Reference Range Interpretation Comments GLUCOSE (test code = 2217) 281 MG/DL BUN (test code = 2208) 10 MG/DL CREATININE (test code = 2214) 0.45 MG/DL eGFR AMER. (test code 145 ML/MIN/1.73 = 83447) eGFR NON- AMER. (test 125 ML/MIN/1.73 code = 03933) CALC BUN/CREAT (test code = 22 RATIO 2235) SODIUM (test code = 2231) 135 MEQ/L POTASSIUM (test code = 2228) 4.3 MEQ/L CHLORIDE (test code = 2215) 100 MEQ/L CARBON DIOXIDE (test code = 22 MEQ/L 2206) CALCIUM (test code = 2209) 9.3 MG/DL PROTEIN, TOTAL (test code = 7.2 G/DL 2228) ALBUMIN (test code = 2201) 4.2 G/DL CALC GLOBULIN (test code = 3.0 G/DL 2240) CALC A/G RATIO (test code = 1.4 RATIO 2234) BILIRUBIN, TOTAL (test code = 0.3 MG/DL 2206) ALKALINE PHOSPHATASE (test 96 U/L code = 2204) AST (test code = 2218) 15 U/L ALT (test code = 2219) 19 U/L LIPID [id number] 00:00:00 Test Item Value Reference Range Interpretation Comments CHOLESTEROL (test code = 2210) 183 MG/DL TRIGLYCERIDES (test code = 2232) 446 MG/DL HDL CHOLESTEROL (test code = 33 MG/DL 2220) CALC LDL CHOL (test code = 2237) (NOTE) MG/DL RISK RATIO LDL/HDL (test code = (NOTE) RATIO 2238) LIPID [id number] 00:00:00 Test Item Value Reference Range Interpretation Comments CHOLESTEROL (test code = 2210) 183 MG/DL TRIGLYCERIDES (test code = 2232) 446 MG/DL HDL CHOLESTEROL (test code = 33 MG/DL 2220) CALC LDL CHOL (test code = 2237) (NOTE) MG/DL RISK RATIO LDL/HDL (test code = (NOTE) RATIO 2238) CBC W/AUTO [id number] 00:00:00 Test Item Value Reference Range Interpretation Comments WBC (test code = 1001) 8.2 K/UL RBC (test code = 1002) 4.68 M/UL HEMOGLOBIN (test code = 1003) 13.0 G/DL HEMATOCRIT (test code = 1004) 39.0 % MCV (test code = 1005) 83.3 fL MCH (test code = 1006) 27.8 PG MCHC (test code = 1007) 33.3 G/DL RDW (test code = 1038) 13.9 % NEUTROPHILS (test code = 1008) 64.0 % LYMPHOCYTES (test code = 1010) 28.3 % MONOCYTES (test code = 1011) 5.9 % EOSINOPHILS (test code = 1012) 1.3 % BASOPHILS (test code = 1013) 0.5 % PLATELET COUNT (test code = 1015) 298 K/UL CBC W/AUTO [id number] 00:00:00 Test Item Value Reference Range Interpretation Comments WBC (test code = 1001) 8.2 K/UL RBC (test code = 1002) 4.68 M/UL HEMOGLOBIN (test code = 1003) 13.0 G/DL HEMATOCRIT (test code = 1004) 39.0 % MCV (test code = 1005) 83.3 fL MCH (test code = 1006) 27.8 PG MCHC (test code = 1007) 33.3 G/DL RDW (test code = 1038) 13.9 % NEUTROPHILS (test code = 1008) 64.0 % LYMPHOCYTES (test code = 1010) 28.3 % MONOCYTES (test code = 1011) 5.9 % EOSINOPHILS (test code = 1012) 1.3 % BASOPHILS (test code = 1013) 0.5 % PLATELET COUNT (test code = 1015) 298 K/UL CBC W/AUTO [id number] 00:00:00 Test Item Value Reference Range Interpretation Comments WBC (test code = 1001) 8.2 K/UL RBC (test code = 1002) 4.68 M/UL HEMOGLOBIN (test code = 1003) 13.0 G/DL HEMATOCRIT (test code = 1004) 39.0 % MCV (test code = 1005) 83.3 fL MCH (test code = 1006) 27.8 PG MCHC (test code = 1007) 33.3 G/DL RDW (test code = 1038) 13.9 % NEUTROPHILS (test code = 1008) 64.0 % LYMPHOCYTES (test code = 1010) 28.3 % MONOCYTES (test code = 1011) 5.9 % EOSINOPHILS (test code = 1012) 1.3 % BASOPHILS (test code = 1013) 0.5 % PLATELET COUNT (test code = 1015) 298 K/UL HEMOGLOBIN [id number] 00:00:00 Test Item Value Reference Range Interpretation Comments HEMOGLOBIN A1c (test code = 67166) 7.7 % HEMOGLOBIN [id number] 00:00:00 Test Item Value Reference Range Interpretation Comments HEMOGLOBIN A1c (test code = 00104) 7.7 % HEMOGLOBIN [id number] 00:00:00 Test Item Value Reference Range Interpretation Comments HEMOGLOBIN A1c (test code = 27374) 7.7 % COMPREHENSIVE METABOLIC [id number] 00:00:00 Test Item Value Reference Range Interpretation Comments GLUCOSE (test code = 2217) 281 MG/DL BUN (test code = 2208) 10 MG/DL CREATININE (test code = 2214) 0.45 MG/DL eGFR AMER. (test code 145 ML/MIN/1.73 = 35608) eGFR NON- AMER. (test 125 ML/MIN/1.73 code = 77355) CALC BUN/CREAT (test code = 22 RATIO 2235) SODIUM (test code = 2231) 135 MEQ/L POTASSIUM (test code = 2228) 4.3 MEQ/L CHLORIDE (test code = 2215) 100 MEQ/L CARBON DIOXIDE (test code = 22 MEQ/L 2206) CALCIUM (test code = 2209) 9.3 MG/DL PROTEIN, TOTAL (test code = 7.2 G/DL 2228) ALBUMIN (test code = 2201) 4.2 G/DL CALC GLOBULIN (test code = 3.0 G/DL 2239) CALC A/G RATIO (test code = 1.4 RATIO 2234) BILIRUBIN, TOTAL (test code = 0.3 MG/DL 2207) ALKALINE PHOSPHATASE (test 96 U/L code = 2204) AST (test code = 2218) 15 U/L ALT (test code = 2219) 19 U/L COMPREHENSIVE METABOLIC [id number] 00:00:00 Test Item Value Reference Range Interpretation Comments GLUCOSE (test code = 2217) 281 MG/DL BUN (test code = 2208) 10 MG/DL CREATININE (test code = 2214) 0.45 MG/DL eGFR AMER. (test code 145 ML/MIN/1.73 = 60262) eGFR NON- AMER. (test 125 ML/MIN/1.73 code = 66312) CALC BUN/CREAT (test code = 22 RATIO 2235) SODIUM (test code = 2231) 135 MEQ/L POTASSIUM (test code = 2228) 4.3 MEQ/L CHLORIDE (test code = 2215) 100 MEQ/L CARBON DIOXIDE (test code = 22 MEQ/L 2206) CALCIUM (test code = 2209) 9.3 MG/DL PROTEIN, TOTAL (test code = 7.2 G/DL 2228) ALBUMIN (test code = 2201) 4.2 G/DL CALC GLOBULIN (test code = 3.0 G/DL 2240) CALC A/G RATIO (test code = 1.4 RATIO 2234) BILIRUBIN, TOTAL (test code = 0.3 MG/DL 2207) ALKALINE PHOSPHATASE (test 96 U/L code = 2204) AST (test code = 2218) 15 U/L ALT (test code = 2219) 19 U/L LIPID [id number] 00:00:00 Test Item Value Reference Range Interpretation Comments CHOLESTEROL (test code = 2210) 183 MG/DL TRIGLYCERIDES (test code = 2232) 446 MG/DL HDL CHOLESTEROL (test code = 33 MG/DL 2220) CALC LDL CHOL (test code = 2237) (NOTE) MG/DL RISK RATIO LDL/HDL (test code = (NOTE) RATIO 2238) LIPID [id number] 00:00:00 Test Item Value Reference Range Interpretation Comments CHOLESTEROL (test code = 2210) 183 MG/DL TRIGLYCERIDES (test code = 2232) 446 MG/DL HDL CHOLESTEROL (test code = 33 MG/DL 2220) CALC LDL CHOL (test code = 2237) (NOTE) MG/DL RISK RATIO LDL/HDL (test code = (NOTE) RATIO 2238) CBC W/AUTO [id number] 00:00:00 Test Item Value Reference Range Interpretation Comments WBC (test code = 1001) 8.2 K/UL RBC (test code = 1002) 4.68 M/UL HEMOGLOBIN (test code = 1003) 13.0 G/DL HEMATOCRIT (test code = 1004) 39.0 % MCV (test code = 1005) 83.3 fL MCH (test code = 1006) 27.8 PG MCHC (test code = 1007) 33.3 G/DL RDW (test code = 1038) 13.9 % NEUTROPHILS (test code = 1008) 64.0 % LYMPHOCYTES (test code = 1010) 28.3 % MONOCYTES (test code = 1011) 5.9 % EOSINOPHILS (test code = 1012) 1.3 % BASOPHILS (test code = 1013) 0.5 % PLATELET COUNT (test code = 1015) 298 K/UL CBC W/AUTO [id number] 00:00:00 Test Item Value Reference Range Interpretation Comments WBC (test code = 1001) 8.2 K/UL RBC (test code = 1002) 4.68 M/UL HEMOGLOBIN (test code = 1003) 13.0 G/DL HEMATOCRIT (test code = 1004) 39.0 % MCV (test code = 1005) 83.3 fL MCH (test code = 1006) 27.8 PG MCHC (test code = 1007) 33.3 G/DL RDW (test code = 1038) 13.9 % NEUTROPHILS (test code = 1008) 64.0 % LYMPHOCYTES (test code = 1010) 28.3 % MONOCYTES (test code = 1011) 5.9 % EOSINOPHILS (test code = 1012) 1.3 % BASOPHILS (test code = 1013) 0.5 % PLATELET COUNT (test code = 1015) 298 K/UL CBC W/AUTO [id number] 00:00:00 Test Item Value Reference Range Interpretation Comments WBC (test code = 1001) 8.2 K/UL RBC (test code = 1002) 4.68 M/UL HEMOGLOBIN (test code = 1003) 13.0 G/DL HEMATOCRIT (test code = 1004) 39.0 % MCV (test code = 1005) 83.3 fL MCH (test code = 1006) 27.8 PG MCHC (test code = 1007) 33.3 G/DL RDW (test code = 1038) 13.9 % NEUTROPHILS (test code = 1008) 64.0 % LYMPHOCYTES (test code = 1010) 28.3 % MONOCYTES (test code = 1011) 5.9 % EOSINOPHILS (test code = 1012) 1.3 % BASOPHILS (test code = 1013) 0.5 % PLATELET COUNT (test code = 1015) 298 K/UL HEMOGLOBIN [id number] 00:00:00 Test Item Value Reference Range Interpretation Comments HEMOGLOBIN A1c (test code = 09314) 7.7 % HEMOGLOBIN [id number] 00:00:00 Test Item Value Reference Range Interpretation Comments HEMOGLOBIN A1c (test code = 65898) 7.7 % HEMOGLOBIN [id number] 00:00:00 Test Item Value Reference Range Interpretation Comments HEMOGLOBIN A1c (test code = 55460) 7.7 % CBC W/AUTO [id number] 00:00:00 Test Item Value Reference Range Interpretation Comments WBC (test code = 1001) 7.5 K/UL RBC (test code = 1002) 4.59 M/UL HEMOGLOBIN (test code = 1003) 11.9 G/DL HEMATOCRIT (test code = 1004) 35.7 % MCV (test code = 1005) 77.8 fL MCH (test code = 1006) 25.9 PG MCHC (test code = 1007) 33.3 G/DL RDW (test code = 1038) 15.2 % NEUTROPHILS (test code = 1008) 52.0 % LYMPHOCYTES (test code = 1010) 38.3 % MONOCYTES (test code = 1011) 6.5 % EOSINOPHILS (test code = 1012) 2.8 % BASOPHILS (test code = 1013) 0.4 % PLATELET COUNT (test code = 1015) 337 K/UL CBC W/AUTO [id number] 00:00:00 Test Item Value Reference Range Interpretation Comments WBC (test code = 1001) 7.5 K/UL RBC (test code = 1002) 4.59 M/UL HEMOGLOBIN (test code = 1003) 11.9 G/DL HEMATOCRIT (test code = 1004) 35.7 % MCV (test code = 1005) 77.8 fL MCH (test code = 1006) 25.9 PG MCHC (test code = 1007) 33.3 G/DL RDW (test code = 1038) 15.2 % NEUTROPHILS (test code = 1008) 52.0 % LYMPHOCYTES (test code = 1010) 38.3 % MONOCYTES (test code = 1011) 6.5 % EOSINOPHILS (test code = 1012) 2.8 % BASOPHILS (test code = 1013) 0.4 % PLATELET COUNT (test code = 1015) 337 K/UL CBC W/AUTO [id number] 00:00:00 Test Item Value Reference Range Interpretation Comments WBC (test code = 1001) 7.5 K/UL RBC (test code = 1002) 4.59 M/UL HEMOGLOBIN (test code = 1003) 11.9 G/DL HEMATOCRIT (test code = 1004) 35.7 % MCV (test code = 1005) 77.8 fL MCH (test code = 1006) 25.9 PG MCHC (test code = 1007) 33.3 G/DL RDW (test code = 1038) 15.2 % NEUTROPHILS (test code = 1008) 52.0 % LYMPHOCYTES (test code = 1010) 38.3 % MONOCYTES (test code = 1011) 6.5 % EOSINOPHILS (test code = 1012) 2.8 % BASOPHILS (test code = 1013) 0.4 % PLATELET COUNT (test code = 1015) 337 K/UL CBC W/AUTO [id number] 00:00:00 Test Item Value Reference Range Interpretation Comments WBC (test code = 1001) 7.5 K/UL RBC (test code = 1002) 4.59 M/UL HEMOGLOBIN (test code = 1003) 11.9 G/DL HEMATOCRIT (test code = 1004) 35.7 % MCV (test code = 1005) 77.8 fL MCH (test code = 1006) 25.9 PG MCHC (test code = 1007) 33.3 G/DL RDW (test code = 1038) 15.2 % NEUTROPHILS (test code = 1008) 52.0 % LYMPHOCYTES (test code = 1010) 38.3 % MONOCYTES (test code = 1011) 6.5 % EOSINOPHILS (test code = 1012) 2.8 % BASOPHILS (test code = 1013) 0.4 % PLATELET COUNT (test code = 1015) 337 K/UL HEMOGLOBIN [id number] 00:00:00 Test Item Value Reference Range Interpretation Comments HEMOGLOBIN A1c (test code = 80259) 8.3 % HEMOGLOBIN [id number] 00:00:00 Test Item Value Reference Range Interpretation Comments HEMOGLOBIN A1c (test code = 42496) 8.3 % HEMOGLOBIN [id number] 00:00:00 Test Item Value Reference Range Interpretation Comments HEMOGLOBIN A1c (test code = 69664) 8.3 % CBC W/AUTO [id number] 00:00:00 Test Item Value Reference Range Interpretation Comments WBC (test code = 1001) 7.5 K/UL RBC (test code = 1002) 4.59 M/UL HEMOGLOBIN (test code = 1003) 11.9 G/DL HEMATOCRIT (test code = 1004) 35.7 % MCV (test code = 1005) 77.8 fL MCH (test code = 1006) 25.9 PG MCHC (test code = 1007) 33.3 G/DL RDW (test code = 1038) 15.2 % NEUTROPHILS (test code = 1008) 52.0 % LYMPHOCYTES (test code = 1010) 38.3 % MONOCYTES (test code = 1011) 6.5 % EOSINOPHILS (test code = 1012) 2.8 % BASOPHILS (test code = 1013) 0.4 % PLATELET COUNT (test code = 1015) 337 K/UL LIPID [id number] 00:00:00 Test Item Value Reference Range Interpretation Comments CHOLESTEROL (test code = 2210) 191 MG/DL TRIGLYCERIDES (test code = 2232) 156 MG/DL HDL CHOLESTEROL (test code = 2220) 40 MG/DL CALC LDL CHOL (test code = 2237) 124 MG/DL RISK RATIO LDL/HDL (test code = 3.10 RATIO 2238) LIPID [id number] 00:00:00 Test Item Value Reference Range Interpretation Comments CHOLESTEROL (test code = 2210) 191 MG/DL TRIGLYCERIDES (test code = 2232) 156 MG/DL HDL CHOLESTEROL (test code = 2220) 40 MG/DL CALC LDL CHOL (test code = 2237) 124 MG/DL RISK RATIO LDL/HDL (test code = 3.10 RATIO 2238) HEMOGLOBIN [id number] 00:00:00 Test Item Value Reference Range Interpretation Comments HEMOGLOBIN A1c (test code = 32152) 8.3 % HEMOGLOBIN [id number] 00:00:00 Test Item Value Reference Range Interpretation Comments HEMOGLOBIN A1c (test code = 41459) 8.3 % LIPID [id number] 00:00:00 Test Item Value Reference Range Interpretation Comments CHOLESTEROL (test code = 2210) 191 MG/DL TRIGLYCERIDES (test code = 2232) 156 MG/DL HDL CHOLESTEROL (test code = 2220) 40 MG/DL CALC LDL CHOL (test code = 2237) 124 MG/DL RISK RATIO LDL/HDL (test code = 3.10 RATIO 2238) CBC W/AUTO [id number] 00:00:00 Test Item Value Reference Range Interpretation Comments WBC (test code = 1001) 7.5 K/UL RBC (test code = 1002) 4.59 M/UL HEMOGLOBIN (test code = 1003) 11.9 G/DL HEMATOCRIT (test code = 1004) 35.7 % MCV (test code = 1005) 77.8 fL MCH (test code = 1006) 25.9 PG MCHC (test code = 1007) 33.3 G/DL RDW (test code = 1038) 15.2 % NEUTROPHILS (test code = 1008) 52.0 % LYMPHOCYTES (test code = 1010) 38.3 % MONOCYTES (test code = 1011) 6.5 % EOSINOPHILS (test code = 1012) 2.8 % BASOPHILS (test code = 1013) 0.4 % PLATELET COUNT (test code = 1015) 337 K/UL CBC W/AUTO [id number] 00:00:00 Test Item Value Reference Range Interpretation Comments WBC (test code = 1001) 7.5 K/UL RBC (test code = 1002) 4.59 M/UL HEMOGLOBIN (test code = 1003) 11.9 G/DL HEMATOCRIT (test code = 1004) 35.7 % MCV (test code = 1005) 77.8 fL MCH (test code = 1006) 25.9 PG MCHC (test code = 1007) 33.3 G/DL RDW (test code = 1038) 15.2 % NEUTROPHILS (test code = 1008) 52.0 % LYMPHOCYTES (test code = 1010) 38.3 % MONOCYTES (test code = 1011) 6.5 % EOSINOPHILS (test code = 1012) 2.8 % BASOPHILS (test code = 1013) 0.4 % PLATELET COUNT (test code = 1015) 337 K/UL CBC W/AUTO [id number] 00:00:00 Test Item Value Reference Range Interpretation Comments WBC (test code = 1001) 7.5 K/UL RBC (test code = 1002) 4.59 M/UL HEMOGLOBIN (test code = 1003) 11.9 G/DL HEMATOCRIT (test code = 1004) 35.7 % MCV (test code = 1005) 77.8 fL MCH (test code = 1006) 25.9 PG MCHC (test code = 1007) 33.3 G/DL RDW (test code = 1038) 15.2 % NEUTROPHILS (test code = 1008) 52.0 % LYMPHOCYTES (test code = 1010) 38.3 % MONOCYTES (test code = 1011) 6.5 % EOSINOPHILS (test code = 1012) 2.8 % BASOPHILS (test code = 1013) 0.4 % PLATELET COUNT (test code = 1015) 337 K/UL HEMOGLOBIN [id number] 00:00:00 Test Item Value Reference Range Interpretation Comments HEMOGLOBIN A1c (test code = 90840) 8.3 % HEMOGLOBIN [id number] 00:00:00 Test Item Value Reference Range Interpretation Comments HEMOGLOBIN A1c (test code = 92181) 8.3 % HEMOGLOBIN [id number] 00:00:00 Test Item Value Reference Range Interpretation Comments HEMOGLOBIN A1c (test code = 96014) 8.3 % LIPID [id number] 00:00:00 Test Item Value Reference Range Interpretation Comments CHOLESTEROL (test code = 2210) 191 MG/DL TRIGLYCERIDES (test code = 2232) 156 MG/DL HDL CHOLESTEROL (test code = 2220) 40 MG/DL CALC LDL CHOL (test code = 2237) 124 MG/DL RISK RATIO LDL/HDL (test code = 3.10 RATIO 2238) LIPID [id number] 00:00:00 Test Item Value Reference Range Interpretation Comments CHOLESTEROL (test code = 2210) 191 MG/DL TRIGLYCERIDES (test code = 2232) 156 MG/DL HDL CHOLESTEROL (test code = 2220) 40 MG/DL CALC LDL CHOL (test code = 2237) 124 MG/DL RISK RATIO LDL/HDL (test code = 3.10 RATIO 2238) CBC W/AUTO [id number] 00:00:00 Test Item Value Reference Range Interpretation Comments WBC (test code = 1001) 7.5 K/UL RBC (test code = 1002) 4.59 M/UL HEMOGLOBIN (test code = 1003) 11.9 G/DL HEMATOCRIT (test code = 1004) 35.7 % MCV (test code = 1005) 77.8 fL MCH (test code = 1006) 25.9 PG MCHC (test code = 1007) 33.3 G/DL RDW (test code = 1038) 15.2 % NEUTROPHILS (test code = 1008) 52.0 % LYMPHOCYTES (test code = 1010) 38.3 % MONOCYTES (test code = 1011) 6.5 % EOSINOPHILS (test code = 1012) 2.8 % BASOPHILS (test code = 1013) 0.4 % PLATELET COUNT (test code = 1015) 337 K/UL CBC W/AUTO [id number] 00:00:00 Test Item Value Reference Range Interpretation Comments WBC (test code = 1001) 7.5 K/UL RBC (test code = 1002) 4.59 M/UL HEMOGLOBIN (test code = 1003) 11.9 G/DL HEMATOCRIT (test code = 1004) 35.7 % MCV (test code = 1005) 77.8 fL MCH (test code = 1006) 25.9 PG MCHC (test code = 1007) 33.3 G/DL RDW (test code = 1038) 15.2 % NEUTROPHILS (test code = 1008) 52.0 % LYMPHOCYTES (test code = 1010) 38.3 % MONOCYTES (test code = 1011) 6.5 % EOSINOPHILS (test code = 1012) 2.8 % BASOPHILS (test code = 1013) 0.4 % PLATELET COUNT (test code = 1015) 337 K/UL CBC W/AUTO [id number] 00:00:00 Test Item Value Reference Range Interpretation Comments WBC (test code = 1001) 7.5 K/UL RBC (test code = 1002) 4.59 M/UL HEMOGLOBIN (test code = 1003) 11.9 G/DL HEMATOCRIT (test code = 1004) 35.7 % MCV (test code = 1005) 77.8 fL MCH (test code = 1006) 25.9 PG MCHC (test code = 1007) 33.3 G/DL RDW (test code = 1038) 15.2 % NEUTROPHILS (test code = 1008) 52.0 % LYMPHOCYTES (test code = 1010) 38.3 % MONOCYTES (test code = 1011) 6.5 % EOSINOPHILS (test code = 1012) 2.8 % BASOPHILS (test code = 1013) 0.4 % PLATELET COUNT (test code = 1015) 337 K/UL HEMOGLOBIN [id number] 00:00:00 Test Item Value Reference Range Interpretation Comments HEMOGLOBIN A1c (test code = 45420) 8.3 % HEMOGLOBIN [id number] 00:00:00 Test Item Value Reference Range Interpretation Comments HEMOGLOBIN A1c (test code = 52706) 8.3 % HEMOGLOBIN [id number] 00:00:00 Test Item Value Reference Range Interpretation Comments HEMOGLOBIN A1c (test code = 40854) 8.3 % LIPID [id number] 00:00:00 Test Item Value Reference Range Interpretation Comments CHOLESTEROL (test code = 2210) 191 MG/DL TRIGLYCERIDES (test code = 2232) 156 MG/DL HDL CHOLESTEROL (test code = 2220) 40 MG/DL CALC LDL CHOL (test code = 2237) 124 MG/DL RISK RATIO LDL/HDL (test code = 3.10 RATIO 2238) LIPID [id number] 00:00:00 Test Item Value Reference Range Interpretation Comments CHOLESTEROL (test code = 2210) 191 MG/DL TRIGLYCERIDES (test code = 2232) 156 MG/DL HDL CHOLESTEROL (test code = 2220) 40 MG/DL CALC LDL CHOL (test code = 2237) 124 MG/DL RISK RATIO LDL/HDL (test code = 3.10 RATIO 2238) [id number] 00:00:00 Test Item Value Reference Range Interpretation Comments TSH, THIRD GENERATION (test code 1.190 UIU/ML = 2821) [id number] 00:00:00 Test Item Value Reference Range Interpretation Comments TSH, THIRD GENERATION (test code 1.190 UIU/ML = 2821) [id number] 00:00:00 Test Item Value Reference Range Interpretation Comments TSH, THIRD GENERATION (test code 1.190 UIU/ML = 2821) [id number] 00:00:00 Test Item Value Reference Range Interpretation Comments TSH, THIRD GENERATION (test code 1.190 UIU/ML = 2821) [id number] 00:00:00 Test Item Value Reference Range Interpretation Comments TSH, THIRD GENERATION (test code 1.190 UIU/ML = 2821) VITAMIN D, 25 [id number] 00:00:00 Test Item Value Reference Range Interpretation Comments VITAMIN D, 25 OH (test code = 4958) 22 NG/ML VITAMIN D, 25 [id number] 00:00:00 Test Item Value Reference Range Interpretation Comments VITAMIN D, 25 OH (test code = 4958) 22 NG/ML VITAMIN D, 25 [id number] 00:00:00 Test Item Value Reference Range Interpretation Comments VITAMIN D, 25 OH (test code = 4958) 22 NG/ML [id number] 00:00:00 Test Item Value Reference Range Interpretation Comments TSH, THIRD GENERATION (test code 1.190 UIU/ML = 2821) [id number] 00:00:00 Test Item Value Reference Range Interpretation Comments TSH, THIRD GENERATION (test code 1.190 UIU/ML = 2821) [id number] 00:00:00 Test Item Value Reference Range Interpretation Comments TSH, THIRD GENERATION (test code 1.190 UIU/ML = 2821) VITAMIN D, 25 [id number] 00:00:00 Test Item Value Reference Range Interpretation Comments VITAMIN D, 25 OH (test code = 4958) 22 NG/ML VITAMIN D, 25 [id number] 00:00:00 Test Item Value Reference Range Interpretation Comments VITAMIN D, 25 OH (test code = 4958) 22 NG/ML [id number] 00:00:00 Test Item Value Reference Range Interpretation Comments TSH, THIRD GENERATION (test code 1.190 UIU/ML = 2821) [id number] 00:00:00 Test Item Value Reference Range Interpretation Comments TSH, THIRD GENERATION (test code 1.190 UIU/ML = 2821) [id number] 00:00:00 Test Item Value Reference Range Interpretation Comments TSH, THIRD GENERATION (test code 1.190 UIU/ML = 2821) VITAMIN D, 25 [id number] 00:00:00 Test Item Value Reference Range Interpretation Comments VITAMIN D, 25 OH (test code = 4958) 22 NG/ML VITAMIN D, 25 [id number] 00:00:00 Test Item Value Reference Range Interpretation Comments VITAMIN D, 25 OH (test code = 4958) 22 NG/ML [id number] 00:00:00 Test Item Value Reference Range Interpretation Comments FERRITIN (test code = 2074) 9 NG/ML [id number] 00:00:00 Test Item Value Reference Range Interpretation Comments FERRITIN (test code = 2074) 9 NG/ML [id number] 00:00:00 Test Item Value Reference Range Interpretation Comments FERRITIN (test code = 2074) 9 NG/ML [id number] 00:00:00 Test Item Value Reference Range Interpretation Comments FERRITIN (test code = 2074) 9 NG/ML [id number] 00:00:00 Test Item Value Reference Range Interpretation Comments FERRITIN (test code = 2074) 9 NG/ML [id number] 00:00:00 Test Item Value Reference Range Interpretation Comments FERRITIN (test code = 2074) 9 NG/ML [id number] 00:00:00 Test Item Value Reference Range Interpretation Comments FERRITIN (test code = 2074) 9 NG/ML IRON BINDING CAPACITY AND IRON AND % [id number] 00:00:00 Test Item Value Reference Range Interpretation Comments IRON, SERUM (test code = 2221) 52 UG/DL UNSATURATED IBC (test code = ) 363 UG/DL CALC TOTAL IBC (test code = 2076) 415 UG/DL CALC % IRON SAT (test code = 2078) 13 % IRON BINDING CAPACITY AND IRON AND % [id number] 00:00:00 Test Item Value Reference Range Interpretation Comments IRON, SERUM (test code = 2221) 52 UG/DL UNSATURATED IBC (test code = ) 363 UG/DL CALC TOTAL IBC (test code = 2076) 415 UG/DL CALC % IRON SAT (test code = 2078) 13 % IRON BINDING CAPACITY AND IRON AND % [id number] 00:00:00 Test Item Value Reference Range Interpretation Comments IRON, SERUM (test code = 2221) 52 UG/DL UNSATURATED IBC (test code = ) 363 UG/DL CALC TOTAL IBC (test code = 2076) 415 UG/DL CALC % IRON SAT (test code = 2078) 13 % IRON BINDING CAPACITY AND IRON AND % [id number] 00:00:00 Test Item Value Reference Range Interpretation Comments IRON, SERUM (test code = 2221) 52 UG/DL UNSATURATED IBC (test code = ) 363 UG/DL CALC TOTAL IBC (test code = 2076) 415 UG/DL CALC % IRON SAT (test code = 2078) 13 % IRON BINDING CAPACITY AND IRON AND % [id number] 00:00:00 Test Item Value Reference Range Interpretation Comments IRON, SERUM (test code = 2221) 52 UG/DL UNSATURATED IBC (test code = ) 363 UG/DL CALC TOTAL IBC (test code = 2076) 415 UG/DL CALC % IRON SAT (test code = 2078) 13 % IRON BINDING CAPACITY AND IRON AND % [id number] 00:00:00 Test Item Value Reference Range Interpretation Comments IRON, SERUM (test code = 2221) 52 UG/DL UNSATURATED IBC (test code = ) 363 UG/DL CALC TOTAL IBC (test code = 2076) 415 UG/DL CALC % IRON SAT (test code = 2078) 13 % IRON BINDING CAPACITY AND IRON AND % [id number] 00:00:00 Test Item Value Reference Range Interpretation Comments IRON, SERUM (test code = 2221) 52 UG/DL UNSATURATED IBC (test code = ) 363 UG/DL CALC TOTAL IBC (test code = 2076) 415 UG/DL CALC % IRON SAT (test code = 2078) 13 % CBC W/AUTO [id number] 00:00:00 Test Item Value Reference Range Interpretation Comments WBC (test code = 1001) 8.2 K/UL RBC (test code = 1002) 5.14 M/UL HEMOGLOBIN (test code = 1003) 12.2 G/DL HEMATOCRIT (test code = 1004) 38.2 % MCV (test code = 1005) 74.3 fL MCH (test code = 1006) 23.7 PG MCHC (test code = 1007) 31.9 G/DL RDW (test code = 1038) 15.8 % NEUTROPHILS (test code = 1008) 62.9 % LYMPHOCYTES (test code = 1010) 29.1 % MONOCYTES (test code = 1011) 5.6 % EOSINOPHILS (test code = 1012) 2.0 % BASOPHILS (test code = 1013) 0.4 % PLATELET COUNT (test code = 1015) 306 K/UL CBC W/AUTO [id number] 00:00:00 Test Item Value Reference Range Interpretation Comments WBC (test code = 1001) 8.2 K/UL RBC (test code = 1002) 5.14 M/UL HEMOGLOBIN (test code = 1003) 12.2 G/DL HEMATOCRIT (test code = 1004) 38.2 % MCV (test code = 1005) 74.3 fL MCH (test code = 1006) 23.7 PG MCHC (test code = 1007) 31.9 G/DL RDW (test code = 1038) 15.8 % NEUTROPHILS (test code = 1008) 62.9 % LYMPHOCYTES (test code = 1010) 29.1 % MONOCYTES (test code = 1011) 5.6 % EOSINOPHILS (test code = 1012) 2.0 % BASOPHILS (test code = 1013) 0.4 % PLATELET COUNT (test code = 1015) 306 K/UL CBC W/AUTO [id number] 00:00:00 Test Item Value Reference Range Interpretation Comments WBC (test code = 1001) 8.2 K/UL RBC (test code = 1002) 5.14 M/UL HEMOGLOBIN (test code = 1003) 12.2 G/DL HEMATOCRIT (test code = 1004) 38.2 % MCV (test code = 1005) 74.3 fL MCH (test code = 1006) 23.7 PG MCHC (test code = 1007) 31.9 G/DL RDW (test code = 1038) 15.8 % NEUTROPHILS (test code = 1008) 62.9 % LYMPHOCYTES (test code = 1010) 29.1 % MONOCYTES (test code = 1011) 5.6 % EOSINOPHILS (test code = 1012) 2.0 % BASOPHILS (test code = 1013) 0.4 % PLATELET COUNT (test code = 1015) 306 K/UL HEMOGLOBIN [id number] 00:00:00 Test Item Value Reference Range Interpretation Comments HEMOGLOBIN A1c (test code = 78565) 11.3 % HEMOGLOBIN [id number] 00:00:00 Test Item Value Reference Range Interpretation Comments HEMOGLOBIN A1c (test code = 99796) 11.3 % CBC W/AUTO [id number] 00:00:00 Test Item Value Reference Range Interpretation Comments WBC (test code = 1001) 8.2 K/UL RBC (test code = 1002) 5.14 M/UL HEMOGLOBIN (test code = 1003) 12.2 G/DL HEMATOCRIT (test code = 1004) 38.2 % MCV (test code = 1005) 74.3 fL MCH (test code = 1006) 23.7 PG MCHC (test code = 1007) 31.9 G/DL RDW (test code = 1038) 15.8 % NEUTROPHILS (test code = 1008) 62.9 % LYMPHOCYTES (test code = 1010) 29.1 % MONOCYTES (test code = 1011) 5.6 % EOSINOPHILS (test code = 1012) 2.0 % BASOPHILS (test code = 1013) 0.4 % PLATELET COUNT (test code = 1015) 306 K/UL HEMOGLOBIN [id number] 00:00:00 Test Item Value Reference Range Interpretation Comments HEMOGLOBIN A1c (test code = 06809) 11.3 % LIPID [id number] 00:00:00 Test Item Value Reference Range Interpretation Comments CHOLESTEROL (test code = 2210) 197 MG/DL TRIGLYCERIDES (test code = 2232) 561 MG/DL HDL CHOLESTEROL (test code = 30 MG/DL 2220) CALC LDL CHOL (test code = 2237) NOTE MG/DL RISK RATIO LDL/HDL (test code = (NOTE) RATIO 2238) LIPID [id number] 00:00:00 Test Item Value Reference Range Interpretation Comments CHOLESTEROL (test code = 2210) 197 MG/DL TRIGLYCERIDES (test code = 2232) 561 MG/DL HDL CHOLESTEROL (test code = 30 MG/DL 2220) CALC LDL CHOL (test code = 2237) NOTE MG/DL RISK RATIO LDL/HDL (test code = (NOTE) RATIO 2238) COMPREHENSIVE METABOLIC [id number] 00:00:00 Test Item Value Reference Range Interpretation Comments GLUCOSE (test code = 2217) 371 MG/DL BUN (test code = 2208) 12 MG/DL CREATININE (test code = 2214) 0.54 MG/DL eGFR AMER. (test code 138 ML/MIN/1.73 = 66066) eGFR NON- AMER. (test 119 ML/MIN/1.73 code = 79465) CALC BUN/CREAT (test code = 22 RATIO 2235) SODIUM (test code = 2231) 132 MEQ/L POTASSIUM (test code = 2228) 4.3 MEQ/L CHLORIDE (test code = 2215) 97 MEQ/L CARBON DIOXIDE (test code = 24 MEQ/L 2206) CALCIUM (test code = 2209) 9.7 MG/DL PROTEIN, TOTAL (test code = 7.5 G/DL 2228) ALBUMIN (test code = 2201) 4.2 G/DL CALC GLOBULIN (test code = 3.3 G/DL 2240) CALC A/G RATIO (test code = 1.3 RATIO 2234) BILIRUBIN, TOTAL (test code = <0.2 MG/DL 2206) ALKALINE PHOSPHATASE (test 130 U/L code = 2204) AST (test code = 2218) 10 U/L ALT (test code = 2219) 12 U/L COMPREHENSIVE METABOLIC [id number] 00:00:00 Test Item Value Reference Range Interpretation Comments GLUCOSE (test code = 2217) 371 MG/DL BUN (test code = 2208) 12 MG/DL CREATININE (test code = 2214) 0.54 MG/DL eGFR AMER. (test code 138 ML/MIN/1.73 = 23606) eGFR NON- AMER. (test 119 ML/MIN/1.73 code = 56315) CALC BUN/CREAT (test code = 22 RATIO 2235) SODIUM (test code = 2231) 132 MEQ/L POTASSIUM (test code = 2228) 4.3 MEQ/L CHLORIDE (test code = 2215) 97 MEQ/L CARBON DIOXIDE (test code = 24 MEQ/L 2206) CALCIUM (test code = 2209) 9.7 MG/DL PROTEIN, TOTAL (test code = 7.5 G/DL 2228) ALBUMIN (test code = 2201) 4.2 G/DL CALC GLOBULIN (test code = 3.3 G/DL 2240) CALC A/G RATIO (test code = 1.3 RATIO 2234) BILIRUBIN, TOTAL (test code = <0.2 MG/DL 2206) ALKALINE PHOSPHATASE (test 130 U/L code = 2204) AST (test code = 2218) 10 U/L ALT (test code = 2219) 12 U/L MICROALBUMIN/CREATININE, RANDOM AND [id number] 00:00:00 Test Item Value Reference Range Interpretation Comments CREATININE, URINE, CONC. (test 30.5 MG/DL code = 2072) ALBUMIN, URINE, RANDOM (test code 1.1 MG/DL = 83213) CALC ALBUMIN/CREAT, RND (test code 36 MG/G = 86199) MICROALBUMIN/CREATININE, RANDOM AND [id number] 00:00:00 Test Item Value Reference Range Interpretation Comments CREATININE, URINE, CONC. (test 30.5 MG/DL code = 2072) ALBUMIN, URINE, RANDOM (test code 1.1 MG/DL = 60602) CALC ALBUMIN/CREAT, RND (test code 36 MG/G = 69931) HEMOGLOBIN [id number] 00:00:00 Test Item Value Reference Range Interpretation Comments HEMOGLOBIN A1c (test code = 93029) 11.3 % HEMOGLOBIN [id number] 00:00:00 Test Item Value Reference Range Interpretation Comments HEMOGLOBIN A1c (test code = 88865) 11.3 % LIPID [id number] 00:00:00 Test Item Value Reference Range Interpretation Comments CHOLESTEROL (test code = 2210) 197 MG/DL TRIGLYCERIDES (test code = 2232) 561 MG/DL HDL CHOLESTEROL (test code = 30 MG/DL 2220) CALC LDL CHOL (test code = 2237) NOTE MG/DL RISK RATIO LDL/HDL (test code = (NOTE) RATIO 2238) COMPREHENSIVE METABOLIC [id number] 00:00:00 Test Item Value Reference Range Interpretation Comments GLUCOSE (test code = 2217) 371 MG/DL BUN (test code = 2208) 12 MG/DL CREATININE (test code = 2214) 0.54 MG/DL eGFR AMER. (test code 138 ML/MIN/1.73 = 94884) eGFR NON- AMER. (test 119 ML/MIN/1.73 code = 15193) CALC BUN/CREAT (test code = 22 RATIO 2235) SODIUM (test code = 2231) 132 MEQ/L POTASSIUM (test code = 2228) 4.3 MEQ/L CHLORIDE (test code = 2215) 97 MEQ/L CARBON DIOXIDE (test code = 24 MEQ/L 2205) CALCIUM (test code = 2209) 9.7 MG/DL PROTEIN, TOTAL (test code = 7.5 G/DL 2228) ALBUMIN (test code = 2201) 4.2 G/DL CALC GLOBULIN (test code = 3.3 G/DL 0) CALC A/G RATIO (test code = 1.3 RATIO 2234) BILIRUBIN, TOTAL (test code = <0.2 MG/DL 2206) ALKALINE PHOSPHATASE (test 130 U/L code = 2204) AST (test code = 2218) 10 U/L ALT (test code = 2219) 12 U/L MICROALBUMIN/CREATININE, RANDOM AND [id number] 00:00:00 Test Item Value Reference Range Interpretation Comments CREATININE, URINE, CONC. (test 30.5 MG/DL code = 2071) ALBUMIN, URINE, RANDOM (test code 1.1 MG/DL = 35737) CALC ALBUMIN/CREAT, RND (test code 36 MG/G = 62220) CBC W/AUTO [id number] 00:00:00 Test Item Value Reference Range Interpretation Comments WBC (test code = 1001) 8.2 K/UL RBC (test code = 1002) 5.14 M/UL HEMOGLOBIN (test code = 1003) 12.2 G/DL HEMATOCRIT (test code = 1004) 38.2 % MCV (test code = 1005) 74.3 fL MCH (test code = 1006) 23.7 PG MCHC (test code = 1007) 31.9 G/DL RDW (test code = 1038) 15.8 % NEUTROPHILS (test code = 1008) 62.9 % LYMPHOCYTES (test code = 1010) 29.1 % MONOCYTES (test code = 1011) 5.6 % EOSINOPHILS (test code = 1012) 2.0 % BASOPHILS (test code = 1013) 0.4 % PLATELET COUNT (test code = 1015) 306 K/UL CBC W/AUTO [id number] 00:00:00 Test Item Value Reference Range Interpretation Comments WBC (test code = 1001) 8.2 K/UL RBC (test code = 1002) 5.14 M/UL HEMOGLOBIN (test code = 1003) 12.2 G/DL HEMATOCRIT (test code = 1004) 38.2 % MCV (test code = 1005) 74.3 fL MCH (test code = 1006) 23.7 PG MCHC (test code = 1007) 31.9 G/DL RDW (test code = 1038) 15.8 % NEUTROPHILS (test code = 1008) 62.9 % LYMPHOCYTES (test code = 1010) 29.1 % MONOCYTES (test code = 1011) 5.6 % EOSINOPHILS (test code = 1012) 2.0 % BASOPHILS (test code = 1013) 0.4 % PLATELET COUNT (test code = 1015) 306 K/UL CBC W/AUTO [id number] 00:00:00 Test Item Value Reference Range Interpretation Comments WBC (test code = 1001) 8.2 K/UL RBC (test code = 1002) 5.14 M/UL HEMOGLOBIN (test code = 1003) 12.2 G/DL HEMATOCRIT (test code = 1004) 38.2 % MCV (test code = 1005) 74.3 fL MCH (test code = 1006) 23.7 PG MCHC (test code = 1007) 31.9 G/DL RDW (test code = 1038) 15.8 % NEUTROPHILS (test code = 1008) 62.9 % LYMPHOCYTES (test code = 1010) 29.1 % MONOCYTES (test code = 1011) 5.6 % EOSINOPHILS (test code = 1012) 2.0 % BASOPHILS (test code = 1013) 0.4 % PLATELET COUNT (test code = 1015) 306 K/UL HEMOGLOBIN [id number] 00:00:00 Test Item Value Reference Range Interpretation Comments HEMOGLOBIN A1c (test code = 62663) 11.3 % HEMOGLOBIN [id number] 00:00:00 Test Item Value Reference Range Interpretation Comments HEMOGLOBIN A1c (test code = 06955) 11.3 % HEMOGLOBIN [id number] 00:00:00 Test Item Value Reference Range Interpretation Comments HEMOGLOBIN A1c (test code = 71794) 11.3 % LIPID [id number] 00:00:00 Test Item Value Reference Range Interpretation Comments CHOLESTEROL (test code = 2210) 197 MG/DL TRIGLYCERIDES (test code = 2232) 561 MG/DL HDL CHOLESTEROL (test code = 30 MG/DL 2220) CALC LDL CHOL (test code = 2237) NOTE MG/DL RISK RATIO LDL/HDL (test code = (NOTE) RATIO 2238) LIPID [id number] 00:00:00 Test Item Value Reference Range Interpretation Comments CHOLESTEROL (test code = 2210) 197 MG/DL TRIGLYCERIDES (test code = 2232) 561 MG/DL HDL CHOLESTEROL (test code = 30 MG/DL 2220) CALC LDL CHOL (test code = 2237) NOTE MG/DL RISK RATIO LDL/HDL (test code = (NOTE) RATIO 2238) COMPREHENSIVE METABOLIC [id number] 00:00:00 Test Item Value Reference Range Interpretation Comments GLUCOSE (test code = 2217) 371 MG/DL BUN (test code = 2208) 12 MG/DL CREATININE (test code = 2214) 0.54 MG/DL eGFR AMER. (test code 138 ML/MIN/1.73 = 42099) eGFR NON- AMER. (test 119 ML/MIN/1.73 code = 69355) CALC BUN/CREAT (test code = 22 RATIO 2235) SODIUM (test code = 2231) 132 MEQ/L POTASSIUM (test code = 2228) 4.3 MEQ/L CHLORIDE (test code = 2215) 97 MEQ/L CARBON DIOXIDE (test code = 24 MEQ/L 6) CALCIUM (test code = 2209) 9.7 MG/DL PROTEIN, TOTAL (test code = 7.5 G/DL 2228) ALBUMIN (test code = 2201) 4.2 G/DL CALC GLOBULIN (test code = 3.3 G/DL 2240) CALC A/G RATIO (test code = 1.3 RATIO 2234) BILIRUBIN, TOTAL (test code = <0.2 MG/DL 2206) ALKALINE PHOSPHATASE (test 130 U/L code = 2204) AST (test code = 2218) 10 U/L ALT (test code = 2219) 12 U/L COMPREHENSIVE METABOLIC [id number] 00:00:00 Test Item Value Reference Range Interpretation Comments GLUCOSE (test code = 2217) 371 MG/DL BUN (test code = 2208) 12 MG/DL CREATININE (test code = 2214) 0.54 MG/DL eGFR AMER. (test code 138 ML/MIN/1.73 = 85788) eGFR NON- AMER. (test 119 ML/MIN/1.73 code = 75918) CALC BUN/CREAT (test code = 22 RATIO 2235) SODIUM (test code = 2231) 132 MEQ/L POTASSIUM (test code = 2228) 4.3 MEQ/L CHLORIDE (test code = 2215) 97 MEQ/L CARBON DIOXIDE (test code = 24 MEQ/L 2205) CALCIUM (test code = 2209) 9.7 MG/DL PROTEIN, TOTAL (test code = 7.5 G/DL 2228) ALBUMIN (test code = 2201) 4.2 G/DL CALC GLOBULIN (test code = 3.3 G/DL 2239) CALC A/G RATIO (test code = 1.3 RATIO 2233) BILIRUBIN, TOTAL (test code = <0.2 MG/DL 2206) ALKALINE PHOSPHATASE (test 130 U/L code = 220) AST (test code = 2218) 10 U/L ALT (test code = 2219) 12 U/L MICROALBUMIN/CREATININE, RANDOM AND [id number] 00:00:00 Test Item Value Reference Range Interpretation Comments CREATININE, URINE, CONC. (test 30.5 MG/DL code = 2072) ALBUMIN, URINE, RANDOM (test code 1.1 MG/DL = 97447) CALC ALBUMIN/CREAT, RND (test code 36 MG/G = 21136) MICROALBUMIN/CREATININE, RANDOM AND [id number] 00:00:00 Test Item Value Reference Range Interpretation Comments CREATININE, URINE, CONC. (test 30.5 MG/DL code = 2072) ALBUMIN, URINE, RANDOM (test code 1.1 MG/DL = 19152) CALC ALBUMIN/CREAT, RND (test code 36 MG/G = 60119) CBC W/AUTO [id number] 00:00:00 Test Item Value Reference Range Interpretation Comments WBC (test code = 1001) 8.2 K/UL RBC (test code = 1002) 5.14 M/UL HEMOGLOBIN (test code = 1003) 12.2 G/DL HEMATOCRIT (test code = 1004) 38.2 % MCV (test code = 1005) 74.3 fL MCH (test code = 1006) 23.7 PG MCHC (test code = 1007) 31.9 G/DL RDW (test code = 1038) 15.8 % NEUTROPHILS (test code = 1008) 62.9 % LYMPHOCYTES (test code = 1010) 29.1 % MONOCYTES (test code = 1011) 5.6 % EOSINOPHILS (test code = 1012) 2.0 % BASOPHILS (test code = 1013) 0.4 % PLATELET COUNT (test code = 1015) 306 K/UL CBC W/AUTO [id number] 00:00:00 Test Item Value Reference Range Interpretation Comments WBC (test code = 1001) 8.2 K/UL RBC (test code = 1002) 5.14 M/UL HEMOGLOBIN (test code = 1003) 12.2 G/DL HEMATOCRIT (test code = 1004) 38.2 % MCV (test code = 1005) 74.3 fL MCH (test code = 1006) 23.7 PG MCHC (test code = 1007) 31.9 G/DL RDW (test code = 1038) 15.8 % NEUTROPHILS (test code = 1008) 62.9 % LYMPHOCYTES (test code = 1010) 29.1 % MONOCYTES (test code = 1011) 5.6 % EOSINOPHILS (test code = 1012) 2.0 % BASOPHILS (test code = 1013) 0.4 % PLATELET COUNT (test code = 1015) 306 K/UL CBC W/AUTO [id number] 00:00:00 Test Item Value Reference Range Interpretation Comments WBC (test code = 1001) 8.2 K/UL RBC (test code = 1002) 5.14 M/UL HEMOGLOBIN (test code = 1003) 12.2 G/DL HEMATOCRIT (test code = 1004) 38.2 % MCV (test code = 1005) 74.3 fL MCH (test code = 1006) 23.7 PG MCHC (test code = 1007) 31.9 G/DL RDW (test code = 1038) 15.8 % NEUTROPHILS (test code = 1008) 62.9 % LYMPHOCYTES (test code = 1010) 29.1 % MONOCYTES (test code = 1011) 5.6 % EOSINOPHILS (test code = 1012) 2.0 % BASOPHILS (test code = 1013) 0.4 % PLATELET COUNT (test code = 1015) 306 K/UL HEMOGLOBIN [id number] 00:00:00 Test Item Value Reference Range Interpretation Comments HEMOGLOBIN A1c (test code = 90143) 11.3 % HEMOGLOBIN [id number] 00:00:00 Test Item Value Reference Range Interpretation Comments HEMOGLOBIN A1c (test code = 55337) 11.3 % HEMOGLOBIN [id number] 00:00:00 Test Item Value Reference Range Interpretation Comments HEMOGLOBIN A1c (test code = 91125) 11.3 % LIPID [id number] 00:00:00 Test Item Value Reference Range Interpretation Comments CHOLESTEROL (test code = 2210) 197 MG/DL TRIGLYCERIDES (test code = 2232) 561 MG/DL HDL CHOLESTEROL (test code = 30 MG/DL 2220) CALC LDL CHOL (test code = 2237) NOTE MG/DL RISK RATIO LDL/HDL (test code = (NOTE) RATIO 2238) LIPID [id number] 00:00:00 Test Item Value Reference Range Interpretation Comments CHOLESTEROL (test code = 2210) 197 MG/DL TRIGLYCERIDES (test code = 2232) 561 MG/DL HDL CHOLESTEROL (test code = 30 MG/DL 2220) CALC LDL CHOL (test code = 2237) NOTE MG/DL RISK RATIO LDL/HDL (test code = (NOTE) RATIO 2238) COMPREHENSIVE METABOLIC [id number] 00:00:00 Test Item Value Reference Range Interpretation Comments GLUCOSE (test code = 2217) 371 MG/DL BUN (test code = 2208) 12 MG/DL CREATININE (test code = 2214) 0.54 MG/DL eGFR AMER. (test code 138 ML/MIN/1.73 = 66797) eGFR NON- AMER. (test 119 ML/MIN/1.73 code = 98778) CALC BUN/CREAT (test code = 22 RATIO 2235) SODIUM (test code = 2231) 132 MEQ/L POTASSIUM (test code = 2228) 4.3 MEQ/L CHLORIDE (test code = 2215) 97 MEQ/L CARBON DIOXIDE (test code = 24 MEQ/L 2206) CALCIUM (test code = 2209) 9.7 MG/DL PROTEIN, TOTAL (test code = 7.5 G/DL 2228) ALBUMIN (test code = 2201) 4.2 G/DL CALC GLOBULIN (test code = 3.3 G/DL 2239) CALC A/G RATIO (test code = 1.3 RATIO 2234) BILIRUBIN, TOTAL (test code = <0.2 MG/DL 2206) ALKALINE PHOSPHATASE (test 130 U/L code = 2204) AST (test code = 2218) 10 U/L ALT (test code = 2219) 12 U/L COMPREHENSIVE METABOLIC [id number] 00:00:00 Test Item Value Reference Range Interpretation Comments GLUCOSE (test code = 2217) 371 MG/DL BUN (test code = 2208) 12 MG/DL CREATININE (test code = 2214) 0.54 MG/DL eGFR AMER. (test code 138 ML/MIN/1.73 = 93051) eGFR NON- AMER. (test 119 ML/MIN/1.73 code = 55249) CALC BUN/CREAT (test code = 22 RATIO 2235) SODIUM (test code = 2231) 132 MEQ/L POTASSIUM (test code = 2228) 4.3 MEQ/L CHLORIDE (test code = 2215) 97 MEQ/L CARBON DIOXIDE (test code = 24 MEQ/L 220) CALCIUM (test code = 2209) 9.7 MG/DL PROTEIN, TOTAL (test code = 7.5 G/DL 222) ALBUMIN (test code = 2201) 4.2 G/DL CALC GLOBULIN (test code = 3.3 G/DL 2240) CALC A/G RATIO (test code = 1.3 RATIO 2234) BILIRUBIN, TOTAL (test code = <0.2 MG/DL 220) ALKALINE PHOSPHATASE (test 130 U/L code = 2204) AST (test code = 2218) 10 U/L ALT (test code = 2219) 12 U/L MICROALBUMIN/CREATININE, RANDOM AND [id number] 00:00:00 Test Item Value Reference Range Interpretation Comments CREATININE, URINE, CONC. (test 30.5 MG/DL code = 2072) ALBUMIN, URINE, RANDOM (test code 1.1 MG/DL = 85800) CALC ALBUMIN/CREAT, RND (test code 36 MG/G = 54638) MICROALBUMIN/CREATININE, RANDOM AND [id number] 00:00:00 Test Item Value Reference Range Interpretation Comments CREATININE, URINE, CONC. (test 30.5 MG/DL code = 2072) ALBUMIN, URINE, RANDOM (test code 1.1 MG/DL = 33427) CALC ALBUMIN/CREAT, RND (test code 36 MG/G = 77179) CBC W/AUTO [id number] 00:00:00 Test Item Value Reference Range Interpretation Comments WBC (test code = 1001) 8.2 K/UL RBC (test code = 1002) 5.14 M/UL HEMOGLOBIN (test code = 1003) 12.2 G/DL HEMATOCRIT (test code = 1004) 38.2 % MCV (test code = 1005) 74.3 fL MCH (test code = 1006) 23.7 PG MCHC (test code = 1007) 31.9 G/DL RDW (test code = 1038) 15.8 % NEUTROPHILS (test code = 1008) 62.9 % LYMPHOCYTES (test code = 1010) 29.1 % MONOCYTES (test code = 1011) 5.6 % EOSINOPHILS (test code = 1012) 2.0 % BASOPHILS (test code = 1013) 0.4 % PLATELET COUNT (test code = 1015) 306 K/UL VAGINAL PATHOGENS DNA [id number] 00:00:00 Test Item Value Reference Range Interpretation Comments KELLY SPECIES (test code = 53260) NEGATIVE G. VAGINALIS (test code = 77472) NEGATIVE T. VAGINALIS (test code = 03484) NEGATIVE VAGINAL PATHOGENS DNA [id number] 00:00:00 Test Item Value Reference Range Interpretation Comments KELLY SPECIES (test code = 01406) NEGATIVE G. VAGINALIS (test code = 84379) NEGATIVE T. VAGINALIS (test code = 60265) NEGATIVE VAGINAL PATHOGENS DNA [id number] 00:00:00 Test Item Value Reference Range Interpretation Comments KELLY SPECIES (test code = 38979) NEGATIVE G. VAGINALIS (test code = 34795) NEGATIVE T. VAGINALIS (test code = 68387) NEGATIVE VAGINAL PATHOGENS DNA [id number] 00:00:00 Test Item Value Reference Range Interpretation Comments KELLY SPECIES (test code = 81248) NEGATIVE G. VAGINALIS (test code = 24277) NEGATIVE T. VAGINALIS (test code = 14034) NEGATIVE VAGINAL PATHOGENS DNA [id number] 00:00:00 Test Item Value Reference Range Interpretation Comments KELLY SPECIES (test code = 59651) NEGATIVE G. VAGINALIS (test code = 20554) NEGATIVE T. VAGINALIS (test code = 06921) NEGATIVE VAGINAL PATHOGENS DNA [id number] 00:00:00 Test Item Value Reference Range Interpretation Comments KELLY SPECIES (test code = 03464) NEGATIVE G. VAGINALIS (test code = 97959) NEGATIVE T. VAGINALIS (test code = ) NEGATIVE VAGINAL PATHOGENS DNA [id number] 00:00:00 Test Item Value Reference Range Interpretation Comments KELLY SPECIES (test code = ) NEGATIVE G. VAGINALIS (test code = ) NEGATIVE T. VAGINALIS (test code = ) NEGATIVE COMPREHENSIVE METABOLIC [id number] 00:00:00 Test Item Value Reference Range Interpretation Comments GLUCOSE (test code = 2217) 123 MG/DL BUN (test code = 2208) 9 MG/DL CREATININE (test code = 2214) 0.51 MG/DL eGFR AMER. (test code 140 ML/MIN/1.73 = 43984) eGFR NON- AMER. (test 121 ML/MIN/1.73 code = 97225) CALC BUN/CREAT (test code = 18 RATIO 2235) SODIUM (test code = 2231) 140 MEQ/L POTASSIUM (test code = 2228) 4.4 MEQ/L CHLORIDE (test code = 2215) 104 MEQ/L CARBON DIOXIDE (test code = 24 MEQ/L 2205) CALCIUM (test code = 2209) 9.5 MG/DL PROTEIN, TOTAL (test code = 7.3 G/DL 2228) ALBUMIN (test code = 2201) 4.1 G/DL CALC GLOBULIN (test code = 3.2 G/DL 2240) CALC A/G RATIO (test code = 1.3 RATIO 2234) BILIRUBIN, TOTAL (test code = 0.2 MG/DL 2206) ALKALINE PHOSPHATASE (test 101 U/L code = 2204) AST (test code = 2218) 13 U/L ALT (test code = 2219) 13 U/L COMPREHENSIVE METABOLIC [id number] 00:00:00 Test Item Value Reference Range Interpretation Comments GLUCOSE (test code = 2217) 123 MG/DL BUN (test code = 2208) 9 MG/DL CREATININE (test code = 2214) 0.51 MG/DL eGFR AMER. (test code 140 ML/MIN/1.73 = 49467) eGFR NON- AMER. (test 121 ML/MIN/1.73 code = 30214) CALC BUN/CREAT (test code = 18 RATIO 2235) SODIUM (test code = 2231) 140 MEQ/L POTASSIUM (test code = 2228) 4.4 MEQ/L CHLORIDE (test code = 2215) 104 MEQ/L CARBON DIOXIDE (test code = 24 MEQ/L 2205) CALCIUM (test code = 2209) 9.5 MG/DL PROTEIN, TOTAL (test code = 7.3 G/DL 2228) ALBUMIN (test code = 2201) 4.1 G/DL CALC GLOBULIN (test code = 3.2 G/DL 2239) CALC A/G RATIO (test code = 1.3 RATIO 2233) BILIRUBIN, TOTAL (test code = 0.2 MG/DL 2206) ALKALINE PHOSPHATASE (test 101 U/L code = 2204) AST (test code = 2218) 13 U/L ALT (test code = 2219) 13 U/L LIPID [id number] 00:00:00 Test Item Value Reference Range Interpretation Comments CHOLESTEROL (test code = 2210) 201 MG/DL TRIGLYCERIDES (test code = 2232) 332 MG/DL HDL CHOLESTEROL (test code = 2220) 36 MG/DL CALC LDL CHOL (test code = 2237) 99 MG/DL RISK RATIO LDL/HDL (test code = 2.74 RATIO 2238) LIPID [id number] 00:00:00 Test Item Value Reference Range Interpretation Comments CHOLESTEROL (test code = 2210) 201 MG/DL TRIGLYCERIDES (test code = 2232) 332 MG/DL HDL CHOLESTEROL (test code = 2220) 36 MG/DL CALC LDL CHOL (test code = 2237) 99 MG/DL RISK RATIO LDL/HDL (test code = 2.74 RATIO 2238) HEMOGLOBIN [id number] 00:00:00 Test Item Value Reference Range Interpretation Comments HEMOGLOBIN A1c (test code = 77832) 8.1 % HEMOGLOBIN [id number] 00:00:00 Test Item Value Reference Range Interpretation Comments HEMOGLOBIN A1c (test code = 43767) 8.1 % HEMOGLOBIN [id number] 00:00:00 Test Item Value Reference Range Interpretation Comments HEMOGLOBIN A1c (test code = 71404) 8.1 % CBC W/AUTO [id number] 00:00:00 Test Item Value Reference Range Interpretation Comments WBC (test code = 1001) 6.7 K/UL RBC (test code = 1002) 4.49 M/UL HEMOGLOBIN (test code = 1003) 10.9 G/DL HEMATOCRIT (test code = 1004) 33.8 % MCV (test code = 1005) 75.3 fL MCH (test code = 1006) 24.3 PG MCHC (test code = 1007) 32.2 G/DL RDW (test code = 1038) 14.3 % NEUTROPHILS (test code = 1008) 51.0 % LYMPHOCYTES (test code = 1010) 39.0 % MONOCYTES (test code = 1011) 5.1 % EOSINOPHILS (test code = 1012) 4.5 % BASOPHILS (test code = 1013) 0.4 % PLATELET COUNT (test code = 1015) 330 K/UL CBC W/AUTO [id number] 00:00:00 Test Item Value Reference Range Interpretation Comments WBC (test code = 1001) 6.7 K/UL RBC (test code = 1002) 4.49 M/UL HEMOGLOBIN (test code = 1003) 10.9 G/DL HEMATOCRIT (test code = 1004) 33.8 % MCV (test code = 1005) 75.3 fL MCH (test code = 1006) 24.3 PG MCHC (test code = 1007) 32.2 G/DL RDW (test code = 1038) 14.3 % NEUTROPHILS (test code = 1008) 51.0 % LYMPHOCYTES (test code = 1010) 39.0 % MONOCYTES (test code = 1011) 5.1 % EOSINOPHILS (test code = 1012) 4.5 % BASOPHILS (test code = 1013) 0.4 % PLATELET COUNT (test code = 1015) 330 K/UL CBC W/AUTO [id number] 00:00:00 Test Item Value Reference Range Interpretation Comments WBC (test code = 1001) 6.7 K/UL RBC (test code = 1002) 4.49 M/UL HEMOGLOBIN (test code = 1003) 10.9 G/DL HEMATOCRIT (test code = 1004) 33.8 % MCV (test code = 1005) 75.3 fL MCH (test code = 1006) 24.3 PG MCHC (test code = 1007) 32.2 G/DL RDW (test code = 1038) 14.3 % NEUTROPHILS (test code = 1008) 51.0 % LYMPHOCYTES (test code = 1010) 39.0 % MONOCYTES (test code = 1011) 5.1 % EOSINOPHILS (test code = 1012) 4.5 % BASOPHILS (test code = 1013) 0.4 % PLATELET COUNT (test code = 1015) 330 K/UL LIPID [id number] 00:00:00 Test Item Value Reference Range Interpretation Comments CHOLESTEROL (test code = 2210) 201 MG/DL TRIGLYCERIDES (test code = 2232) 332 MG/DL HDL CHOLESTEROL (test code = 2220) 36 MG/DL CALC LDL CHOL (test code = 2237) 99 MG/DL RISK RATIO LDL/HDL (test code = 2.74 RATIO 2238) HEMOGLOBIN [id number] 00:00:00 Test Item Value Reference Range Interpretation Comments HEMOGLOBIN A1c (test code = 66630) 8.1 % HEMOGLOBIN [id number] 00:00:00 Test Item Value Reference Range Interpretation Comments HEMOGLOBIN A1c (test code = 01369) 8.1 % CBC W/AUTO [id number] 00:00:00 Test Item Value Reference Range Interpretation Comments WBC (test code = 1001) 6.7 K/UL RBC (test code = 1002) 4.49 M/UL HEMOGLOBIN (test code = 1003) 10.9 G/DL HEMATOCRIT (test code = 1004) 33.8 % MCV (test code = 1005) 75.3 fL MCH (test code = 1006) 24.3 PG MCHC (test code = 1007) 32.2 G/DL RDW (test code = 1038) 14.3 % NEUTROPHILS (test code = 1008) 51.0 % LYMPHOCYTES (test code = 1010) 39.0 % MONOCYTES (test code = 1011) 5.1 % EOSINOPHILS (test code = 1012) 4.5 % BASOPHILS (test code = 1013) 0.4 % PLATELET COUNT (test code = 1015) 330 K/UL CBC W/AUTO [id number] 00:00:00 Test Item Value Reference Range Interpretation Comments WBC (test code = 1001) 6.7 K/UL RBC (test code = 1002) 4.49 M/UL HEMOGLOBIN (test code = 1003) 10.9 G/DL HEMATOCRIT (test code = 1004) 33.8 % MCV (test code = 1005) 75.3 fL MCH (test code = 1006) 24.3 PG MCHC (test code = 1007) 32.2 G/DL RDW (test code = 1038) 14.3 % NEUTROPHILS (test code = 1008) 51.0 % LYMPHOCYTES (test code = 1010) 39.0 % MONOCYTES (test code = 1011) 5.1 % EOSINOPHILS (test code = 1012) 4.5 % BASOPHILS (test code = 1013) 0.4 % PLATELET COUNT (test code = 1015) 330 K/UL COMPREHENSIVE METABOLIC [id number] 00:00:00 Test Item Value Reference Range Interpretation Comments GLUCOSE (test code = 2217) 123 MG/DL BUN (test code = 2208) 9 MG/DL CREATININE (test code = 2214) 0.51 MG/DL eGFR AMER. (test code 140 ML/MIN/1.73 = 68158) eGFR NON- AMER. (test 121 ML/MIN/1.73 code = 81609) CALC BUN/CREAT (test code = 18 RATIO 2235) SODIUM (test code = 2231) 140 MEQ/L POTASSIUM (test code = 2228) 4.4 MEQ/L CHLORIDE (test code = 2215) 104 MEQ/L CARBON DIOXIDE (test code = 24 MEQ/L 2206) CALCIUM (test code = 2209) 9.5 MG/DL PROTEIN, TOTAL (test code = 7.3 G/DL 2229) ALBUMIN (test code = 2201) 4.1 G/DL CALC GLOBULIN (test code = 3.2 G/DL 2240) CALC A/G RATIO (test code = 1.3 RATIO 2234) BILIRUBIN, TOTAL (test code = 0.2 MG/DL 2207) ALKALINE PHOSPHATASE (test 101 U/L code = 2204) AST (test code = 2218) 13 U/L ALT (test code = 2219) 13 U/L COMPREHENSIVE METABOLIC [id number] 00:00:00 Test Item Value Reference Range Interpretation Comments GLUCOSE (test code = 2217) 123 MG/DL BUN (test code = 2208) 9 MG/DL CREATININE (test code = 2214) 0.51 MG/DL eGFR AMER. (test code 140 ML/MIN/1.73 = 38927) eGFR NON- AMER. (test 121 ML/MIN/1.73 code = 98511) CALC BUN/CREAT (test code = 18 RATIO 2235) SODIUM (test code = 2231) 140 MEQ/L POTASSIUM (test code = 2228) 4.4 MEQ/L CHLORIDE (test code = 2215) 104 MEQ/L CARBON DIOXIDE (test code = 24 MEQ/L 2205) CALCIUM (test code = 2209) 9.5 MG/DL PROTEIN, TOTAL (test code = 7.3 G/DL 2228) ALBUMIN (test code = 2201) 4.1 G/DL CALC GLOBULIN (test code = 3.2 G/DL 2239) CALC A/G RATIO (test code = 1.3 RATIO 2234) BILIRUBIN, TOTAL (test code = 0.2 MG/DL 2206) ALKALINE PHOSPHATASE (test 101 U/L code = 2204) AST (test code = 2218) 13 U/L ALT (test code = 2219) 13 U/L LIPID [id number] 00:00:00 Test Item Value Reference Range Interpretation Comments CHOLESTEROL (test code = 2210) 201 MG/DL TRIGLYCERIDES (test code = 2232) 332 MG/DL HDL CHOLESTEROL (test code = 2220) 36 MG/DL CALC LDL CHOL (test code = 2237) 99 MG/DL RISK RATIO LDL/HDL (test code = 2.74 RATIO 2238) LIPID [id number] 00:00:00 Test Item Value Reference Range Interpretation Comments CHOLESTEROL (test code = 2210) 201 MG/DL TRIGLYCERIDES (test code = 2232) 332 MG/DL HDL CHOLESTEROL (test code = 2220) 36 MG/DL CALC LDL CHOL (test code = 2237) 99 MG/DL RISK RATIO LDL/HDL (test code = 2.74 RATIO 2238) HEMOGLOBIN [id number] 00:00:00 Test Item Value Reference Range Interpretation Comments HEMOGLOBIN A1c (test code = 11672) 8.1 % HEMOGLOBIN [id number] 00:00:00 Test Item Value Reference Range Interpretation Comments HEMOGLOBIN A1c (test code = 52196) 8.1 % HEMOGLOBIN [id number] 00:00:00 Test Item Value Reference Range Interpretation Comments HEMOGLOBIN A1c (test code = 17852) 8.1 % CBC W/AUTO [id number] 00:00:00 Test Item Value Reference Range Interpretation Comments WBC (test code = 1001) 6.7 K/UL RBC (test code = 1002) 4.49 M/UL HEMOGLOBIN (test code = 1003) 10.9 G/DL HEMATOCRIT (test code = 1004) 33.8 % MCV (test code = 1005) 75.3 fL MCH (test code = 1006) 24.3 PG MCHC (test code = 1007) 32.2 G/DL RDW (test code = 1038) 14.3 % NEUTROPHILS (test code = 1008) 51.0 % LYMPHOCYTES (test code = 1010) 39.0 % MONOCYTES (test code = 1011) 5.1 % EOSINOPHILS (test code = 1012) 4.5 % BASOPHILS (test code = 1013) 0.4 % PLATELET COUNT (test code = 1015) 330 K/UL CBC W/AUTO [id number] 00:00:00 Test Item Value Reference Range Interpretation Comments WBC (test code = 1001) 6.7 K/UL RBC (test code = 1002) 4.49 M/UL HEMOGLOBIN (test code = 1003) 10.9 G/DL HEMATOCRIT (test code = 1004) 33.8 % MCV (test code = 1005) 75.3 fL MCH (test code = 1006) 24.3 PG MCHC (test code = 1007) 32.2 G/DL RDW (test code = 1038) 14.3 % NEUTROPHILS (test code = 1008) 51.0 % LYMPHOCYTES (test code = 1010) 39.0 % MONOCYTES (test code = 1011) 5.1 % EOSINOPHILS (test code = 1012) 4.5 % BASOPHILS (test code = 1013) 0.4 % PLATELET COUNT (test code = 1015) 330 K/UL CBC W/AUTO [id number] 00:00:00 Test Item Value Reference Range Interpretation Comments WBC (test code = 1001) 6.7 K/UL RBC (test code = 1002) 4.49 M/UL HEMOGLOBIN (test code = 1003) 10.9 G/DL HEMATOCRIT (test code = 1004) 33.8 % MCV (test code = 1005) 75.3 fL MCH (test code = 1006) 24.3 PG MCHC (test code = 1007) 32.2 G/DL RDW (test code = 1038) 14.3 % NEUTROPHILS (test code = 1008) 51.0 % LYMPHOCYTES (test code = 1010) 39.0 % MONOCYTES (test code = 1011) 5.1 % EOSINOPHILS (test code = 1012) 4.5 % BASOPHILS (test code = 1013) 0.4 % PLATELET COUNT (test code = 1015) 330 K/UL COMPREHENSIVE METABOLIC [id number] 00:00:00 Test Item Value Reference Range Interpretation Comments GLUCOSE (test code = 2217) 123 MG/DL BUN (test code = 2208) 9 MG/DL CREATININE (test code = 2214) 0.51 MG/DL eGFR AMER. (test code 140 ML/MIN/1.73 = 90053) eGFR NON- AMER. (test 121 ML/MIN/1.73 code = 27356) CALC BUN/CREAT (test code = 18 RATIO 2235) SODIUM (test code = 2231) 140 MEQ/L POTASSIUM (test code = 2228) 4.4 MEQ/L CHLORIDE (test code = 2215) 104 MEQ/L CARBON DIOXIDE (test code = 24 MEQ/L 2206) CALCIUM (test code = 2209) 9.5 MG/DL PROTEIN, TOTAL (test code = 7.3 G/DL 2228) ALBUMIN (test code = 2201) 4.1 G/DL CALC GLOBULIN (test code = 3.2 G/DL 2240) CALC A/G RATIO (test code = 1.3 RATIO 4) BILIRUBIN, TOTAL (test code = 0.2 MG/DL 2206) ALKALINE PHOSPHATASE (test 101 U/L code = 2204) AST (test code = 2218) 13 U/L ALT (test code = 2219) 13 U/L COMPREHENSIVE METABOLIC [id number] 00:00:00 Test Item Value Reference Range Interpretation Comments GLUCOSE (test code = 2217) 123 MG/DL BUN (test code = 2208) 9 MG/DL CREATININE (test code = 2214) 0.51 MG/DL eGFR AMER. (test code 140 ML/MIN/1.73 = 57545) eGFR NON- AMER. (test 121 ML/MIN/1.73 code = 42938) CALC BUN/CREAT (test code = 18 RATIO 2235) SODIUM (test code = 2231) 140 MEQ/L POTASSIUM (test code = 2228) 4.4 MEQ/L CHLORIDE (test code = 2215) 104 MEQ/L CARBON DIOXIDE (test code = 24 MEQ/L 2206) CALCIUM (test code = 2209) 9.5 MG/DL PROTEIN, TOTAL (test code = 7.3 G/DL 2228) ALBUMIN (test code = 2201) 4.1 G/DL CALC GLOBULIN (test code = 3.2 G/DL 2240) CALC A/G RATIO (test code = 1.3 RATIO 2234) BILIRUBIN, TOTAL (test code = 0.2 MG/DL 2206) ALKALINE PHOSPHATASE (test 101 U/L code = 2204) AST (test code = 2218) 13 U/L ALT (test code = 2219) 13 U/L LIPID [id number] 00:00:00 Test Item Value Reference Range Interpretation Comments CHOLESTEROL (test code = 2210) 201 MG/DL TRIGLYCERIDES (test code = 2232) 332 MG/DL HDL CHOLESTEROL (test code = 2220) 36 MG/DL CALC LDL CHOL (test code = 2237) 99 MG/DL RISK RATIO LDL/HDL (test code = 2.74 RATIO 2238) LIPID [id number] 00:00:00 Test Item Value Reference Range Interpretation Comments CHOLESTEROL (test code = 2210) 201 MG/DL TRIGLYCERIDES (test code = 2232) 332 MG/DL HDL CHOLESTEROL (test code = 2220) 36 MG/DL CALC LDL CHOL (test code = 2237) 99 MG/DL RISK RATIO LDL/HDL (test code = 2.74 RATIO 2238) HEMOGLOBIN [id number] 00:00:00 Test Item Value Reference Range Interpretation Comments HEMOGLOBIN A1c (test code = 50053) 8.1 % HEMOGLOBIN [id number] 00:00:00 Test Item Value Reference Range Interpretation Comments HEMOGLOBIN A1c (test code = 79966) 8.1 % HEMOGLOBIN [id number] 00:00:00 Test Item Value Reference Range Interpretation Comments HEMOGLOBIN A1c (test code = 70675) 8.1 % CBC W/AUTO [id number] 00:00:00 Test Item Value Reference Range Interpretation Comments WBC (test code = 1001) 6.7 K/UL RBC (test code = 1002) 4.49 M/UL HEMOGLOBIN (test code = 1003) 10.9 G/DL HEMATOCRIT (test code = 1004) 33.8 % MCV (test code = 1005) 75.3 fL MCH (test code = 1006) 24.3 PG MCHC (test code = 1007) 32.2 G/DL RDW (test code = 1038) 14.3 % NEUTROPHILS (test code = 1008) 51.0 % LYMPHOCYTES (test code = 1010) 39.0 % MONOCYTES (test code = 1011) 5.1 % EOSINOPHILS (test code = 1012) 4.5 % BASOPHILS (test code = 1013) 0.4 % PLATELET COUNT (test code = 1015) 330 K/UL CBC W/AUTO [id number] 00:00:00 Test Item Value Reference Range Interpretation Comments WBC (test code = 1001) 6.7 K/UL RBC (test code = 1002) 4.49 M/UL HEMOGLOBIN (test code = 1003) 10.9 G/DL HEMATOCRIT (test code = 1004) 33.8 % MCV (test code = 1005) 75.3 fL MCH (test code = 1006) 24.3 PG MCHC (test code = 1007) 32.2 G/DL RDW (test code = 1038) 14.3 % NEUTROPHILS (test code = 1008) 51.0 % LYMPHOCYTES (test code = 1010) 39.0 % MONOCYTES (test code = 1011) 5.1 % EOSINOPHILS (test code = 1012) 4.5 % BASOPHILS (test code = 1013) 0.4 % PLATELET COUNT (test code = 1015) 330 K/UL CBC W/AUTO [id number] 00:00:00 Test Item Value Reference Range Interpretation Comments WBC (test code = 1001) 6.7 K/UL RBC (test code = 1002) 4.49 M/UL HEMOGLOBIN (test code = 1003) 10.9 G/DL HEMATOCRIT (test code = 1004) 33.8 % MCV (test code = 1005) 75.3 fL MCH (test code = 1006) 24.3 PG MCHC (test code = 1007) 32.2 G/DL RDW (test code = 1038) 14.3 % NEUTROPHILS (test code = 1008) 51.0 % LYMPHOCYTES (test code = 1010) 39.0 % MONOCYTES (test code = 1011) 5.1 % EOSINOPHILS (test code = 1012) 4.5 % BASOPHILS (test code = 1013) 0.4 % PLATELET COUNT (test code = 1015) 330 K/UL COMPREHENSIVE METABOLIC [id number] 00:00:00 Test Item Value Reference Range Interpretation Comments GLUCOSE (test code = 2217) 123 MG/DL BUN (test code = 2208) 9 MG/DL CREATININE (test code = 2214) 0.51 MG/DL eGFR AMER. (test code 140 ML/MIN/1.73 = 95473) eGFR NON- AMER. (test 121 ML/MIN/1.73 code = 51128) CALC BUN/CREAT (test code = 18 RATIO 2235) SODIUM (test code = 2231) 140 MEQ/L POTASSIUM (test code = 2228) 4.4 MEQ/L CHLORIDE (test code = 2215) 104 MEQ/L CARBON DIOXIDE (test code = 24 MEQ/L 220) CALCIUM (test code = 2209) 9.5 MG/DL PROTEIN, TOTAL (test code = 7.3 G/DL 2228) ALBUMIN (test code = 2201) 4.1 G/DL CALC GLOBULIN (test code = 3.2 G/DL 2240) CALC A/G RATIO (test code = 1.3 RATIO 2234) BILIRUBIN, TOTAL (test code = 0.2 MG/DL 2206) ALKALINE PHOSPHATASE (test 101 U/L code = 2204) AST (test code = 2218) 13 U/L ALT (test code = 2219) 13 U/L CBC W/AUTO [id number] 00:00:00 Test Item Value Reference Range Interpretation Comments WBC (test code = 1001) 8.5 K/UL RBC (test code = 1002) 4.34 M/UL HEMOGLOBIN (test code = 1003) 11.6 G/DL HEMATOCRIT (test code = 1004) 35.7 % MCV (test code = 1005) 82.3 fL MCH (test code = 1006) 26.7 PG MCHC (test code = 1007) 32.5 G/DL RDW (test code = 1038) 13.4 % NEUTROPHILS (test code = 1008) 70.2 % LYMPHOCYTES (test code = 1010) 21.3 % MONOCYTES (test code = 1011) 6.3 % EOSINOPHILS (test code = 1012) 1.8 % BASOPHILS (test code = 1013) 0.4 % PLATELET COUNT (test code = 1015) 302 K/UL CBC W/AUTO [id number] 00:00:00 Test Item Value Reference Range Interpretation Comments WBC (test code = 1001) 8.5 K/UL RBC (test code = 1002) 4.34 M/UL HEMOGLOBIN (test code = 1003) 11.6 G/DL HEMATOCRIT (test code = 1004) 35.7 % MCV (test code = 1005) 82.3 fL MCH (test code = 1006) 26.7 PG MCHC (test code = 1007) 32.5 G/DL RDW (test code = 1038) 13.4 % NEUTROPHILS (test code = 1008) 70.2 % LYMPHOCYTES (test code = 1010) 21.3 % MONOCYTES (test code = 1011) 6.3 % EOSINOPHILS (test code = 1012) 1.8 % BASOPHILS (test code = 1013) 0.4 % PLATELET COUNT (test code = 1015) 302 K/UL CBC W/AUTO [id number] 00:00:00 Test Item Value Reference Range Interpretation Comments WBC (test code = 1001) 8.5 K/UL RBC (test code = 1002) 4.34 M/UL HEMOGLOBIN (test code = 1003) 11.6 G/DL HEMATOCRIT (test code = 1004) 35.7 % MCV (test code = 1005) 82.3 fL MCH (test code = 1006) 26.7 PG MCHC (test code = 1007) 32.5 G/DL RDW (test code = 1038) 13.4 % NEUTROPHILS (test code = 1008) 70.2 % LYMPHOCYTES (test code = 1010) 21.3 % MONOCYTES (test code = 1011) 6.3 % EOSINOPHILS (test code = 1012) 1.8 % BASOPHILS (test code = 1013) 0.4 % PLATELET COUNT (test code = 1015) 302 K/UL CBC W/AUTO [id number] 00:00:00 Test Item Value Reference Range Interpretation Comments WBC (test code = 1001) 8.5 K/UL RBC (test code = 1002) 4.34 M/UL HEMOGLOBIN (test code = 1003) 11.6 G/DL HEMATOCRIT (test code = 1004) 35.7 % MCV (test code = 1005) 82.3 fL MCH (test code = 1006) 26.7 PG MCHC (test code = 1007) 32.5 G/DL RDW (test code = 1038) 13.4 % NEUTROPHILS (test code = 1008) 70.2 % LYMPHOCYTES (test code = 1010) 21.3 % MONOCYTES (test code = 1011) 6.3 % EOSINOPHILS (test code = 1012) 1.8 % BASOPHILS (test code = 1013) 0.4 % PLATELET COUNT (test code = 1015) 302 K/UL COMPREHENSIVE METABOLIC [id number] 00:00:00 Test Item Value Reference Range Interpretation Comments GLUCOSE (test code = 2217) 127 MG/DL BUN (test code = 2208) 8 MG/DL CREATININE (test code = 2214) 0.53 MG/DL eGFR AMER. (test code 139 ML/MIN/1.73 = 83194) eGFR NON- AMER. (test 120 ML/MIN/1.73 code = 31688) CALC BUN/CREAT (test code = 15 RATIO 2235) SODIUM (test code = 2231) 138 MEQ/L POTASSIUM (test code = 2228) 4.5 MEQ/L CHLORIDE (test code = 2215) 102 MEQ/L CARBON DIOXIDE (test code = 26 MEQ/L 2205) CALCIUM (test code = 2209) 9.3 MG/DL PROTEIN, TOTAL (test code = 7.1 G/DL 2228) ALBUMIN (test code = 2201) 4.3 G/DL CALC GLOBULIN (test code = 2.8 G/DL 2240) CALC A/G RATIO (test code = 1.5 RATIO 2234) BILIRUBIN, TOTAL (test code = 0.2 MG/DL 2206) ALKALINE PHOSPHATASE (test 93 U/L code = 2204) AST (test code = 2218) 15 U/L ALT (test code = 2219) 21 U/L COMPREHENSIVE METABOLIC [id number] 00:00:00 Test Item Value Reference Range Interpretation Comments GLUCOSE (test code = 2217) 127 MG/DL BUN (test code = 2208) 8 MG/DL CREATININE (test code = 2214) 0.53 MG/DL eGFR AMER. (test code 139 ML/MIN/1.73 = 58141) eGFR NON- AMER. (test 120 ML/MIN/1.73 code = 28182) CALC BUN/CREAT (test code = 15 RATIO 2235) SODIUM (test code = 2231) 138 MEQ/L POTASSIUM (test code = 2228) 4.5 MEQ/L CHLORIDE (test code = 2215) 102 MEQ/L CARBON DIOXIDE (test code = 26 MEQ/L 2205) CALCIUM (test code = 2209) 9.3 MG/DL PROTEIN, TOTAL (test code = 7.1 G/DL 2228) ALBUMIN (test code = 2201) 4.3 G/DL CALC GLOBULIN (test code = 2.8 G/DL 2239) CALC A/G RATIO (test code = 1.5 RATIO 2233) BILIRUBIN, TOTAL (test code = 0.2 MG/DL 2206) ALKALINE PHOSPHATASE (test 93 U/L code = 2204) AST (test code = 2218) 15 U/L ALT (test code = 2219) 21 U/L SEDIMENTATION [id number] 00:00:00 Test Item Value Reference Range Interpretation Comments SEDIMENTATION RATE (test code = 42 MM/HOUR 1017) SEDIMENTATION [id number] 00:00:00 Test Item Value Reference Range Interpretation Comments SEDIMENTATION RATE (test code = 42 MM/HOUR 1017) HEMOGLOBIN [id number] 00:00:00 Test Item Value Reference Range Interpretation Comments HEMOGLOBIN A1c (test code = 90073) 6.6 % HEMOGLOBIN [id number] 00:00:00 Test Item Value Reference Range Interpretation Comments HEMOGLOBIN A1c (test code = 90551) 6.6 % HEMOGLOBIN [id number] 00:00:00 Test Item Value Reference Range Interpretation Comments HEMOGLOBIN A1c (test code = 93588) 6.6 % LIPID [id number] 00:00:00 Test Item Value Reference Range Interpretation Comments CHOLESTEROL (test code = 2210) 183 MG/DL TRIGLYCERIDES (test code = 2232) 334 MG/DL HDL CHOLESTEROL (test code = 2220) 36 MG/DL CALC LDL CHOL (test code = 2237) 80 MG/DL RISK RATIO LDL/HDL (test code = 2.23 RATIO 2238) LIPID [id number] 00:00:00 Test Item Value Reference Range Interpretation Comments CHOLESTEROL (test code = 2210) 183 MG/DL TRIGLYCERIDES (test code = 2232) 334 MG/DL HDL CHOLESTEROL (test code = 2220) 36 MG/DL CALC LDL CHOL (test code = 2237) 80 MG/DL RISK RATIO LDL/HDL (test code = 2.23 RATIO 2238) C-REACTIVE [id number] 00:00:00 Test Item Value Reference Range Interpretation Comments C-REACTIVE PROTEIN (test code = 0.7 MG/DL 3513) C-REACTIVE [id number] 00:00:00 Test Item Value Reference Range Interpretation Comments C-REACTIVE PROTEIN (test code = 0.7 MG/DL 3513) VITAMIN D, 25 [id number] 00:00:00 Test Item Value Reference Range Interpretation Comments VITAMIN D, 25 OH (test code = 4958) 16 NG/ML VITAMIN D, 25 [id number] 00:00:00 Test Item Value Reference Range Interpretation Comments VITAMIN D, 25 OH (test code = 4958) 16 NG/ML [id number] 00:00:00 Test Item Value Reference Range Interpretation Comments MAGNESIUM (test code = 2226) 1.8 MG/DL [id number] 00:00:00 Test Item Value Reference Range Interpretation Comments MAGNESIUM (test code = 2226) 1.8 MG/DL [id number] 00:00:00 Test Item Value Reference Range Interpretation Comments MAGNESIUM (test code = 2226) 1.8 MG/DL COMPREHENSIVE METABOLIC [id number] 00:00:00 Test Item Value Reference Range Interpretation Comments GLUCOSE (test code = 2217) 127 MG/DL BUN (test code = 2208) 8 MG/DL CREATININE (test code = 2214) 0.53 MG/DL eGFR AMER. (test code 139 ML/MIN/1.73 = 87969) eGFR NON- AMER. (test 120 ML/MIN/1.73 code = 46857) CALC BUN/CREAT (test code = 15 RATIO 2235) SODIUM (test code = 2231) 138 MEQ/L POTASSIUM (test code = 2228) 4.5 MEQ/L CHLORIDE (test code = 2215) 102 MEQ/L CARBON DIOXIDE (test code = 26 MEQ/L 2205) CALCIUM (test code = 2209) 9.3 MG/DL PROTEIN, TOTAL (test code = 7.1 G/DL 2228) ALBUMIN (test code = 2201) 4.3 G/DL CALC GLOBULIN (test code = 2.8 G/DL 2239) CALC A/G RATIO (test code = 1.5 RATIO 2234) BILIRUBIN, TOTAL (test code = 0.2 MG/DL 2206) ALKALINE PHOSPHATASE (test 93 U/L code = 2204) AST (test code = 2218) 15 U/L ALT (test code = 2219) 21 U/L SEDIMENTATION [id number] 00:00:00 Test Item Value Reference Range Interpretation Comments SEDIMENTATION RATE (test code = 42 MM/HOUR 1017) HEMOGLOBIN [id number] 00:00:00 Test Item Value Reference Range Interpretation Comments HEMOGLOBIN A1c (test code = 68057) 6.6 % HEMOGLOBIN [id number] 00:00:00 Test Item Value Reference Range Interpretation Comments HEMOGLOBIN A1c (test code = 47510) 6.6 % LIPID [id number] 00:00:00 Test Item Value Reference Range Interpretation Comments CHOLESTEROL (test code = 2210) 183 MG/DL TRIGLYCERIDES (test code = 2232) 334 MG/DL HDL CHOLESTEROL (test code = 2220) 36 MG/DL CALC LDL CHOL (test code = 2237) 80 MG/DL RISK RATIO LDL/HDL (test code = 2.23 RATIO 2238) C-REACTIVE [id number] 00:00:00 Test Item Value Reference Range Interpretation Comments C-REACTIVE PROTEIN (test code = 0.7 MG/DL 3513) VITAMIN D, 25 [id number] 00:00:00 Test Item Value Reference Range Interpretation Comments VITAMIN D, 25 OH (test code = 4958) 16 NG/ML [id number] 00:00:00 Test Item Value Reference Range Interpretation Comments MAGNESIUM (test code = 2226) 1.8 MG/DL [id number] 00:00:00 Test Item Value Reference Range Interpretation Comments MAGNESIUM (test code = 2226) 1.8 MG/DL CBC W/AUTO [id number] 00:00:00 Test Item Value Reference Range Interpretation Comments WBC (test code = 1001) 8.5 K/UL RBC (test code = 1002) 4.34 M/UL HEMOGLOBIN (test code = 1003) 11.6 G/DL HEMATOCRIT (test code = 1004) 35.7 % MCV (test code = 1005) 82.3 fL MCH (test code = 1006) 26.7 PG MCHC (test code = 1007) 32.5 G/DL RDW (test code = 1038) 13.4 % NEUTROPHILS (test code = 1008) 70.2 % LYMPHOCYTES (test code = 1010) 21.3 % MONOCYTES (test code = 1011) 6.3 % EOSINOPHILS (test code = 1012) 1.8 % BASOPHILS (test code = 1013) 0.4 % PLATELET COUNT (test code = 1015) 302 K/UL CBC W/AUTO [id number] 00:00:00 Test Item Value Reference Range Interpretation Comments WBC (test code = 1001) 8.5 K/UL RBC (test code = 1002) 4.34 M/UL HEMOGLOBIN (test code = 1003) 11.6 G/DL HEMATOCRIT (test code = 1004) 35.7 % MCV (test code = 1005) 82.3 fL MCH (test code = 1006) 26.7 PG MCHC (test code = 1007) 32.5 G/DL RDW (test code = 1038) 13.4 % NEUTROPHILS (test code = 1008) 70.2 % LYMPHOCYTES (test code = 1010) 21.3 % MONOCYTES (test code = 1011) 6.3 % EOSINOPHILS (test code = 1012) 1.8 % BASOPHILS (test code = 1013) 0.4 % PLATELET COUNT (test code = 1015) 302 K/UL CBC W/AUTO [id number] 00:00:00 Test Item Value Reference Range Interpretation Comments WBC (test code = 1001) 8.5 K/UL RBC (test code = 1002) 4.34 M/UL HEMOGLOBIN (test code = 1003) 11.6 G/DL HEMATOCRIT (test code = 1004) 35.7 % MCV (test code = 1005) 82.3 fL MCH (test code = 1006) 26.7 PG MCHC (test code = 1007) 32.5 G/DL RDW (test code = 1038) 13.4 % NEUTROPHILS (test code = 1008) 70.2 % LYMPHOCYTES (test code = 1010) 21.3 % MONOCYTES (test code = 1011) 6.3 % EOSINOPHILS (test code = 1012) 1.8 % BASOPHILS (test code = 1013) 0.4 % PLATELET COUNT (test code = 1015) 302 K/UL COMPREHENSIVE METABOLIC [id number] 00:00:00 Test Item Value Reference Range Interpretation Comments GLUCOSE (test code = 2217) 127 MG/DL BUN (test code = 2208) 8 MG/DL CREATININE (test code = 2214) 0.53 MG/DL eGFR AMER. (test code 139 ML/MIN/1.73 = 85341) eGFR NON- AMER. (test 120 ML/MIN/1.73 code = 05574) CALC BUN/CREAT (test code = 15 RATIO 2235) SODIUM (test code = 2231) 138 MEQ/L POTASSIUM (test code = 2228) 4.5 MEQ/L CHLORIDE (test code = 2215) 102 MEQ/L CARBON DIOXIDE (test code = 26 MEQ/L 220) CALCIUM (test code = 2209) 9.3 MG/DL PROTEIN, TOTAL (test code = 7.1 G/DL 2228) ALBUMIN (test code = 2201) 4.3 G/DL CALC GLOBULIN (test code = 2.8 G/DL 2240) CALC A/G RATIO (test code = 1.5 RATIO 2234) BILIRUBIN, TOTAL (test code = 0.2 MG/DL 2206) ALKALINE PHOSPHATASE (test 93 U/L code = 2204) AST (test code = 2218) 15 U/L ALT (test code = 2219) 21 U/L COMPREHENSIVE METABOLIC [id number] 00:00:00 Test Item Value Reference Range Interpretation Comments GLUCOSE (test code = 2217) 127 MG/DL BUN (test code = 2208) 8 MG/DL CREATININE (test code = 2214) 0.53 MG/DL eGFR AMER. (test code 139 ML/MIN/1.73 = 16818) eGFR NON- AMER. (test 120 ML/MIN/1.73 code = 35767) CALC BUN/CREAT (test code = 15 RATIO 2235) SODIUM (test code = 2231) 138 MEQ/L POTASSIUM (test code = 2228) 4.5 MEQ/L CHLORIDE (test code = 2215) 102 MEQ/L CARBON DIOXIDE (test code = 26 MEQ/L 2206) CALCIUM (test code = 2209) 9.3 MG/DL PROTEIN, TOTAL (test code = 7.1 G/DL 2228) ALBUMIN (test code = 2201) 4.3 G/DL CALC GLOBULIN (test code = 2.8 G/DL 2240) CALC A/G RATIO (test code = 1.5 RATIO 2234) BILIRUBIN, TOTAL (test code = 0.2 MG/DL 2207) ALKALINE PHOSPHATASE (test 93 U/L code = 2204) AST (test code = 2218) 15 U/L ALT (test code = 2219) 21 U/L SEDIMENTATION [id number] 00:00:00 Test Item Value Reference Range Interpretation Comments SEDIMENTATION RATE (test code = 42 MM/HOUR 1017) SEDIMENTATION [id number] 00:00:00 Test Item Value Reference Range Interpretation Comments SEDIMENTATION RATE (test code = 42 MM/HOUR 1017) HEMOGLOBIN [id number] 00:00:00 Test Item Value Reference Range Interpretation Comments HEMOGLOBIN A1c (test code = 39332) 6.6 % HEMOGLOBIN [id number] 00:00:00 Test Item Value Reference Range Interpretation Comments HEMOGLOBIN A1c (test code = 31694) 6.6 % HEMOGLOBIN [id number] 00:00:00 Test Item Value Reference Range Interpretation Comments HEMOGLOBIN A1c (test code = 85098) 6.6 % LIPID [id number] 00:00:00 Test Item Value Reference Range Interpretation Comments CHOLESTEROL (test code = 2210) 183 MG/DL TRIGLYCERIDES (test code = 2232) 334 MG/DL HDL CHOLESTEROL (test code = 2220) 36 MG/DL CALC LDL CHOL (test code = 2237) 80 MG/DL RISK RATIO LDL/HDL (test code = 2.23 RATIO 2238) LIPID [id number] 00:00:00 Test Item Value Reference Range Interpretation Comments CHOLESTEROL (test code = 2210) 183 MG/DL TRIGLYCERIDES (test code = 2232) 334 MG/DL HDL CHOLESTEROL (test code = 2220) 36 MG/DL CALC LDL CHOL (test code = 2237) 80 MG/DL RISK RATIO LDL/HDL (test code = 2.23 RATIO 2238) C-REACTIVE [id number] 00:00:00 Test Item Value Reference Range Interpretation Comments C-REACTIVE PROTEIN (test code = 0.7 MG/DL 3513) C-REACTIVE [id number] 00:00:00 Test Item Value Reference Range Interpretation Comments C-REACTIVE PROTEIN (test code = 0.7 MG/DL 3513) VITAMIN D, 25 [id number] 00:00:00 Test Item Value Reference Range Interpretation Comments VITAMIN D, 25 OH (test code = 4958) 16 NG/ML VITAMIN D, 25 [id number] 00:00:00 Test Item Value Reference Range Interpretation Comments VITAMIN D, 25 OH (test code = 4958) 16 NG/ML [id number] 00:00:00 Test Item Value Reference Range Interpretation Comments MAGNESIUM (test code = 2226) 1.8 MG/DL [id number] 00:00:00 Test Item Value Reference Range Interpretation Comments MAGNESIUM (test code = 2226) 1.8 MG/DL [id number] 00:00:00 Test Item Value Reference Range Interpretation Comments MAGNESIUM (test code = 2226) 1.8 MG/DL CBC W/AUTO [id number] 00:00:00 Test Item Value Reference Range Interpretation Comments WBC (test code = 1001) 8.5 K/UL RBC (test code = 1002) 4.34 M/UL HEMOGLOBIN (test code = 1003) 11.6 G/DL HEMATOCRIT (test code = 1004) 35.7 % MCV (test code = 1005) 82.3 fL MCH (test code = 1006) 26.7 PG MCHC (test code = 1007) 32.5 G/DL RDW (test code = 1038) 13.4 % NEUTROPHILS (test code = 1008) 70.2 % LYMPHOCYTES (test code = 1010) 21.3 % MONOCYTES (test code = 1011) 6.3 % EOSINOPHILS (test code = 1012) 1.8 % BASOPHILS (test code = 1013) 0.4 % PLATELET COUNT (test code = 1015) 302 K/UL CBC W/AUTO [id number] 00:00:00 Test Item Value Reference Range Interpretation Comments WBC (test code = 1001) 8.5 K/UL RBC (test code = 1002) 4.34 M/UL HEMOGLOBIN (test code = 1003) 11.6 G/DL HEMATOCRIT (test code = 1004) 35.7 % MCV (test code = 1005) 82.3 fL MCH (test code = 1006) 26.7 PG MCHC (test code = 1007) 32.5 G/DL RDW (test code = 1038) 13.4 % NEUTROPHILS (test code = 1008) 70.2 % LYMPHOCYTES (test code = 1010) 21.3 % MONOCYTES (test code = 1011) 6.3 % EOSINOPHILS (test code = 1012) 1.8 % BASOPHILS (test code = 1013) 0.4 % PLATELET COUNT (test code = 1015) 302 K/UL CBC W/AUTO [id number] 00:00:00 Test Item Value Reference Range Interpretation Comments WBC (test code = 1001) 8.5 K/UL RBC (test code = 1002) 4.34 M/UL HEMOGLOBIN (test code = 1003) 11.6 G/DL HEMATOCRIT (test code = 1004) 35.7 % MCV (test code = 1005) 82.3 fL MCH (test code = 1006) 26.7 PG MCHC (test code = 1007) 32.5 G/DL RDW (test code = 1038) 13.4 % NEUTROPHILS (test code = 1008) 70.2 % LYMPHOCYTES (test code = 1010) 21.3 % MONOCYTES (test code = 1011) 6.3 % EOSINOPHILS (test code = 1012) 1.8 % BASOPHILS (test code = 1013) 0.4 % PLATELET COUNT (test code = 1015) 302 K/UL COMPREHENSIVE METABOLIC [id number] 00:00:00 Test Item Value Reference Range Interpretation Comments GLUCOSE (test code = 2217) 127 MG/DL BUN (test code = 2208) 8 MG/DL CREATININE (test code = 2214) 0.53 MG/DL eGFR AMER. (test code 139 ML/MIN/1.73 = 92276) eGFR NON- AMER. (test 120 ML/MIN/1.73 code = 77728) CALC BUN/CREAT (test code = 15 RATIO 2235) SODIUM (test code = 2231) 138 MEQ/L POTASSIUM (test code = 2228) 4.5 MEQ/L CHLORIDE (test code = 2215) 102 MEQ/L CARBON DIOXIDE (test code = 26 MEQ/L 2206) CALCIUM (test code = 2209) 9.3 MG/DL PROTEIN, TOTAL (test code = 7.1 G/DL 2228) ALBUMIN (test code = 2201) 4.3 G/DL CALC GLOBULIN (test code = 2.8 G/DL 2239) CALC A/G RATIO (test code = 1.5 RATIO 2234) BILIRUBIN, TOTAL (test code = 0.2 MG/DL 2206) ALKALINE PHOSPHATASE (test 93 U/L code = 2204) AST (test code = 2218) 15 U/L ALT (test code = 2219) 21 U/L COMPREHENSIVE METABOLIC [id number] 00:00:00 Test Item Value Reference Range Interpretation Comments GLUCOSE (test code = 2217) 127 MG/DL BUN (test code = 2208) 8 MG/DL CREATININE (test code = 2214) 0.53 MG/DL eGFR AMER. (test code 139 ML/MIN/1.73 = 39350) eGFR NON- AMER. (test 120 ML/MIN/1.73 code = 26955) CALC BUN/CREAT (test code = 15 RATIO 2235) SODIUM (test code = 2231) 138 MEQ/L POTASSIUM (test code = 2228) 4.5 MEQ/L CHLORIDE (test code = 2215) 102 MEQ/L CARBON DIOXIDE (test code = 26 MEQ/L 2205) CALCIUM (test code = 2209) 9.3 MG/DL PROTEIN, TOTAL (test code = 7.1 G/DL 2228) ALBUMIN (test code = 2201) 4.3 G/DL CALC GLOBULIN (test code = 2.8 G/DL 2240) CALC A/G RATIO (test code = 1.5 RATIO 2234) BILIRUBIN, TOTAL (test code = 0.2 MG/DL 2206) ALKALINE PHOSPHATASE (test 93 U/L code = 2204) AST (test code = 2218) 15 U/L ALT (test code = 2219) 21 U/L SEDIMENTATION [id number] 00:00:00 Test Item Value Reference Range Interpretation Comments SEDIMENTATION RATE (test code = 42 MM/HOUR 1017) SEDIMENTATION [id number] 00:00:00 Test Item Value Reference Range Interpretation Comments SEDIMENTATION RATE (test code = 42 MM/HOUR 1017) HEMOGLOBIN [id number] 00:00:00 Test Item Value Reference Range Interpretation Comments HEMOGLOBIN A1c (test code = 81095) 6.6 % HEMOGLOBIN [id number] 00:00:00 Test Item Value Reference Range Interpretation Comments HEMOGLOBIN A1c (test code = 49383) 6.6 % HEMOGLOBIN [id number] 00:00:00 Test Item Value Reference Range Interpretation Comments HEMOGLOBIN A1c (test code = 75769) 6.6 % CBC W/AUTO [id number] 00:00:00 Test Item Value Reference Range Interpretation Comments WBC (test code = 1001) 8.5 K/UL RBC (test code = 1002) 4.34 M/UL HEMOGLOBIN (test code = 1003) 11.6 G/DL HEMATOCRIT (test code = 1004) 35.7 % MCV (test code = 1005) 82.3 fL MCH (test code = 1006) 26.7 PG MCHC (test code = 1007) 32.5 G/DL RDW (test code = 1038) 13.4 % NEUTROPHILS (test code = 1008) 70.2 % LYMPHOCYTES (test code = 1010) 21.3 % MONOCYTES (test code = 1011) 6.3 % EOSINOPHILS (test code = 1012) 1.8 % BASOPHILS (test code = 1013) 0.4 % PLATELET COUNT (test code = 1015) 302 K/UL LIPID [id number] 00:00:00 Test Item Value Reference Range Interpretation Comments CHOLESTEROL (test code = 2210) 183 MG/DL TRIGLYCERIDES (test code = 2232) 334 MG/DL HDL CHOLESTEROL (test code = 2220) 36 MG/DL CALC LDL CHOL (test code = 2237) 80 MG/DL RISK RATIO LDL/HDL (test code = 2.23 RATIO 2238) LIPID [id number] 00:00:00 Test Item Value Reference Range Interpretation Comments CHOLESTEROL (test code = 2210) 183 MG/DL TRIGLYCERIDES (test code = 2232) 334 MG/DL HDL CHOLESTEROL (test code = 2220) 36 MG/DL CALC LDL CHOL (test code = 2237) 80 MG/DL RISK RATIO LDL/HDL (test code = 2.23 RATIO 2238) C-REACTIVE [id number] 00:00:00 Test Item Value Reference Range Interpretation Comments C-REACTIVE PROTEIN (test code = 0.7 MG/DL 3513) C-REACTIVE [id number] 00:00:00 Test Item Value Reference Range Interpretation Comments C-REACTIVE PROTEIN (test code = 0.7 MG/DL 3513) VITAMIN D, 25 [id number] 00:00:00 Test Item Value Reference Range Interpretation Comments VITAMIN D, 25 OH (test code = 4958) 16 NG/ML VITAMIN D, 25 [id number] 00:00:00 Test Item Value Reference Range Interpretation Comments VITAMIN D, 25 OH (test code = 4958) 16 NG/ML [id number] 00:00:00 Test Item Value Reference Range Interpretation Comments MAGNESIUM (test code = 2226) 1.8 MG/DL [id number] 00:00:00 Test Item Value Reference Range Interpretation Comments MAGNESIUM (test code = 2226) 1.8 MG/DL [id number] 00:00:00 Test Item Value Reference Range Interpretation Comments MAGNESIUM (test code = 2226) 1.8 MG/DL PAP TEST, THINPREP, [id number] 00:00:00 Test Item Value Reference Range Interpretation Comments SOURCE: (test code = Cervical/Endocervical 8001) SLIDES: (test code = 1 8011) LMP: (test code = 04/20/18 8021) SPECIMEN ADEQUACY: (NOTE) (test code = 49188) INTERPRETATION: (test NO EPITHELIAL code = 93994) ABNORMALITY SEE BELOW OTHER COMMENTS: (test (NOTE) code = 8081) W[employer] OPERATOR: YANN Hilton (test code = 8101) (ASCP) LOCATION: (test code (NOTE) = 63847) CPT: (test code = (NOTE) 8140) PAP TEST, THINPREP, [id number] 00:00:00 Test Item Value Reference Range Interpretation Comments SOURCE: (test code = Cervical/Endocervical 8001) SLIDES: (test code = 1 8011) LMP: (test code = 04/20/18 8021) SPECIMEN ADEQUACY: (NOTE) (test code = 64630) INTERPRETATION: (test NO EPITHELIAL code = 82194) ABNORMALITY SEE BELOW OTHER COMMENTS: (test (NOTE) code = 8081) WASH OIL COOLER OPERATOR: YANN Hilton (test code = 8101) (ASCP) LOCATION: (test code (NOTE) = 75094) CPT: (test code = (NOTE) 8140) PAP TEST, THINPREP, [id number] 00:00:00 Test Item Value Reference Range Interpretation Comments SOURCE: (test code = Cervical/Endocervical 8001) SLIDES: (test code = 1 8011) LMP: (test code = 04/20/18 8021) SPECIMEN ADEQUACY: (NOTE) (test code = 20470) INTERPRETATION: (test NO EPITHELIAL code = 20016) ABNORMALITY SEE BELOW OTHER COMMENTS: (test (NOTE) code = 8081) WASH OIL COOLER OPERATOR: YANN Hilton (test code = 8101) (ASCP) LOCATION: (test code (NOTE) = 67003) CPT: (test code = (NOTE) 8140) PAP TEST, THINPREP, [id number] 00:00:00 Test Item Value Reference Range Interpretation Comments SOURCE: (test code = Cervical/Endocervical 8001) SLIDES: (test code = 1 8011) LMP: (test code = 04/20/188020) SPECIMEN ADEQUACY: (NOTE) (test code = 96918) INTERPRETATION: (test NO EPITHELIAL code = 51429) ABNORMALITY SEE BELOW OTHER COMMENTS: (test (NOTE) code = 8081) WASH OIL COOLER OPERATOR: YANN Hilton (test code = 8101) (ASCP) LOCATION: (test code (NOTE) = 76904) CPT: (test code = (NOTE) 8140) PAP TEST, THINPREP, [id number] 00:00:00 Test Item Value Reference Range Interpretation Comments SOURCE: (test code = Cervical/Endocervical 8001) SLIDES: (test code = 1 8011) LMP: (test code = 04/20/18 80) SPECIMEN ADEQUACY: (NOTE) (test code = 52089) INTERPRETATION: (test NO EPITHELIAL code = 52835) ABNORMALITY SEE BELOW OTHER COMMENTS: (test (NOTE) code = 8081) WASH OIL COOLER OPERATOR: YANN Hilton (test code = 8101) (ASCP) LOCATION: (test code (NOTE) = 03815) CPT: (test code = (NOTE) 8140) PAP TEST, THINPREP, [id number] 00:00:00 Test Item Value Reference Range Interpretation Comments SOURCE: (test code = Cervical/Endocervical 8001) SLIDES: (test code = 1 8011) LMP: (test code = 04/20/18 8021) SPECIMEN ADEQUACY: (NOTE) (test code = 61699) INTERPRETATION: (test NO EPITHELIAL code = 12488) ABNORMALITY SEE BELOW OTHER COMMENTS: (test (NOTE) code = 8081) WASH OIL COOLER OPERATOR: YANN Hilton (test code = 8101) (ASCP) LOCATION: (test code (NOTE) = 83154) CPT: (test code = (NOTE) 8140) PAP TEST, THINPREP, [id number] 00:00:00 Test Item Value Reference Range Interpretation Comments SOURCE: (test code = Cervical/Endocervical 8001) SLIDES: (test code = 1 8011) LMP: (test code = 04/20/18 8021) SPECIMEN ADEQUACY: (NOTE) (test code = 80124) INTERPRETATION: (test NO EPITHELIAL code = 94371) ABNORMALITY SEE BELOW OTHER COMMENTS: (test (NOTE) code = 8081) WASH OIL COOLER OPERATOR: YANN Hilton (test code = 8101) (ASCP) LOCATION: (test code (NOTE) = 66389) CPT: (test code = (NOTE) 8140) HPV HIGH RISK WITH GENOTYPE, [id number] 00:00:00 Test Item Value Reference Range Interpretation Comments HPV HIGH RISK INTERP (test code = NEGATIVE 23712) HPV 16 (test code = 56182) NEGATIVE HPV 18 (test code = 75509) NEGATIVE HPV, HR, OTHER GENOTYPES (test code NEGATIVE = 73120) HPV HIGH RISK WITH GENOTYPE, [id number] 00:00:00 Test Item Value Reference Range Interpretation Comments HPV HIGH RISK INTERP (test code = NEGATIVE 06202) HPV 16 (test code = 05486) NEGATIVE HPV 18 (test code = 16441) NEGATIVE HPV, HR, OTHER GENOTYPES (test code NEGATIVE = 18265) HPV HIGH RISK WITH GENOTYPE, [id number] 00:00:00 Test Item Value Reference Range Interpretation Comments HPV HIGH RISK INTERP (test code = NEGATIVE 92718) HPV 16 (test code = 77446) NEGATIVE HPV 18 (test code = 51048) NEGATIVE HPV, HR, OTHER GENOTYPES (test code NEGATIVE = 65293) HPV HIGH RISK WITH GENOTYPE, [id number] 00:00:00 Test Item Value Reference Range Interpretation Comments HPV HIGH RISK INTERP (test code = NEGATIVE 31751) HPV 16 (test code = 94711) NEGATIVE HPV 18 (test code = 21537) NEGATIVE HPV, HR, OTHER GENOTYPES (test code NEGATIVE = 20144) HPV HIGH RISK WITH GENOTYPE, [id number] 00:00:00 Test Item Value Reference Range Interpretation Comments HPV HIGH RISK INTERP (test code = NEGATIVE 44630) HPV 16 (test code = 13281) NEGATIVE HPV 18 (test code = 98203) NEGATIVE HPV, HR, OTHER GENOTYPES (test code NEGATIVE = 10608) HPV HIGH RISK WITH GENOTYPE, [id number] 00:00:00 Test Item Value Reference Range Interpretation Comments HPV HIGH RISK INTERP (test code = NEGATIVE 35955) HPV 16 (test code = 86578) NEGATIVE HPV 18 (test code = 51835) NEGATIVE HPV, HR, OTHER GENOTYPES (test code NEGATIVE = 57341) HPV HIGH RISK WITH GENOTYPE, [id number] 00:00:00 Test Item Value Reference Range Interpretation Comments HPV HIGH RISK INTERP (test code = NEGATIVE 00518) HPV 16 (test code = 85898) NEGATIVE HPV 18 (test code = 16014) NEGATIVE HPV, HR, OTHER GENOTYPES (test code NEGATIVE = 52101) COMPREHENSIVE METABOLIC [id number] 00:00:00 Test Item Value Reference Range Interpretation Comments GLUCOSE (test code = 2217) 115 MG/DL BUN (test code = 2208) 10 MG/DL CREATININE (test code = 2214) 0.57 MG/DL eGFR AMER. (test code 138 ML/MIN/1.73 = 12707) eGFR NON- AMER. (test 119 ML/MIN/1.73 code = 33816) CALC BUN/CREAT (test code = 18 RATIO 2235) SODIUM (test code = 2231) 142 MEQ/L POTASSIUM (test code = 2228) 4.6 MEQ/L CHLORIDE (test code = 2215) 105 MEQ/L CARBON DIOXIDE (test code = 25 MEQ/L 2205) CALCIUM (test code = 2209) 9.3 MG/DL PROTEIN, TOTAL (test code = 7.4 G/DL 2228) ALBUMIN (test code = 2201) 4.3 G/DL CALC GLOBULIN (test code = 3.1 G/DL 0) CALC A/G RATIO (test code = 1.4 RATIO 2234) BILIRUBIN, TOTAL (test code = 0.3 MG/DL 2206) ALKALINE PHOSPHATASE (test 86 U/L code = 2204) AST (test code = 2218) 14 U/L ALT (test code = 2219) 13 U/L COMPREHENSIVE METABOLIC [id number] 00:00:00 Test Item Value Reference Range Interpretation Comments GLUCOSE (test code = 2217) 115 MG/DL BUN (test code = 2208) 10 MG/DL CREATININE (test code = 2214) 0.57 MG/DL eGFR AMER. (test code 138 ML/MIN/1.73 = 99579) eGFR NON- AMER. (test 119 ML/MIN/1.73 code = 43264) CALC BUN/CREAT (test code = 18 RATIO 2235) SODIUM (test code = 2231) 142 MEQ/L POTASSIUM (test code = 2228) 4.6 MEQ/L CHLORIDE (test code = 2215) 105 MEQ/L CARBON DIOXIDE (test code = 25 MEQ/L 2205) CALCIUM (test code = 2209) 9.3 MG/DL PROTEIN, TOTAL (test code = 7.4 G/DL 2228) ALBUMIN (test code = 2201) 4.3 G/DL CALC GLOBULIN (test code = 3.1 G/DL 2239) CALC A/G RATIO (test code = 1.4 RATIO 2233) BILIRUBIN, TOTAL (test code = 0.3 MG/DL 2206) ALKALINE PHOSPHATASE (test 86 U/L code = 2204) AST (test code = 2218) 14 U/L ALT (test code = 2219) 13 U/L COMPREHENSIVE METABOLIC [id number] 00:00:00 Test Item Value Reference Range Interpretation Comments GLUCOSE (test code = 2217) 115 MG/DL BUN (test code = 2208) 10 MG/DL CREATININE (test code = 2214) 0.57 MG/DL eGFR AMER. (test code 138 ML/MIN/1.73 = 79063) eGFR NON- AMER. (test 119 ML/MIN/1.73 code = 15810) CALC BUN/CREAT (test code = 18 RATIO 2235) SODIUM (test code = 2231) 142 MEQ/L POTASSIUM (test code = 2228) 4.6 MEQ/L CHLORIDE (test code = 2215) 105 MEQ/L CARBON DIOXIDE (test code = 25 MEQ/L 220) CALCIUM (test code = 2209) 9.3 MG/DL PROTEIN, TOTAL (test code = 7.4 G/DL 2229) ALBUMIN (test code = 2201) 4.3 G/DL CALC GLOBULIN (test code = 3.1 G/DL 2240) CALC A/G RATIO (test code = 1.4 RATIO 2234) BILIRUBIN, TOTAL (test code = 0.3 MG/DL 220) ALKALINE PHOSPHATASE (test 86 U/L code = 2204) AST (test code = 2218) 14 U/L ALT (test code = 2219) 13 U/L COMPREHENSIVE METABOLIC [id number] 00:00:00 Test Item Value Reference Range Interpretation Comments GLUCOSE (test code = 2217) 115 MG/DL BUN (test code = 2208) 10 MG/DL CREATININE (test code = 2214) 0.57 MG/DL eGFR AMER. (test code 138 ML/MIN/1.73 = 20840) eGFR NON- AMER. (test 119 ML/MIN/1.73 code = 42074) CALC BUN/CREAT (test code = 18 RATIO 2235) SODIUM (test code = 2231) 142 MEQ/L POTASSIUM (test code = 2228) 4.6 MEQ/L CHLORIDE (test code = 2215) 105 MEQ/L CARBON DIOXIDE (test code = 25 MEQ/L 2206) CALCIUM (test code = 2209) 9.3 MG/DL PROTEIN, TOTAL (test code = 7.4 G/DL 2228) ALBUMIN (test code = 2201) 4.3 G/DL CALC GLOBULIN (test code = 3.1 G/DL 2240) CALC A/G RATIO (test code = 1.4 RATIO 2234) BILIRUBIN, TOTAL (test code = 0.3 MG/DL 2206) ALKALINE PHOSPHATASE (test 86 U/L code = 2204) AST (test code = 2218) 14 U/L ALT (test code = 2219) 13 U/L COMPREHENSIVE METABOLIC [id number] 00:00:00 Test Item Value Reference Range Interpretation Comments GLUCOSE (test code = 2217) 115 MG/DL BUN (test code = 2208) 10 MG/DL CREATININE (test code = 2214) 0.57 MG/DL eGFR AMER. (test code 138 ML/MIN/1.73 = 94927) eGFR NON- AMER. (test 119 ML/MIN/1.73 code = 03181) CALC BUN/CREAT (test code = 18 RATIO 2235) SODIUM (test code = 2231) 142 MEQ/L POTASSIUM (test code = 2228) 4.6 MEQ/L CHLORIDE (test code = 2215) 105 MEQ/L CARBON DIOXIDE (test code = 25 MEQ/L 2205) CALCIUM (test code = 2209) 9.3 MG/DL PROTEIN, TOTAL (test code = 7.4 G/DL 2228) ALBUMIN (test code = 2201) 4.3 G/DL CALC GLOBULIN (test code = 3.1 G/DL 2240) CALC A/G RATIO (test code = 1.4 RATIO 2234) BILIRUBIN, TOTAL (test code = 0.3 MG/DL 2206) ALKALINE PHOSPHATASE (test 86 U/L code = 2204) AST (test code = 2218) 14 U/L ALT (test code = 2219) 13 U/L COMPREHENSIVE METABOLIC [id number] 00:00:00 Test Item Value Reference Range Interpretation Comments GLUCOSE (test code = 2217) 115 MG/DL BUN (test code = 2208) 10 MG/DL CREATININE (test code = 2214) 0.57 MG/DL eGFR AMER. (test code 138 ML/MIN/1.73 = 69195) eGFR NON- AMER. (test 119 ML/MIN/1.73 code = 96585) CALC BUN/CREAT (test code = 18 RATIO 2235) SODIUM (test code = 2231) 142 MEQ/L POTASSIUM (test code = 2228) 4.6 MEQ/L CHLORIDE (test code = 2215) 105 MEQ/L CARBON DIOXIDE (test code = 25 MEQ/L 2205) CALCIUM (test code = 2209) 9.3 MG/DL PROTEIN, TOTAL (test code = 7.4 G/DL 2228) ALBUMIN (test code = 2201) 4.3 G/DL CALC GLOBULIN (test code = 3.1 G/DL 2240) CALC A/G RATIO (test code = 1.4 RATIO 2234) BILIRUBIN, TOTAL (test code = 0.3 MG/DL 2206) ALKALINE PHOSPHATASE (test 86 U/L code = 2204) AST (test code = 2218) 14 U/L ALT (test code = 2219) 13 U/L COMPREHENSIVE METABOLIC [id number] 00:00:00 Test Item Value Reference Range Interpretation Comments GLUCOSE (test code = 2217) 115 MG/DL BUN (test code = 2208) 10 MG/DL CREATININE (test code = 2214) 0.57 MG/DL eGFR AMER. (test code 138 ML/MIN/1.73 = 94011) eGFR NON- AMER. (test 119 ML/MIN/1.73 code = 53126) CALC BUN/CREAT (test code = 18 RATIO 2235) SODIUM (test code = 2231) 142 MEQ/L POTASSIUM (test code = 2228) 4.6 MEQ/L CHLORIDE (test code = 2215) 105 MEQ/L CARBON DIOXIDE (test code = 25 MEQ/L 2205) CALCIUM (test code = 2209) 9.3 MG/DL PROTEIN, TOTAL (test code = 7.4 G/DL 2228) ALBUMIN (test code = 220) 4.3 G/DL CALC GLOBULIN (test code = 3.1 G/DL 2239) CALC A/G RATIO (test code = 1.4 RATIO 2233) BILIRUBIN, TOTAL (test code = 0.3 MG/DL 2206) ALKALINE PHOSPHATASE (test 86 U/L code = 2204) AST (test code = 2218) 14 U/L ALT (test code = 2219) 13 U/L PAP TEST, THINPREP, [id number] 00:00:00 Test Item Value Reference Range Interpretation Comments SOURCE: (test code = Cervical/Endocervical 8001) SLIDES: (test code = 1 8011) LMP: (test code = 04/23/2016 8021) SPECIMEN ADEQUACY: (NOTE) (test code = 29982) INTERPRETATION: (test NO EPITHELIAL code = 23035) ABNORMALITY SEE BELOW WASH OIL COOLER OPERATOR: YANN ELLIS(ASCP) (test code = 8101) LOCATION: (test code (NOTE) = 30294) CPT: (test code = (NOTE) 8140) PAP TEST, THINPREP, [id number] 00:00:00 Test Item Value Reference Range Interpretation Comments SOURCE: (test code = Cervical/Endocervical 8001) SLIDES: (test code = 1 8011) LMP: (test code = 04/23/2016 8021) SPECIMEN ADEQUACY: (NOTE) (test code = 00272) INTERPRETATION: (test NO EPITHELIAL code = 52316) ABNORMALITY SEE BELOW WASH OIL COOLER OPERATOR: YANN ELLIS(ASCP) (test code = 8101) LOCATION: (test code (NOTE) = 89110) CPT: (test code = (NOTE) 8140) HPV HIGH RISK WITH GENOTYPE, [id number] 00:00:00 Test Item Value Reference Range Interpretation Comments HPV HIGH RISK INTERP (test code = NEGATIVE 65661) HPV 16 (test code = 79740) NEGATIVE HPV 18 (test code = 78019) NEGATIVE HPV, HR, OTHER GENOTYPES (test code NEGATIVE = 43346) HPV HIGH RISK WITH GENOTYPE, [id number] 00:00:00 Test Item Value Reference Range Interpretation Comments HPV HIGH RISK INTERP (test code = NEGATIVE 84991) HPV 16 (test code = 29239) NEGATIVE HPV 18 (test code = 51953) NEGATIVE HPV, HR, OTHER GENOTYPES (test code NEGATIVE = 89537) PAP TEST, THINPREP, [id number] 00:00:00 Test Item Value Reference Range Interpretation Comments SOURCE: (test code = Cervical/Endocervical 8001) SLIDES: (test code = 1 8011) LMP: (test code = 04/23/2016 8021) SPECIMEN ADEQUACY: (NOTE) (test code = 74239) INTERPRETATION: (test NO EPITHELIAL code = 08039) ABNORMALITY SEE BELOW WASH OIL COOLER OPERATOR: YANN ELLIS(ASCP) (test code = 8101) LOCATION: (test code (NOTE) = 44677) CPT: (test code = (NOTE) 8140) HPV HIGH RISK WITH GENOTYPE, [id number] 00:00:00 Test Item Value Reference Range Interpretation Comments HPV HIGH RISK INTERP (test code = NEGATIVE 40615) HPV 16 (test code = 24866) NEGATIVE HPV 18 (test code = 70089) NEGATIVE HPV, HR, OTHER GENOTYPES (test code NEGATIVE = 97970) PAP TEST, THINPREP, [id number] 00:00:00 Test Item Value Reference Range Interpretation Comments SOURCE: (test code = Cervical/Endocervical 8001) SLIDES: (test code = 1 8011) LMP: (test code = 04/23/2016 8021) SPECIMEN ADEQUACY: (NOTE) (test code = 35437) INTERPRETATION: (test NO EPITHELIAL code = 60149) ABNORMALITY SEE BELOW WASH OIL COOLER OPERATOR: YANN ELLIS(ASCP) (test code = 8101) LOCATION: (test code (NOTE) = 89696) CPT: (test code = (NOTE) 8140) PAP TEST, THINPREP, [id number] 00:00:00 Test Item Value Reference Range Interpretation Comments SOURCE: (test code = Cervical/Endocervical 8001) SLIDES: (test code = 1 8011) LMP: (test code = 04/23/2016 8021) SPECIMEN ADEQUACY: (NOTE) (test code = 53839) INTERPRETATION: (test NO EPITHELIAL code = 84035) ABNORMALITY SEE BELOW WASH OIL COOLER OPERATOR: YANN ELLIS(ASCP) (test code = 8101) LOCATION: (test code (NOTE) = 98647) CPT: (test code = (NOTE) 8140) HPV HIGH RISK WITH GENOTYPE, [id number] 00:00:00 Test Item Value Reference Range Interpretation Comments HPV HIGH RISK INTERP (test code = NEGATIVE 05519) HPV 16 (test code = 52032) NEGATIVE HPV 18 (test code = 76459) NEGATIVE HPV, HR, OTHER GENOTYPES (test code NEGATIVE = 91252) HPV HIGH RISK WITH GENOTYPE, [id number] 00:00:00 Test Item Value Reference Range Interpretation Comments HPV HIGH RISK INTERP (test code = NEGATIVE 96374) HPV 16 (test code = 87951) NEGATIVE HPV 18 (test code = 83676) NEGATIVE HPV, HR, OTHER GENOTYPES (test code NEGATIVE = 26936) PAP TEST, THINPREP, [id number] 00:00:00 Test Item Value Reference Range Interpretation Comments SOURCE: (test code = Cervical/Endocervical 8001) SLIDES: (test code = 1 8011) LMP: (test code = 04/23/2016 8021) SPECIMEN ADEQUACY: (NOTE) (test code = 67187) INTERPRETATION: (test NO EPITHELIAL code = 81506) ABNORMALITY SEE BELOW WASH OIL COOLER OPERATOR: YANN ELLIS(ASCP) (test code = 8101) LOCATION: (test code (NOTE) = 46886) CPT: (test code = (NOTE) 8140) PAP TEST, THINPREP, [id number] 00:00:00 Test Item Value Reference Range Interpretation Comments SOURCE: (test code = Cervical/Endocervical 8001) SLIDES: (test code = 1 8011) LMP: (test code = 04/23/2016 8021) SPECIMEN ADEQUACY: (NOTE) (test code = 22090) INTERPRETATION: (test NO EPITHELIAL code = 08781) ABNORMALITY SEE BELOW WASH OIL COOLER OPERATOR: FARNAZ BOYERCT(ASCP) (test code = 8101) LOCATION: (test code (NOTE) = 10846) CPT: (test code = (NOTE) 8140) HPV HIGH RISK WITH GENOTYPE, [id number] 00:00:00 Test Item Value Reference Range Interpretation Comments HPV HIGH RISK INTERP (test code = NEGATIVE 40639) HPV 16 (test code = 86485) NEGATIVE HPV 18 (test code = 50412) NEGATIVE HPV, HR, OTHER GENOTYPES (test code NEGATIVE = 35118) HPV HIGH RISK WITH GENOTYPE, [id number] 00:00:00 Test Item Value Reference Range Interpretation Comments HPV HIGH RISK INTERP (test code = NEGATIVE 57578) HPV 16 (test code = 86429) NEGATIVE HPV 18 (test code = 47811) NEGATIVE HPV, HR, OTHER GENOTYPES (test code NEGATIVE = 87205) GC AND CHLAMYDIA AMPLIFIED, [id number] 00:00:00 Test Item Value Reference Range Interpretation Comments GONORRHEA, TMA (test code = 28437) NEGATIVE CHLAMYDIA, TMA (test code = 32516) NEGATIVE GC AND CHLAMYDIA AMPLIFIED, [id number] 00:00:00 Test Item Value Reference Range Interpretation Comments GONORRHEA, TMA (test code = 32571) NEGATIVE CHLAMYDIA, TMA (test code = 41956) NEGATIVE GC AND CHLAMYDIA AMPLIFIED, [id number] 00:00:00 Test Item Value Reference Range Interpretation Comments GONORRHEA, TMA (test code = 42454) NEGATIVE CHLAMYDIA, TMA (test code = 08282) NEGATIVE GC AND CHLAMYDIA AMPLIFIED, [id number] 00:00:00 Test Item Value Reference Range Interpretation Comments GONORRHEA, TMA (test code = 48156) NEGATIVE CHLAMYDIA, TMA (test code = 25933) NEGATIVE GC AND CHLAMYDIA AMPLIFIED, [id number] 00:00:00 Test Item Value Reference Range Interpretation Comments GONORRHEA, TMA (test code = 02070) NEGATIVE CHLAMYDIA, TMA (test code = 98995) NEGATIVE GC AND CHLAMYDIA AMPLIFIED, [id number] 00:00:00 Test Item Value Reference Range Interpretation Comments GONORRHEA, TMA (test code = 97357) NEGATIVE CHLAMYDIA, TMA (test code = 35603) NEGATIVE GC AND CHLAMYDIA AMPLIFIED, [id number] 00:00:00 Test Item Value Reference Range Interpretation Comments GONORRHEA, TMA (test code = 38548) NEGATIVE CHLAMYDIA, TMA (test code = 48783) NEGATIVE HEMOGLOBIN [id number] 00:00:00 Test Item Value Reference Range Interpretation Comments HEMOGLOBIN A1c (test code = 06564) 5.9 % HEMOGLOBIN [id number] 00:00:00 Test Item Value Reference Range Interpretation Comments HEMOGLOBIN A1c (test code = 31016) 5.9 % HEMOGLOBIN [id number] 00:00:00 Test Item Value Reference Range Interpretation Comments HEMOGLOBIN A1c (test code = 03217) 5.9 % HEMOGLOBIN [id number] 00:00:00 Test Item Value Reference Range Interpretation Comments HEMOGLOBIN A1c (test code = 83008) 5.9 % CBC W/AUTO [id number] 00:00:00 Test Item Value Reference Range Interpretation Comments WBC (test code = 1001) 9.9 K/UL RBC (test code = 1002) 4.21 M/UL HEMOGLOBIN (test code = 1003) 12.0 G/DL HEMATOCRIT (test code = 1004) 35.1 % MCV (test code = 1005) 83.4 fL MCH (test code = 1006) 28.5 PG MCHC (test code = 1007) 34.2 G/DL RDW (test code = 1038) 13.9 % NEUTROPHILS (test code = 1008) 68 % LYMPHOCYTES (test code = 1010) 24 % MONOCYTES (test code = 1011) 6 % EOSINOPHILS (test code = 1012) 2 % BASOPHILS (test code = 1013) % PLATELET COUNT (test code = 1015) 253 K/UL CBC W/AUTO [id number] 00:00:00 Test Item Value Reference Range Interpretation Comments WBC (test code = 1001) 9.9 K/UL RBC (test code = 1002) 4.21 M/UL HEMOGLOBIN (test code = 1003) 12.0 G/DL HEMATOCRIT (test code = 1004) 35.1 % MCV (test code = 1005) 83.4 fL MCH (test code = 1006) 28.5 PG MCHC (test code = 1007) 34.2 G/DL RDW (test code = 1038) 13.9 % NEUTROPHILS (test code = 1008) 68 % LYMPHOCYTES (test code = 1010) 24 % MONOCYTES (test code = 1011) 6 % EOSINOPHILS (test code = 1012) 2 % BASOPHILS (test code = 1013) % PLATELET COUNT (test code = 1015) 253 K/UL CBC W/AUTO [id number] 00:00:00 Test Item Value Reference Range Interpretation Comments WBC (test code = 1001) 9.9 K/UL RBC (test code = 1002) 4.21 M/UL HEMOGLOBIN (test code = 1003) 12.0 G/DL HEMATOCRIT (test code = 1004) 35.1 % MCV (test code = 1005) 83.4 fL MCH (test code = 1006) 28.5 PG MCHC (test code = 1007) 34.2 G/DL RDW (test code = 1038) 13.9 % NEUTROPHILS (test code = 1008) 68 % LYMPHOCYTES (test code = 1010) 24 % MONOCYTES (test code = 1011) 6 % EOSINOPHILS (test code = 1012) 2 % BASOPHILS (test code = 1013) % PLATELET COUNT (test code = 1015) 253 K/UL COMPREHENSIVE METABOLIC [id number] 00:00:00 Test Item Value Reference Range Interpretation Comments GLUCOSE (test code = 2217) 84 MG/DL BUN (test code = 2208) 10 MG/DL CREATININE (test code = 2214) 0.47 MG/DL eGFR AMER. (test code 147 ML/MIN/1.73 = 63297) eGFR NON- AMER. (test 127 ML/MIN/1.73 code = 17833) CALCULATED BUN/CREAT (test 21 RATIO code = 2235) SODIUM (test code = 2231) 133 MEQ/L POTASSIUM (test code = 2228) 4.0 MEQ/L CHLORIDE (test code = 2215) 105 MEQ/L CARBON DIOXIDE (test code = 22 MEQ/L 2205) CALCIUM (test code = 2209) 9.1 MG/DL PROTEIN, TOTAL (test code = 6.7 G/DL 2228) ALBUMIN (test code = 2201) 3.9 G/DL CALCULATED GLOBULIN (test 2.8 G/DL code = 2240) CALCULATED A/G RATIO (test 1.4 RATIO code = 2234) BILIRUBIN, TOTAL (test code = 0.5 MG/DL 2206) ALKALINE PHOSPHATASE (test 64 U/L code = 2204) SGOT (AST) (test code = 2218) 12 U/L SGPT (ALT) (test code = 2219) 10 U/L COMPREHENSIVE METABOLIC [id number] 00:00:00 Test Item Value Reference Range Interpretation Comments GLUCOSE (test code = 2217) 84 MG/DL BUN (test code = 2208) 10 MG/DL CREATININE (test code = 2214) 0.47 MG/DL eGFR AMER. (test code 147 ML/MIN/1.73 = 92502) eGFR NON- AMER. (test 127 ML/MIN/1.73 code = 14357) CALCULATED BUN/CREAT (test 21 RATIO code = 2235) SODIUM (test code = 2231) 133 MEQ/L POTASSIUM (test code = 2228) 4.0 MEQ/L CHLORIDE (test code = 2215) 105 MEQ/L CARBON DIOXIDE (test code = 22 MEQ/L 2205) CALCIUM (test code = 2209) 9.1 MG/DL PROTEIN, TOTAL (test code = 6.7 G/DL 2228) ALBUMIN (test code = 2201) 3.9 G/DL CALCULATED GLOBULIN (test 2.8 G/DL code = 2240) CALCULATED A/G RATIO (test 1.4 RATIO code = 2234) BILIRUBIN, TOTAL (test code = 0.5 MG/DL 2206) ALKALINE PHOSPHATASE (test 64 U/L code = 2204) SGOT (AST) (test code = 2218) 12 U/L SGPT (ALT) (test code = 2219) 10 U/L LIPID [id number] 00:00:00 Test Item Value Reference Range Interpretation Comments CHOLESTEROL (test code = 2210) 164 MG/DL TRIGLYCERIDES (test code = 2232) 151 MG/DL HDL CHOLESTEROL (test code = 2220) 39 MG/DL CALCULATED LDL CHOL (test code = 95 MG/DL 2236) RISK RATIO LDL/HDL (test code = 2.43 RATIO 2238) LIPID [id number] 00:00:00 Test Item Value Reference Range Interpretation Comments CHOLESTEROL (test code = 2210) 164 MG/DL TRIGLYCERIDES (test code = 2232) 151 MG/DL HDL CHOLESTEROL (test code = 2220) 39 MG/DL CALCULATED LDL CHOL (test code = 95 MG/DL 2237) RISK RATIO LDL/HDL (test code = 2.43 RATIO 2238) THYROID II PROFILE (T3U, T4, T7, TSH)[id number] 00:00:00 Test Item Value Reference Range Interpretation Comments T3 UPTAKE (test code = 2817) 24.7 % T4 (THYROXINE) (test code = 2819) 9.2 UG/DL CALCULATED T7 (FTI) (test code = 2.27 2820) TSH (test code = 2821) 0.9 UIU/ML THYROID II PROFILE (T3U, T4, T7, TSH)[id number] 00:00:00 Test Item Value Reference Range Interpretation Comments T3 UPTAKE (test code = 2817) 24.7 % T4 (THYROXINE) (test code = 2819) 9.2 UG/DL CALCULATED T7 (FTI) (test code = 2.27 2820) TSH (test code = 2821) 0.9 UIU/ML CBC W/AUTO [id number] 00:00:00 Test Item Value Reference Range Interpretation Comments WBC (test code = 1001) 9.9 K/UL RBC (test code = 1002) 4.21 M/UL HEMOGLOBIN (test code = 1003) 12.0 G/DL HEMATOCRIT (test code = 1004) 35.1 % MCV (test code = 1005) 83.4 fL MCH (test code = 1006) 28.5 PG MCHC (test code = 1007) 34.2 G/DL RDW (test code = 1038) 13.9 % NEUTROPHILS (test code = 1008) 68 % LYMPHOCYTES (test code = 1010) 24 % MONOCYTES (test code = 1011) 6 % EOSINOPHILS (test code = 1012) 2 % BASOPHILS (test code = 1013) % PLATELET COUNT (test code = 1015) 253 K/UL CBC W/AUTO [id number] 00:00:00 Test Item Value Reference Range Interpretation Comments WBC (test code = 1001) 9.9 K/UL RBC (test code = 1002) 4.21 M/UL HEMOGLOBIN (test code = 1003) 12.0 G/DL HEMATOCRIT (test code = 1004) 35.1 % MCV (test code = 1005) 83.4 fL MCH (test code = 1006) 28.5 PG MCHC (test code = 1007) 34.2 G/DL RDW (test code = 1038) 13.9 % NEUTROPHILS (test code = 1008) 68 % LYMPHOCYTES (test code = 1010) 24 % MONOCYTES (test code = 1011) 6 % EOSINOPHILS (test code = 1012) 2 % BASOPHILS (test code = 1013) % PLATELET COUNT (test code = 1015) 253 K/UL COMPREHENSIVE METABOLIC [id number] 00:00:00 Test Item Value Reference Range Interpretation Comments GLUCOSE (test code = 2217) 84 MG/DL BUN (test code = 2208) 10 MG/DL CREATININE (test code = 2214) 0.47 MG/DL eGFR AMER. (test code 147 ML/MIN/1.73 = 84336) eGFR NON- AMER. (test 127 ML/MIN/1.73 code = 23938) CALCULATED BUN/CREAT (test 21 RATIO code = 2235) SODIUM (test code = 2231) 133 MEQ/L POTASSIUM (test code = 2228) 4.0 MEQ/L CHLORIDE (test code = 2215) 105 MEQ/L CARBON DIOXIDE (test code = 22 MEQ/L 2205) CALCIUM (test code = 2209) 9.1 MG/DL PROTEIN, TOTAL (test code = 6.7 G/DL 2228) ALBUMIN (test code = 2201) 3.9 G/DL CALCULATED GLOBULIN (test 2.8 G/DL code = 2240) CALCULATED A/G RATIO (test 1.4 RATIO code = 2234) BILIRUBIN, TOTAL (test code = 0.5 MG/DL 2206) ALKALINE PHOSPHATASE (test 64 U/L code = 2204) SGOT (AST) (test code = 2218) 12 U/L SGPT (ALT) (test code = 2219) 10 U/L LIPID [id number] 00:00:00 Test Item Value Reference Range Interpretation Comments CHOLESTEROL (test code = 2210) 164 MG/DL TRIGLYCERIDES (test code = 2232) 151 MG/DL HDL CHOLESTEROL (test code = 2220) 39 MG/DL CALCULATED LDL CHOL (test code = 95 MG/DL 2237) RISK RATIO LDL/HDL (test code = 2.43 RATIO 2238) THYROID II PROFILE (T3U, T4, T7, TSH)[id number] 00:00:00 Test Item Value Reference Range Interpretation Comments T3 UPTAKE (test code = 2817) 24.7 % T4 (THYROXINE) (test code = 2819) 9.2 UG/DL CALCULATED T7 (FTI) (test code = 2.27 2820) TSH (test code = 2821) 0.9 UIU/ML HEMOGLOBIN [id number] 00:00:00 Test Item Value Reference Range Interpretation Comments HEMOGLOBIN A1c (test code = 62486) 5.9 % HEMOGLOBIN [id number] 00:00:00 Test Item Value Reference Range Interpretation Comments HEMOGLOBIN A1c (test code = 83406) 5.9 % HEMOGLOBIN [id number] 00:00:00 Test Item Value Reference Range Interpretation Comments HEMOGLOBIN A1c (test code = 17858) 5.9 % CBC W/AUTO [id number] 00:00:00 Test Item Value Reference Range Interpretation Comments WBC (test code = 1001) 9.9 K/UL RBC (test code = 1002) 4.21 M/UL HEMOGLOBIN (test code = 1003) 12.0 G/DL HEMATOCRIT (test code = 1004) 35.1 % MCV (test code = 1005) 83.4 fL MCH (test code = 1006) 28.5 PG MCHC (test code = 1007) 34.2 G/DL RDW (test code = 1038) 13.9 % NEUTROPHILS (test code = 1008) 68 % LYMPHOCYTES (test code = 1010) 24 % MONOCYTES (test code = 1011) 6 % EOSINOPHILS (test code = 1012) 2 % BASOPHILS (test code = 1013) % PLATELET COUNT (test code = 1015) 253 K/UL CBC W/AUTO [id number] 00:00:00 Test Item Value Reference Range Interpretation Comments WBC (test code = 1001) 9.9 K/UL RBC (test code = 1002) 4.21 M/UL HEMOGLOBIN (test code = 1003) 12.0 G/DL HEMATOCRIT (test code = 1004) 35.1 % MCV (test code = 1005) 83.4 fL MCH (test code = 1006) 28.5 PG MCHC (test code = 1007) 34.2 G/DL RDW (test code = 1038) 13.9 % NEUTROPHILS (test code = 1008) 68 % LYMPHOCYTES (test code = 1010) 24 % MONOCYTES (test code = 1011) 6 % EOSINOPHILS (test code = 1012) 2 % BASOPHILS (test code = 1013) % PLATELET COUNT (test code = 1015) 253 K/UL CBC W/AUTO [id number] 00:00:00 Test Item Value Reference Range Interpretation Comments WBC (test code = 1001) 9.9 K/UL RBC (test code = 1002) 4.21 M/UL HEMOGLOBIN (test code = 1003) 12.0 G/DL HEMATOCRIT (test code = 1004) 35.1 % MCV (test code = 1005) 83.4 fL MCH (test code = 1006) 28.5 PG MCHC (test code = 1007) 34.2 G/DL RDW (test code = 1038) 13.9 % NEUTROPHILS (test code = 1008) 68 % LYMPHOCYTES (test code = 1010) 24 % MONOCYTES (test code = 1011) 6 % EOSINOPHILS (test code = 1012) 2 % BASOPHILS (test code = 1013) % PLATELET COUNT (test code = 1015) 253 K/UL COMPREHENSIVE METABOLIC [id number] 00:00:00 Test Item Value Reference Range Interpretation Comments GLUCOSE (test code = 2217) 84 MG/DL BUN (test code = 2208) 10 MG/DL CREATININE (test code = 2214) 0.47 MG/DL eGFR AMER. (test code 147 ML/MIN/1.73 = 34318) eGFR NON- AMER. (test 127 ML/MIN/1.73 code = 88158) CALCULATED BUN/CREAT (test 21 RATIO code = 2235) SODIUM (test code = 2231) 133 MEQ/L POTASSIUM (test code = 2228) 4.0 MEQ/L CHLORIDE (test code = 2215) 105 MEQ/L CARBON DIOXIDE (test code = 22 MEQ/L 2206) CALCIUM (test code = 2209) 9.1 MG/DL PROTEIN, TOTAL (test code = 6.7 G/DL 2228) ALBUMIN (test code = 2201) 3.9 G/DL CALCULATED GLOBULIN (test 2.8 G/DL code = 2240) CALCULATED A/G RATIO (test 1.4 RATIO code = 2234) BILIRUBIN, TOTAL (test code = 0.5 MG/DL 2206) ALKALINE PHOSPHATASE (test 64 U/L code = 2204) SGOT (AST) (test code = 2218) 12 U/L SGPT (ALT) (test code = 2219) 10 U/L COMPREHENSIVE METABOLIC [id number] 00:00:00 Test Item Value Reference Range Interpretation Comments GLUCOSE (test code = 2217) 84 MG/DL BUN (test code = 2208) 10 MG/DL CREATININE (test code = 2214) 0.47 MG/DL eGFR AMER. (test code 147 ML/MIN/1.73 = 36641) eGFR NON- AMER. (test 127 ML/MIN/1.73 code = 72428) CALCULATED BUN/CREAT (test 21 RATIO code = 2235) SODIUM (test code = 2231) 133 MEQ/L POTASSIUM (test code = 2228) 4.0 MEQ/L CHLORIDE (test code = 2215) 105 MEQ/L CARBON DIOXIDE (test code = 22 MEQ/L 220) CALCIUM (test code = 2209) 9.1 MG/DL PROTEIN, TOTAL (test code = 6.7 G/DL 2228) ALBUMIN (test code = 2201) 3.9 G/DL CALCULATED GLOBULIN (test 2.8 G/DL code = 2240) CALCULATED A/G RATIO (test 1.4 RATIO code = 2234) BILIRUBIN, TOTAL (test code = 0.5 MG/DL 7) ALKALINE PHOSPHATASE (test 64 U/L code = 2204) SGOT (AST) (test code = 2218) 12 U/L SGPT (ALT) (test code = 2219) 10 U/L LIPID [id number] 00:00:00 Test Item Value Reference Range Interpretation Comments CHOLESTEROL (test code = 2210) 164 MG/DL TRIGLYCERIDES (test code = 2232) 151 MG/DL HDL CHOLESTEROL (test code = 2220) 39 MG/DL CALCULATED LDL CHOL (test code = 95 MG/DL 2236) RISK RATIO LDL/HDL (test code = 2.43 RATIO 2238) LIPID [id number] 00:00:00 Test Item Value Reference Range Interpretation Comments CHOLESTEROL (test code = 2210) 164 MG/DL TRIGLYCERIDES (test code = 2232) 151 MG/DL HDL CHOLESTEROL (test code = 2220) 39 MG/DL CALCULATED LDL CHOL (test code = 95 MG/DL 2237) RISK RATIO LDL/HDL (test code = 2.43 RATIO 2238) THYROID II PROFILE (T3U, T4, T7, TSH)[id number] 00:00:00 Test Item Value Reference Range Interpretation Comments T3 UPTAKE (test code = 2817) 24.7 % T4 (THYROXINE) (test code = 2819) 9.2 UG/DL CALCULATED T7 (FTI) (test code = 2.27 2820) TSH (test code = 2821) 0.9 UIU/ML THYROID II PROFILE (T3U, T4, T7, TSH)[id number] 00:00:00 Test Item Value Reference Range Interpretation Comments T3 UPTAKE (test code = 2817) 24.7 % T4 (THYROXINE) (test code = 2819) 9.2 UG/DL CALCULATED T7 (FTI) (test code = 2.27 2820) TSH (test code = 2821) 0.9 UIU/ML HEMOGLOBIN [id number] 00:00:00 Test Item Value Reference Range Interpretation Comments HEMOGLOBIN A1c (test code = 32348) 5.9 % HEMOGLOBIN [id number] 00:00:00 Test Item Value Reference Range Interpretation Comments HEMOGLOBIN A1c (test code = 66686) 5.9 % HEMOGLOBIN [id number] 00:00:00 Test Item Value Reference Range Interpretation Comments HEMOGLOBIN A1c (test code = 74235) 5.9 % CBC W/AUTO [id number] 00:00:00 Test Item Value Reference Range Interpretation Comments WBC (test code = 1001) 9.9 K/UL RBC (test code = 1002) 4.21 M/UL HEMOGLOBIN (test code = 1003) 12.0 G/DL HEMATOCRIT (test code = 1004) 35.1 % MCV (test code = 1005) 83.4 fL MCH (test code = 1006) 28.5 PG MCHC (test code = 1007) 34.2 G/DL RDW (test code = 1038) 13.9 % NEUTROPHILS (test code = 1008) 68 % LYMPHOCYTES (test code = 1010) 24 % MONOCYTES (test code = 1011) 6 % EOSINOPHILS (test code = 1012) 2 % BASOPHILS (test code = 1013) % PLATELET COUNT (test code = 1015) 253 K/UL CBC W/AUTO [id number] 00:00:00 Test Item Value Reference Range Interpretation Comments WBC (test code = 1001) 9.9 K/UL RBC (test code = 1002) 4.21 M/UL HEMOGLOBIN (test code = 1003) 12.0 G/DL HEMATOCRIT (test code = 1004) 35.1 % MCV (test code = 1005) 83.4 fL MCH (test code = 1006) 28.5 PG MCHC (test code = 1007) 34.2 G/DL RDW (test code = 1038) 13.9 % NEUTROPHILS (test code = 1008) 68 % LYMPHOCYTES (test code = 1010) 24 % MONOCYTES (test code = 1011) 6 % EOSINOPHILS (test code = 1012) 2 % BASOPHILS (test code = 1013) % PLATELET COUNT (test code = 1015) 253 K/UL CBC W/AUTO [id number] 00:00:00 Test Item Value Reference Range Interpretation Comments WBC (test code = 1001) 9.9 K/UL RBC (test code = 1002) 4.21 M/UL HEMOGLOBIN (test code = 1003) 12.0 G/DL HEMATOCRIT (test code = 1004) 35.1 % MCV (test code = 1005) 83.4 fL MCH (test code = 1006) 28.5 PG MCHC (test code = 1007) 34.2 G/DL RDW (test code = 1038) 13.9 % NEUTROPHILS (test code = 1008) 68 % LYMPHOCYTES (test code = 1010) 24 % MONOCYTES (test code = 1011) 6 % EOSINOPHILS (test code = 1012) 2 % BASOPHILS (test code = 1013) % PLATELET COUNT (test code = 1015) 253 K/UL COMPREHENSIVE METABOLIC [id number] 00:00:00 Test Item Value Reference Range Interpretation Comments GLUCOSE (test code = 2217) 84 MG/DL BUN (test code = 2208) 10 MG/DL CREATININE (test code = 2214) 0.47 MG/DL eGFR AMER. (test code 147 ML/MIN/1.73 = 20967) eGFR NON- AMER. (test 127 ML/MIN/1.73 code = 51773) CALCULATED BUN/CREAT (test 21 RATIO code = 2235) SODIUM (test code = 2231) 133 MEQ/L POTASSIUM (test code = 2228) 4.0 MEQ/L CHLORIDE (test code = 2215) 105 MEQ/L CARBON DIOXIDE (test code = 22 MEQ/L 220) CALCIUM (test code = 2209) 9.1 MG/DL PROTEIN, TOTAL (test code = 6.7 G/DL 2228) ALBUMIN (test code = 2201) 3.9 G/DL CALCULATED GLOBULIN (test 2.8 G/DL code = 2240) CALCULATED A/G RATIO (test 1.4 RATIO code = 2234) BILIRUBIN, TOTAL (test code = 0.5 MG/DL 2206) ALKALINE PHOSPHATASE (test 64 U/L code = 2204) SGOT (AST) (test code = 2218) 12 U/L SGPT (ALT) (test code = 2219) 10 U/L COMPREHENSIVE METABOLIC [id number] 00:00:00 Test Item Value Reference Range Interpretation Comments GLUCOSE (test code = 2217) 84 MG/DL BUN (test code = 2208) 10 MG/DL CREATININE (test code = 2214) 0.47 MG/DL eGFR AMER. (test code 147 ML/MIN/1.73 = 65214) eGFR NON- AMER. (test 127 ML/MIN/1.73 code = 95642) CALCULATED BUN/CREAT (test 21 RATIO code = 2235) SODIUM (test code = 2231) 133 MEQ/L POTASSIUM (test code = 2228) 4.0 MEQ/L CHLORIDE (test code = 2215) 105 MEQ/L CARBON DIOXIDE (test code = 22 MEQ/L 2205) CALCIUM (test code = 2209) 9.1 MG/DL PROTEIN, TOTAL (test code = 6.7 G/DL 2228) ALBUMIN (test code = 2201) 3.9 G/DL CALCULATED GLOBULIN (test 2.8 G/DL code = 2240) CALCULATED A/G RATIO (test 1.4 RATIO code = 2234) BILIRUBIN, TOTAL (test code = 0.5 MG/DL 2206) ALKALINE PHOSPHATASE (test 64 U/L code = 2204) SGOT (AST) (test code = 2218) 12 U/L SGPT (ALT) (test code = 2219) 10 U/L LIPID [id number] 00:00:00 Test Item Value Reference Range Interpretation Comments CHOLESTEROL (test code = 2210) 164 MG/DL TRIGLYCERIDES (test code = 2232) 151 MG/DL HDL CHOLESTEROL (test code = 2220) 39 MG/DL CALCULATED LDL CHOL (test code = 95 MG/DL 2237) RISK RATIO LDL/HDL (test code = 2.43 RATIO 2238) LIPID [id number] 00:00:00 Test Item Value Reference Range Interpretation Comments CHOLESTEROL (test code = 2210) 164 MG/DL TRIGLYCERIDES (test code = 2232) 151 MG/DL HDL CHOLESTEROL (test code = 2220) 39 MG/DL CALCULATED LDL CHOL (test code = 95 MG/DL 2237) RISK RATIO LDL/HDL (test code = 2.43 RATIO 2238) THYROID II PROFILE (T3U, T4, T7, TSH)[id number] 00:00:00 Test Item Value Reference Range Interpretation Comments T3 UPTAKE (test code = 2817) 24.7 % T4 (THYROXINE) (test code = 2819) 9.2 UG/DL CALCULATED T7 (FTI) (test code = 2.27 2820) TSH (test code = 2821) 0.9 UIU/ML THYROID II PROFILE (T3U, T4, T7, TSH)[id number] 00:00:00 Test Item Value Reference Range Interpretation Comments T3 UPTAKE (test code = 2817) 24.7 % T4 (THYROXINE) (test code = 2819) 9.2 UG/DL CALCULATED T7 (FTI) (test code = 2.27 2820) TSH (test code = 2821) 0.9 UIU/ML HEMOGLOBIN [id number] 00:00:00 Test Item Value Reference Range Interpretation Comments HEMOGLOBIN A1c (test code = 79314) 5.9 % HEMOGLOBIN [id number] 00:00:00 Test Item Value Reference Range Interpretation Comments HEMOGLOBIN A1c (test code = 09951) 6.1 % HEMOGLOBIN [id number] 00:00:00 Test Item Value Reference Range Interpretation Comments HEMOGLOBIN A1c (test code = 62857) 6.1 % HEMOGLOBIN [id number] 00:00:00 Test Item Value Reference Range Interpretation Comments HEMOGLOBIN A1c (test code = 38568) 6.1 % HEMOGLOBIN [id number] 00:00:00 Test Item Value Reference Range Interpretation Comments HEMOGLOBIN A1c (test code = 07151) 6.1 % CBC W/AUTO [id number] 00:00:00 Test Item Value Reference Range Interpretation Comments WBC (test code = 1001) 7.0 K/UL RBC (test code = 1002) 4.51 M/UL HEMOGLOBIN (test code = 1003) 12.9 G/DL HEMATOCRIT (test code = 1004) 39.0 % MCV (test code = 1005) 86.5 fL MCH (test code = 1006) 28.6 PG MCHC (test code = 1007) 33.1 G/DL RDW (test code = 1038) 13.5 % NEUTROPHILS (test code = 1008) 58 % LYMPHOCYTES (test code = 1010) 34 % MONOCYTES (test code = 1011) 6 % EOSINOPHILS (test code = 1012) 2 % BASOPHILS (test code = 1013) % PLATELET COUNT (test code = 1015) 286 K/UL CBC W/AUTO [id number] 00:00:00 Test Item Value Reference Range Interpretation Comments WBC (test code = 1001) 7.0 K/UL RBC (test code = 1002) 4.51 M/UL HEMOGLOBIN (test code = 1003) 12.9 G/DL HEMATOCRIT (test code = 1004) 39.0 % MCV (test code = 1005) 86.5 fL MCH (test code = 1006) 28.6 PG MCHC (test code = 1007) 33.1 G/DL RDW (test code = 1038) 13.5 % NEUTROPHILS (test code = 1008) 58 % LYMPHOCYTES (test code = 1010) 34 % MONOCYTES (test code = 1011) 6 % EOSINOPHILS (test code = 1012) 2 % BASOPHILS (test code = 1013) % PLATELET COUNT (test code = 1015) 286 K/UL CBC W/AUTO [id number] 00:00:00 Test Item Value Reference Range Interpretation Comments WBC (test code = 1001) 7.0 K/UL RBC (test code = 1002) 4.51 M/UL HEMOGLOBIN (test code = 1003) 12.9 G/DL HEMATOCRIT (test code = 1004) 39.0 % MCV (test code = 1005) 86.5 fL MCH (test code = 1006) 28.6 PG MCHC (test code = 1007) 33.1 G/DL RDW (test code = 1038) 13.5 % NEUTROPHILS (test code = 1008) 58 % LYMPHOCYTES (test code = 1010) 34 % MONOCYTES (test code = 1011) 6 % EOSINOPHILS (test code = 1012) 2 % BASOPHILS (test code = 1013) % PLATELET COUNT (test code = 1015) 286 K/UL COMPREHENSIVE METABOLIC [id number] 00:00:00 Test Item Value Reference Range Interpretation Comments GLUCOSE (test code = 2217) 88 MG/DL BUN (test code = 2208) 13 MG/DL CREATININE (test code = 2214) 0.6 MG/DL eGFR AMER. (test code 138 ML/MIN/1.73 = 98771) eGFR NON- AMER. (test 114 ML/MIN/1.73 code = 13504) CALCULATED BUN/CREAT (test 22 RATIO code = 2235) SODIUM (test code = 2231) 134 MEQ/L POTASSIUM (test code = 2228) 4.2 MEQ/L CHLORIDE (test code = 2215) 103 MEQ/L CARBON DIOXIDE (test code = 24 MEQ/L 2205) CALCIUM (test code = 2209) 9.5 MG/DL PROTEIN, TOTAL (test code = 7.1 G/DL 2228) ALBUMIN (test code = 2201) 4.2 G/DL CALCULATED GLOBULIN (test 2.9 G/DL code = 2240) CALCULATED A/G RATIO (test 1.4 RATIO code = 2234) BILIRUBIN, TOTAL (test code = 0.7 MG/DL 2206) ALKALINE PHOSPHATASE (test 70 U/L code = 2204) SGOT (AST) (test code = 2218) 11 U/L SGPT (ALT) (test code = 2219) 8 U/L COMPREHENSIVE METABOLIC [id number] 00:00:00 Test Item Value Reference Range Interpretation Comments GLUCOSE (test code = 2217) 88 MG/DL BUN (test code = 2208) 13 MG/DL CREATININE (test code = 2214) 0.6 MG/DL eGFR AMER. (test code 138 ML/MIN/1.73 = 89879) eGFR NON- AMER. (test 114 ML/MIN/1.73 code = 46675) CALCULATED BUN/CREAT (test 22 RATIO code = 2235) SODIUM (test code = 2231) 134 MEQ/L POTASSIUM (test code = 2228) 4.2 MEQ/L CHLORIDE (test code = 2215) 103 MEQ/L CARBON DIOXIDE (test code = 24 MEQ/L 2205) CALCIUM (test code = 2209) 9.5 MG/DL PROTEIN, TOTAL (test code = 7.1 G/DL 2228) ALBUMIN (test code = 2201) 4.2 G/DL CALCULATED GLOBULIN (test 2.9 G/DL code = 2240) CALCULATED A/G RATIO (test 1.4 RATIO code = 2234) BILIRUBIN, TOTAL (test code = 0.7 MG/DL 2206) ALKALINE PHOSPHATASE (test 70 U/L code = 220) SGOT (AST) (test code = 2218) 11 U/L SGPT (ALT) (test code = 2219) 8 U/L LIPID [id number] 00:00:00 Test Item Value Reference Range Interpretation Comments CHOLESTEROL (test code = 2210) 195 MG/DL TRIGLYCERIDES (test code = 2232) 133 MG/DL HDL CHOLESTEROL (test code = 2220) 38 MG/DL CALCULATED LDL CHOL (test code = 130 MG/DL 2236) RISK RATIO LDL/HDL (test code = 3.43 RATIO 2238) HEMOGLOBIN [id number] 00:00:00 Test Item Value Reference Range Interpretation Comments HEMOGLOBIN A1c (test code = 01389) 6.1 % LIPID [id number] 00:00:00 Test Item Value Reference Range Interpretation Comments CHOLESTEROL (test code = 2210) 195 MG/DL TRIGLYCERIDES (test code = 2232) 133 MG/DL HDL CHOLESTEROL (test code = 2220) 38 MG/DL CALCULATED LDL CHOL (test code = 130 MG/DL 7) RISK RATIO LDL/HDL (test code = 3.43 RATIO 2238) THYROID II PROFILE (T3U, T4, T7, TSH)2015-04-14 00:00:00 Test Item Value Reference Range Interpretation Comments T3 UPTAKE (test code = 2817) 26.9 % T4 (THYROXINE) (test code = 2819) 8.8 UG/DL CALCULATED T7 (FTI) (test code = 2.37 0680) TSH (test code = 2821) 0.9 UIU/ML THYROID II PROFILE (T3U, T4, T7, TSH)2015-04-14 00:00:00 Test Item Value Reference Range Interpretation Comments T3 UPTAKE (test code = 2817) 26.9 % T4 (THYROXINE) (test code = 2819) 8.8 UG/DL CALCULATED T7 (FTI) (test code = 2.37 2820) TSH (test code = 2821) 0.9 UIU/ML CBC W/AUTO [id number] 00:00:00 Test Item Value Reference Range Interpretation Comments WBC (test code = 1001) 7.0 K/UL RBC (test code = 1002) 4.51 M/UL HEMOGLOBIN (test code = 1003) 12.9 G/DL HEMATOCRIT (test code = 1004) 39.0 % MCV (test code = 1005) 86.5 fL MCH (test code = 1006) 28.6 PG MCHC (test code = 1007) 33.1 G/DL RDW (test code = 1038) 13.5 % NEUTROPHILS (test code = 1008) 58 % LYMPHOCYTES (test code = 1010) 34 % MONOCYTES (test code = 1011) 6 % EOSINOPHILS (test code = 1012) 2 % BASOPHILS (test code = 1013) % PLATELET COUNT (test code = 1015) 286 K/UL CBC W/AUTO [id number] 00:00:00 Test Item Value Reference Range Interpretation Comments WBC (test code = 1001) 7.0 K/UL RBC (test code = 1002) 4.51 M/UL HEMOGLOBIN (test code = 1003) 12.9 G/DL HEMATOCRIT (test code = 1004) 39.0 % MCV (test code = 1005) 86.5 fL MCH (test code = 1006) 28.6 PG MCHC (test code = 1007) 33.1 G/DL RDW (test code = 1038) 13.5 % NEUTROPHILS (test code = 1008) 58 % LYMPHOCYTES (test code = 1010) 34 % MONOCYTES (test code = 1011) 6 % EOSINOPHILS (test code = 1012) 2 % BASOPHILS (test code = 1013) % PLATELET COUNT (test code = 1015) 286 K/UL COMPREHENSIVE METABOLIC [id number] 00:00:00 Test Item Value Reference Range Interpretation Comments GLUCOSE (test code = 2217) 88 MG/DL BUN (test code = 2208) 13 MG/DL CREATININE (test code = 2214) 0.6 MG/DL eGFR AMER. (test code 138 ML/MIN/1.73 = 30110) eGFR NON- AMER. (test 114 ML/MIN/1.73 code = 09848) CALCULATED BUN/CREAT (test 22 RATIO code = 2235) SODIUM (test code = 2231) 134 MEQ/L POTASSIUM (test code = 2228) 4.2 MEQ/L CHLORIDE (test code = 2215) 103 MEQ/L CARBON DIOXIDE (test code = 24 MEQ/L 2205) CALCIUM (test code = 2209) 9.5 MG/DL PROTEIN, TOTAL (test code = 7.1 G/DL 2228) ALBUMIN (test code = 2201) 4.2 G/DL CALCULATED GLOBULIN (test 2.9 G/DL code = 2240) CALCULATED A/G RATIO (test 1.4 RATIO code = 2234) BILIRUBIN, TOTAL (test code = 0.7 MG/DL 2206) ALKALINE PHOSPHATASE (test 70 U/L code = 220) SGOT (AST) (test code = 2218) 11 U/L SGPT (ALT) (test code = 2219) 8 U/L LIPID [id number] 00:00:00 Test Item Value Reference Range Interpretation Comments CHOLESTEROL (test code = 2210) 195 MG/DL TRIGLYCERIDES (test code = 2232) 133 MG/DL HDL CHOLESTEROL (test code = 2220) 38 MG/DL CALCULATED LDL CHOL (test code = 130 MG/DL 2236) RISK RATIO LDL/HDL (test code = 3.43 RATIO 8) THYROID II PROFILE (T3U, T4, T7, TSH)2015-04-14 00:00:00 Test Item Value Reference Range Interpretation Comments T3 UPTAKE (test code = 2817) 26.9 % T4 (THYROXINE) (test code = 2819) 8.8 UG/DL CALCULATED T7 (FTI) (test code = 2.37 1540) TSH (test code = 2821) 0.9 UIU/ML HEMOGLOBIN [id number] 00:00:00 Test Item Value Reference Range Interpretation Comments HEMOGLOBIN A1c (test code = 10596) 6.1 % HEMOGLOBIN [id number] 00:00:00 Test Item Value Reference Range Interpretation Comments HEMOGLOBIN A1c (test code = 90171) 6.1 % HEMOGLOBIN [id number] 00:00:00 Test Item Value Reference Range Interpretation Comments HEMOGLOBIN A1c (test code = 39538) 6.1 % CBC W/AUTO [id number] 00:00:00 Test Item Value Reference Range Interpretation Comments WBC (test code = 1001) 7.0 K/UL RBC (test code = 1002) 4.51 M/UL HEMOGLOBIN (test code = 1003) 12.9 G/DL HEMATOCRIT (test code = 1004) 39.0 % MCV (test code = 1005) 86.5 fL MCH (test code = 1006) 28.6 PG MCHC (test code = 1007) 33.1 G/DL RDW (test code = 1038) 13.5 % NEUTROPHILS (test code = 1008) 58 % LYMPHOCYTES (test code = 1010) 34 % MONOCYTES (test code = 1011) 6 % EOSINOPHILS (test code = 1012) 2 % BASOPHILS (test code = 1013) % PLATELET COUNT (test code = 1015) 286 K/UL CBC W/AUTO [id number] 00:00:00 Test Item Value Reference Range Interpretation Comments WBC (test code = 1001) 7.0 K/UL RBC (test code = 1002) 4.51 M/UL HEMOGLOBIN (test code = 1003) 12.9 G/DL HEMATOCRIT (test code = 1004) 39.0 % MCV (test code = 1005) 86.5 fL MCH (test code = 1006) 28.6 PG MCHC (test code = 1007) 33.1 G/DL RDW (test code = 1038) 13.5 % NEUTROPHILS (test code = 1008) 58 % LYMPHOCYTES (test code = 1010) 34 % MONOCYTES (test code = 1011) 6 % EOSINOPHILS (test code = 1012) 2 % BASOPHILS (test code = 1013) % PLATELET COUNT (test code = 1015) 286 K/UL CBC W/AUTO [id number] 00:00:00 Test Item Value Reference Range Interpretation Comments WBC (test code = 1001) 7.0 K/UL RBC (test code = 1002) 4.51 M/UL HEMOGLOBIN (test code = 1003) 12.9 G/DL HEMATOCRIT (test code = 1004) 39.0 % MCV (test code = 1005) 86.5 fL MCH (test code = 1006) 28.6 PG MCHC (test code = 1007) 33.1 G/DL RDW (test code = 1038) 13.5 % NEUTROPHILS (test code = 1008) 58 % LYMPHOCYTES (test code = 1010) 34 % MONOCYTES (test code = 1011) 6 % EOSINOPHILS (test code = 1012) 2 % BASOPHILS (test code = 1013) % PLATELET COUNT (test code = 1015) 286 K/UL COMPREHENSIVE METABOLIC [id number] 00:00:00 Test Item Value Reference Range Interpretation Comments GLUCOSE (test code = 2217) 88 MG/DL BUN (test code = 2208) 13 MG/DL CREATININE (test code = 2214) 0.6 MG/DL eGFR AMER. (test code 138 ML/MIN/1.73 = 84245) eGFR NON- AMER. (test 114 ML/MIN/1.73 code = 86736) CALCULATED BUN/CREAT (test 22 RATIO code = 2235) SODIUM (test code = 2231) 134 MEQ/L POTASSIUM (test code = 2228) 4.2 MEQ/L CHLORIDE (test code = 2215) 103 MEQ/L CARBON DIOXIDE (test code = 24 MEQ/L 2205) CALCIUM (test code = 2209) 9.5 MG/DL PROTEIN, TOTAL (test code = 7.1 G/DL 2228) ALBUMIN (test code = 2201) 4.2 G/DL CALCULATED GLOBULIN (test 2.9 G/DL code = 2240) CALCULATED A/G RATIO (test 1.4 RATIO code = 2234) BILIRUBIN, TOTAL (test code = 0.7 MG/DL 2206) ALKALINE PHOSPHATASE (test 70 U/L code = 2204) SGOT (AST) (test code = 2218) 11 U/L SGPT (ALT) (test code = 2219) 8 U/L COMPREHENSIVE METABOLIC [id number] 00:00:00 Test Item Value Reference Range Interpretation Comments GLUCOSE (test code = 2217) 88 MG/DL BUN (test code = 2208) 13 MG/DL CREATININE (test code = 2214) 0.6 MG/DL eGFR AMER. (test code 138 ML/MIN/1.73 = 56848) eGFR NON- AMER. (test 114 ML/MIN/1.73 code = 25722) CALCULATED BUN/CREAT (test 22 RATIO code = 2235) SODIUM (test code = 2231) 134 MEQ/L POTASSIUM (test code = 2228) 4.2 MEQ/L CHLORIDE (test code = 2215) 103 MEQ/L CARBON DIOXIDE (test code = 24 MEQ/L 2205) CALCIUM (test code = 2209) 9.5 MG/DL PROTEIN, TOTAL (test code = 7.1 G/DL 2228) ALBUMIN (test code = 2201) 4.2 G/DL CALCULATED GLOBULIN (test 2.9 G/DL code = 2240) CALCULATED A/G RATIO (test 1.4 RATIO code = 2234) BILIRUBIN, TOTAL (test code = 0.7 MG/DL 2206) ALKALINE PHOSPHATASE (test 70 U/L code = 220) SGOT (AST) (test code = 2218) 11 U/L SGPT (ALT) (test code = 2219) 8 U/L LIPID [id number] 00:00:00 Test Item Value Reference Range Interpretation Comments CHOLESTEROL (test code = 2210) 195 MG/DL TRIGLYCERIDES (test code = 2232) 133 MG/DL HDL CHOLESTEROL (test code = 2220) 38 MG/DL CALCULATED LDL CHOL (test code = 130 MG/DL 7) RISK RATIO LDL/HDL (test code = 3.43 RATIO 2238) LIPID [id number] 00:00:00 Test Item Value Reference Range Interpretation Comments CHOLESTEROL (test code = 2210) 195 MG/DL TRIGLYCERIDES (test code = 2232) 133 MG/DL HDL CHOLESTEROL (test code = 2220) 38 MG/DL CALCULATED LDL CHOL (test code = 130 MG/DL 7) RISK RATIO LDL/HDL (test code = 3.43 RATIO 2238) THYROID II PROFILE (T3U, T4, T7, TSH)2015-04-14 00:00:00 Test Item Value Reference Range Interpretation Comments T3 UPTAKE (test code = 2817) 26.9 % T4 (THYROXINE) (test code = 2819) 8.8 UG/DL CALCULATED T7 (FTI) (test code = 2.37 1140) TSH (test code = 2821) 0.9 UIU/ML THYROID II PROFILE (T3U, T4, T7, TSH)2015-04-14 00:00:00 Test Item Value Reference Range Interpretation Comments T3 UPTAKE (test code = 2817) 26.9 % T4 (THYROXINE) (test code = 2819) 8.8 UG/DL CALCULATED T7 (FTI) (test code = 2.37 4100) TSH (test code = 2821) 0.9 UIU/ML HEMOGLOBIN [id number] 00:00:00 Test Item Value Reference Range Interpretation Comments HEMOGLOBIN A1c (test code = 20791) 6.1 % HEMOGLOBIN [id number] 00:00:00 Test Item Value Reference Range Interpretation Comments HEMOGLOBIN A1c (test code = 87194) 6.1 % HEMOGLOBIN [id number] 00:00:00 Test Item Value Reference Range Interpretation Comments HEMOGLOBIN A1c (test code = 42680) 6.1 % CBC W/AUTO [id number] 00:00:00 Test Item Value Reference Range Interpretation Comments WBC (test code = 1001) 7.0 K/UL RBC (test code = 1002) 4.51 M/UL HEMOGLOBIN (test code = 1003) 12.9 G/DL HEMATOCRIT (test code = 1004) 39.0 % MCV (test code = 1005) 86.5 fL MCH (test code = 1006) 28.6 PG MCHC (test code = 1007) 33.1 G/DL RDW (test code = 1038) 13.5 % NEUTROPHILS (test code = 1008) 58 % LYMPHOCYTES (test code = 1010) 34 % MONOCYTES (test code = 1011) 6 % EOSINOPHILS (test code = 1012) 2 % BASOPHILS (test code = 1013) % PLATELET COUNT (test code = 1015) 286 K/UL CBC W/AUTO [id number] 00:00:00 Test Item Value Reference Range Interpretation Comments WBC (test code = 1001) 7.0 K/UL RBC (test code = 1002) 4.51 M/UL HEMOGLOBIN (test code = 1003) 12.9 G/DL HEMATOCRIT (test code = 1004) 39.0 % MCV (test code = 1005) 86.5 fL MCH (test code = 1006) 28.6 PG MCHC (test code = 1007) 33.1 G/DL RDW (test code = 1038) 13.5 % NEUTROPHILS (test code = 1008) 58 % LYMPHOCYTES (test code = 1010) 34 % MONOCYTES (test code = 1011) 6 % EOSINOPHILS (test code = 1012) 2 % BASOPHILS (test code = 1013) % PLATELET COUNT (test code = 1015) 286 K/UL CBC W/AUTO [id number] 00:00:00 Test Item Value Reference Range Interpretation Comments WBC (test code = 1001) 7.0 K/UL RBC (test code = 1002) 4.51 M/UL HEMOGLOBIN (test code = 1003) 12.9 G/DL HEMATOCRIT (test code = 1004) 39.0 % MCV (test code = 1005) 86.5 fL MCH (test code = 1006) 28.6 PG MCHC (test code = 1007) 33.1 G/DL RDW (test code = 1038) 13.5 % NEUTROPHILS (test code = 1008) 58 % LYMPHOCYTES (test code = 1010) 34 % MONOCYTES (test code = 1011) 6 % EOSINOPHILS (test code = 1012) 2 % BASOPHILS (test code = 1013) % PLATELET COUNT (test code = 1015) 286 K/UL COMPREHENSIVE METABOLIC [id number] 00:00:00 Test Item Value Reference Range Interpretation Comments GLUCOSE (test code = 2217) 88 MG/DL BUN (test code = 2208) 13 MG/DL CREATININE (test code = 2214) 0.6 MG/DL eGFR AMER. (test code 138 ML/MIN/1.73 = 78122) eGFR NON- AMER. (test 114 ML/MIN/1.73 code = 32705) CALCULATED BUN/CREAT (test 22 RATIO code = 2235) SODIUM (test code = 2231) 134 MEQ/L POTASSIUM (test code = 2228) 4.2 MEQ/L CHLORIDE (test code = 2215) 103 MEQ/L CARBON DIOXIDE (test code = 24 MEQ/L 220) CALCIUM (test code = 2209) 9.5 MG/DL PROTEIN, TOTAL (test code = 7.1 G/DL 2228) ALBUMIN (test code = 2201) 4.2 G/DL CALCULATED GLOBULIN (test 2.9 G/DL code = 2240) CALCULATED A/G RATIO (test 1.4 RATIO code = 2234) BILIRUBIN, TOTAL (test code = 0.7 MG/DL 2206) ALKALINE PHOSPHATASE (test 70 U/L code = 2204) SGOT (AST) (test code = 2218) 11 U/L SGPT (ALT) (test code = 2219) 8 U/L COMPREHENSIVE METABOLIC [id number] 00:00:00 Test Item Value Reference Range Interpretation Comments GLUCOSE (test code = 2217) 88 MG/DL BUN (test code = 2208) 13 MG/DL CREATININE (test code = 2214) 0.6 MG/DL eGFR AMER. (test code 138 ML/MIN/1.73 = 09906) eGFR NON- AMER. (test 114 ML/MIN/1.73 code = 85036) CALCULATED BUN/CREAT (test 22 RATIO code = 2235) SODIUM (test code = 2231) 134 MEQ/L POTASSIUM (test code = 2228) 4.2 MEQ/L CHLORIDE (test code = 2215) 103 MEQ/L CARBON DIOXIDE (test code = 24 MEQ/L 2205) CALCIUM (test code = 2209) 9.5 MG/DL PROTEIN, TOTAL (test code = 7.1 G/DL 2228) ALBUMIN (test code = 2201) 4.2 G/DL CALCULATED GLOBULIN (test 2.9 G/DL code = 2240) CALCULATED A/G RATIO (test 1.4 RATIO code = 2234) BILIRUBIN, TOTAL (test code = 0.7 MG/DL 2206) ALKALINE PHOSPHATASE (test 70 U/L code = 2204) SGOT (AST) (test code = 2218) 11 U/L SGPT (ALT) (test code = 2219) 8 U/L LIPID [id number] 00:00:00 Test Item Value Reference Range Interpretation Comments CHOLESTEROL (test code = 2210) 195 MG/DL TRIGLYCERIDES (test code = 2232) 133 MG/DL HDL CHOLESTEROL (test code = 2220) 38 MG/DL CALCULATED LDL CHOL (test code = 130 MG/DL 2236) RISK RATIO LDL/HDL (test code = 3.43 RATIO 2238) LIPID [id number] 00:00:00 Test Item Value Reference Range Interpretation Comments CHOLESTEROL (test code = 2210) 195 MG/DL TRIGLYCERIDES (test code = 2232) 133 MG/DL HDL CHOLESTEROL (test code = 2220) 38 MG/DL CALCULATED LDL CHOL (test code = 130 MG/DL 2236) RISK RATIO LDL/HDL (test code = 3.43 RATIO 2238) THYROID II PROFILE (T3U, T4, T7, TSH)2015-04-14 00:00:00 Test Item Value Reference Range Interpretation Comments T3 UPTAKE (test code = 2817) 26.9 % T4 (THYROXINE) (test code = 2819) 8.8 UG/DL CALCULATED T7 (FTI) (test code = 2.37 2820) TSH (test code = 2821) 0.9 UIU/ML THYROID II PROFILE (T3U, T4, T7, TSH)2015-04-14 00:00:00 Test Item Value Reference Range Interpretation Comments T3 UPTAKE (test code = 2817) 26.9 % T4 (THYROXINE) (test code = 2819) 8.8 UG/DL CALCULATED T7 (FTI) (test code = 2.37 2820) TSH (test code = 2821) 0.9 UIU/ML CT/NG, AMPLIFIED, THINPREP [ADDED]2014-11-19 00:00:00 Test Item Value Reference Range Interpretation Comments GONORRHEA, AMPLIFIED (test code = NEGATIVE 14778) CHLAMYDIA, AMPLIFIED (test code = NEGATIVE 83489) CT/NG, AMPLIFIED, THINPREP [ADDED]2014-11-19 00:00:00 Test Item Value Reference Range Interpretation Comments GONORRHEA, AMPLIFIED (test code = NEGATIVE 23316) CHLAMYDIA, AMPLIFIED (test code = NEGATIVE 31482) CT/NG, AMPLIFIED, THINPREP [ADDED]2014-11-19 00:00:00 Test Item Value Reference Range Interpretation Comments GONORRHEA, AMPLIFIED (test code = NEGATIVE 23767) CHLAMYDIA, AMPLIFIED (test code = NEGATIVE 52419) CT/NG, AMPLIFIED, THINPREP [ADDED]2014-11-19 00:00:00 Test Item Value Reference Range Interpretation Comments GONORRHEA, AMPLIFIED (test code = NEGATIVE 13757) CHLAMYDIA, AMPLIFIED (test code = NEGATIVE 51658) CT/NG, AMPLIFIED, THINPREP [ADDED]2014-11-19 00:00:00 Test Item Value Reference Range Interpretation Comments GONORRHEA, AMPLIFIED (test code = NEGATIVE 96854) CHLAMYDIA, AMPLIFIED (test code = NEGATIVE 95312) CT/NG, AMPLIFIED, THINPREP [ADDED]2014-11-19 00:00:00 Test Item Value Reference Range Interpretation Comments GONORRHEA, AMPLIFIED (test code = NEGATIVE 95844) CHLAMYDIA, AMPLIFIED (test code = NEGATIVE 15601) CT/NG, AMPLIFIED, THINPREP [ADDED]2014-11-19 00:00:00 Test Item Value Reference Range Interpretation Comments GONORRHEA, AMPLIFIED (test code = NEGATIVE 58685) CHLAMYDIA, AMPLIFIED (test code = NEGATIVE 46030) PAP TEST, THINPREP, IMAGED [ADDED]2014-11-18 00:00:00 Test Item Value Reference Range Interpretation Comments SOURCE: (test code = CERVICAL, ENDOCERVICAL 8001) SLIDES: (test code = 1 8011) LMP: (test code = NOT GIVEN 8021) SPECIMEN ADEQUACY: (NOTE) (test code = 26301) INTERPRETATION: (test NO EPITHELIAL code = 61176) ABNORMALITY SEE BELOW OTHER COMMENTS: (test (NOTE) code = 8081) WASH 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 COOLER OPERATOR: (NOTE) (test code = 8101) LOCATION: (test code MAIN = 32729) PAP TEST, THINPREP, IMAGED [ADDED]2014-11-18 00:00:00 Test Item Value Reference Range Interpretation Comments SOURCE: (test code = CERVICAL, ENDOCERVICAL 8001) SLIDES: (test code = 1 8011) LMP: (test code = NOT GIVEN 8021) SPECIMEN ADEQUACY: (NOTE) (test code = 33079) INTERPRETATION: (test NO EPITHELIAL code = 75847) ABNORMALITY SEE BELOW OTHER COMMENTS: (test (NOTE) code = 8081) WASH OIL COOLER OPERATOR: (NOTE) (test code = 8101) LOCATION: (test code MAIN = 17519) PAP TEST, THINPREP, IMAGED [ADDED]2014-11-18 00:00:00 Test Item Value Reference Range Interpretation Comments SOURCE: (test code = CERVICAL, ENDOCERVICAL 8001) SLIDES: (test code = 1 8011) LMP: (test code = NOT GIVEN 8021) SPECIMEN ADEQUACY: (NOTE) (test code = 16637) INTERPRETATION: (test NO EPITHELIAL code = 59658) ABNORMALITY SEE BELOW OTHER COMMENTS: (test (NOTE) code = 8081) WASH OIL COOLER OPERATOR: (NOTE) (test code = 8101) LOCATION: (test code MAIN = 43324) HPV HIGH RISK WITH GENOTYPE, TP [ADDED]2014-11-18 00:00:00 Test Item Value Reference Range Interpretation Comments HPV HIGH RISK INTERP (test code = NEGATIVE 18238) HPV 16 (test code = 33192) NEGATIVE HPV 18 (test code = 00167) NEGATIVE HPV, HR, OTHER GENOTYPES (test code NEGATIVE = 42975) HPV HIGH RISK WITH GENOTYPE, TP [ADDED]2014-11-18 00:00:00 Test Item Value Reference Range Interpretation Comments HPV HIGH RISK INTERP (test code = NEGATIVE 55802) HPV 16 (test code = 10057) NEGATIVE HPV 18 (test code = 82098) NEGATIVE HPV, HR, OTHER GENOTYPES (test code NEGATIVE = 94787) HPV HIGH RISK WITH GENOTYPE, TP [ADDED]2014-11-18 00:00:00 Test Item Value Reference Range Interpretation Comments HPV HIGH RISK INTERP (test code = NEGATIVE 76620) HPV 16 (test code = 57741) NEGATIVE HPV 18 (test code = 11541) NEGATIVE HPV, HR, OTHER GENOTYPES (test code NEGATIVE = 53263) PAP TEST, THINPREP, IMAGED [ADDED]2014-11-18 00:00:00 Test Item Value Reference Range Interpretation Comments SOURCE: (test code = CERVICAL, ENDOCERVICAL 8001) SLIDES: (test code = 1 8011) LMP: (test code = NOT GIVEN 8021) SPECIMEN ADEQUACY: (NOTE) (test code = 10966) INTERPRETATION: (test NO EPITHELIAL code = 71701) ABNORMALITY SEE BELOW OTHER COMMENTS: (test (NOTE) code = 8081) WASH OIL COOLER OPERATOR: (NOTE) (test code = 8101) LOCATION: (test code MAIN = 64681) PAP TEST, THINPREP, IMAGED [ADDED]2014-11-18 00:00:00 Test Item Value Reference Range Interpretation Comments SOURCE: (test code = CERVICAL, ENDOCERVICAL 8001) SLIDES: (test code = 1 8011) LMP: (test code = NOT GIVEN 8021) SPECIMEN ADEQUACY: (NOTE) (test code = 96813) INTERPRETATION: (test NO EPITHELIAL code = 67596) ABNORMALITY SEE BELOW OTHER COMMENTS: (test (NOTE) code = 8081) WASH OIL COOLER OPERATOR: (NOTE) (test code = 8101) LOCATION: (test code MAIN = 50341) HPV HIGH RISK WITH GENOTYPE, TP [ADDED]2014-11-18 00:00:00 Test Item Value Reference Range Interpretation Comments HPV HIGH RISK INTERP (test code = NEGATIVE 86052) HPV 16 (test code = 00407) NEGATIVE HPV 18 (test code = 18443) NEGATIVE HPV, HR, OTHER GENOTYPES (test code NEGATIVE = 23917) HPV HIGH RISK WITH GENOTYPE, TP [ADDED]2014-11-18 00:00:00 Test Item Value Reference Range Interpretation Comments HPV HIGH RISK INTERP (test code = NEGATIVE 37183) HPV 16 (test code = 71717) NEGATIVE HPV 18 (test code = 60629) NEGATIVE HPV, HR, OTHER GENOTYPES (test code NEGATIVE = 80931) PAP TEST, THINPREP, IMAGED [ADDED]2014-11-18 00:00:00 Test Item Value Reference Range Interpretation Comments SOURCE: (test code = CERVICAL, ENDOCERVICAL 8001) SLIDES: (test code = 1 8011) LMP: (test code = NOT GIVEN 8021) SPECIMEN ADEQUACY: (NOTE) (test code = 45284) INTERPRETATION: (test NO EPITHELIAL code = 07567) ABNORMALITY SEE BELOW OTHER COMMENTS: (test (NOTE) code = 8081) WASH OIL COOLER OPERATOR: (NOTE) (test code = 8101) LOCATION: (test code MAIN = 73757) PAP TEST, THINPREP, IMAGED [ADDED]2014-11-18 00:00:00 Test Item Value Reference Range Interpretation Comments SOURCE: (test code = CERVICAL, ENDOCERVICAL 8001) SLIDES: (test code = 1 8011) LMP: (test code = NOT GIVEN 8021) SPECIMEN ADEQUACY: (NOTE) (test code = 27839) INTERPRETATION: (test NO EPITHELIAL code = 52999) ABNORMALITY SEE BELOW OTHER COMMENTS: (test (NOTE) code = 8081) WASH OIL COOLER OPERATOR: (NOTE) (test code = 8101) LOCATION: (test code MAIN = 32373) HPV HIGH RISK WITH GENOTYPE, TP [ADDED]2014-11-18 00:00:00 Test Item Value Reference Range Interpretation Comments HPV HIGH RISK INTERP (test code = NEGATIVE 97233) HPV 16 (test code = 37338) NEGATIVE HPV 18 (test code = 88117) NEGATIVE HPV, HR, OTHER GENOTYPES (test code NEGATIVE = 73004) HPV HIGH RISK WITH GENOTYPE, TP [ADDED]2014-11-18 00:00:00 Test Item Value Reference Range Interpretation Comments HPV HIGH RISK INTERP (test code = NEGATIVE 14905) HPV 16 (test code = 73184) NEGATIVE HPV 18 (test code = 44602) NEGATIVE HPV, HR, OTHER GENOTYPES (test code NEGATIVE = 88192) [id number] 00:00:00 Test Item Value Reference Range Interpretation Comments RPR RESULT (test code = NON-REACTIVE 3501) RPR TITER (test code = 3500) NOT INDIC. TITER [id number] 00:00:00 Test Item Value Reference Range Interpretation Comments RPR RESULT (test code = NON-REACTIVE 3501) RPR TITER (test code = 3500) NOT INDIC. TITER [id number] 00:00:00 Test Item Value Reference Range Interpretation Comments RPR RESULT (test code = NON-REACTIVE 3501) RPR TITER (test code = 3500) NOT INDIC. TITER HIV AB/AG COMBO RFLX [id number] 00:00:00 Test Item Value Reference Range Interpretation Comments HIV AB/AG COMBO RFLX CONF (test NON-REACTIVE code = 3514) HIV AB/AG COMBO RFLX [id number] 00:00:00 Test Item Value Reference Range Interpretation Comments HIV AB/AG COMBO RFLX CONF (test NON-REACTIVE code = 3514) HEPATITIS PROFILE (A,B,C)2014-11-17 00:00:00 Test Item Value Reference Range Interpretation Comments HEPATITIS A TOTAL AB (test code REACTIVE = 2725) HEPATITIS B SURF AG (test code = NON-REACTIVE 2739) HEP B CORE TOTAL AB (test code = NON-REACTIVE 2729) HEPATITIS B SURFACE AB (test NON-REACTIVE code = 2737) HEPATITIS C ANTIBODY (test code NON-REACTIVE = 4675) INTERPRETATION HEPATITIS A: (NOTE) (test code = 2552) INTERPRETATION HEPATITIS B: (NOTE) (test code = 41589) INTERPRETATION HEPATITIS C: (NOTE) (test code = 42940) HEPATITIS PROFILE (A,B,C)2014-11-17 00:00:00 Test Item Value Reference Range Interpretation Comments HEPATITIS A TOTAL AB (test code REACTIVE = 2725) HEPATITIS B SURF AG (test code = NON-REACTIVE 2739) HEP B CORE TOTAL AB (test code = NON-REACTIVE 2729) HEPATITIS B SURFACE AB (test NON-REACTIVE code = 2737) HEPATITIS C ANTIBODY (test code NON-REACTIVE = 4675) INTERPRETATION HEPATITIS A: (NOTE) (test code = 2552) INTERPRETATION HEPATITIS B: (NOTE) (test code = 49154) INTERPRETATION HEPATITIS C: (NOTE) (test code = 82210) HEPATITIS A IgM [REFLEX]2014-11-17 00:00:00 Test Item Value Reference Range Interpretation Comments HEPATITIS A IgM (test code = NON-REACTIVE 2728) [id number] 00:00:00 Test Item Value Reference Range Interpretation Comments RPR RESULT (test code = NON-REACTIVE 3501) RPR TITER (test code = 3500) NOT INDIC. TITER [id number] 00:00:00 Test Item Value Reference Range Interpretation Comments RPR RESULT (test code = NON-REACTIVE 3501) RPR TITER (test code = 3500) NOT INDIC. TITER HIV AB/AG COMBO RFLX [id number] 00:00:00 Test Item Value Reference Range Interpretation Comments HIV AB/AG COMBO RFLX CONF (test NON-REACTIVE code = 3514) HEPATITIS PROFILE (A,B,C)2014-11-17 00:00:00 Test Item Value Reference Range Interpretation Comments HEPATITIS A TOTAL AB (test code REACTIVE = 2725) HEPATITIS B SURF AG (test code = NON-REACTIVE 2739) HEP B CORE TOTAL AB (test code = NON-REACTIVE 2729) HEPATITIS B SURFACE AB (test NON-REACTIVE code = 2737) HEPATITIS C ANTIBODY (test code NON-REACTIVE = 4675) INTERPRETATION HEPATITIS A: (NOTE) (test code = 2552) INTERPRETATION HEPATITIS B: (NOTE) (test code = 01236) INTERPRETATION HEPATITIS C: (NOTE) (test code = 91066) HEPATITIS A IgM [REFLEX]2014-11-17 00:00:00 Test Item Value Reference Range Interpretation Comments HEPATITIS A IgM (test code = NON-REACTIVE 2728) [id number] 00:00:00 Test Item Value Reference Range Interpretation Comments RPR RESULT (test code = NON-REACTIVE 3501) RPR TITER (test code = 3500) NOT INDIC. TITER [id number] 00:00:00 Test Item Value Reference Range Interpretation Comments RPR RESULT (test code = NON-REACTIVE 3501) RPR TITER (test code = 3500) NOT INDIC. TITER [id number] 00:00:00 Test Item Value Reference Range Interpretation Comments RPR RESULT (test code = NON-REACTIVE 3501) RPR TITER (test code = 3500) NOT INDIC. TITER HIV AB/AG COMBO RFLX [id number] 00:00:00 Test Item Value Reference Range Interpretation Comments HIV AB/AG COMBO RFLX CONF (test NON-REACTIVE code = 3514) HIV AB/AG COMBO RFLX [id number] 00:00:00 Test Item Value Reference Range Interpretation Comments HIV AB/AG COMBO RFLX CONF (test NON-REACTIVE code = 3514) HEPATITIS PROFILE (A,B,C)2014-11-17 00:00:00 Test Item Value Reference Range Interpretation Comments HEPATITIS A TOTAL AB (test code REACTIVE = 2725) HEPATITIS B SURF AG (test code = NON-REACTIVE 2739) HEP B CORE TOTAL AB (test code = NON-REACTIVE 2729) HEPATITIS B SURFACE AB (test NON-REACTIVE code = 2737) HEPATITIS C ANTIBODY (test code NON-REACTIVE = 4675) INTERPRETATION HEPATITIS A: (NOTE) (test code = 2552) INTERPRETATION HEPATITIS B: (NOTE) (test code = 78397) INTERPRETATION HEPATITIS C: (NOTE) (test code = 42434) HEPATITIS PROFILE (A,B,C)2014-11-17 00:00:00 Test Item Value Reference Range Interpretation Comments HEPATITIS A TOTAL AB (test code REACTIVE = 2725) HEPATITIS B SURF AG (test code = NON-REACTIVE 2739) HEP B CORE TOTAL AB (test code = NON-REACTIVE 2729) HEPATITIS B SURFACE AB (test NON-REACTIVE code = 2737) HEPATITIS C ANTIBODY (test code NON-REACTIVE = 4675) INTERPRETATION HEPATITIS A: (NOTE) (test code = 2552) INTERPRETATION HEPATITIS B: (NOTE) (test code = 22285) INTERPRETATION HEPATITIS C: (NOTE) (test code = 65847) HEPATITIS A IgM [REFLEX]2014-11-17 00:00:00 Test Item Value Reference Range Interpretation Comments HEPATITIS A IgM (test code = NON-REACTIVE 2728) [id number] 00:00:00 Test Item Value Reference Range Interpretation Comments RPR RESULT (test code = NON-REACTIVE 3501) RPR TITER (test code = 3500) NOT INDIC. TITER [id number] 00:00:00 Test Item Value Reference Range Interpretation Comments RPR RESULT (test code = NON-REACTIVE 3501) RPR TITER (test code = 3500) NOT INDIC. TITER [id number] 00:00:00 Test Item Value Reference Range Interpretation Comments RPR RESULT (test code = NON-REACTIVE 3501) RPR TITER (test code = 3500) NOT INDIC. TITER HIV AB/AG COMBO RFLX [id number] 00:00:00 Test Item Value Reference Range Interpretation Comments HIV AB/AG COMBO RFLX CONF (test NON-REACTIVE code = 3514) HIV AB/AG COMBO RFLX [id number] 00:00:00 Test Item Value Reference Range Interpretation Comments HIV AB/AG COMBO RFLX CONF (test NON-REACTIVE code = 3514) HEPATITIS PROFILE (A,B,C)2014-11-17 00:00:00 Test Item Value Reference Range Interpretation Comments HEPATITIS A TOTAL AB (test code REACTIVE = 2725) HEPATITIS B SURF AG (test code = NON-REACTIVE 2739) HEP B CORE TOTAL AB (test code = NON-REACTIVE 2729) HEPATITIS B SURFACE AB (test NON-REACTIVE code = 2737) HEPATITIS C ANTIBODY (test code NON-REACTIVE = 4675) INTERPRETATION HEPATITIS A: (NOTE) (test code = 2552) INTERPRETATION HEPATITIS B: (NOTE) (test code = 73905) INTERPRETATION HEPATITIS C: (NOTE) (test code = 84481) HEPATITIS PROFILE (A,B,C)2014-11-17 00:00:00 Test Item Value Reference Range Interpretation Comments HEPATITIS A TOTAL AB (test code REACTIVE = 2725) HEPATITIS B SURF AG (test code = NON-REACTIVE 2739) HEP B CORE TOTAL AB (test code = NON-REACTIVE 2729) HEPATITIS B SURFACE AB (test NON-REACTIVE code = 2737) HEPATITIS C ANTIBODY (test code NON-REACTIVE = 4675) INTERPRETATION HEPATITIS A: (NOTE) (test code = 2552) INTERPRETATION HEPATITIS B: (NOTE) (test code = 97966) INTERPRETATION HEPATITIS C: (NOTE) (test code = 37873) HEPATITIS A IgM [REFLEX]2014-11-17 00:00:00 Test Item Value Reference Range Interpretation Comments HEPATITIS A IgM (test code = NON-REACTIVE 8)
[2023-05-18] MEDS ORDERED: ASPIRIN 81 MG CHEWABLE TABLET ONE (10:42)
[2023-05-18] MEDS ORDERED: NITROGLYCERIN 0.4 MG/TAB SL ONE (10:43)
[2023-05-18 11:07] LABS: Absolute Lymphocytes (CBC) 2.5 K/uL (0.7-4.9); Hematocrit 34.9 % (36.0-45.0); MCV 74.2 fL (80-100); MPV 7.7 fL (7.6-11.3); Platelets 340 thou/uL (152-406)
[2023-05-18] MEDS ORDERED: NA CHLORIDE 0.9% 1,000 ML ONE (11:18)
[2023-05-18 11:25] LABS: ALT/SGPT 17 U/L (13-56); AST/SGOT 8 U/L (15-37); Albumin 3.2 g/dL (3.4-5.0); Alkaline Phosphatase 95 U/L (45-117); BUN Blood Urea Nitrogen 9 mg/dL (7-18); Bicarbonate 24 mEq/L (21-32); Bilirubin Direct < 0.1 mg/dL (0-0.2); Bilirubin Indirect, Calculated ND mg/dL (0.2-0.8); Bilirubin Total 0.3 mg/dL (0.2-1.0); Glomerular Filtration Rate 112 ml/min (=/>90); Glucose Level 283 mg/dL (74-106); Magnesium 1.8 mg/dL (1.6-2.4); NT PRO-BNP 31 pg/mL (<125); Potassium 3.5 mEq/L (3.5-5.1); Protein, Total 7.5 g/dL (6.4-8.2); Sodium Level 133 mEq/L (136-145); Troponin High Sensitivity 3.3 pg/mL (<58.9)
--- NOTE | 2023-05-18 11:46 | RAD REPORT ---
EXAM DESCRIPTION: Mert Single View05/18/2023 11:27 am CLINICAL HISTORY: Chest pain COMPARISON: none FINDINGS: The lungs appear clear of acute infiltrate. The heart is normal size IMPRESSION: No acute abnormalities displayed
[2023-05-18] MEDS ORDERED: FENTANYL CITR 100 MCG/2 ML ONE (11:50)
--- NOTE | 2023-05-18 12:07 | EDPHYS ---
Physician Documentation [facility] Name: Marisabel Landon Age: 42 yrs Sex: Female : 1980 Arrival Date: 05/18/2023 Time: 10:16 Bed 5 Private MD: ED Physician Bob Rai HPI: 05/18 10:26 This 42 yrs old Female presents to ER via Unassigned with complaints of Chest rt Pain. 10:26 Patient presents to the ED with chest pain starting about 2 hours prior to arrival. rt This occurred when she was working. She states it is worse when she is walking around. It is substernal, radiates to the left shoulder and associated with shortness of breath. Denies other acute complaints at this time, other aggravating or alleviating factors. Patient states that she was here about a month or 2 ago for chest pains similar but not as bad as it was today. 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 Denies other acute complaints at this time, symptoms are moderate in severity, no other aggravating or elevating factors.. 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 - Social history:: Smoking status: Patient denies any tobacco usage or history of. ROS: 10:26 Constitutional: Negative for fever, chills, and weight loss, Abdomen/GI: Negative for rt abdominal pain, nausea, vomiting, diarrhea, and constipation, MS/Extremity: Negative for injury and deformity, Skin: Negative for injury, rash, and discoloration, Neuro: Negative for headache, weakness, numbness, tingling, and seizure, Psych: Negative for depression, anxiety, suicide ideation, homicidal ideation, and hallucinations, 10:26 Cardiovascular: Positive for chest pain, Negative for edema, 10:26 Respiratory: Positive for shortness of breath, Negative for cough, Exam: 10:26 Constitutional: This is a well developed, well nourished patient who is awake, alert, rt and in no acute distress. Head/Face: Normocephalic, atraumatic. Chest/axilla: Normal chest wall appearance and motion. Nontender with no deformity. No lesions are appreciated. Cardiovascular: Regular rate and rhythm with a normal S1 and S2. No gallops, murmurs, or rubs. Normal PMI, no JVD. No pulse deficits. Respiratory: Lungs have equal breath sounds bilaterally, clear to auscultation and percussion. No rales, rhonchi or wheezes noted. No increased work of breathing, no retractions or nasal flaring. Abdomen/GI: Soft, non-tender, with normal bowel sounds. No distension or tympany. No guarding or rebound. No evidence of tenderness throughout. Skin: Warm, dry with normal turgor. Normal color with no rashes, no lesions, and no evidence of cellulitis. MS/ Extremity: Pulses equal, no cyanosis. Neurovascular intact. Full, normal range of motion. Neuro: Awake and alert, GCS 15, oriented to person, place, time, and situation. Cranial nerves II-XII grossly intact. Motor strength 5/5 in all extremities. Sensory grossly intact. Cerebellar exam normal. Normal gait. Psych: Awake, alert, with orientation to person, place and time. Behavior, mood, and affect are within normal limits. 10:32 ECG was reviewed by the Attending Physician. rt Vital Signs: 10:20 BP 123 / 77; Pulse 80; Resp 21; Temp 97.8(O); Pulse Ox 98% ; rs5 10:22 BP 123 / 77; Pulse 80; Resp 20; Temp 97.9; Pulse Ox 97% on R/A; rs5 10:30 BP 121 / 72; Pulse 82; Resp 19; Pulse Ox 98% on 2 lpm NC; rs5 10:34 BP 107 / 62; Pulse 88; Resp 18; Pulse Ox 98% on 2 lpm NC; rs5 10:45 BP 91 / 68; Pulse 72; Resp 17; Pulse Ox 99% on 2 lpm NC; rs5 11:00 BP 113 / 67; Pulse 73; Resp 18; Pulse Ox 99% on 2 lpm NC; rs5 12:15 BP 115 / 74; Pulse 65; Resp 17; Pulse Ox 99% on R/A; rs5 13:20 BP 117 / 77; Pulse 69; Resp 18; Pulse Ox 99% on R/A; rs5 14:25 BP 101 / 66; Pulse 75; Resp 17; Pulse Ox 99% on R/A; rs5 15:40 BP 105 / 65; Pulse 77; Resp 17; Pulse Ox 99% on R/A; rs5 MDM: 10:21 Patient medically screened. rt 11:17 External Records Reviewed: Patient has other MRN in our system, [id number], reviewed rt prior visit for chest pain in February.. 12:07 Differential diagnosis: acute myocardial infarction, pleurisy, pneumonia, pneumothorax. rt HEART Score: History: Highly Suspicious (2), ECG: Normal (0), Age: < or = 45 years (0), Risk Factors: 1 or 2 risk factors (1), Troponin: < or = 1 x Normal Limit (0), Total Score = 3. The patient was given aspirin in the Emergency Department. Data reviewed: vital signs, nurses notes, lab test result(s), EKG, radiologic studies. Consideration of Admission/Observation Patient was admitted/placed on observation. Management of patient was discussed with the following: Hospitalist: Agrees to admit. I considered the following discharge prescriptions or medication management in the emergency department Medications were administered in the Emergency Department. See MAR. Test considered but Not performed: CT: Low suspicion for PE, CT angiogram not indicated. Care significantly affected by the following chronic conditions: Diabetes. Counseling: I had a detailed discussion with the patient and/or guardian regarding the historical points, exam findings, and any diagnostic results supporting the discharge/admit diagnosis, lab results, radiology results, the need for further work-up and treatment in the hospital. Response to treatment: the patient's symptoms have markedly improved after treatment. 05/18 10: Order name: Basic Metabolic Panel; Complete Time: rt 05/18 10: Order name: CBC with Diff; Complete Time: rt 05/18 10: Order name: LFT's; Complete Time: rt 05/18 10: Order name: Magnesium; Complete Time: rt 05/18 10: Order name: NT PRO-BNP; Complete Time: rt 05/18 10: Order name: Troponin HS; Complete Time: rt 05/18 10: Order name: Test, Serum; Complete Time: rt 05/18 12:59 Order name: T4 Free EDMS 05/18 12:59 Order name: Thyroid Stimulating Hormone EDMS 05/18 12:59 Order name: Urinalysis w/ reflexes EDMS 05/18 12:59 Order name: Basic Metabolic Panel EDMS 05/18 12:59 Order name: Basic Metabolic Panel EDMS 05/18 12:59 Order name: CBC with Automated Diff EDMS 05/18 12:59 Order name: CBC with Automated Diff EDMS 05/18 12:59 Order name: Lipid Profile EDMS 05/18 12:59 Order name: Lipid Profile EDMS 05/18 12:59 Order name: Magnesium EDMS 05/18 12:59 Order name: Magnesium EDMS 05/18 12:59 Order name: Phosphorus EDMS 05/18 12:59 Order name: Phosphorus EDMS 05/18 12:59 Order name: Troponin High Sensitivity EDMS 05/18 12:59 Order name: Troponin High Sensitivity EDMS 05/18 12:59 Order name: Troponin High Sensitivity EDMS 05/18 14:12 Order name: D-Dimer EDMS 05/18 10:26 Order name: XRAY Chest (1 view); Complete Time: 11:48 rt 05/18 10:26 Order name: EKG; Complete Time: 10:27 rt 05/18 10:26 Order name: Cardiac monitoring; Complete Time: 10:47 rt 05/18 10:26 Order name: EKG - Nurse/Tech; Complete Time: 10:47 rt 05/18 10:26 Order name: IV Saline Lock; Complete Time: 10:59 rt 05/18 10:26 Order name: Labs collected and sent; Complete Time: 10:59 rt 05/18 10:26 Order name: O2 Per Protocol; Complete Time: 10:59 rt 05/18 10:26 Order name: O2 Sat Monitoring; Complete Time: 10:59 rt EC:32 Rate is 76 beats/min. Rhythm is regular, Normal Sinus Rhythm with No ectopy. QRS [place] rt is Normal. CO interval is normal. QT interval is normal. No Q waves. T waves are Normal. No ST changes noted. Interpreted by me. Administered Medications: 10:28 Drug: Nitroglycerin Sublingual 0.4 mg Sublingual once; every five minute if needed x3 rs5 Route: Sublingual; 10:34 Follow up: Response: No adverse reaction; Pain is decreased rs5 11:02 Drug: Aspirin PO Chewable Tablet 324 mg PO once; 81 mg tablets x 4 Route: PO; rs5 11:06 Drug: NS 0.9% IV 1000 ml IV at 1 bolus Per protocol; 1000 mL bolus Route: IV; Rate: 1 rs5 bolus; Site: left antecubital; 11:09 Drug: Nitroglycerin Sublingual 0.4 mg Sublingual once; every five minute if needed x3 rs5 Route: Sublingual; 11:14 Follow up: Response: No adverse reaction; Pain is decreased rs5 11:16 Follow up: Third dose of Nitro not given per MD orders rs5 11:37 Drug: fentaNYL (PF) IVP 50 mcg IVP once Route: IVP; Site: left antecubital; rs5 12:05 Follow up: Response: No adverse reaction; Pain is decreased rs5 Disposition Summary: 05/18/23 12:07 Hospitalization Ordered Notes: Hospitalization Status: Observation rt Provider: Kiet Martin rt Condition: Stable rt Problem: new rt Symptoms: have improved rt Bed/Room Type: Standard rt Location: Telemetry/MedSurg (Inpatient)(05/18/23 15:06) sp Room Assignment: 428(05/18/23 15:06) sp Diagnosis - Chest pain, unspecified rt Forms: - Medication Reconciliation Form rt - SBAR form rt - Leadership Thank You Letter rt Signatures: Dispatcher [employer] Emma De La Torre RN RN dw Darline Davis sp Bob Rai MD MD rt Perfecto Ramirez RN RN rs5 Corrections: (The following items were deleted from the chart) 14:12 12:07 rt dw 15:06 12:07 Telemetry/MedSurg (observation) rt sp 15:06 14:12 428 sp
--- NOTE | 2023-05-18 12:07 | ER ---
Nurse's Notes [facility] Name: Marisabel Landon Age: 42 yrs Sex: Female : 1980 Arrival Date: 05/18/2023 Time: 10:16 Bed 5 Private MD: Diagnosis: Chest pain, unspecified Presentation: 05/18 10:20 Chief complaint: Patient states: Pt began having SOB, chest pressure and chest pain rs5 that started yesterday afternoon, worse this morning. Coronavirus screen: At this time, the client does not indicate any symptoms associated with coronavirus-19. Ebola Screen: No symptoms or risks identified at this time. 10:20 Method Of Arrival: Ambulatory rs5 10:20 Initial Sepsis Screen: Does the patient meet any 2 criteria? RR > 20 per min. Yes Does rs5 the patient have a suspected source of infection? No. Patient's initial sepsis screen is negative. Risk Assessment: Do you want to hurt yourself or someone else? Patient reports no desire to harm self or others. Onset of symptoms was May 18, 2023. 10:20 Acuity: JEYSON 2 rs5 ADMINISTRATION DEAN: 15:05 4, Full Term 0, Premature 0, 0, Living 4, unknown rs5 Historical: - Allergies: 10:52 No Known Allergies; rs5 - PMHx: 10:52 Diabetes - NIDDM; Hyperlipidemia; Hypertension; rs5 - PSHx: 10:52 None; rs5 - Immunization history:: Adult Immunizations unknown. - Social history:: Smoking status: Patient denies any tobacco usage or history of. Screenin:20 [facility] ED Fall Risk Assessment (Adult) History of falling in the last 3 months, rs5 including since admission No falls in past 3 months (0 pts) Confusion or Disorientation No (0 pts) Intoxicated or Sedated No (0 pts) Impaired Gait No (0 pts) Mobility Assist Device Used No (0 pt) Altered Elimination No (0 pt) Score/Fall Risk Level 0 - 2 = Low Risk Oriented to surroundings, Maintained a safe environment. 10:20 Abuse screen: Denies threats or abuse. Nutritional screening: No deficits noted. rs5 Tuberculosis screening: No symptoms or risk factors identified. Assessment: 10:22 General: Appears distressed, uncomfortable, Behavior is cooperative, anxious. rs5 10:22 Pain: Complains of pain in chest Pain radiates to left shoulder Pain currently is 9 out rs5 of 10 on a pain scale. Quality of pain is described as aching, heavy, pressure, Pain began 1 hour ago. Is continuous. Neuro: Level of Consciousness is awake, alert, Oriented to person, place, time, situation. Cardiovascular: Heart tones S1 S2 present Rhythm is regular. Respiratory: Airway is patent Respiratory effort is even, unlabored, Respiratory pattern is regular, symmetrical, Breath sounds are clear bilaterally. GI: Abdomen is round non-distended, Bowel sounds present X 4 quads. Abd is soft and non tender X 4 quads. : No signs and/or symptoms were reported regarding the genitourinary system. EENT: No signs and/or symptoms were reported regarding the EENT system. Derm: Skin is intact, Skin is dry, Skin is normal, Skin temperature is warm. Musculoskeletal: Range of motion: intact in all extremities. 10:34 Reassessment: Patient states symptoms have improved. rs5 10:34 Pain: Complains of pain in chest Pain radiates to left shoulder Pain currently is 4 out rs5 of 10 on a pain scale. Quality of pain is described as aching, pressure, Is continuous. Cardiovascular: Heart tones S1 S2 present Rhythm is regular. Respiratory: Airway is patent Respiratory effort is even, unlabored, Respiratory pattern is regular, symmetrical. 11:14 Reassessment: Patient states feeling better. Pain: Complains of pain in chest Pain does rs5 not radiate. Pain currently is 1 out of 10 on a pain scale. Quality of pain is described as aching, Is continuous. 11:14 Cardiovascular: Rhythm is regular. Respiratory: Airway is patent Respiratory effort is rs5 even, unlabored, Respiratory pattern is regular, symmetrical. 11:30 Reassessment: Provider notified pt is experiencing pain. Pain: Complains of pain in rs5 chest Pain radiates to left shoulder Pain currently is 6 out of 10 on a pain scale. Quality of pain is described as aching, heavy, Is continuous. Cardiovascular: Rhythm is regular. 12:36 Reassessment: Patient and/or family updated on plan of care and expected duration. Pain rs5 level reassessed. Patient is alert, oriented x 3, equal unlabored respirations, skin warm/dry/pink. 13:36 Cardiovascular: Denies chest pain, Heart tones S1 S2 present Rhythm is regular. rs5 13:36 Respiratory: Airway is patent Respiratory effort is even, unlabored, Respiratory rs5 pattern is regular, symmetrical, Breath sounds are clear bilaterally. 14:25 Reassessment: No changes from previously documented assessment. rs5 15:30 Reassessment: Pt has been hospitalized, 2 failed attempts to call report. rs5 15:47 Reassessment: Successfully attempt to call report. rs5 Vital Signs: 10:20 BP 123 / 77; Pulse 80; Resp 21; Temp 97.8(O); Pulse Ox 98% ; rs5 10:22 BP 123 / 77; Pulse 80; Resp 20; Temp 97.9; Pulse Ox 97% on R/A; rs5 10:30 BP 121 / 72; Pulse 82; Resp 19; Pulse Ox 98% on 2 lpm NC; rs5 10:34 BP 107 / 62; Pulse 88; Resp 18; Pulse Ox 98% on 2 lpm NC; rs5 10:45 BP 91 / 68; Pulse 72; Resp 17; Pulse Ox 99% on 2 lpm NC; rs5 11:00 BP 113 / 67; Pulse 73; Resp 18; Pulse Ox 99% on 2 lpm NC; rs5 12:15 BP 115 / 74; Pulse 65; Resp 17; Pulse Ox 99% on R/A; rs5 13:20 BP 117 / 77; Pulse 69; Resp 18; Pulse Ox 99% on R/A; rs5 14:25 BP 101 / 66; Pulse 75; Resp 17; Pulse Ox 99% on R/A; rs5 15:40 BP 105 / 65; Pulse 77; Resp 17; Pulse Ox 99% on R/A; rs5 ED Course: 10:18 Patient arrived in ED. ts1 10:19 Bob Rai MD is Attending Physician. rt 10:20 Patient has correct armband on for positive identification. Placed in gown. Bed in low rs5 position. Call light in reach. Side rails up X2. Client placed on continuous cardiac and pulse oximetry monitoring. NIBP monitoring applied. monitor and storage bin tender on. Pulse ox on. NIBP on. 10:25 Inserted saline lock: 20 gauge in left antecubital area, using aseptic technique. Blood rs5 collected. 10:25 Oxygen administration via nasal cannula \T\ 2L/min. rs5 10:28 Perfecto Ramirez, RN is Primary Nurse. rs5 10:52 Triage completed. rs5 11:29 XRAY Chest (1 view) In Process Unspecified. EDMS 12:06 Kiet Martin is Hospitalizing Provider. rt 15:05 No provider procedures requiring assistance completed. rs5 16:03 Patient admitted, IV remains in place. rs5 Administered Medications: 10:28 Drug: Nitroglycerin Sublingual 0.4 mg Sublingual once; every five minute if needed x3 rs5 Route: Sublingual; 10:34 Follow up: Response: No adverse reaction; Pain is decreased rs5 11:02 Drug: Aspirin PO Chewable Tablet 324 mg PO once; 81 mg tablets x 4 Route: PO; rs5 11:06 Drug: NS 0.9% IV 1000 ml IV at 1 bolus Per protocol; 1000 mL bolus Route: IV; Rate: 1 rs5 bolus; Site: left antecubital; 11:09 Drug: Nitroglycerin Sublingual 0.4 mg Sublingual once; every five minute if needed x3 rs5 Route: Sublingual; 11:14 Follow up: Response: No adverse reaction; Pain is decreased rs5 11:16 Follow up: Third dose of Nitro not given per MD orders rs5 11:37 Drug: fentaNYL (PF) IVP 50 mcg IVP once Route: IVP; Site: left antecubital; rs5 12:05 Follow up: Response: No adverse reaction; Pain is decreased rs5 Medication: 15:05 VIS not applicable for this client. rs5 Intake: Outcome: 12:07 Decision to Hospitalize by Provider. rt 16:03 Admitted to Med/surg accompanied by tech, via wheelchair, with chart, Report called to rsVaughn Joiner RN 16:03 Condition: stable 16:03 Discharge instructions given to patient, Instructed on the need for admit, Demonstrated understanding of instructions, 16:21 Patient left the ED. rs5 Signatures: Dispatcher [employer] [facility] Bob Rai MD MD rt Perfecto Ramirez, RN RN rs5 Rita Alegria PAS PAS ts1 Corrections: (The following items were deleted from the chart) 11:45 10:34 Pain: Complains of pain in chest Pain does not radiate. Pain currently is 4 out rs5 of 10 on a pain scale. Quality of pain is described as aching, pressure, Is continuous, rs5 11:45 10:22 Pain: Complains of pain in chest Pain does not radiate. Pain currently is 9 out rs5 of 10 on a pain scale. Quality of pain is described as aching, heavy, pressure, Pain began 1 hour ago. Is continuous, rs5 : 10:22 Cardiovascular: Heart tones S1 S2 present Rhythm is regular rs5 rs5
[2023-05-18] MEDS ORDERED: ONDANSETRON 4 MG/2 ML VIAL IV PRN (12:51)
--- NOTE | 2023-05-18 13:12 | P.HP ---
Certification for Inpatient Patient admitted to: Observation With expected LOS: >2 Midnights Patient will require the following post-hospital care: None Practitioner: I am a practitioner with admitting privileges, knowledge of patient current condition, hospital course, and medical plan of care. Services: Services provided to patient in accordance with Admission requirements found in Title 42 Section 412.3 of the Code of Federal Regulations Patient History Date of Service: 05/18/23 Reason for admission: Chest pain History of Present Illness: Marisabel Landon is a 42-year-old female with past medical history IDDM, HTN, and HLD who presents to the ED complaining of chest pain, SOB, palpitations, headache. She explains the chest pain started at 8 AM this morning, it is really bad today radiating down her left arm, "feeling sharp that it takes away her breath". She reports her last episode was in February, and she has an appointment to see a frozen meat cutter June 05. She also reports her blood sugar has been high over 200 at home and took 60 units of insulin as well as 850 mg of metformin yesterday. Of note she also states she has fallen recently, 6 times. It feels as if her legs do not want to stand. She is complaining of neck pressure to the back of her neck. Initial vitals BP 123/77, HR 80, respirations 21, temp 97, pulse ox 98% on room air. Significant labs troponin 3.3, BNP 31, WBC 10.10, H&H 11.6/34.9 While in the ED she was given nitroglycerin, aspirin, 1 L NS bolus, and fentanyl. Chest x-ray reports lungs appear clear of acute infiltrate, heart is normal size, no acute abnormalities displayed. Marisabel will be admitted to hospitalist service for further evaluation and treatment of chest pain rule out ACS. Allergies No Known Allergies Allergy (Verified 05/18/23 13:52) Home Medications: Insulin Detemir [Levemir Flexpen] 30 unit SQ DAILY 05/18/23 Sitagliptin Phos/Metformin HCl [Janumet 50-1,000 mg Tablet] 1 each PO BID 05/18/23 gemfibroziL [Gemfibrozil] 1 tab PO BID 05/18/23 Review of Systems General: Weakness, Other (headache) Eyes: Unremarkable ENT: Unremarkable Respiratory: Cough, Shortness of Breath Cardiovascular: Chest Pain, Palpitations Gastrointestinal: Unremarkable Genitourinary: Unremarkable Musculoskeletal: Neck Pain (to back of neck) Integumentary: Unremarkable Neurological: Weakness (bilateral legs) Physical Examination - Physical Exam General: Alert, In no apparent distress, Oriented x3, Other (uncomfortable) HEENT: Atraumatic, Normocephalic, PERRLA Neck: Supple, 2+ carotid pulse no bruit, JVD not distended Respiratory: Clear to auscultation bilaterally, Normal air movement Cardiovascular: No edema, Normal pulses, Regular rate/rhythm, Normal S1 S2 Capillary refill: <2 Seconds Gastrointestinal: Normal bowel sounds, Soft and benign Musculoskeletal: No clubbing, No swelling, No contractures Integumentary: No rashes, No breakdown, No significant lesion Neurological: Normal gait, Normal speech, Normal strength at 5/5 x4 extr, Normal tone Lymphatics: No axilla or inguinal lymphadenopathy - Studies Laboratory Data (last 24 hrs) 05/18/23 05/18/23 10:40 10:40 WBC 10.10 Hgb 11.6 L Hct 34.9 L Plt Count 340 Sodium 133 L Potassium 3.5 BUN 9 Creatinine 0.65 Glucose 283 H Magnesium 1.8 Total Bilirubin 0.3 AST 8 L ALT 17 Alkaline Phosphatase 95 Assessment and Plan - Plan Assessment and Plan Chest Pain r/o Acute Coronary Syndrome. - Evaluation thus far: - EKG: No obvious ST segment changes, trend - Serial troponin 3.3, redraw pending - transthoracic echocardiogram pending - chest x-ray - d-dimer >600, VQ scan ordered - Management plan: - Consult Cardiology - recommendations appreciated - S/P aspirin 324 mg PO x 1 in ED - Start daily baby aspirin - Symptom control with PRN acetaminophen, nitroglycerin, morphine - If CAD is confirmed, plan to start beta-cassandra, LIZETH-inhibitor/ARB, statin with 24 hours IDDM -accucheck with SSI -Serum glucose 283 HTN HLD restart home medications DVT ppx: Lovenox Full code LOS 2 days Discharge Plan: Home Plan to discharge in: 48 Hours - Advance Directives Does patient have a Living Will: No Does patient have a Durable POA for Healthcare: No Time Spent Managing Pts Care (In Minutes): 55
[2023-05-18] MEDS ORDERED: NITROGLYCERIN 0.4 MG/TAB SL PRN (13:23)
[2023-05-18 13:48] VITALS: BMI 30.1
[2023-05-18 14:32] LABS: Thyroid Stimulating Hormone 1.24 uIU/mL (0.358-3.740)
[2023-05-18] MEDS ORDERED: PNEUMOCOCCAL VACCINE 0.5 ML IMVAC ONE (15:00)
[2023-05-18] MEDS ORDERED: INFLUENZA VACCINE (for 6+ mo) 0.5 ML DOSE IMVAC ONE (16:00)
[2023-05-18] MEDS: INSULIN REGULAR (HUMAN) 100 UNIT/ML SQ SCH ×2 (16:30→20:25)
[2023-05-18 19:35] VITALS: O2SAT 100
[2023-05-18] MEDS ORDERED: POTASSIUM 25 MEQ EFFERV TAB PO ONE (20:00)
[2023-05-18] MEDS ORDERED: MAGNESIUM SULFATE 1 gm IVPB 1 GM/100 ML BAG IV ONE (20:00)
--- NOTE | 2023-05-18 20:15 | RAD REPORT ---
EXAM DESCRIPTION: CT - Chest For Pe Angio - 05/18/2023 7:39 pm CLINICAL HISTORY: elevated d dimer COMPARISON: Chest Single View dated 05/18/2023 TECHNIQUE: Thin axial CT images of the chest were obtained following administration of 100 mL mL Iso michelle 370 IV contrast. Multiplanar reconstructions, and maximum intensity projection reconstructions we re generated and reviewed. Exam utilizes a protocol for optimal evaluation of pulmonary arterial tree . All CT scans are performed using dose optimization technique as appropriate and may include automated exposure control or mA/KV adjustment according to patient size. FINDINGS: Pulmonary arteries are normal. No emboli or other suspicious finding. No acute or signific ant aorta findings. No mass or infiltrate in the lung parenchyma. No pleural thickening or pleural effusion. No pneumotho rax. No abnormal mediastinal or hilar masses or lymphadenopathy seen. No chest wall mass or abnormal axill iary lymphadenopathy. IMPRESSION: No evidence of acute central pulmonary emboli. No acute pulmonary process.
[2023-05-18] MEDS: gemfibroziL 600 MG TAB PO SCH (20:25)
[2023-05-18] MEDS ORDERED: MORPHINE 4 MG/ML SYR IV PRN (20:53)
[2023-05-19 03:14] LABS: Absolute Lymphocytes (CBC) 3.3 K/uL (0.7-4.9); Hematocrit 31.7 % (36.0-45.0); Lymphocytes % 32.9 % (15.3-44.8); Platelets 317 thou/uL (152-406); RBC Red Blood Cell Count 4.23 M/uL (3.86-4.86)
[2023-05-19 03:15] LABS: Magnesium 2.3 mg/dL (1.6-2.4); Phosphorus 2.7 mg/dL (2.5-4.9); Potassium 4.2 mEq/L (3.5-5.1)
[2023-05-19] MEDS: gemfibroziL 600 MG TAB PO SCH (08:09)
[2023-05-19] MEDS ORDERED: INSULIN GLARGINE 100 UNIT/ML SQ SCH (09:00)
[2023-05-19] MEDS ORDERED: ASPIRIN EC 81 MG TAB PO SCH (09:00)
[2023-05-19] MEDS ORDERED: ENOXAPARIN 40 MG/0.4 ML SQ SCH (09:00)
--- NOTE | 2023-05-19 09:19 | P.DS ---
Admission Date: 05/18/23 Discharge Date: 05/19/23 Reason for Admission: Chest pain Brief History of Present Illness: Marisabel Landon is a 42-year-old female with past medical history IDDM, HTN, and HLD who presents to the ED complaining of chest pain, SOB, palpitations, headache. She explains the chest pain started at 8 AM this morning, it is really bad today radiating down her left arm, "feeling sharp that it takes away her breath". She reports her last episode was in February, and she has an appointment to see a angular developer June 05. She also reports her blood sugar has been high over 200 at home and took 60 units of insulin as well as 850 mg of metformin yesterday. Of note she also states she has fallen recently, 6 times. It feels as if her legs do not want to stand. She is complaining of neck pressure to the back of her neck. Initial vitals BP 123/77, HR 80, respirations 21, temp 97, pulse ox 98% on room air. Significant labs troponin 3.3, BNP 31, WBC 10.10, H&H 11.6/34.9 While in the ED she was given nitroglycerin, aspirin, 1 L NS bolus, and fent anyl. Chest x-ray reports lungs appear clear of acute infiltrate, heart is normal size, no acute abnormalities displayed. Marisabel will be admitted to hospitalist service for further evaluation and tr eatment of chest pain rule out ACS. Hospital Course: Marisabel Landon is a pleasant 42-year-old female with a past medical history significant for IDDM, HTN, HLD, and multiple visit to ED with chest pain, SOB, palpitations, and CALLAHAN who was admitted to the [facility] on 05/18/2023 for chest pain. Marisabel presented to the ED with Chest pain earlier that day. Cardiac enzymes negative, EKG negative for ST elevation, D dimer elevated. CT chest angio shows no PE present. Marisabel tolerated nitroglycerin, aspirin, and IVFs. She is ambulating independently in her room, tolerating PO diet, no chest pain this morning, denies fever, chills, cough, and SOB. On 05/19/23, Marisabel was seen on morning rounds and deemed medically stable for discharge. Marisabel was discharged with instructions to schedule follow-up appointments with Die Filer. No prescriptions necessary for this admission. The patient and family members were given the opportunity to ask questions and reported no further questions. Furthermore, all questions were answered to the best of my ability. A copy of this discharge summary will be sent to the above providers to facilit ate continuity of care. Today, I personally spent 55 minutes with 50, of which greater than 50% of the time was spent in patient education, counseling, and coordination of care as described above. Physical Exam General: Alert, In no apparent distress, Oriented x3, Other (uncomfortable) HEENT: Atraumatic, Normocephalic, PERRLA Neck: Supple, 2+ carotid pulse no bruit, JVD not distended Respiratory: Clear to auscultation bilaterally, Normal air movement Cardiovascular: No edema, Normal pulses, Regular rate/rhythm, Normal S1 S2 Capillary refill: <2 Seconds Gastrointestinal: Normal bowel sounds, Soft and benign Musculoskeletal: No clubbing, No swelling, No contractures Integumentary: No rashes, No breakdown, No significant lesion Neurological: Normal gait, Normal speech, Normal strength at 5/5 x4 extr, Normal tone Lymphatics: No axilla or inguinal lymphadenopathy <Elissa Evans - Last Filed: 05/19/23 09:49> Admission Date: 05/18/23 Discharge Date: 05/19/23 - Problems (1) Chest pain Status: Acute (2) Type 2 diabetes mellitus Status: Acute (3) Hyperlipidemia Status: Acute (4) Essential hypertension Status: Acute <han reynolds - Last Filed: 05/19/23 16:50> Disposition: ROUTINE DISCHARGE Discharge Condition: GOOD Vital Signs/Physical Exam: Temp Pulse Resp BP Pulse Ox 96.9 F 65 18 98/52 L 99 05/19/23 00:00 05/19/23 00:00 05/19/23 00:00 05/19/23 00:00 05/19/23 00:00 Laboratory Data at Discharge: WBC 10.00 thou/uL (4.3-10.9) 05/19/23 02:21 Hgb 10.5 g/dL (12.0-15.0) L D 05/19/23 02:21 Hct 31.7 % (36.0-45.0) L 05/19/23 02:21 Plt Count 317 thou/uL (152-406) 05/19/23 02:21 Sodium 135 mEq/L (136-145) L 05/19/23 02:21 Potassium 4.2 mEq/L (3.5-5.1) D 05/19/23 02:21 BUN 12 mg/dL (7-18) 05/19/23 02:21 Creatinine 0.85 mg/dL (0.55-1.02) 05/19/23 02:21 Glucose 177 mg/dL (74-106) H 05/19/23 02:21 Phosphorus 2.7 mg/dL (2.5-4.9) 05/19/23 02:21 Magnesium 2.3 mg/dL (1.6-2.4) 05/19/23 02:21 Total Bilirubin 0.3 mg/dL (0.2-1.0) 05/18/23 10:40 AST 8 U/L (15-37) L 05/18/23 10:40 ALT 17 U/L (13-56) 05/18/23 10:40 Alkaline Phosphatase 95 U/L (45-117) 05/18/23 10:40 Triglycerides 336 mg/dL (<150) H 05/19/23 02:21 Cholesterol 158 mg/dL (<200) 05/19/23 02:21 HDL Cholesterol 31 mg/dL (40-60) L 05/19/23 02:21 Cholesterol/HDL Ratio 5.10 05/19/23 02:21 <Elissa Evans - Last Filed: 05/19/23 09:49> Vital Signs/Physical Exam: Temp Pulse Resp BP Pulse Ox 97.1 F 82 16 114/61 100 05/19/23 08:00 05/19/23 08:00 05/19/23 08:00 05/19/23 08:00 05/19/23 08:00 Laboratory Data at Discharge: WBC 10.00 thou/uL (4.3-10.9) 05/19/23 02:21 Hgb 10.5 g/dL (12.0-15.0) L D 05/19/23 02:21 Hct 31.7 % (36.0-45.0) L 05/19/23 02:21 Plt Count 317 thou/uL (152-406) 05/19/23 02:21 Sodium 135 mEq/L (136-145) L 05/19/23 02:21 Potassium 4.2 mEq/L (3.5-5.1) D 05/19/23 02:21 BUN 12 mg/dL (7-18) 05/19/23 02:21 Creatinine 0.85 mg/dL (0.55-1.02) 05/19/23 02:21 Glucose 177 mg/dL (74-106) H 05/19/23 02:21 Phosphorus 2.7 mg/dL (2.5-4.9) 05/19/23 02:21 Magnesium 2.3 mg/dL (1.6-2.4) 05/19/23 02:21 Total Bilirubin 0.3 mg/dL (0.2-1.0) 05/18/23 10:40 AST 8 U/L (15-37) L 05/18/23 10:40 ALT 17 U/L (13-56) 05/18/23 10:40 Alkaline Phosphatase 95 U/L (45-117) 05/18/23 10:40 Triglycerides 336 mg/dL (<150) H 05/19/23 02:21 Cholesterol 158 mg/dL (<200) 05/19/23 02:21 HDL Cholesterol 31 mg/dL (40-60) L 05/19/23 02:21 Cholesterol/HDL Ratio 5.10 05/19/23 02:21 <han reynolds - Last Filed: 05/19/23 16:50> Diet: ADA Activity: Ad kan Time spent managing pt's care (in minutes): 55 <Elissa Evans - Last Filed: 05/19/23 09:49> <han reynolds - Last Filed: 05/19/23 16:50> Home Medications: Insulin Detemir [Levemir Flexpen] 30 unit SQ DAILY 05/18/23 Sitagliptin Phos/Metformin HCl [Janumet 50-1,000 mg Tablet] 1 each PO BID 05/18/23 gemfibroziL [Gemfibrozil] 1 tab PO BID 05/18/23 Physician Discharge Instructions: 1. Please call and schedule a follow-up appointment with your PCP in 3-5 days - Please follow-up with your PCP for medication refills/adjustments 2. Keep appointment with Die Filer in June 01 no activity restrictions, use caution when feeling dizzy 4. continue with diabetes regimen, check glucose with each meal and an hour after using insulin. Discuss adjustments needed with PCP. %. return to ED if symptoms return or worsen No new medications this admission Followup: Unknown,U [Primary Care Provider] - (call vanessa wodoard an appointment in 3-5 days )
[2023-05-19 10:04] VITALS: BP 114/61; TEMP 97.1
--- NOTE | 2023-05-21 06:45 | ECHO ---
HEIGHT: 5 ft 3 in WEIGHT: 172 lb 0 oz DATE OF STUDY: 05/18/[address]: Elissa Evans NP 2-DIMENSIONAL: YES M.MODE: YES DOPPLER: YES COLOR FLOW: YES TDS: PORTABLE: DEFINITY: BUBBLE STUDY: DIAGNOSIS: CHEST PAIN CARDIAC HISTORY: CATHERIZATION: NO SURGERY: NO PROSTHETIC VALVE: NO PACEMAKER: NO MEASUREMENTS (cm) DIASTOLIC (NORMALS) SYSTOLIC (NORMALS) IVSd 1.1 (0.6-1.2) LA Diam 3.5 (1.9-4.0) LVEF 55-60% LVIDd 3.9 (3.5-5.7) LVIDs 2.9 (2.0-3.5) %FS % LVPWd 1.1 (0.6-1.2) Ao Diam 2.4 (2.0-3.7) 2 DIMENSIONAL ASSESSMENT: RIGHT ATRIUM: NORMAL LEFT ATRIUM: NORMAL RIGHT VENTRICLE: NORMAL LEFT VENTRICLE: NORMAL TRICUSPID VALVE: MILD TRICUSPID REGURGITATION MITRAL VALVE: MILD MITRAL REGURGITATION PULMONIC VALVE: NORMAL AORTIC VALVE: NORMAL PERICARDIAL EFFUSION: NONE AORTIC ROOT: NORMAL LEFT VENTRICULAR WALL MOTION: NORMAL DOPPLER/COLOR FLOW: SEE BELOW COMMENTS: 1. NORMAL LEFT VENTRICULAR EJECTION FRACTION 55-60% 2. NORMAL WALL MOTION 3. NORMAL DIASTOLIC FUNCTION 4. MILD TRICUSPID REGURGITATION 5. TRACE MITRAL REGURGITATION TECHNOLOGIST: QUINCY MALONE
--- NOTE | 2023-05-21 18:09 | EKG ---
Test Date: 2023-05-18 Test Time: 10:29:00 Supervisor Home Energy Consultant: OLMAN MEASUREMENT RESULTS: Intervals: Rate: 76 WA: 156 QRSD: 96 QT: 392 QTc: 441 [place]ford: P: 56 WA: 156 QRS: 33 T: 40 INTERPRETIVE STATEMENTS: Normal sinus rhythm Normal ECG No previous ECG available for comparison Electronically Signed On 05-21-23 18:06:34 CDT by Aman Lazcano
== END 2023-05-19 09:00 | disposition home or self-care (01) ==
LOC: ER 10:16 → ERHOLD 12:54 → 4TH 15:14
PROVIDERS: ADMIT Internal Medicine; ATTEND Internal Medicine
DX: R07.9 Chest pain, unspecified (principal); E11.8 Type 2 diabetes mellitus with unspecified complications; I10 Essential (primary) hypertension; E78.5 Hyperlipidemia, unspecified; R51.9 Headache, unspecified; R06.02 Shortness of breath; R00.2 Palpitations; Z79.4 Long term (current) use of insulin; Z91.81 History of falling
CPT/HCPCS: 36415; 71045; 71275; 80048; 80061; 80076; 82947; 83735; 83880; 84100; 84439; 84443; 84484; 84703; 85025; 85379; 93005; 93306; 96374; 99285; G0378; J1650; J1815; J2405; J3010; J7030; Q9967